=== PATIENT | female | born 1965 | race Caucasian/White ===

== ENCOUNTER 2017-07-21 18:26 | Inpatient (IN) | payer SELFPAY ==
[~2017-07-21] VITALS: Ht 167.6 cm; Wt 75.3 kg
--- NOTE | 2017-07-21 18:34 | PHYS DOC ---
Adult General Chief Complaint Chief Complaint: CHEST PAIN HPI HPI Patient is a 51 year old female who presents with chest pain. She was at [employer] playing [employer] when she became short of breath with right-sided chest pressure and got the chills. She states she felt nauseated slightly but denies any vomiting. She states she has a history of hypertension, diabetes, dyslipidemia, depression and hypothyroidism. She's never had a cardiac workup before. Her mom had a heart attack at age of 65 and had to have stents placed. She does smoke 2 packs per day. She denies any illicit drug abuse. EMS gave her nitro paste and she states this did improve her discomfort. Review of Systems Review of Systems Constitutional: Denies fever or chills [] Eyes: Denies change in visual acuity, redness, or eye pain [] HENT: Denies nasal congestion or sore throat [] Respiratory: Denies cough or shortness of breath [] Cardiovascular: No additional information not addressed in HPI [] GI: Denies abdominal pain, nausea, vomiting, bloody stools or diarrhea [] : Denies dysuria or hematuria [] Musculoskeletal: Denies back pain or joint pain [] Integument: Denies rash or skin lesions [] Neurologic: Denies headache, focal weakness or sensory changes [] Endocrine: Denies polyuria or polydipsia [] All other systems were reviewed and found to be within normal limits, except as documented in this note. Current Medications Current Medications Current Medications Medications (Trade) Dose Ordered Sig/Arnold Start Time Stop Time Status Last Admin Dose Admin Morphine Sulfate 4 mg PRN Q15MIN PRN 07/21/17 19:45 07/22/17 19:44 07/21/17 19:48 4 MG Ondansetron HCl (Zofran) 4 mg 1X ONCE 07/21/17 19:45 07/21/17 19:46 DC 07/21/17 19:47 4 MG Allergies Allergies Allergies Coded Allergies Type Severity Reaction Last Updated Verified No Known Drug Allergies 07/21/17 No Physical Exam Physical Exam Constitutional: Well developed, well nourished, no acute distress, non-toxic appearance. [] HENT: Normocephalic, atraumatic, bilateral external ears normal, oropharynx moist, no oral exudates, nose normal. [] Eyes: PERRLA, EOMI, conjunctiva normal, no discharge. [] Neck: Normal range of motion, no tenderness, supple, no stridor. [] Cardiovascular:Heart rate regular rhythm, no murmur [] Lungs & Thorax: Bilateral breath sounds clear to auscultation [] Abdomen: Bowel sounds normal, soft, no tenderness, no masses, no pulsatile masses. [] Skin: Warm, dry, no erythema, no rash. [] Back: No tenderness, no CVA tenderness. [] Extremities: No tenderness, no cyanosis, no clubbing, ROM intact, no edema. [] Neurologic: Alert and oriented X 3, normal motor function, normal sensory function, no focal deficits noted. [] Psychologic: Affect normal, judgement normal, mood normal. [] Current Patient Data Vital Signs Vital Signs Date Time Temp Pulse Resp B/P (MAP) Pulse Ox O2 Delivery O2 Flow Rate FiO2 07/21/17 20:30 56 106/54 (71) 97 Room Air 07/21/17 18:32 98.3 20 98.3 Lab Values Laboratory Tests Test 07/21/17 18:32 07/21/17 18:33 Sodium Level 138 mmol/L (136-145) Potassium Level 3.8 mmol/L (3.5-5.1) Chloride Level 102 mmol/L (98-107) Carbon Dioxide Level 27 mmol/L (21-32) Anion Gap 9 (6-14) Blood Urea Nitrogen 13 mg/dL (7-20) Creatinine 0.9 mg/dL (0.6-1.0) Estimated GFR (Cockcroft-Gault) 66.3 Glucose Level 198 mg/dL (70-99) H Calcium Level 8.1 mg/dL (8.5-10.1) L Total Bilirubin 0.2 mg/dL (0.2-1.0) Direct Bilirubin < 0.1 mg/dL (0.0-0.2) Aspartate Amino Transferase (AST) 16 U/L (15-37) Alanine Aminotransferase (ALT) 20 U/L (14-59) Alkaline Phosphatase 92 U/L (46-116) Troponin I Quantitative < 0.017 ng/mL (0.000-0.055) YU-Xxt-B-Type Natriuretic Peptide 396 pg/mL (0-124) H Total Protein 7.3 g/dL (6.4-8.2) Albumin 3.7 g/dL (3.4-5.0) Lipase 911 U/L (73-393) H Ethyl Alcohol Level 59 mg/dL (0-10) H White Blood Count 9.2 x10^3/uL (4.0-11.0) Red Blood Count 4.38 x10^6/uL (3.50-5.40) Hemoglobin 13.8 g/dL (12.0-15.5) Hematocrit 40.1 % (36.0-47.0) Mean Corpuscular Volume 92 fL (79-100) Mean Corpuscular Hemoglobin 32 pg (25-35) Mean Corpuscular Hemoglobin Concent 35 g/dL (31-37) Red Cell Distribution Width 12.4 % (11.5-14.5) Platelet Count 258 x10^3/uL (140-400) Neutrophils (%) (Auto) 61 % (31-73) Lymphocytes (%) (Auto) 30 % (24-48) Monocytes (%) (Auto) 7 % (0-9) Eosinophils (%) (Auto) 2 % (0-3) Basophils (%) (Auto) 1 % (0-3) Neutrophils # (Auto) 5.6 x10^3uL (1.8-7.7) Lymphocytes # (Auto) 2.7 x10^3/uL (1.0-4.8) Monocytes # (Auto) 0.6 x10^3/uL (0.0-1.1) Eosinophils # (Auto) 0.2 x10^3/uL (0.0-0.7) Basophils # (Auto) 0.1 x10^3/uL (0.0-0.2) Prothrombin Time 12.1 SEC (11.7-14.0) Prothrombin Time INR 1.0 (0.8-1.1) PTT 23 SEC (24-38) L Creatine Kinase 43 U/L (26-192) Creatine Kinase MB (Mass) ng/mL (0.0-3.6) Creatine Kinase MB Relative Index % (0-4) Laboratory Tests 07/21/17 18:33 Laboratory Tests 07/21/17 18:32 EKG EKG EKG shows sinus rhythm rate [address] elevations, T-wave inversions noted in leads V4 V5 V6, QTC 4 and 49 ms, normal axis, as interpreted by me. Radiology/Procedures Radiology/Procedures One view chest x-ray did not show any focal salt elevations, bony abnormality's , pneumothorax, as interpreted by me.[] Impressions: Chest pain Pancreatitis Course & Med Decision Making Course & Med Decision Making Pertinent Labs and Imaging studies reviewed. (See chart for details) EKG does show T-wave inversions in the lateral leads, she states it feels similar to her previous pancreatitis but just not as severe. She does have alcohol in her system. He was given a full dose aspirin and made nothing by mouth and admitted the hospitalist. We will consult cardiology. She does have Nitropaste on currently. Dragon Disclaimer Dragon Disclaimer This electronic medical record was generated, in whole or in part, using a voice recognition dictation system. Departure Departure Impression: Primary Impression: Chest pain Disposition: ADMITTED INPATIENT Admitting Physician: Bela Carreon Condition: STABLE TREVIN SINCLAIR MD Jul 21, 2017 18:34
[2017-07-21 18:49] LABS: BASO # 0.1 x10^3/uL (0.0-0.2); BASO % 1 % (0-3); EOS % 2 % (0-3); HEMATOCRIT 40.1 % (36.0-47.0); HEMOGLOBIN 13.8 g/dL (12.0-15.5); LYMPH # 2.7 x10^3/uL (1.0-4.8); LYMPH % 30 % (24-48); MEAN CORPUSCULAR HEMOGLOBIN 32 pg (25-35); MEAN CORPUSCULAR HGB CONC 35 g/dL (31-37); MEAN CORPUSCULAR VOLUME 92 fL (79-100); MONO % 7 % (0-9); NEUT % 61 % (31-73); PLATELET COUNT 258 x10^3/uL (140-400); RED BLOOD COUNT 4.38 x10^6/uL (3.50-5.40); RED CELL DISTRIBUTION WIDTH 12.4 % (11.5-14.5); WHITE BLOOD COUNT 9.2 x10^3/uL (4.0-11.0)
[2017-07-21 18:58] LABS: PROTHROMBIN TIME PATIENT 12.1 SEC (11.7-14.0)
[2017-07-21 19:01] LABS: ANION GAP 9 (6-14); BLOOD UREA NITROGEN 13 mg/dL (7-20); CALCIUM 8.1 mg/dL (8.5-10.1); CARBON DIOXIDE 27 mmol/L (21-32); CHLORIDE 102 mmol/L (98-107); CREATININE 0.9 mg/dL (0.6-1.0); GFR 66.3; GLUCOSE 198 mg/dL (70-99); POTASSIUM 3.8 mmol/L (3.5-5.1); SODIUM 138 mmol/L (136-145)
[2017-07-21 19:07] LABS: ALBUMIN 3.7 g/dL (3.4-5.0); ALK PHOS 92 U/L (46-116); ALT (SGPT) 20 U/L (14-59); AST (SGOT) 16 U/L (15-37); DIRECT BILIRUBIN < 0.1 mg/dL (0.0-0.2); TOTAL BILIRUBIN 0.2 mg/dL (0.2-1.0); TOTAL PROTEIN 7.3 g/dL (6.4-8.2)
[2017-07-21 19:14] LABS: CREATINE KINASE 43 U/L (26-192)
--- NOTE | 2017-07-21 19:34 | EKG ---
[facility] [address] [place] [id number] Test Date: 2017-07-21 Test Time: 18:31:35 Pat Name: JERRICA BURNETT Department: Room: Gender: F [employer]: : 1965 Requested By: JAZZMINE HUDDLESTON Order Number: [id number] Reading MD: Measurements Intervals [place] Rate: 62 P: 43 MN: 158 QRS: 27 QRSD: 102 T: 26 QT: 440 QTc: 449 Interpretive Statements SINUS RHYTHM ST & T ABNORMALITY, CONSIDER ANTEROLATERAL ISCHEMIA OR LEFT VENTRICULAR STRAIN T ABNORMALITY IN INFEROLATERAL LEADS ABNORMAL ECG RI6.01 No previous ECG available for comparison
[2017-07-21] MEDS ORDERED: MORPHINE SULFATE 4 MG/ML DISP.SYRIN. IV/SQ PRN (19:45)
[2017-07-21] MEDS ORDERED: ONDANSETRON PF 4 MG/2 ML VIAL. IV ONE (19:45)
[2017-07-21] MEDS ORDERED: ASPIRIN 325 MG TABLET PO ONE (21:30)
[2017-07-21] MEDS ORDERED: ONDANSETRON PF 4 MG/2 ML VIAL. IV PRN (21:30)
[2017-07-21] MEDS ORDERED: IV DEXTROSE 5 %-0.45 % NACL 1,000 ML IV ONE (22:15)
[2017-07-21] MEDS ORDERED: METF500T4 PO (22:15)
[2017-07-21 22:33] VITALS: BP 117/69
[2017-07-21] MEDS: MORPHINE SULFATE 4 MG/ML DISP.SYRIN. IV PRN (22:39)
[2017-07-22 03:09] VITALS: BP 98/62
[2017-07-22 04:54] LABS: BASO % 0 % (0-3); EOS % 2 % (0-3); HEMOGLOBIN 12.7 g/dL (12.0-15.5); LYMPH # 3.4 x10^3/uL (1.0-4.8); LYMPH % 32 % (24-48); MEAN CORPUSCULAR HEMOGLOBIN 31 pg (25-35); MEAN CORPUSCULAR HGB CONC 34 g/dL (31-37); MEAN CORPUSCULAR VOLUME 91 fL (79-100); MONO % 7 % (0-9); NEUT % 58 % (31-73); PLATELET COUNT 234 x10^3/uL (140-400); RED BLOOD COUNT 4.05 x10^6/uL (3.50-5.40); RED CELL DISTRIBUTION WIDTH 12.6 % (11.5-14.5); WHITE BLOOD COUNT 10.4 x10^3/uL (4.0-11.0)
[2017-07-22 05:06] LABS: CALCIUM 7.8 mg/dL (8.5-10.1); GFR 58.7
[2017-07-22 05:11] LABS: POTASSIUM 4.7 mmol/L (3.5-5.1)
[2017-07-22 07:00] VITALS: BP 130/70
[2017-07-22] MEDS: MORPHINE SULFATE 4 MG/ML DISP.SYRIN. IV PRN ×2 (07:53→12:09)
--- NOTE | 2017-07-22 09:10 | PDOC1 ---
History and Physical Date of Admission Date of Admission DATE: 07/22/17 TIME: 08:52 Source Source: Chart review, Patient History of Present Illness History of Present Illness Ms. Cage is a 51 year old female admit with acute chest pain. She was at [employer] playing [employer] when she has cold chills and sweats and then became short of breath with new right-sided chest pressure. Pain was 8 /10, and her pain was improved when the nitro patch was placed in the ER. she had 2 alcoholic drinks at the [employer] She has had an exercise stress test a few years ago, negative. she is hungry this AM. She states she has a history of hypertension, diabetes, dyslipidemia, depression and hypothyroidism. . Her mom had a heart attack at age of 65. Past Medical History Cardiovascular: HTN Pulmonary: No pertinent hx GI: No pertinent hx Heme/Onc: No pertinent hx Hepatobiliary: No pertinent hx Psych: Anxiety, Depression Musculoskeletal: low back pain Social History Smoke: 2 packs per day ALCOHOL: none Drugs: None Current Problem List Problem List Problems Medical Problems: (1) Chest pain Status: Acute Problems: Current Medications Current Medications Current Medications Morphine Sulfate 4 mg PRN Q15MIN PRN IV/SQ PAIN GREATER THAN 3/10 Last administered on 07/21/17 19:48; Start 07/21/17 at 19:45; Stop 07/22/17 at 19 :44 Ondansetron HCl (Zofran) 4 mg 1X ONCE IV Last administered on 07/21/17 19:47 ; Start 07/21/17 at 19:45; Stop 07/21/17 at 19:46; Status DC Ondansetron HCl (Zofran) 4 mg PRN Q8HRS PRN IV NAUSEA/VOMITING; Start at 21:30; Stop 07/22/17 at 21:29 Morphine Sulfate 4 mg PRN Q2HR PRN IV PAIN Last administered on 07/22/17 07: 53; Start 07/21/17 at 21:30; Stop 07/22/17 at 21:29 Aspirin (Mikaela Aspirin) 325 mg 1X ONCE PO Last administered on 07/21/17 21: 30; Start 07/21/17 at 21:30; Stop 07/21/17 at 21:43; Status DC Dextrose/Sodium Chloride 1,000 ml @ 100 mls/hr 1X ONCE IV Last administered on 07/21/17t 22:39; Start 07/21/17 at 22:15; Stop 07/22/17 at 08:14; Status DC Active Scripts Active Reported Metformin Hcl 500 Mg Tablet 500 Mg PO DAILY Allergies Allergies: Coded Allergies: No Known Drug Allergies (Unverified , 07/21/17) ROS General: YES: Chills, No: Night Sweats, Fatigue, Malaise, Appetite, Other PSYCHOLOGICAL ROS: No: Anxiety, Behavioral Disorder, Concentration difficultie , Decreased libido, Depression, Disorientation, Hallucinations, Hostility, Irritablity, Memory difficulties, Mood Swings, Obsessive thoughts, Physical abuse, Sexual abuse, Sleep disturbances, Suicidal ideation, Other Eyes: No Blurry vision, No Decreased vision, No Double vision, No Dry eyes, No Excessive tearing, No Eye Pain, No Itchy Eyes, No Loss of vision, No Photophobia , No Scotomata, No Uses contacts, No Uses glasses, No Other HEENT: No: Heacaches, Visual Changes, Hearing change, Nasal congestion, Nasal discharge, Oral lesions, Sinus pain, Sore Throat, Epistaxis, Sneezing, Snoring, Tinnitus, Vertigo, Vocal changes, Other Respiratory: No: Cough, Hemoptysis, Orthopnea, Pleuritic Pain, Shortness of breath, SOB with excertion, Sputum Changes, Stridor, Tachypnea, Wheezing, Other Cardiovascular: yes Chest Pain, No Palpitations, No Orthopnea, No Paroxysmal Noc. Dyspnea, No Edema, No Lt Headedness, No Other Gastrointestinal: No Nausea, No Vomiting, No Abdominal Pain, No Diarrhea, No Constipation, No Melena, No Hematochezia, No Other Genitourinary: No Dysuria, No Frequency, No Incontinence, No Hematuria, No Retention, No Discharge, No Urgency, No Pain, No Flank Pain, No Other, No , No , No , No , No , No , No Musculoskeletal: No Gait Disturbance, No Joint Pain, No Joint Stiffness, No Joint Swelling, No Muscle Pain, No Muscular Weakness, No Pain In:, No Swelling In:, No Other Neurological: No Behavorial Changes, No Bowel/Bladder ControlChng, No Confusion , No Dizziness, No Gait Disturbance, No Headaches, No Impaired Coord/balance, No Memory Loss, No Numbness/Tingling, No Seizures, No Speech Problems, No Tremors, No Visual Changes, No Weakness, No Other Skin: Yes Dry Skin, No Eczema, No Hair Changes, No Lumps, No Mole Changes, No Mottling, No Nail Changes, No Pruritus, No Rash, No Skin Lesion Changes, No Other, No Acne Physical Exam General: Alert, Oriented X3, Cooperative HEENT: Atraumatic, EOMI, Mucous membr. moist/pink Lungs: Clear to auscultation, Normal air movement Heart: no gallops, no murmurs Extremities: No clubbing, No edema, Normal pulses Skin: No breakdown Neuro: Normal speech, Sensation intact, Cranial nerves 3-12 NL Psych/Mental Status: Mental status NL, Mood NL Vitals Vitals Vital Signs Date Time Temp Pulse Resp B/P (MAP) Pulse Ox O2 Delivery O2 Flow Rate FiO2 07/22/17 07:53 Room Air 07/22/17 07:00 98.2 53 20 130/70 (90) 98 98.2 Labs Labs Laboratory Tests Test 07/21/17 18:32 07/21/17 18:33 07/21/17 22:33 07/22/17 03:30 Sodium Level 138 mmol/L (136-145) 137 mmol/L (136-145) Potassium Level 3.8 mmol/L (3.5-5.1) 4.7 mmol/L (3.5-5.1) Chloride Level 102 mmol/L (98-107) 102 mmol/L (98-107) Carbon Dioxide Level 27 mmol/L (21-32) 27 mmol/L (21-32) Anion Gap 9 (6-14) 8 (6-14) Blood Urea Nitrogen 13 mg/dL (7-20) 19 mg/dL (7-20) Creatinine 0.9 mg/dL (0.6-1.0) 1.0 mg/dL (0.6-1.0) Estimated GFR (Cockcroft-Gault) 66.3 58.7 Glucose Level 198 mg/dL (70-99) 263 mg/dL (70-99) Calcium Level 8.1 mg/dL (8.5-10.1) 7.8 mg/dL (8.5-10.1) Total Bilirubin 0.2 mg/dL (0.2-1.0) Direct Bilirubin < 0.1 mg/dL (0.0-0.2) Aspartate Amino Transf (AST/SGOT) 16 U/L (15-37) Alanine Aminotransferase (ALT/SGPT) 20 U/L (14-59) Alkaline Phosphatase 92 U/L (46-116) Troponin I Quantitative < 0.017 ng/mL (0.000-0.055) < 0.017 ng/mL (0.000-0.055) IY-Jzy-S-Type Natriuretic Peptide 396 pg/mL (0-124) Total Protein 7.3 g/dL (6.4-8.2) Albumin 3.7 g/dL (3.4-5.0) Lipase 911 U/L (73-393) Ethyl Alcohol Level 59 mg/dL (0-10) White Blood Count 9.2 x10^3/uL (4.0-11.0) 10.4 x10^3/uL (4.0-11.0) Red Blood Count 4.38 x10^6/uL (3.50-5.40) 4.05 x10^6/uL (3.50-5.40) Hemoglobin 13.8 g/dL (12.0-15.5) 12.7 g/dL (12.0-15.5) Hematocrit 40.1 % (36.0-47.0) 37.0 % (36.0-47.0) Mean Corpuscular Volume 92 fL (79-100) 91 fL (79-100) Mean Corpuscular Hemoglobin 32 pg (25-35) 31 pg (25-35) Mean Corpuscular Hemoglobin Concent 35 g/dL (31-37) 34 g/dL (31-37) Red Cell Distribution Width 12.4 % (11.5-14.5) 12.6 % (11.5-14.5) Platelet Count 258 x10^3/uL (140-400) 234 x10^3/uL (140-400) Neutrophils (%) (Auto) 61 % (31-73) 58 % (31-73) Lymphocytes (%) (Auto) 30 % (24-48) 32 % (24-48) Monocytes (%) (Auto) 7 % (0-9) 7 % (0-9) Eosinophils (%) (Auto) 2 % (0-3) 2 % (0-3) Basophils (%) (Auto) 1 % (0-3) 0 % (0-3) Neutrophils # (Auto) 5.6 x10^3uL (1.8-7.7) 6.0 x10^3uL (1.8-7.7) Lymphocytes # (Auto) 2.7 x10^3/uL (1.0-4.8) 3.4 x10^3/uL (1.0-4.8) Monocytes # (Auto) 0.6 x10^3/uL (0.0-1.1) 0.8 x10^3/uL (0.0-1.1) Eosinophils # (Auto) 0.2 x10^3/uL (0.0-0.7) 0.2 x10^3/uL (0.0-0.7) Basophils # (Auto) 0.1 x10^3/uL (0.0-0.2) 0.0 x10^3/uL (0.0-0.2) Prothrombin Time 12.1 SEC (11.7-14.0) Prothromb Time International Ratio 1.0 (0.8-1.1) Activated Partial Thromboplast Time 23 SEC (24-38) Creatine Kinase 43 U/L (26-192) Creatine Kinase MB (Mass) ng/mL (0.0-3.6) Creatine Kinase MB Relative Index % (0-4) Glucose (Fingerstick) 154 mg/dL (70-99) Laboratory Tests Test 07/21/17 18:32 07/21/17 18:33 07/21/17 22:33 07/22/17 03:30 Sodium Level 138 mmol/L (136-145) 137 mmol/L (136-145) Potassium Level 3.8 mmol/L (3.5-5.1) 4.7 mmol/L (3.5-5.1) Chloride Level 102 mmol/L (98-107) 102 mmol/L (98-107) Carbon Dioxide Level 27 mmol/L (21-32) 27 mmol/L (21-32) Anion Gap 9 (6-14) 8 (6-14) Blood Urea Nitrogen 13 mg/dL (7-20) 19 mg/dL (7-20) Creatinine 0.9 mg/dL (0.6-1.0) 1.0 mg/dL (0.6-1.0) Estimated GFR (Cockcroft-Gault) 66.3 58.7 Glucose Level 198 mg/dL (70-99) 263 mg/dL (70-99) Calcium Level 8.1 mg/dL (8.5-10.1) 7.8 mg/dL (8.5-10.1) Total Bilirubin 0.2 mg/dL (0.2-1.0) Direct Bilirubin < 0.1 mg/dL (0.0-0.2) Aspartate Amino Transf (AST/SGOT) 16 U/L (15-37) Alanine Aminotransferase (ALT/SGPT) 20 U/L (14-59) Alkaline Phosphatase 92 U/L (46-116) Troponin I Quantitative < 0.017 ng/mL (0.000-0.055) < 0.017 ng/mL (0.000-0.055) DV-Hab-V-Type Natriuretic Peptide 396 pg/mL (0-124) Total Protein 7.3 g/dL (6.4-8.2) Albumin 3.7 g/dL (3.4-5.0) Lipase 911 U/L (73-393) Ethyl Alcohol Level 59 mg/dL (0-10) White Blood Count 9.2 x10^3/uL (4.0-11.0) 10.4 x10^3/uL (4.0-11.0) Red Blood Count 4.38 x10^6/uL (3.50-5.40) 4.05 x10^6/uL (3.50-5.40) Hemoglobin 13.8 g/dL (12.0-15.5) 12.7 g/dL (12.0-15.5) Hematocrit 40.1 % (36.0-47.0) 37.0 % (36.0-47.0) Mean Corpuscular Volume 92 fL (79-100) 91 fL (79-100) Mean Corpuscular Hemoglobin 32 pg (25-35) 31 pg (25-35) Mean Corpuscular Hemoglobin Concent 35 g/dL (31-37) 34 g/dL (31-37) Red Cell Distribution Width 12.4 % (11.5-14.5) 12.6 % (11.5-14.5) Platelet Count 258 x10^3/uL (140-400) 234 x10^3/uL (140-400) Neutrophils (%) (Auto) 61 % (31-73) 58 % (31-73) Lymphocytes (%) (Auto) 30 % (24-48) 32 % (24-48) Monocytes (%) (Auto) 7 % (0-9) 7 % (0-9) Eosinophils (%) (Auto) 2 % (0-3) 2 % (0-3) Basophils (%) (Auto) 1 % (0-3) 0 % (0-3) Neutrophils # (Auto) 5.6 x10^3uL (1.8-7.7) 6.0 x10^3uL (1.8-7.7) Lymphocytes # (Auto) 2.7 x10^3/uL (1.0-4.8) 3.4 x10^3/uL (1.0-4.8) Monocytes # (Auto) 0.6 x10^3/uL (0.0-1.1) 0.8 x10^3/uL (0.0-1.1) Eosinophils # (Auto) 0.2 x10^3/uL (0.0-0.7) 0.2 x10^3/uL (0.0-0.7) Basophils # (Auto) 0.1 x10^3/uL (0.0-0.2) 0.0 x10^3/uL (0.0-0.2) Prothrombin Time 12.1 SEC (11.7-14.0) Prothromb Time International Ratio 1.0 (0.8-1.1) Activated Partial Thromboplast Time 23 SEC (24-38) Creatine Kinase 43 U/L (26-192) Creatine Kinase MB (Mass) ng/mL (0.0-3.6) Creatine Kinase MB Relative Index % (0-4) Glucose (Fingerstick) 154 mg/dL (70-99) VTE Prophylaxis Ordered VTE Prophylaxis Devices: Yes VTE Pharmacological Prophylaxi: No Assessment/Plan Assessment/Plan chest pain with pressure, and chills, no diaphoresis, pain improved with Nitro, consider angina ALso, lipase elevation with moderate alcohol use. Acute pancreatitis, recommend EtOH cessation NPO this AM, biotene, IV fluid tobaccoism, precontemplation, due to psych issues anxiety and depression, she is trying to qualify for disability for these HARMAN CARTER MD Jul 22, 2017 09:10
[2017-07-22] MEDS ORDERED: SALIVA STIMULANT AGENT 44ML SPRAY BOTTLE. PO PRN (09:15)
[2017-07-22] MEDS ORDERED: NICOTINE 21MG PATCH. TD PRN (09:15)
[2017-07-22] MEDS ORDERED: IV 1/2 NORMAL SALINE 1,000 ML IV ONE (09:30)
--- NOTE | 2017-07-22 09:37 | RAD ---
Single view chest 07/21/2017 Clinical indication: Chest pain. Comparison: None. Findings: There is a faint nodular opacity in the right lung base. Cardiac and mediastinal silhouettes are unremarkable. No pleural effusion, pneumothorax or focal consolidation. Impression: 1. No acute cardiopulmonary abnormality. 2. Faint nodular opacity in the right lung base which may represent nipple shadow, though noncalcified pulmonary nodule cannot be excluded. Recommend repeat exam with nipple markers or CT chest. These results were discussed with Dr. Bryant of the emergency service by telephone at 9:30 AM 07/22/[address] Martin Mejia
[2017-07-22 09:51] LABS: CHOLESTEROL/HDL RATIO 5.2
--- NOTE | 2017-07-22 10:02 | RAD ---
Ultrasound abdomen limited 07/22/2017 Clinical indication: Pancreatitis. Comparison: None. Findings: Adjacent to the pancreatic body, there is a cyst with internal debris measuring 3.5 x 3.5 x 2.8 cm. Gallbladder is normal in size and configuration without wall thickening, cholelithiasis or pericholecystic fluid. Visualized abdominal aorta and upper IVC unremarkable. Liver is homogeneous in echotexture without suspicious mass. No intra or extrahepatic biliary ductal dilatation. Common bile duct measures 7 mm. Right kidney is present measuring 10.4 cm without collecting system dilatation. Impression: 1. Pancreatic/peripancreatic cystic structure with internal debris. While findings may represent a pancreatic pseudocyst, cystic malignancy cannot be excluded. CT or MR pancreatic protocol is recommended for further evaluation. 2. No sonographic evidence of cholelithiasis or acute cholecystitis.
[2017-07-22 11:00] VITALS: BP 101/54
--- NOTE | 2017-07-22 15:12 | PDOC2 ---
CONSULT Date of Consult Date of Consult DATE: 07/22/17 TIME: 15:06 Reason for Consult Reason for Consult: Chest pain Referring Physician Referring Physician: Dr. Carreon Identification/Chief Complaint Chief Complaint Chest pain Problems: Source Source: Patient History of Present Illness Reason for Visit: The patient is a 51-year-old female who developed chest pressure and shortness of breath and a local casino last evening. She also reported some nausea. She was brought to the emergency room. There the patient's initial troponin was normal. Her EKG showed sinus rhythm with some nonspecific lateral ST changes. She has felt better overnight and this morning reports being pain-free. A second troponin level was normal. Chest x-ray shows no acute changes. However the patient has multiple risk factors including hypertension, hyperlipidemia and diabetes mellitus. She is a 2 pack per day smoker. Her mother had a myocardial infarction at age 65. Past Medical History Cardiovascular: HTN, Hyperlipidemia Pulmonary: No pertinent hx GI: No pertinent hx Heme/Onc: No pertinent hx Hepatobiliary: No pertinent hx Psych: Anxiety, Depression Musculoskeletal: low back pain Endocrine: Diabetes Past Surgical History Past Surgical History: No pertinent history Family History Family History: Coronary Artery Disease, Heart Disease Social History 2 packs per day ALCOHOL: other (possible relatively heavy alcohol use) Drugs: None Current Problem List Problem List Problems Medical Problems: (1) Chest pain Status: Acute Current Medications Current Medications Current Medications Morphine Sulfate 4 mg PRN Q15MIN PRN IV/SQ PAIN GREATER THAN 3/10 Last administered on 07/21/17 19:48; Start 07/21/17 at 19:45; Stop 07/22/17 at 14 :29; Status DC Ondansetron HCl (Zofran) 4 mg 1X ONCE IV Last administered on 07/21/17 19:47 ; Start 07/21/17 at 19:45; Stop 07/21/17 at 19:46; Status DC Ondansetron HCl (Zofran) 4 mg PRN Q8HRS PRN IV NAUSEA/VOMITING; Start at 21:30; Stop 07/22/17 at 14:29; Status DC Morphine Sulfate 4 mg PRN Q2HR PRN IV PAIN Last administered on 07/22/17 12: 09; Start 07/21/17 at 21:30; Stop 07/22/17 at 14:29; Status DC Aspirin (Mikaela Aspirin) 325 mg 1X ONCE PO Last administered on 07/21/17 21: 30; Start 07/21/17 at 21:30; Stop 07/21/17 at 21:43; Status DC Dextrose/Sodium Chloride 1,000 ml @ 100 mls/hr 1X ONCE IV Last administered on 07/21/17 22:39; Start 07/21/17 at 22:15; Stop 07/22/17 at 08:14; Status DC Lorazepam (Ativan) 1 mg PRN Q4HRS PRN IV ANXIETY / AGITATION; Start 07/22/17 at 09:15; Stop 07/22/17 at 14:29; Status DC Sodium Chloride 1,000 ml @ 100 mls/hr 1X ONCE IV Last administered on 10:42; Start 07/22/17 at 09:30; Stop 07/22/17 at 14:29; Status DC Saliva Substitute (Biotene Moisturizing Mouth) 2 spray PRN Q15MIN PRN PO DRY MOUTH; Start 07/22/17 at 09:15; Stop 07/22/17 at 14:29; Status DC Nicotine (Nicoderm Cq 21mg) 1 patch PRN DAILY PRN TD SMOKING CESSATION; Start 07/22/17 at 09:15; Stop 07/22/17 at 14:29; Status DC Active Scripts Active Reported Metformin Hcl 500 Mg Tablet 500 Mg PO DAILY Allergies Allergies: Coded Allergies: No Known Drug Allergies (Unverified , 07/21/17) ROS Respiratory: YES: Shortness of breath, SOB with excertion Cardiovascular: yes Chest Pain Physical Exam General: No acute distress HEENT: Atraumatic Lungs: Clear to auscultation Heart: Regular rate Abdomen: Normal bowel sounds Vitals VITALS Vital Signs Date Time Temp Pulse Resp B/P (MAP) Pulse Ox O2 Delivery O2 Flow Rate FiO2 07/22/17 12:39 Room Air 07/22/17 11:00 98.4 54 18 101/54 (70) 95 98.4 Labs Labs Laboratory Tests Test 07/21/17 18:32 07/21/17 18:33 07/21/17 22:33 07/22/17 03:30 Sodium Level 138 mmol/L (136-145) 137 mmol/L (136-145) Potassium Level 3.8 mmol/L (3.5-5.1) 4.7 mmol/L (3.5-5.1) Chloride Level 102 mmol/L (98-107) 102 mmol/L (98-107) Carbon Dioxide Level 27 mmol/L (21-32) 27 mmol/L (21-32) Anion Gap 9 (6-14) 8 (6-14) Blood Urea Nitrogen 13 mg/dL (7-20) 19 mg/dL (7-20) Creatinine 0.9 mg/dL (0.6-1.0) 1.0 mg/dL (0.6-1.0) Estimated GFR (Cockcroft-Gault) 66.3 58.7 Glucose Level 198 mg/dL (70-99) 263 mg/dL (70-99) Calcium Level 8.1 mg/dL (8.5-10.1) 7.8 mg/dL (8.5-10.1) Total Bilirubin 0.2 mg/dL (0.2-1.0) Direct Bilirubin < 0.1 mg/dL (0.0-0.2) Aspartate Amino Transf (AST/SGOT) 16 U/L (15-37) Alanine Aminotransferase (ALT/SGPT) 20 U/L (14-59) Alkaline Phosphatase 92 U/L (46-116) Troponin I Quantitative < 0.017 ng/mL (0.000-0.055) < 0.017 ng/mL (0.000-0.055) SG-Aky-P-Type Natriuretic Peptide 396 pg/mL (0-124) Total Protein 7.3 g/dL (6.4-8.2) Albumin 3.7 g/dL (3.4-5.0) Lipase 911 U/L (73-393) Ethyl Alcohol Level 59 mg/dL (0-10) White Blood Count 9.2 x10^3/uL (4.0-11.0) 10.4 x10^3/uL (4.0-11.0) Red Blood Count 4.38 x10^6/uL (3.50-5.40) 4.05 x10^6/uL (3.50-5.40) Hemoglobin 13.8 g/dL (12.0-15.5) 12.7 g/dL (12.0-15.5) Hematocrit 40.1 % (36.0-47.0) 37.0 % (36.0-47.0) Mean Corpuscular Volume 92 fL (79-100) 91 fL (79-100) Mean Corpuscular Hemoglobin 32 pg (25-35) 31 pg (25-35) Mean Corpuscular Hemoglobin Concent 35 g/dL (31-37) 34 g/dL (31-37) Red Cell Distribution Width 12.4 % (11.5-14.5) 12.6 % (11.5-14.5) Platelet Count 258 x10^3/uL (140-400) 234 x10^3/uL (140-400) Neutrophils (%) (Auto) 61 % (31-73) 58 % (31-73) Lymphocytes (%) (Auto) 30 % (24-48) 32 % (24-48) Monocytes (%) (Auto) 7 % (0-9) 7 % (0-9) Eosinophils (%) (Auto) 2 % (0-3) 2 % (0-3) Basophils (%) (Auto) 1 % (0-3) 0 % (0-3) Neutrophils # (Auto) 5.6 x10^3uL (1.8-7.7) 6.0 x10^3uL (1.8-7.7) Lymphocytes # (Auto) 2.7 x10^3/uL (1.0-4.8) 3.4 x10^3/uL (1.0-4.8) Monocytes # (Auto) 0.6 x10^3/uL (0.0-1.1) 0.8 x10^3/uL (0.0-1.1) Eosinophils # (Auto) 0.2 x10^3/uL (0.0-0.7) 0.2 x10^3/uL (0.0-0.7) Basophils # (Auto) 0.1 x10^3/uL (0.0-0.2) 0.0 x10^3/uL (0.0-0.2) Prothrombin Time 12.1 SEC (11.7-14.0) Prothromb Time International Ratio 1.0 (0.8-1.1) Activated Partial Thromboplast Time 23 SEC (24-38) Creatine Kinase 43 U/L (26-192) Creatine Kinase MB (Mass) ng/mL (0.0-3.6) Creatine Kinase MB Relative Index % (0-4) Glucose (Fingerstick) 154 mg/dL (70-99) Test 07/22/17 09:18 Troponin I Quantitative < 0.017 ng/mL (0.000-0.055) Triglycerides Level 291 mg/dL (0-150) Cholesterol Level 223 mg/dL (0-200) LDL Cholesterol, Calculated 122 mg/dL (0-100) VLDL Cholesterol, Calculated 58 mg/dL (0-40) Non-HDL Cholesterol Calculated 180 mg/dL (0-129) HDL Cholesterol 43 mg/dL (40-60) Cholesterol/HDL Ratio 5.2 Laboratory Tests Test 07/21/17 18:32 07/21/17 18:33 07/21/17 22:33 07/22/17 03:30 Sodium Level 138 mmol/L (136-145) 137 mmol/L (136-145) Potassium Level 3.8 mmol/L (3.5-5.1) 4.7 mmol/L (3.5-5.1) Chloride Level 102 mmol/L (98-107) 102 mmol/L (98-107) Carbon Dioxide Level 27 mmol/L (21-32) 27 mmol/L (21-32) Anion Gap 9 (6-14) 8 (6-14) Blood Urea Nitrogen 13 mg/dL (7-20) 19 mg/dL (7-20) Creatinine 0.9 mg/dL (0.6-1.0) 1.0 mg/dL (0.6-1.0) Estimated GFR (Cockcroft-Gault) 66.3 58.7 Glucose Level 198 mg/dL (70-99) 263 mg/dL (70-99) Calcium Level 8.1 mg/dL (8.5-10.1) 7.8 mg/dL (8.5-10.1) Total Bilirubin 0.2 mg/dL (0.2-1.0) Direct Bilirubin < 0.1 mg/dL (0.0-0.2) Aspartate Amino Transf (AST/SGOT) 16 U/L (15-37) Alanine Aminotransferase (ALT/SGPT) 20 U/L (14-59) Alkaline Phosphatase 92 U/L (46-116) Troponin I Quantitative < 0.017 ng/mL (0.000-0.055) < 0.017 ng/mL (0.000-0.055) PS-Kji-R-Type Natriuretic Peptide 396 pg/mL (0-124) Total Protein 7.3 g/dL (6.4-8.2) Albumin 3.7 g/dL (3.4-5.0) Lipase 911 U/L (73-393) Ethyl Alcohol Level 59 mg/dL (0-10) White Blood Count 9.2 x10^3/uL (4.0-11.0) 10.4 x10^3/uL (4.0-11.0) Red Blood Count 4.38 x10^6/uL (3.50-5.40) 4.05 x10^6/uL (3.50-5.40) Hemoglobin 13.8 g/dL (12.0-15.5) 12.7 g/dL (12.0-15.5) Hematocrit 40.1 % (36.0-47.0) 37.0 % (36.0-47.0) Mean Corpuscular Volume 92 fL (79-100) 91 fL (79-100) Mean Corpuscular Hemoglobin 32 pg (25-35) 31 pg (25-35) Mean Corpuscular Hemoglobin Concent 35 g/dL (31-37) 34 g/dL (31-37) Red Cell Distribution Width 12.4 % (11.5-14.5) 12.6 % (11.5-14.5) Platelet Count 258 x10^3/uL (140-400) 234 x10^3/uL (140-400) Neutrophils (%) (Auto) 61 % (31-73) 58 % (31-73) Lymphocytes (%) (Auto) 30 % (24-48) 32 % (24-48) Monocytes (%) (Auto) 7 % (0-9) 7 % (0-9) Eosinophils (%) (Auto) 2 % (0-3) 2 % (0-3) Basophils (%) (Auto) 1 % (0-3) 0 % (0-3) Neutrophils # (Auto) 5.6 x10^3uL (1.8-7.7) 6.0 x10^3uL (1.8-7.7) Lymphocytes # (Auto) 2.7 x10^3/uL (1.0-4.8) 3.4 x10^3/uL (1.0-4.8) Monocytes # (Auto) 0.6 x10^3/uL (0.0-1.1) 0.8 x10^3/uL (0.0-1.1) Eosinophils # (Auto) 0.2 x10^3/uL (0.0-0.7) 0.2 x10^3/uL (0.0-0.7) Basophils # (Auto) 0.1 x10^3/uL (0.0-0.2) 0.0 x10^3/uL (0.0-0.2) Prothrombin Time 12.1 SEC (11.7-14.0) Prothromb Time International Ratio 1.0 (0.8-1.1) Activated Partial Thromboplast Time 23 SEC (24-38) Creatine Kinase 43 U/L (26-192) Creatine Kinase MB (Mass) ng/mL (0.0-3.6) Creatine Kinase MB Relative Index % (0-4) Glucose (Fingerstick) 154 mg/dL (70-99) Test 07/22/17 09:18 Troponin I Quantitative < 0.017 ng/mL (0.000-0.055) Triglycerides Level 291 mg/dL (0-150) Cholesterol Level 223 mg/dL (0-200) LDL Cholesterol, Calculated 122 mg/dL (0-100) VLDL Cholesterol, Calculated 58 mg/dL (0-40) Non-HDL Cholesterol Calculated 180 mg/dL (0-129) HDL Cholesterol 43 mg/dL (40-60) Cholesterol/HDL Ratio 5.2 Images Images Chest x-ray shows no acute changes. Assessment/Plan Assessment/Plan 1. Chest pain. Pain has resolved. Troponin has been normal 2. EKG shows lateral nonspecific ST-T wave changes. Patient is comfortable at this time. However she has multiple risk factors for coronary disease. In this time will continue present medications and proceed with MPI testing in the morning. This was discussed with the patient and her family. 2. Hypertension. We'll continue on present medications. 3. Reported hyperlipidemia. We'll check lab testing in the morning. 4. Diabetes mellitus. As per the primary service. 5. Tobacco abuse at 2 packs per day. This was discussed with the patient. Thank you for allowing us to participate in the care of your patient. FIFI COMBS MD Jul 22, 2017 15:12
--- NOTE | 2017-07-22 15:56 | PDOC3 ---
Discharge Summary Visit Information Date of Admission: Jul 21, 2017 Date of Discharge: Jul 22, 2017 Final Diagnosis 1. Chest pain. angina 2. Hypertension. 3. hyperlipidemia. 4. Diabetes mellitus. 5. Tobacco abuse disorder 6. anxiety d/o NOS Problems Medical Problems: (1) Chest pain Status: Acute Brief Hospital Course Allergies Allergies Coded Allergies Type Severity Reaction Last Updated Verified No Known Drug Allergies 07/21/17 No Vital Signs Vital Signs Date Time Temp Pulse Resp B/P (MAP) Pulse Ox O2 Delivery O2 Flow Rate FiO2 07/22/17 12:39 Room Air 07/22/17 11:00 98.4 54 18 101/54 (70) 95 98.4 Lab Results Laboratory Tests Test 07/21/17 18:32 07/21/17 18:33 07/21/17 22:33 07/22/17 03:30 Sodium Level 138 mmol/L (136-145) 137 mmol/L (136-145) Potassium Level 3.8 mmol/L (3.5-5.1) 4.7 mmol/L (3.5-5.1) Chloride Level 102 mmol/L (98-107) 102 mmol/L (98-107) Carbon Dioxide Level 27 mmol/L (21-32) 27 mmol/L (21-32) Anion Gap 9 (6-14) 8 (6-14) Blood Urea Nitrogen 13 mg/dL (7-20) 19 mg/dL (7-20) Creatinine 0.9 mg/dL (0.6-1.0) 1.0 mg/dL (0.6-1.0) Estimated GFR (Cockcroft-Gault) 66.3 58.7 Glucose Level 198 mg/dL (70-99) 263 mg/dL (70-99) Calcium Level 8.1 mg/dL (8.5-10.1) 7.8 mg/dL (8.5-10.1) Total Bilirubin 0.2 mg/dL (0.2-1.0) Direct Bilirubin < 0.1 mg/dL (0.0-0.2) Aspartate Amino Transf (AST/SGOT) 16 U/L (15-37) Alanine Aminotransferase (ALT/SGPT) 20 U/L (14-59) Alkaline Phosphatase 92 U/L (46-116) Troponin I Quantitative < 0.017 ng/mL (0.000-0.055) < 0.017 ng/mL (0.000-0.055) SS-Dpj-V-Type Natriuretic Peptide 396 pg/mL (0-124) Total Protein 7.3 g/dL (6.4-8.2) Albumin 3.7 g/dL (3.4-5.0) Lipase 911 U/L (73-393) Ethyl Alcohol Level 59 mg/dL (0-10) White Blood Count 9.2 x10^3/uL (4.0-11.0) 10.4 x10^3/uL (4.0-11.0) Red Blood Count 4.38 x10^6/uL (3.50-5.40) 4.05 x10^6/uL (3.50-5.40) Hemoglobin 13.8 g/dL (12.0-15.5) 12.7 g/dL (12.0-15.5) Hematocrit 40.1 % (36.0-47.0) 37.0 % (36.0-47.0) Mean Corpuscular Volume 92 fL (79-100) 91 fL (79-100) Mean Corpuscular Hemoglobin 32 pg (25-35) 31 pg (25-35) Mean Corpuscular Hemoglobin Concent 35 g/dL (31-37) 34 g/dL (31-37) Red Cell Distribution Width 12.4 % (11.5-14.5) 12.6 % (11.5-14.5) Platelet Count 258 x10^3/uL (140-400) 234 x10^3/uL (140-400) Neutrophils (%) (Auto) 61 % (31-73) 58 % (31-73) Lymphocytes (%) (Auto) 30 % (24-48) 32 % (24-48) Monocytes (%) (Auto) 7 % (0-9) 7 % (0-9) Eosinophils (%) (Auto) 2 % (0-3) 2 % (0-3) Basophils (%) (Auto) 1 % (0-3) 0 % (0-3) Neutrophils # (Auto) 5.6 x10^3uL (1.8-7.7) 6.0 x10^3uL (1.8-7.7) Lymphocytes # (Auto) 2.7 x10^3/uL (1.0-4.8) 3.4 x10^3/uL (1.0-4.8) Monocytes # (Auto) 0.6 x10^3/uL (0.0-1.1) 0.8 x10^3/uL (0.0-1.1) Eosinophils # (Auto) 0.2 x10^3/uL (0.0-0.7) 0.2 x10^3/uL (0.0-0.7) Basophils # (Auto) 0.1 x10^3/uL (0.0-0.2) 0.0 x10^3/uL (0.0-0.2) Prothrombin Time 12.1 SEC (11.7-14.0) Prothromb Time International Ratio 1.0 (0.8-1.1) Activated Partial Thromboplast Time 23 SEC (24-38) Creatine Kinase 43 U/L (26-192) Creatine Kinase MB (Mass) ng/mL (0.0-3.6) Creatine Kinase MB Relative Index % (0-4) Glucose (Fingerstick) 154 mg/dL (70-99) Test 07/22/17 09:18 Troponin I Quantitative < 0.017 ng/mL (0.000-0.055) Triglycerides Level 291 mg/dL (0-150) Cholesterol Level 223 mg/dL (0-200) LDL Cholesterol, Calculated 122 mg/dL (0-100) VLDL Cholesterol, Calculated 58 mg/dL (0-40) Non-HDL Cholesterol Calculated 180 mg/dL (0-129) HDL Cholesterol 43 mg/dL (40-60) Cholesterol/HDL Ratio 5.2 Laboratory Tests Test 07/21/17 18:32 07/21/17 18:33 07/21/17 22:33 07/22/17 03:30 Sodium Level 138 mmol/L (136-145) 137 mmol/L (136-145) Potassium Level 3.8 mmol/L (3.5-5.1) 4.7 mmol/L (3.5-5.1) Chloride Level 102 mmol/L (98-107) 102 mmol/L (98-107) Carbon Dioxide Level 27 mmol/L (21-32) 27 mmol/L (21-32) Anion Gap 9 (6-14) 8 (6-14) Blood Urea Nitrogen 13 mg/dL (7-20) 19 mg/dL (7-20) Creatinine 0.9 mg/dL (0.6-1.0) 1.0 mg/dL (0.6-1.0) Estimated GFR (Cockcroft-Gault) 66.3 58.7 Glucose Level 198 mg/dL (70-99) 263 mg/dL (70-99) Calcium Level 8.1 mg/dL (8.5-10.1) 7.8 mg/dL (8.5-10.1) Total Bilirubin 0.2 mg/dL (0.2-1.0) Direct Bilirubin < 0.1 mg/dL (0.0-0.2) Aspartate Amino Transf (AST/SGOT) 16 U/L (15-37) Alanine Aminotransferase (ALT/SGPT) 20 U/L (14-59) Alkaline Phosphatase 92 U/L (46-116) Troponin I Quantitative < 0.017 ng/mL (0.000-0.055) < 0.017 ng/mL (0.000-0.055) VG-Cuu-O-Type Natriuretic Peptide 396 pg/mL (0-124) Total Protein 7.3 g/dL (6.4-8.2) Albumin 3.7 g/dL (3.4-5.0) Lipase 911 U/L (73-393) Ethyl Alcohol Level 59 mg/dL (0-10) White Blood Count 9.2 x10^3/uL (4.0-11.0) 10.4 x10^3/uL (4.0-11.0) Red Blood Count 4.38 x10^6/uL (3.50-5.40) 4.05 x10^6/uL (3.50-5.40) Hemoglobin 13.8 g/dL (12.0-15.5) 12.7 g/dL (12.0-15.5) Hematocrit 40.1 % (36.0-47.0) 37.0 % (36.0-47.0) Mean Corpuscular Volume 92 fL (79-100) 91 fL (79-100) Mean Corpuscular Hemoglobin 32 pg (25-35) 31 pg (25-35) Mean Corpuscular Hemoglobin Concent 35 g/dL (31-37) 34 g/dL (31-37) Red Cell Distribution Width 12.4 % (11.5-14.5) 12.6 % (11.5-14.5) Platelet Count 258 x10^3/uL (140-400) 234 x10^3/uL (140-400) Neutrophils (%) (Auto) 61 % (31-73) 58 % (31-73) Lymphocytes (%) (Auto) 30 % (24-48) 32 % (24-48) Monocytes (%) (Auto) 7 % (0-9) 7 % (0-9) Eosinophils (%) (Auto) 2 % (0-3) 2 % (0-3) Basophils (%) (Auto) 1 % (0-3) 0 % (0-3) Neutrophils # (Auto) 5.6 x10^3uL (1.8-7.7) 6.0 x10^3uL (1.8-7.7) Lymphocytes # (Auto) 2.7 x10^3/uL (1.0-4.8) 3.4 x10^3/uL (1.0-4.8) Monocytes # (Auto) 0.6 x10^3/uL (0.0-1.1) 0.8 x10^3/uL (0.0-1.1) Eosinophils # (Auto) 0.2 x10^3/uL (0.0-0.7) 0.2 x10^3/uL (0.0-0.7) Basophils # (Auto) 0.1 x10^3/uL (0.0-0.2) 0.0 x10^3/uL (0.0-0.2) Prothrombin Time 12.1 SEC (11.7-14.0) Prothromb Time International Ratio 1.0 (0.8-1.1) Activated Partial Thromboplast Time 23 SEC (24-38) Creatine Kinase 43 U/L (26-192) Creatine Kinase MB (Mass) ng/mL (0.0-3.6) Creatine Kinase MB Relative Index % (0-4) Glucose (Fingerstick) 154 mg/dL (70-99) Test 07/22/17 09:18 Troponin I Quantitative < 0.017 ng/mL (0.000-0.055) Triglycerides Level 291 mg/dL (0-150) Cholesterol Level 223 mg/dL (0-200) LDL Cholesterol, Calculated 122 mg/dL (0-100) VLDL Cholesterol, Calculated 58 mg/dL (0-40) Non-HDL Cholesterol Calculated 180 mg/dL (0-129) HDL Cholesterol 43 mg/dL (40-60) Cholesterol/HDL Ratio 5.2 Brief Hospital Course Ms. Cage is a 51 old admit for angina, r/o ACS, stress test planned, she left AMA Discharge Information Disposition/Orders: Other (AMA) Scheduled Metformin Hcl (Metformin Hcl), 500 MG PO DAILY, (Reported) HARMAN CARTER MD Jul 22, 2017 15:56
== END 2017-07-22 14:29 | disposition left against medical advice (07) | DRG 311 ==
LOC: ER 18:26 → 5 NORTH 21:20
PROVIDERS: ADMIT Internal Medicine; ATTEND Internal Medicine
DX: I20.9 Angina pectoris, unspecified (principal); K85.90 Acute pancreatitis without necrosis or infection, unspecified; E03.9 Hypothyroidism, unspecified; F41.9 Anxiety disorder, unspecified; I10 Essential (primary) hypertension; E11.9 Type 2 diabetes mellitus without complications; E78.5 Hyperlipidemia, unspecified; F32.9 Major depressive disorder, single episode, unspecified; F17.210 Nicotine dependence, cigarettes, uncomplicated; Z82.49 Family history of ischemic heart disease and other diseases of the circulatory system
CPT/HCPCS: 36415; 71010; 76705; 80048; 80061; 80076; 82553; 82962; 83690; 83880; 84484; 85025; 85610; 85730; 93005; 96374; 96375; G0480; J2270; J2405; 99285-25

== ENCOUNTER 2018-11-30 09:31 | Inpatient (IN) | payer SELFPAY ==
[2018-11-30] VITALS (13 sets, daily range): BP systolic 100–170; BP diastolic 72–103
[~2018-11-30] VITALS: Ht 167.6 cm; Wt 70.3 kg
[~2018-11-30 09:31] MED LIST: METF500T16 PO
[2018-11-30] MEDS ORDERED: NALOXONE 2 MG in IV DEXTROSE 5% 500 ML IV ONE (09:45)
[2018-11-30 09:51] LABS: POTASSIUM ISTAT 4.2 mmol/L (3.5-5.0)
[2018-11-30 09:52] LABS: HEMOGLOBIN ISTAT 13.9 g/dL (12-15); ION CA ISTAT 1.08 mmol/L (1.13-1.32)
[2018-11-30 10:00] LABS: BASO # 0.1 x10^3/uL (0.0-0.2); BASO % 0 % (0-3); EOS # 0.2 x10^3/uL (0.0-0.7); EOS % 1 % (0-3); HEMATOCRIT 39.7 % (36.0-47.0); HEMOGLOBIN 13.3 g/dL (12.0-15.5); LYMPH # 6.3 x10^3/uL (1.0-4.8); LYMPH % 24 % (24-48); MEAN CORPUSCULAR HEMOGLOBIN 31 pg (25-35); MEAN CORPUSCULAR HGB CONC 34 g/dL (31-37); MEAN CORPUSCULAR VOLUME 92 fL (79-100); MONO # 1.5 x10^3/uL (0.0-1.1); MONO % 6 % (0-9); NEUT # 18.3 x10^3uL (1.8-7.7); NEUT % 69 % (31-73); PLATELET COUNT 315 x10^3/uL (140-400); RED BLOOD COUNT 4.29 x10^6/uL (3.50-5.40); RED CELL DISTRIBUTION WIDTH 12.5 % (11.5-14.5); WHITE BLOOD COUNT 26.3 x10^3/uL (4.0-11.0)
[2018-11-30] MEDS ORDERED: AMIODARONE 150 MG in IV DEXTROSE 5% 100ML 100 ML IV ONE (10:00)
[2018-11-30] MEDS ORDERED: AMIODARONE 900 MG in IV DEXTROSE 5% 500 ML IV PRN (10:00)
[2018-11-30] MEDS ORDERED: INSULIN,REGULAR 150 UNIT DRIP 150 ML IV ONE ×2 (10:00)
[2018-11-30] MEDS ORDERED: IV NORMAL SALINE 1000ML BAG 1,000 ML IV ONE ×2 (10:00→10:30)
[2018-11-30] MEDS ORDERED: AMIODARONE 150 MG/3 ML VIAL ONE (10:00)
[2018-11-30 10:06] LABS: BASE EXCESS COOX -11 mmol/L (-3-3); HCO3 COOX 15 mmol/L (21-28); METHEMOGLOBIN 0.5 % (0.0-1.9); PCO2 COOX 33 mmHg (35-46); PO2 COOX > 503 mmHg (75-108); SAT O2 COOX 99 % (92-99)
--- NOTE | 2018-11-30 10:08 | RAD ---
PORTABLE CHEST 1V History: post intubation, cardiac arrest Comparison: July 21, 2017 Findings: Single view of the chest is submitted. Enteric catheter courses into the stomach. Endotracheal tube tip terminates about 2 cm from brandie. There is no lobar consolidation, pleural fluid, pneumothorax. Heart size is stable, within normal limits. Impression: 1. There is no evidence of acute cardiopulmonary disease. Electronically signed by: Benja Jiménez MD (11/30/2018 10:05 AM) [facility]
[2018-11-30 10:14] LABS: PROTHROMBIN TIME PATIENT 14.6 SEC (11.7-14.0)
[2018-11-30] MEDS ORDERED: PROPOFOL 10 MG/ML (20ML) VIAL. IV ONE (10:15)
[2018-11-30] MEDS ORDERED: PROPOFOL 50 ML IV ONE ×2 (10:17→10:30)
[2018-11-30] MEDS ORDERED: PIPERACILLIN/TAZOBACTAM 3.375 GM in IV NORMAL SALINE 50ML 50 ML IV ONE (10:30)
[2018-11-30] MEDS ORDERED: ONDANSETRON PF 4 MG/2 ML VIAL. IV PRN (10:30)
--- NOTE | 2018-11-30 10:37 | PHYS DOC ---
Past Medical History Past Medical History: Depression, Diabetes-Type II, High Cholesterol, Pancreatitis, Other Additional Past Medical Histor: KNOWN DRUG USER Past Surgical History: Appendectomy, Oophorectomy Alcohol Use: Occasionally Drug Use: Heroin, Marijuana, Methamphetamine Adult General Chief Complaint Chief Complaint: OTHER COMPLAINTS HPI HPI Patient is a 52 year old female was brought here by EMS for evaluation post cardiac arrest. Patient's mother called EMS this morning because she passed out in front of her, went into cardiac arrest. Fire department showed up initially, found her to be in V. tach. Patient was given a shock by the fire department personnel via the AED. EMS came by and found HER to be in PEA. Patient was given 2 doses of epinephrine, and TWO DOSES OF NARCAIN. Patient was intubated by EMS. Patient was then went into V. tach again, EMS shock her ONE MORE time. ROSC was achieved, she was found in sinus rhythm then. Patient's mother said she has been using Methamphetamine. Review of Systems Review of Systems NOT ABLE TO GET REVIEW OF SYSTEMS DUE TO HER UNRESPONSIVE CONDITION AT THIS TIME All other systems were reviewed and found to be within normal limits, except as documented in this note. Current Medications Current Medications Current Medications Medications (Trade) Dose Ordered Sig/Arnold Start Time Stop Time Status Last Admin Dose Admin Amiodarone HCl (Cordarone) 150 mg STK-MED ONCE 11/30/18 10:00 11/30/18 10:01 DC Amiodarone HCl 150 mg/Dextrose 103 ml @ 618 mls/hr 1X ONCE 11/30/18 10:00 11/30/18 10:09 DC 11/30/18 10:13 618 MLS/HR Amiodarone HCl 900 mg/Dextrose 518 ml @ 0 mls/hr CONT PRN 11/30/18 10:00 11/30/18 10:24 DC 11/30/18 10:24 33 MLS/HR Insulin Human Regular 150 ml @ 0 mls/hr 1X ONCE 11/30/18 10:00 11/30/18 10:01 DC Naloxone HCl 2 mg/ Dextrose 502 ml @ 0 mls/hr 1X ONCE 11/30/18 09:45 11/30/18 09:47 DC 11/30/18 10:08 62.75 MLS/HR Propofol 50 ml @ As Directed STK-MED ONCE 11/30/18 10:17 11/30/18 10:18 DC Propofol (Diprivan) 200 mg 1X ONCE 11/30/18 10:15 11/30/18 10:16 Cancel Sodium Chloride 1,000 ml @ 1,000 mls/hr 1X ONCE 11/30/18 10:00 11/30/18 10:59 DC 11/30/18 10:04 1,000 MLS/HR Allergies Allergies Allergies Coded Allergies Type Severity Reaction Last Updated Verified No Known Drug Allergies 07/21/17 No Physical Exam Physical Exam Constitutional: Well developed, well nourished, ACUTE DISTRESS. HENT: Normocephalic, atraumatic, bilateral external ears normal, oropharynx moist, no oral exudates, nose normal. [] Eyes: PERRLA, EOMI, conjunctiva normal, no discharge. Neck: Normal range of motion, no tenderness, supple, no stridor. [] Cardiovascular: sinus tachycardia, no heart murmur. Lungs & Thorax: Bilateral breath sounds clear to auscultation [] Abdomen: Bowel sounds normal, soft, no masses, no pulsatile masses. [] Skin: intact, cold to touch. Back: No tenderness, no CVA tenderness. [] Extremities, no cyanosis, no clubbing, ROM intact, no edema. [] Neurologic: unresponsive to pain or verbal stimuli. Psychologic: not able to evaluate due to condition. Current Patient Data Vital Signs Vital Signs Date Time Temp Pulse Resp B/P (MAP) Pulse Ox O2 Delivery O2 Flow Rate FiO2 11/30/18 10:13 99 196/97 11/30/18 10:07 100 Ventilator 11/30/18 09:31 97.5 16 15.0 97.5 Lab Values Laboratory Tests Test 11/30/18 09:35 11/30/18 09:36 11/30/18 09:37 11/30/18 09:38 Ammonia 15 mcmol/L (11-34) O2 Saturation 99 % (92-99) Arterial Blood pH 7.28 (7.35-7.45) L Arterial Blood pCO2 at Patient Temp 33 mmHg (35-46) L Arterial Blood pO2 at Patient Temp > 503 mmHg (75-108) H Arterial Blood HCO3 15 mmol/L (21-28) L Arterial Blood Base Excess -11 mmol/L (-3-3) L Oxyhemoglobin 97.0 % Methemoglobin 0.5 % (0.0-1.9) Carbon Monoxide, Quantitative 1.9 % (0.0-1.9) FiO2 100 White Blood Count 26.3 x10^3/uL (4.0-11.0) H Red Blood Count 4.29 x10^6/uL (3.50-5.40) Hemoglobin 13.3 g/dL (12.0-15.5) Hematocrit 39.7 % (36.0-47.0) Mean Corpuscular Volume 92 fL (79-100) Mean Corpuscular Hemoglobin 31 pg (25-35) Mean Corpuscular Hemoglobin Concent 34 g/dL (31-37) Red Cell Distribution Width 12.5 % (11.5-14.5) Platelet Count 315 x10^3/uL (140-400) Neutrophils (%) (Auto) 69 % (31-73) Lymphocytes (%) (Auto) 24 % (24-48) Monocytes (%) (Auto) 6 % (0-9) Eosinophils (%) (Auto) 1 % (0-3) Basophils (%) (Auto) 0 % (0-3) Neutrophils # (Auto) 18.3 x10^3uL (1.8-7.7) H Lymphocytes # (Auto) 6.3 x10^3/uL (1.0-4.8) H Monocytes # (Auto) 1.5 x10^3/uL (0.0-1.1) H Eosinophils # (Auto) 0.2 x10^3/uL (0.0-0.7) Basophils # (Auto) 0.1 x10^3/uL (0.0-0.2) Platelet Estimate Pending Prothrombin Time 14.6 SEC (11.7-14.0) H Prothrombin Time INR 1.2 (0.8-1.1) H PTT 27 SEC (24-38) POC Troponin I 0.61 ng/ml (<0.08) Test 11/30/18 09:41 11/30/18 09:52 POC Hemoglobin 13.9 g/dL (12-15) POC Hematocrit 41 % (36-40) H POC Sodium 132 mmol/L (135-145) L POC Potassium 4.2 mmol/L (3.5-5.0) POC Chloride 98 mmol/L (98-110) POC Total CO2 16 mmol/L (23-32) L Anion Gap 24 mmol/L (6-14) H 22 (6-14) H POC Blood Urea Nitrogen 34 mg/dL (8-26) H POC Creatinine 1.0 mg/dL (0.5-1.4) Glucose Level 587 mg/dL (70-99) H 608 mg/dL (70-99) *H POC Ionized Calcium (Charles) 1.08 mmol/L (1.13-1.32) L Sodium Level 133 mmol/L (136-145) L Potassium Level 4.3 mmol/L (3.5-5.1) Chloride Level 94 mmol/L (98-107) L Carbon Dioxide Level 17 mmol/L (21-32) L Blood Urea Nitrogen 32 mg/dL (7-20) H Creatinine 1.6 mg/dL (0.6-1.0) H Estimated GFR (Cockcroft-Gault) 34.0 BUN/Creatinine Ratio 20 (6-20) Calcium Level 8.9 mg/dL (8.5-10.1) Total Bilirubin 0.3 mg/dL (0.2-1.0) Aspartate Amino Transferase (AST) 163 U/L (15-37) H Alanine Aminotransferase (ALT) 105 U/L (14-59) H Alkaline Phosphatase 138 U/L (46-116) H Creatine Kinase 335 U/L (26-192) H Creatine Kinase MB (Mass) 30.6 ng/mL (0.0-3.6) H Creatine Kinase MB Relative Index 9.1 % (0-4) H Total Protein 7.3 g/dL (6.4-8.2) Albumin 3.8 g/dL (3.4-5.0) Albumin/Globulin Ratio 1.1 (1.0-1.7) Lipase 205 U/L (73-393) Salicylates Level 4.0 mg/dL (2.8-20.0) Salicylate Last Dose Date Unknown Salicylate Last Dose Time Unknown Acetaminophen Level < 2 mcg/ml (10-30) L Acetaminophen Last Dose Date Unknown Acetaminophen Last Dose Time Unknown Ethyl Alcohol Level < 10 mg/dL (0-10) Laboratory Tests 11/30/18 09:37 Laboratory Tests 11/30/18 09:41 11/30/18 09:52 EKG EKG [] Radiology/Procedures Radiology/Procedures [facility] [address] [place] [address] IMAGING REPORT Signed PATIENT: JERRICA BURNETT ACCOUNT: [id number] : 1965 LOCATION: [address] [place] [address] AGE: 52 SEX: F EXAM STATUS: ADM IN ORD. PHYSICIAN: ZEFERINO MILLER DO REASON: found unresponsive by family PROCEDURE: CT HEAD WO CONTRAST CT HEAD WO CONTRAST History: Altered mental status, found unresponsive by family Comparison: None. Technique: Noncontrast CT imaging was performed of the head. Exposure: One or more of the following individualized dose reduction techniques were utilized for this examination: 1. Automated exposure control 2. Adjustment of the mA and/or kV according to patient size 3. Use of iterative reconstruction technique. Findings: No acute extra-axial or parenchymal hemorrhage is identified. There is no significant intra-axial mass effect, midline shift, or extra-axial fluid collection. The mike-white differentiation of the major vascular territories is preserved. The ventricles, sulci, and cisterns are within normal limits in size and configuration. The mastoid air cells and the visualized paranasal sinuses are aerated. No acute calvarial abnormality is identified. There is atherosclerotic calcification of the intradural vertebral arteries and carotid siphons bilaterally. Impression: 1. No acute intracranial abnormality is identified. Electronically signed by: Devan Hamlin MD (11/30/2018 10:55 AM) [facility] DICTATED and SIGNED BY: DEVAN HAMLIN MD DATE: 11/30/18 1055 Course & Med Decision Making Course & Med Decision Making Pertinent Labs and Imaging studies reviewed. (See chart for details) [] Dragon Disclaimer Dragon Disclaimer This electronic medical record was generated, in whole or in part, using a voice recognition dictation system. Critical Care Time Critical care time was [45] minutes exclusive of procedures. Departure Departure Impression: Primary Impression: Cardiac arrest Additional Impressions: DKA (diabetic ketoacidoses) Substance abuse Drug overdose Aspiration pneumonia Disposition: ADMITTED INPATIENT Admitting Physician: Liset Hughes Condition: CRITICAL Referrals: MAIK PAK MD (PCP) Critical Care Note Total Time (mins): 45 Comments Patient is a 52-year-old female in his Procardia arrest. Patient had return of circulation on route after she was resuscitated by EMS. Patient was intubated by EMS on route as well. Patient was given a total of 2 doses of epinephrine, 2 doses of Narcan by EMS. Patient was shocked once by Fire department personels at the house due to V tach arrest. EMS came and found to be in PA, they give her 2 doses of epinephrine, and 2 doses of Narcan. Patient was intubated. Patient was then went into V. tach again, she EMS shocked her one more time, patient was found to have a pulse then, sinus rhythm on the monitor. EMS placed an IO on the right proximal leg area. Upon arrival to the ER, patient was unresponsive to verbal or painful stimuli. Patient was given IV fluid after peripheral IVs were placed. EKG show heart rate of 110 beats per minutes with sinus rhythm, diffuse ST depression in V3, V4, V5, V6, leads I, II AND AVF. There is no ST elevation. Patient was found to be in DKA, she was given 2 L normal saline IV fluid in the ER, patient was started on amiodarone IV bolus and a drip was started. Insulin IV drip was started per protocol. Patient was also started on Narcan drip. Patient slowly woke up after the Narcan drip started, she was observed trying to pull out the ET tube and other medical devices. Patient was then sedated with propofol. Dr. Scott on-call table lever operator was consulted. He agreed with the plan of care, he will see patient in ICU. Patient was admitted to Dr. Hughes with the hospitalist group. She and family, mother was up-to-date on her status. Problems: (1) Cardiac arrest (2) Substance abuse (3) DKA (diabetic ketoacidoses) (4) Drug overdose (5) Aspiration pneumonia Problem Qualifiers (1) DKA (diabetic ketoacidoses): Diabetes mellitus type: type 1 (2) Drug overdose: Encounter type: initial encounter Injury intent: undetermined intent Qualified Codes: T50.904A - Poisoning by unspecified drugs, medicaments and biological substances, undetermined, initial encounter (3) Aspiration pneumonia: Aspiration pneumonia type: due to gastric secretions Laterality: right Lung location: middle lobe of lung Qualified Codes: J69.0 - Pneumonitis due to inhalation of food and vomit ZEFERINO MILLER DO Nov 30, 2018 10:37
[2018-11-30 10:44] LABS: ALBUMIN 3.8 g/dL (3.4-5.0); ALBUMIN/GLOBULIN RATIO 1.1 (1.0-1.7); CALCIUM 8.9 mg/dL (8.5-10.1); CREATININE 1.6 mg/dL (0.6-1.0); POTASSIUM 4.3 mmol/L (3.5-5.1); TOTAL BILIRUBIN 0.3 mg/dL (0.2-1.0); TOTAL PROTEIN 7.3 g/dL (6.4-8.2)
[2018-11-30 10:46] LABS: ACETAMIN < 2 mcg/ml (10-30); ETHANOL < 10 mg/dL (0-10)
[2018-11-30 10:47] LABS: BILIRUBIN,URINE NEGATIVE (NEG); CLARITY,URINE CLEAR; COLOR,URINE YELLOW; NITRITE,URINE NEGATIVE (NEG); PROTEIN,URINE 100 mg/dL (NEG-TRACE)
[2018-11-30 10:53] LABS: BARBITURATES NEG (NEG); BENZODIAZEPINES NEG (NEG); CANNABINOIDS POS (NEG); COCAINE POS (NEG); METHADONE NEG (NEG); OPIATES NEG (NEG); PHENCYCLIDINE NEG (NEG)
[2018-11-30 10:54] LABS: AMPHETAMINE/METHAMPHETAMINE POS (NEG)
--- NOTE | 2018-11-30 10:58 | RAD ---
CT HEAD WO CONTRAST History: Altered mental status, found unresponsive by family Comparison: None. Technique: Noncontrast CT imaging was performed of the head. Exposure: One or more of the following individualized dose reduction techniques were utilized for this examination: 1. Automated exposure control 2. Adjustment of the mA and/or kV according to patient size 3. Use of iterative reconstruction technique. Findings: No acute extra-axial or parenchymal hemorrhage is identified. There is no significant intra-axial mass effect, midline shift, or extra-axial fluid collection. The mike-white differentiation of the major vascular territories is preserved. The ventricles, sulci, and cisterns are within normal limits in size and configuration. The mastoid air cells and the visualized paranasal sinuses are aerated. No acute calvarial abnormality is identified. There is atherosclerotic calcification of the intradural vertebral arteries and carotid siphons bilaterally. Impression: 1. No acute intracranial abnormality is identified. Electronically signed by: Benja Jiménez MD (11/30/2018 10:55 AM) [facility]
--- NOTE | 2018-11-30 11:15 | PDOC2 ---
CONSULT Date of Consult Date of Consult DATE: 11/30/18 TIME: 11:15 Reason for Consult Reason for Consult: Cardiac arrest Referring Physician Referring Physician: Dr. Hughes Identification/Chief Complaint Chief Complaint Cardiac arrest Source Source: Chart review History of Present Illness Reason for Visit: 52-year-old female with history of methamphetamine use apparently passed out in front for mother who called 911. The fire department initially showed up and found her to be in ventricular tachycardia and was given shock therapy via AED. EMS found her to be in PEA and was given 2 doses of epinephrine and 2 doses of Narcan and intubated. She subsequently went into ventricular tachycardia again and was cardioverted. She had an episode of atrial fibrillation in ED that resolved spontaneously. She is presently intubated but showing intermittent purposeful movements per nursing personnel. She does not have any previous history of coronary artery disease. Past Medical History Cardiovascular: HTN, Hyperlipidemia Pulmonary: No pertinent hx GI: No pertinent hx Heme/Onc: No pertinent hx Hepatobiliary: No pertinent hx Psych: Anxiety, Depression Musculoskeletal: low back pain Endocrine: Diabetes Past Surgical History Past Surgical History: No pertinent history Family History Family History: Coronary Artery Disease, Heart Disease Social History ALCOHOL: other Drugs: None Current Problem List Problem List Problems Medical Problems: (1) Aspiration pneumonia Status: Acute (2) Cardiac arrest Status: Acute (3) DKA (diabetic ketoacidoses) Status: Acute (4) Drug overdose Status: Acute (5) Substance abuse Status: Acute Current Medications Current Medications Current Medications Naloxone HCl 2 mg/ Dextrose 502 ml @ 0 mls/hr 1X ONCE IV Last administered on 11/30/18at 10:08; Start 11/30/18 at 09:45; Stop 11/30/18 at 09:47; Status DC Sodium Chloride 1,000 ml @ 1,000 mls/hr 1X ONCE IV Last administered on 11/30/18at 10:04; Start 11/30/18 at 10:00; Stop 11/30/18 at 10:59; Status DC Amiodarone HCl 150 mg/Dextrose 103 ml @ 618 mls/hr 1X ONCE IV Last administered on 11/30/18at 10:13; Start 11/30/18 at 10:00; Stop 11/30/18 at 10:09; Status DC Amiodarone HCl 900 mg/Dextrose 518 ml @ 0 mls/hr CONT PRN IV SEE I/O RECORD Last administered on 11/30/18at 10:24; Start 11/30/18 at 10:00; Stop 11/30/18 at 10:24; Status DC Insulin Human Regular 150 ml @ 0 mls/hr 1X ONCE IV ; Start 11/30/18 at 10:00; Stop 11/30/18 at 10:01; Status UNV Insulin Human Regular 150 ml @ 0 mls/hr 1X ONCE IV ; Start 11/30/18 at 10:00; Stop 11/30/18 at 10:01; Status DC Amiodarone HCl (Cordarone) 150 mg STK-MED ONCE .ROUTE ; Start 11/30/18 at 10:00; Stop 11/30/18 at 10:01; Status DC Propofol (Diprivan) 200 mg 1X ONCE IV ; Start 11/30/18 at 10:15; Stop 11/30/18 at 10:16; Status Cancel Sodium Chloride 1,000 ml @ 1,000 mls/hr 1X ONCE IV Last administered on 11/30/18at 10:54; Start 11/30/18 at 10:30; Stop 11/30/18 at 11:29 Propofol 50 ml @ As Directed STK-MED ONCE IV ; Start 11/30/18 at 10:17; Stop 11/30/18 at 10:18; Status DC Propofol 50 ml @ 1.037 mls/ hr 1X ONCE IV Last administered on 11/30/18at 10:20; Start 11/30/18 at 10:30; Stop 12/02/18 at 10:42 Piperacillin Sod/ Tazobactam Sod 3.375 gm/Sodium Chloride 50 ml @ 100 mls/hr 1X ONCE IV Last administered on 11/30/18at 11:02; Start 11/30/18 at 10:30; Stop 11/30/18 at 10:59; Status DC Ondansetron HCl (Zofran) 4 mg PRN Q8HRS PRN IV NAUSEA/VOMITING; Start 11/30/18 at 10:30; Stop 12/01/18 at 10:29 Sodium Chloride 1,000 ml @ 100 mls/hr Q10H IV ; Start 11/30/18 at 10:29; Stop 12/01/18 at 10:28 Active Scripts Active Reported Metformin Hcl 500 Mg Tablet 500 Mg PO DAILY Allergies Allergies: Coded Allergies: No Known Drug Allergies (Unverified , 07/21/17) ROS Review of System Cannot be obtained since patient is intubated Physical Exam General: Other (intubated) Lungs: Clear to auscultation Heart: Regular rate Abdomen: Soft Extremities: No edema Vitals VITALS Vital Signs Date Time Temp Pulse Resp B/P (MAP) Pulse Ox O2 Delivery O2 Flow Rate FiO2 11/30/18 10:13 99 196/97 11/30/18 10:07 100 Ventilator 11/30/18 09:31 97.5 16 15.0 97.5 Labs Labs Laboratory Tests Test 11/30/18 09:35 11/30/18 09:36 11/30/18 09:37 11/30/18 09:38 Ammonia 15 mcmol/L (11-34) O2 Saturation 99 % (92-99) Arterial Blood pH 7.28 (7.35-7.45) Arterial Blood pCO2 at Patient Temp 33 mmHg (35-46) Arterial Blood pO2 at Patient Temp > 503 mmHg (75-108) Arterial Blood HCO3 15 mmol/L (21-28) Arterial Blood Base Excess -11 mmol/L (-3-3) Oxyhemoglobin 97.0 % Methemoglobin 0.5 % (0.0-1.9) Carbon Monoxide, Quantitative 1.9 % (0.0-1.9) FiO2 100 White Blood Count 26.3 x10^3/uL (4.0-11.0) Red Blood Count 4.29 x10^6/uL (3.50-5.40) Hemoglobin 13.3 g/dL (12.0-15.5) Hematocrit 39.7 % (36.0-47.0) Mean Corpuscular Volume 92 fL (79-100) Mean Corpuscular Hemoglobin 31 pg (25-35) Mean Corpuscular Hemoglobin Concent 34 g/dL (31-37) Red Cell Distribution Width 12.5 % (11.5-14.5) Platelet Count 315 x10^3/uL (140-400) Neutrophils (%) (Auto) 69 % (31-73) Lymphocytes (%) (Auto) 24 % (24-48) Monocytes (%) (Auto) 6 % (0-9) Eosinophils (%) (Auto) 1 % (0-3) Basophils (%) (Auto) 0 % (0-3) Neutrophils # (Auto) 18.3 x10^3uL (1.8-7.7) Lymphocytes # (Auto) 6.3 x10^3/uL (1.0-4.8) Monocytes # (Auto) 1.5 x10^3/uL (0.0-1.1) Eosinophils # (Auto) 0.2 x10^3/uL (0.0-0.7) Basophils # (Auto) 0.1 x10^3/uL (0.0-0.2) Prothrombin Time 14.6 SEC (11.7-14.0) Prothromb Time International Ratio 1.2 (0.8-1.1) Activated Partial Thromboplast Time 27 SEC (24-38) Bedside Troponin I 0.61 ng/ml (<0.08) Test 11/30/18 09:41 11/30/18 09:52 11/30/18 10:30 Bedside Hemoglobin 13.9 g/dL (12-15) Bedside Hematocrit 41 % (36-40) Bedside Sodium 132 mmol/L (135-145) Bedside Potassium 4.2 mmol/L (3.5-5.0) Bedside Chloride 98 mmol/L (98-110) Bedside Total CO2 16 mmol/L (23-32) Anion Gap 24 mmol/L (6-14) 22 (6-14) Bedside Blood Urea Nitrogen 34 mg/dL (8-26) Bedside Creatinine 1.0 mg/dL (0.5-1.4) Glucose Level 587 mg/dL (70-99) 608 mg/dL (70-99) Bedside Ionized Calcium (Charles) 1.08 mmol/L (1.13-1.32) Sodium Level 133 mmol/L (136-145) Potassium Level 4.3 mmol/L (3.5-5.1) Chloride Level 94 mmol/L (98-107) Carbon Dioxide Level 17 mmol/L (21-32) Blood Urea Nitrogen 32 mg/dL (7-20) Creatinine 1.6 mg/dL (0.6-1.0) Estimated GFR (Cockcroft-Gault) 34.0 BUN/Creatinine Ratio 20 (6-20) Calcium Level 8.9 mg/dL (8.5-10.1) Total Bilirubin 0.3 mg/dL (0.2-1.0) Aspartate Amino Transf (AST/SGOT) 163 U/L (15-37) Alanine Aminotransferase (ALT/SGPT) 105 U/L (14-59) Alkaline Phosphatase 138 U/L (46-116) Creatine Kinase 335 U/L (26-192) Creatine Kinase MB (Mass) 30.6 ng/mL (0.0-3.6) Creatine Kinase MB Relative Index 9.1 % (0-4) Total Protein 7.3 g/dL (6.4-8.2) Albumin 3.8 g/dL (3.4-5.0) Albumin/Globulin Ratio 1.1 (1.0-1.7) Lipase 205 U/L (73-393) Salicylates Level 4.0 mg/dL (2.8-20.0) Salicylate Last Dose Date Unknown Salicylate Last Dose Time Unknown Acetaminophen Level < 2 mcg/ml (10-30) Acetaminophen Last Dose Date Unknown Acetaminophen Last Dose Time Unknown Ethyl Alcohol Level < 10 mg/dL (0-10) Urine Opiates Screen Neg (NEG) Urine Methadone Screen Neg (NEG) Urine Barbiturates Neg (NEG) Urine Phencyclidine Screen Neg (NEG) Urine Amphetamine/Methamphetamine Pos (NEG) Urine Benzodiazepines Screen Neg (NEG) Urine Cocaine Screen Pos (NEG) Urine Cannabinoids Screen Pos (NEG) Urine Ethyl Alcohol Neg (NEG) Laboratory Tests Test 11/30/18 09:35 11/30/18 09:36 11/30/18 09:37 11/30/18 09:38 Ammonia 15 mcmol/L (11-34) O2 Saturation 99 % (92-99) Arterial Blood pH 7.28 (7.35-7.45) Arterial Blood pCO2 at Patient Temp 33 mmHg (35-46) Arterial Blood pO2 at Patient Temp > 503 mmHg (75-108) Arterial Blood HCO3 15 mmol/L (21-28) Arterial Blood Base Excess -11 mmol/L (-3-3) Oxyhemoglobin 97.0 % Methemoglobin 0.5 % (0.0-1.9) Carbon Monoxide, Quantitative 1.9 % (0.0-1.9) FiO2 100 White Blood Count 26.3 x10^3/uL (4.0-11.0) Red Blood Count 4.29 x10^6/uL (3.50-5.40) Hemoglobin 13.3 g/dL (12.0-15.5) Hematocrit 39.7 % (36.0-47.0) Mean Corpuscular Volume 92 fL (79-100) Mean Corpuscular Hemoglobin 31 pg (25-35) Mean Corpuscular Hemoglobin Concent 34 g/dL (31-37) Red Cell Distribution Width 12.5 % (11.5-14.5) Platelet Count 315 x10^3/uL (140-400) Neutrophils (%) (Auto) 69 % (31-73) Lymphocytes (%) (Auto) 24 % (24-48) Monocytes (%) (Auto) 6 % (0-9) Eosinophils (%) (Auto) 1 % (0-3) Basophils (%) (Auto) 0 % (0-3) Neutrophils # (Auto) 18.3 x10^3uL (1.8-7.7) Lymphocytes # (Auto) 6.3 x10^3/uL (1.0-4.8) Monocytes # (Auto) 1.5 x10^3/uL (0.0-1.1) Eosinophils # (Auto) 0.2 x10^3/uL (0.0-0.7) Basophils # (Auto) 0.1 x10^3/uL (0.0-0.2) Prothrombin Time 14.6 SEC (11.7-14.0) Prothromb Time International Ratio 1.2 (0.8-1.1) Activated Partial Thromboplast Time 27 SEC (24-38) Bedside Troponin I 0.61 ng/ml (<0.08) Test 11/30/18 09:41 11/30/18 09:52 11/30/18 10:30 Bedside Hemoglobin 13.9 g/dL (12-15) Bedside Hematocrit 41 % (36-40) Bedside Sodium 132 mmol/L (135-145) Bedside Potassium 4.2 mmol/L (3.5-5.0) Bedside Chloride 98 mmol/L (98-110) Bedside Total CO2 16 mmol/L (23-32) Anion Gap 24 mmol/L (6-14) 22 (6-14) Bedside Blood Urea Nitrogen 34 mg/dL (8-26) Bedside Creatinine 1.0 mg/dL (0.5-1.4) Glucose Level 587 mg/dL (70-99) 608 mg/dL (70-99) Bedside Ionized Calcium (Charles) 1.08 mmol/L (1.13-1.32) Sodium Level 133 mmol/L (136-145) Potassium Level 4.3 mmol/L (3.5-5.1) Chloride Level 94 mmol/L (98-107) Carbon Dioxide Level 17 mmol/L (21-32) Blood Urea Nitrogen 32 mg/dL (7-20) Creatinine 1.6 mg/dL (0.6-1.0) Estimated GFR (Cockcroft-Gault) 34.0 BUN/Creatinine Ratio 20 (6-20) Calcium Level 8.9 mg/dL (8.5-10.1) Total Bilirubin 0.3 mg/dL (0.2-1.0) Aspartate Amino Transf (AST/SGOT) 163 U/L (15-37) Alanine Aminotransferase (ALT/SGPT) 105 U/L (14-59) Alkaline Phosphatase 138 U/L (46-116) Creatine Kinase 335 U/L (26-192) Creatine Kinase MB (Mass) 30.6 ng/mL (0.0-3.6) Creatine Kinase MB Relative Index 9.1 % (0-4) Total Protein 7.3 g/dL (6.4-8.2) Albumin 3.8 g/dL (3.4-5.0) Albumin/Globulin Ratio 1.1 (1.0-1.7) Lipase 205 U/L (73-393) Salicylates Level 4.0 mg/dL (2.8-20.0) Salicylate Last Dose Date Unknown Salicylate Last Dose Time Unknown Acetaminophen Level < 2 mcg/ml (10-30) Acetaminophen Last Dose Date Unknown Acetaminophen Last Dose Time Unknown Ethyl Alcohol Level < 10 mg/dL (0-10) Urine Opiates Screen Neg (NEG) Urine Methadone Screen Neg (NEG) Urine Barbiturates Neg (NEG) Urine Phencyclidine Screen Neg (NEG) Urine Amphetamine/Methamphetamine Pos (NEG) Urine Benzodiazepines Screen Neg (NEG) Urine Cocaine Screen Pos (NEG) Urine Cannabinoids Screen Pos (NEG) Urine Ethyl Alcohol Neg (NEG) Assessment/Plan Assessment/Plan 1. Cardiac arrest: Patient was noted to be in ventricular tachycardia and PE and was cardioverted twice. She had brief episode of atrial fibrillation in ED. She is presently in sinus rhythm. Tox screen positive for amphetamines, cocaine and cannabinoids. Suspect cocaine induced vasospasm as a cause of her ventricular arrhythmias. Initial troponin negative. We will obtain serial cardiac enzymes. Check 2-D echo to assess LV function and rule out wall motion abnormalities. 2. Diabetic ketoacidosis: Treat per IM 3. Aspiration pneumonia, acute respiratory failure s/p intubation. Continue vent management per pulmonary team. Thank you for your consultation. PETROS MORRIS MD Nov 30, 2018 11:15
[2018-11-30 11:21] LABS: AMORPHOUS SEDIMENT,UR PRESENT /HPF; SQUAMOUS EPITHELIAL CELL,UR FEW /LPF
[2018-11-30 11:23] LABS: BACTERIA,URINE 0 /HPF (0-FEW)
[2018-11-30] MEDS ORDERED: SODIUM BICARB ADULT 8.4% 50 MEQ/50 ML DISP.SYRIN. IV ONE (11:30)
--- NOTE | 2018-11-30 11:33 | PDOC1 ---
History and Physical Date of Admission: Date of Admission DATE: 11/30/18 TIME: 11:28 Chief Complaint: Problems: (1) Cardiac arrest (2) Substance abuse (3) DKA (diabetic ketoacidoses) (4) Drug overdose (5) Aspiration pneumonia Chief Complain: Cardiac arrest History of Present Illness: HPI: Patient is a pleasant 52-year-old female who had cardiac arrest this morning states she uses methamphetamine and other street drugs she woke this morning was short of breath and collapsed EMS was called and they arrived she was in V. tach she was shocked and then went into the PEA She received 2 rounds of IV epinephrine and 2 rounds of IV Narcan She then had to be shocked again and again went to PEA she was then intubated in the field. When she arrived to the ER she had return of circulation I discussed case with ER physician she is in DKA with a pH of 7.2 she has a leukocytosis of 26,000 she has aspirated gave her a Narcan drip and she seems to wake up so we suspect she is on narcotics as well she's now been examined and the ER where she is critically ill on the ventilator on propofol drip but she is trying to grab and pull her ET tube out Past Medical/Surgical History: PMH/PSH: Cardiovascular: HTN, Hyperlipidemia Pulmonary: No pertinent hx GI: No pertinent hx Heme/Onc: No pertinent hx Hepatobiliary: No pertinent hx Psych: Anxiety, Depression Musculoskeletal: low back pain Endocrine: Diabetes Allergies: Allergies: Coded Allergies: No Known Drug Allergies (Unverified , 07/21/17) Family History: Family History: CAD Social History: Social Hisoty: She drinks smokes and takes drugs per her mother and she lives at home with her mother as well Current Medications: Current Medications Current Medications Naloxone HCl 2 mg/ Dextrose 502 ml @ 0 mls/hr 1X ONCE IV Last administered on 11/30/18at 10:08; Start 11/30/18 at 09:45; Stop 11/30/18 at 09:47; Status DC Sodium Chloride 1,000 ml @ 1,000 mls/hr 1X ONCE IV Last administered on 11/30/18at 10:04; Start 11/30/18 at 10:00; Stop 11/30/18 at 10:59; Status DC Amiodarone HCl 150 mg/Dextrose 103 ml @ 618 mls/hr 1X ONCE IV Last administered on 11/30/18at 10:13; Start 11/30/18 at 10:00; Stop 11/30/18 at 10:09; Status DC Amiodarone HCl 900 mg/Dextrose 518 ml @ 0 mls/hr CONT PRN IV SEE I/O RECORD Last administered on 11/30/18at 10:24; Start 11/30/18 at 10:00; Stop 11/30/18 at 10:24; Status DC Insulin Human Regular 150 ml @ 0 mls/hr 1X ONCE IV ; Start 11/30/18 at 10:00; Stop 11/30/18 at 10:01; Status UNV Insulin Human Regular 150 ml @ 0 mls/hr 1X ONCE IV ; Start 11/30/18 at 10:00; Stop 11/30/18 at 10:01; Status DC Amiodarone HCl (Cordarone) 150 mg STK-MED ONCE .ROUTE ; Start 11/30/18 at 10:00; Stop 11/30/18 at 10:01; Status DC Propofol (Diprivan) 200 mg 1X ONCE IV ; Start 11/30/18 at 10:15; Stop 11/30/18 at 10:16; Status Cancel Sodium Chloride 1,000 ml @ 1,000 mls/hr 1X ONCE IV Last administered on 11/30/18at 10:54; Start 11/30/18 at 10:30; Stop 11/30/18 at 11:29 Propofol 50 ml @ As Directed STK-MED ONCE IV ; Start 11/30/18 at 10:17; Stop 11/30/18 at 10:18; Status DC Propofol 50 ml @ 1.037 mls/ hr 1X ONCE IV Last administered on 11/30/18at 10:20; Start 11/30/18 at 10:30; Stop 12/02/18 at 10:42 Piperacillin Sod/ Tazobactam Sod 3.375 gm/Sodium Chloride 50 ml @ 100 mls/hr 1X ONCE IV Last administered on 11/30/18at 11:02; Start 11/30/18 at 10:30; Stop 11/30/18 at 10:59; Status DC Ondansetron HCl (Zofran) 4 mg PRN Q8HRS PRN IV NAUSEA/VOMITING; Start 11/30/18 at 10:30; Stop 12/01/18 at 10:29 Sodium Chloride 1,000 ml @ 100 mls/hr Q10H IV ; Start 11/30/18 at 10:29; Stop 12/01/18 at 10:28 Active Scripts Active Reported Metformin Hcl 500 Mg Tablet 500 Mg PO DAILY ROS: Review of Systems Unable to obtain she is on the vent Physical Exam: Vital Signs: Vital Signs Date Time Temp Pulse Resp B/P (MAP) Pulse Ox O2 Delivery O2 Flow Rate FiO2 11/30/18 10:13 99 196/97 11/30/18 10:07 100 Ventilator 11/30/18 09:31 97.5 16 15.0 97.5 Physcial Exam: GEN.: Sedated on the vent HEENT: Head is normocephalic, atraumatic NECK: Supple, no JVD LUNGS: Fine crackles HEART: Tachycardia S1-S2 ABDOMEN: Soft, nontender. Positive bowel sounds no organomegaly EXTREMITIES: Without any cyanosis, clubbing, or edema. Pedal pulses intact NEUROLOGIC: Normal speech, normal tone. A&O x 3 PSYCHIATRIC: Unable to assess as she is intubated SKIN: No ulcerations or rashes EYES: Pupils are dilated but somewhat reactive to light and accommodation Labs: Labs: Laboratory Tests Test 11/30/18 09:35 11/30/18 09:36 11/30/18 09:37 11/30/18 09:38 Ammonia 15 mcmol/L (11-34) O2 Saturation 99 % (92-99) Arterial Blood pH 7.28 (7.35-7.45) Arterial Blood pCO2 at Patient Temp 33 mmHg (35-46) Arterial Blood pO2 at Patient Temp > 503 mmHg (75-108) Arterial Blood HCO3 15 mmol/L (21-28) Arterial Blood Base Excess -11 mmol/L (-3-3) Oxyhemoglobin 97.0 % Methemoglobin 0.5 % (0.0-1.9) Carbon Monoxide, Quantitative 1.9 % (0.0-1.9) FiO2 100 White Blood Count 26.3 x10^3/uL (4.0-11.0) Red Blood Count 4.29 x10^6/uL (3.50-5.40) Hemoglobin 13.3 g/dL (12.0-15.5) Hematocrit 39.7 % (36.0-47.0) Mean Corpuscular Volume 92 fL (79-100) Mean Corpuscular Hemoglobin 31 pg (25-35) Mean Corpuscular Hemoglobin Concent 34 g/dL (31-37) Red Cell Distribution Width 12.5 % (11.5-14.5) Platelet Count 315 x10^3/uL (140-400) Neutrophils (%) (Auto) 69 % (31-73) Lymphocytes (%) (Auto) 24 % (24-48) Monocytes (%) (Auto) 6 % (0-9) Eosinophils (%) (Auto) 1 % (0-3) Basophils (%) (Auto) 0 % (0-3) Neutrophils # (Auto) 18.3 x10^3uL (1.8-7.7) Lymphocytes # (Auto) 6.3 x10^3/uL (1.0-4.8) Monocytes # (Auto) 1.5 x10^3/uL (0.0-1.1) Eosinophils # (Auto) 0.2 x10^3/uL (0.0-0.7) Basophils # (Auto) 0.1 x10^3/uL (0.0-0.2) Prothrombin Time 14.6 SEC (11.7-14.0) Prothromb Time International Ratio 1.2 (0.8-1.1) Activated Partial Thromboplast Time 27 SEC (24-38) Bedside Troponin I 0.61 ng/ml (<0.08) Test 11/30/18 09:41 11/30/18 09:52 11/30/18 10:30 Bedside Hemoglobin 13.9 g/dL (12-15) Bedside Hematocrit 41 % (36-40) Bedside Sodium 132 mmol/L (135-145) Bedside Potassium 4.2 mmol/L (3.5-5.0) Bedside Chloride 98 mmol/L (98-110) Bedside Total CO2 16 mmol/L (23-32) Anion Gap 24 mmol/L (6-14) 22 (6-14) Bedside Blood Urea Nitrogen 34 mg/dL (8-26) Bedside Creatinine 1.0 mg/dL (0.5-1.4) Glucose Level 587 mg/dL (70-99) 608 mg/dL (70-99) Bedside Ionized Calcium (Charles) 1.08 mmol/L (1.13-1.32) Sodium Level 133 mmol/L (136-145) Potassium Level 4.3 mmol/L (3.5-5.1) Chloride Level 94 mmol/L (98-107) Carbon Dioxide Level 17 mmol/L (21-32) Blood Urea Nitrogen 32 mg/dL (7-20) Creatinine 1.6 mg/dL (0.6-1.0) Estimated GFR (Cockcroft-Gault) 34.0 BUN/Creatinine Ratio 20 (6-20) Calcium Level 8.9 mg/dL (8.5-10.1) Total Bilirubin 0.3 mg/dL (0.2-1.0) Aspartate Amino Transf (AST/SGOT) 163 U/L (15-37) Alanine Aminotransferase (ALT/SGPT) 105 U/L (14-59) Alkaline Phosphatase 138 U/L (46-116) Creatine Kinase 335 U/L (26-192) Creatine Kinase MB (Mass) 30.6 ng/mL (0.0-3.6) Creatine Kinase MB Relative Index 9.1 % (0-4) Total Protein 7.3 g/dL (6.4-8.2) Albumin 3.8 g/dL (3.4-5.0) Albumin/Globulin Ratio 1.1 (1.0-1.7) Lipase 205 U/L (73-393) Salicylates Level 4.0 mg/dL (2.8-20.0) Salicylate Last Dose Date Unknown Salicylate Last Dose Time Unknown Acetaminophen Level < 2 mcg/ml (10-30) Acetaminophen Last Dose Date Unknown Acetaminophen Last Dose Time Unknown Ethyl Alcohol Level < 10 mg/dL (0-10) Urine Collection Type U cath Urine Color Yellow Urine Clarity Clear Urine pH 6.0 Urine Specific [place] 1.025 Urine Protein 100 mg/dL (NEG-TRACE) Urine Glucose (UA) >=1000 mg/dL (NEG) Urine Ketones (Stick) Negative mg/dL (NEG) Urine Blood Large (NEG) Urine Nitrite Negative (NEG) Urine Bilirubin Negative (NEG) Urine Urobilinogen Dipstick 1.0 mg/dL (0.2 mg/dL) Urine Leukocyte Esterase Negative (NEG) Urine RBC 6-10 /HPF (0-2) Urine WBC 5-10 /HPF (0-4) Urine Squamous Epithelial Cells Few /LPF Urine Amorphous Sediment Present /HPF Urine Bacteria 0 /HPF (0-FEW) Urine Opiates Screen Neg (NEG) Urine Methadone Screen Neg (NEG) Urine Barbiturates Neg (NEG) Urine Phencyclidine Screen Neg (NEG) Urine Amphetamine/Methamphetamine Pos (NEG) Urine Benzodiazepines Screen Neg (NEG) Urine Cocaine Screen Pos (NEG) Urine Cannabinoids Screen Pos (NEG) Urine Ethyl Alcohol Neg (NEG) Laboratory Tests Test 11/30/18 09:35 11/30/18 09:36 11/30/18 09:37 11/30/18 09:38 Ammonia 15 mcmol/L (11-34) O2 Saturation 99 % (92-99) Arterial Blood pH 7.28 (7.35-7.45) Arterial Blood pCO2 at Patient Temp 33 mmHg (35-46) Arterial Blood pO2 at Patient Temp > 503 mmHg (75-108) Arterial Blood HCO3 15 mmol/L (21-28) Arterial Blood Base Excess -11 mmol/L (-3-3) Oxyhemoglobin 97.0 % Methemoglobin 0.5 % (0.0-1.9) Carbon Monoxide, Quantitative 1.9 % (0.0-1.9) FiO2 100 White Blood Count 26.3 x10^3/uL (4.0-11.0) Red Blood Count 4.29 x10^6/uL (3.50-5.40) Hemoglobin 13.3 g/dL (12.0-15.5) Hematocrit 39.7 % (36.0-47.0) Mean Corpuscular Volume 92 fL (79-100) Mean Corpuscular Hemoglobin 31 pg (25-35) Mean Corpuscular Hemoglobin Concent 34 g/dL (31-37) Red Cell Distribution Width 12.5 % (11.5-14.5) Platelet Count 315 x10^3/uL (140-400) Neutrophils (%) (Auto) 69 % (31-73) Lymphocytes (%) (Auto) 24 % (24-48) Monocytes (%) (Auto) 6 % (0-9) Eosinophils (%) (Auto) 1 % (0-3) Basophils (%) (Auto) 0 % (0-3) Neutrophils # (Auto) 18.3 x10^3uL (1.8-7.7) Lymphocytes # (Auto) 6.3 x10^3/uL (1.0-4.8) Monocytes # (Auto) 1.5 x10^3/uL (0.0-1.1) Eosinophils # (Auto) 0.2 x10^3/uL (0.0-0.7) Basophils # (Auto) 0.1 x10^3/uL (0.0-0.2) Prothrombin Time 14.6 SEC (11.7-14.0) Prothromb Time International Ratio 1.2 (0.8-1.1) Activated Partial Thromboplast Time 27 SEC (24-38) Bedside Troponin I 0.61 ng/ml (<0.08) Test 11/30/18 09:41 11/30/18 09:52 11/30/18 10:30 Bedside Hemoglobin 13.9 g/dL (12-15) Bedside Hematocrit 41 % (36-40) Bedside Sodium 132 mmol/L (135-145) Bedside Potassium 4.2 mmol/L (3.5-5.0) Bedside Chloride 98 mmol/L (98-110) Bedside Total CO2 16 mmol/L (23-32) Anion Gap 24 mmol/L (6-14) 22 (6-14) Bedside Blood Urea Nitrogen 34 mg/dL (8-26) Bedside Creatinine 1.0 mg/dL (0.5-1.4) Glucose Level 587 mg/dL (70-99) 608 mg/dL (70-99) Bedside Ionized Calcium (Charles) 1.08 mmol/L (1.13-1.32) Sodium Level 133 mmol/L (136-145) Potassium Level 4.3 mmol/L (3.5-5.1) Chloride Level 94 mmol/L (98-107) Carbon Dioxide Level 17 mmol/L (21-32) Blood Urea Nitrogen 32 mg/dL (7-20) Creatinine 1.6 mg/dL (0.6-1.0) Estimated GFR (Cockcroft-Gault) 34.0 BUN/Creatinine Ratio 20 (6-20) Calcium Level 8.9 mg/dL (8.5-10.1) Total Bilirubin 0.3 mg/dL (0.2-1.0) Aspartate Amino Transf (AST/SGOT) 163 U/L (15-37) Alanine Aminotransferase (ALT/SGPT) 105 U/L (14-59) Alkaline Phosphatase 138 U/L (46-116) Creatine Kinase 335 U/L (26-192) Creatine Kinase MB (Mass) 30.6 ng/mL (0.0-3.6) Creatine Kinase MB Relative Index 9.1 % (0-4) Total Protein 7.3 g/dL (6.4-8.2) Albumin 3.8 g/dL (3.4-5.0) Albumin/Globulin Ratio 1.1 (1.0-1.7) Lipase 205 U/L (73-393) Salicylates Level 4.0 mg/dL (2.8-20.0) Salicylate Last Dose Date Unknown Salicylate Last Dose Time Unknown Acetaminophen Level < 2 mcg/ml (10-30) Acetaminophen Last Dose Date Unknown Acetaminophen Last Dose Time Unknown Ethyl Alcohol Level < 10 mg/dL (0-10) Urine Collection Type U cath Urine Color Yellow Urine Clarity Clear Urine pH 6.0 Urine Specific [place] 1.025 Urine Protein 100 mg/dL (NEG-TRACE) Urine Glucose (UA) >=1000 mg/dL (NEG) Urine Ketones (Stick) Negative mg/dL (NEG) Urine Blood Large (NEG) Urine Nitrite Negative (NEG) Urine Bilirubin Negative (NEG) Urine Urobilinogen Dipstick 1.0 mg/dL (0.2 mg/dL) Urine Leukocyte Esterase Negative (NEG) Urine RBC 6-10 /HPF (0-2) Urine WBC 5-10 /HPF (0-4) Urine Squamous Epithelial Cells Few /LPF Urine Amorphous Sediment Present /HPF Urine Bacteria 0 /HPF (0-FEW) Urine Opiates Screen Neg (NEG) Urine Methadone Screen Neg (NEG) Urine Barbiturates Neg (NEG) Urine Phencyclidine Screen Neg (NEG) Urine Amphetamine/Methamphetamine Pos (NEG) Urine Benzodiazepines Screen Neg (NEG) Urine Cocaine Screen Pos (NEG) Urine Cannabinoids Screen Pos (NEG) Urine Ethyl Alcohol Neg (NEG) Images: Images Chest x-ray shows some subtle signs of atelectasis versus aspiration Assessment/Plan Assessment/Plan Cardiac arrest DKA polysubstance abuse and probable aspiration Plan ICU monitoring consult pulmonary consult cardiology propofol for sedation vent weaning IV antibiotics when necessary Narcan soft restraints will try to resume home meds O G-tube Prognosis extremely guarded this is a critically ill patient I discussed the case at length with the nurses the mother and the ER physician Total time 37 minutes MACIEL BHATIA III, DO Nov 30, 2018 11:33
[2018-11-30] MEDS ORDERED: PROPOFOL 100 ML IV ONE (11:52)
[2018-11-30] MEDS ORDERED: MIDAZOLAM 100mg/100ml NS BAG 100 ML IV PRN (12:00)
[2018-11-30] MEDS ORDERED: fentaNYL PF VIAL 100 MCG/2 ML VIAL IV PRN ×2 (12:00)
[2018-11-30 12:36] LABS: % BANDS 14 % (0-9); % BASOS 1 % (0-3); % LYMPHS 26 % (24-48); % MONOS 5 % (0-10); % SEGS 54 % (35-66); PLT ESTIMATE ADEQUATE (ADEQUATE)
[2018-11-30] MEDS ORDERED: LISI10TA2 PO (12:44)
[2018-11-30] MEDS ORDERED: SIMV40TA3 PO (12:44)
--- NOTE | 2018-11-30 12:46 | PDOC ---
PULMONARY PROGRESS NOTES Vitals Vital Signs Date Time Temp Pulse Resp B/P (MAP) Pulse Ox O2 Delivery O2 Flow Rate FiO2 11/30/18 11:59 97 Ventilator 11/30/18 11:35 104 16 162/81 (108) 11/30/18 09:31 97.5 15.0 97.5 Labs Laboratory Tests Test 11/30/18 09:35 11/30/18 09:36 11/30/18 09:37 11/30/18 09:38 Ammonia 15 mcmol/L (11-34) O2 Saturation 99 % (92-99) Arterial Blood pH 7.28 (7.35-7.45) Arterial Blood pCO2 at Patient Temp 33 mmHg (35-46) Arterial Blood pO2 at Patient Temp > 503 mmHg (75-108) Arterial Blood HCO3 15 mmol/L (21-28) Arterial Blood Base Excess -11 mmol/L (-3-3) Oxyhemoglobin 97.0 % Methemoglobin 0.5 % (0.0-1.9) Carbon Monoxide, Quantitative 1.9 % (0.0-1.9) FiO2 100 White Blood Count 26.3 x10^3/uL (4.0-11.0) Red Blood Count 4.29 x10^6/uL (3.50-5.40) Hemoglobin 13.3 g/dL (12.0-15.5) Hematocrit 39.7 % (36.0-47.0) Mean Corpuscular Volume 92 fL (79-100) Mean Corpuscular Hemoglobin 31 pg (25-35) Mean Corpuscular Hemoglobin Concent 34 g/dL (31-37) Red Cell Distribution Width 12.5 % (11.5-14.5) Platelet Count 315 x10^3/uL (140-400) Neutrophils (%) (Auto) 69 % (31-73) Lymphocytes (%) (Auto) 24 % (24-48) Monocytes (%) (Auto) 6 % (0-9) Eosinophils (%) (Auto) 1 % (0-3) Basophils (%) (Auto) 0 % (0-3) Neutrophils # (Auto) 18.3 x10^3uL (1.8-7.7) Lymphocytes # (Auto) 6.3 x10^3/uL (1.0-4.8) Monocytes # (Auto) 1.5 x10^3/uL (0.0-1.1) Eosinophils # (Auto) 0.2 x10^3/uL (0.0-0.7) Basophils # (Auto) 0.1 x10^3/uL (0.0-0.2) Segmented Neutrophils % 54 % (35-66) Band Neutrophils % 14 % (0-9) Lymphocytes % 26 % (24-48) Monocytes % 5 % (0-10) Basophils % 1 % (0-3) Platelet Estimate Adequate (ADEQUATE) Large Platelets Few Giant Platelets Occ Prothrombin Time 14.6 SEC (11.7-14.0) Prothromb Time International Ratio 1.2 (0.8-1.1) Activated Partial Thromboplast Time 27 SEC (24-38) Bedside Troponin I 0.61 ng/ml (<0.08) Test 11/30/18 09:41 11/30/18 09:52 11/30/18 10:30 11/30/18 11:18 Bedside Hemoglobin 13.9 g/dL (12-15) Bedside Hematocrit 41 % (36-40) Bedside Sodium 132 mmol/L (135-145) Bedside Potassium 4.2 mmol/L (3.5-5.0) Bedside Chloride 98 mmol/L (98-110) Bedside Total CO2 16 mmol/L (23-32) Anion Gap 24 mmol/L (6-14) 22 (6-14) Bedside Blood Urea Nitrogen 34 mg/dL (8-26) Bedside Creatinine 1.0 mg/dL (0.5-1.4) Glucose Level 587 mg/dL (70-99) 608 mg/dL (70-99) Bedside Ionized Calcium (Charles) 1.08 mmol/L (1.13-1.32) Sodium Level 133 mmol/L (136-145) Potassium Level 4.3 mmol/L (3.5-5.1) Chloride Level 94 mmol/L (98-107) Carbon Dioxide Level 17 mmol/L (21-32) Blood Urea Nitrogen 32 mg/dL (7-20) Creatinine 1.6 mg/dL (0.6-1.0) Estimated GFR (Cockcroft-Gault) 34.0 BUN/Creatinine Ratio 20 (6-20) Calcium Level 8.9 mg/dL (8.5-10.1) Total Bilirubin 0.3 mg/dL (0.2-1.0) Aspartate Amino Transf (AST/SGOT) 163 U/L (15-37) Alanine Aminotransferase (ALT/SGPT) 105 U/L (14-59) Alkaline Phosphatase 138 U/L (46-116) Creatine Kinase 335 U/L (26-192) Creatine Kinase MB (Mass) 30.6 ng/mL (0.0-3.6) Creatine Kinase MB Relative Index 9.1 % (0-4) Total Protein 7.3 g/dL (6.4-8.2) Albumin 3.8 g/dL (3.4-5.0) Albumin/Globulin Ratio 1.1 (1.0-1.7) Lipase 205 U/L (73-393) Salicylates Level 4.0 mg/dL (2.8-20.0) Salicylate Last Dose Date Unknown Salicylate Last Dose Time Unknown Acetaminophen Level < 2 mcg/ml (10-30) Acetaminophen Last Dose Date Unknown Acetaminophen Last Dose Time Unknown Ethyl Alcohol Level < 10 mg/dL (0-10) Acetone Level Neg (NEG) Urine Collection Type U cath Urine Color Yellow Urine Clarity Clear Urine pH 6.0 Urine Specific [place] 1.025 Urine Protein 100 mg/dL (NEG-TRACE) Urine Glucose (UA) >=1000 mg/dL (NEG) Urine Ketones (Stick) Negative mg/dL (NEG) Urine Blood Large (NEG) Urine Nitrite Negative (NEG) Urine Bilirubin Negative (NEG) Urine Urobilinogen Dipstick 1.0 mg/dL (0.2 mg/dL) Urine Leukocyte Esterase Negative (NEG) Urine RBC 6-10 /HPF (0-2) Urine WBC 5-10 /HPF (0-4) Urine Squamous Epithelial Cells Few /LPF Urine Amorphous Sediment Present /HPF Urine Bacteria 0 /HPF (0-FEW) Urine Opiates Screen Neg (NEG) Urine Methadone Screen Neg (NEG) Urine Barbiturates Neg (NEG) Urine Phencyclidine Screen Neg (NEG) Urine Amphetamine/Methamphetamine Pos (NEG) Urine Benzodiazepines Screen Neg (NEG) Urine Cocaine Screen Pos (NEG) Urine Cannabinoids Screen Pos (NEG) Urine Ethyl Alcohol Neg (NEG) Lactic Acid Level 3.6 mmol/L (0.4-2.0) Magnesium Level 1.6 mg/dL (1.8-2.4) Test 11/30/18 12:37 Glucose (Fingerstick) 447 mg/dL (70-99) Laboratory Tests Test 11/30/18 09:35 11/30/18 09:36 11/30/18 09:37 11/30/18 09:38 Ammonia 15 mcmol/L (11-34) O2 Saturation 99 % (92-99) Arterial Blood pH 7.28 (7.35-7.45) Arterial Blood pCO2 at Patient Temp 33 mmHg (35-46) Arterial Blood pO2 at Patient Temp > 503 mmHg (75-108) Arterial Blood HCO3 15 mmol/L (21-28) Arterial Blood Base Excess -11 mmol/L (-3-3) Oxyhemoglobin 97.0 % Methemoglobin 0.5 % (0.0-1.9) Carbon Monoxide, Quantitative 1.9 % (0.0-1.9) FiO2 100 White Blood Count 26.3 x10^3/uL (4.0-11.0) Red Blood Count 4.29 x10^6/uL (3.50-5.40) Hemoglobin 13.3 g/dL (12.0-15.5) Hematocrit 39.7 % (36.0-47.0) Mean Corpuscular Volume 92 fL (79-100) Mean Corpuscular Hemoglobin 31 pg (25-35) Mean Corpuscular Hemoglobin Concent 34 g/dL (31-37) Red Cell Distribution Width 12.5 % (11.5-14.5) Platelet Count 315 x10^3/uL (140-400) Neutrophils (%) (Auto) 69 % (31-73) Lymphocytes (%) (Auto) 24 % (24-48) Monocytes (%) (Auto) 6 % (0-9) Eosinophils (%) (Auto) 1 % (0-3) Basophils (%) (Auto) 0 % (0-3) Neutrophils # (Auto) 18.3 x10^3uL (1.8-7.7) Lymphocytes # (Auto) 6.3 x10^3/uL (1.0-4.8) Monocytes # (Auto) 1.5 x10^3/uL (0.0-1.1) Eosinophils # (Auto) 0.2 x10^3/uL (0.0-0.7) Basophils # (Auto) 0.1 x10^3/uL (0.0-0.2) Segmented Neutrophils % 54 % (35-66) Band Neutrophils % 14 % (0-9) Lymphocytes % 26 % (24-48) Monocytes % 5 % (0-10) Basophils % 1 % (0-3) Platelet Estimate Adequate (ADEQUATE) Large Platelets Few Giant Platelets Occ Prothrombin Time 14.6 SEC (11.7-14.0) Prothromb Time International Ratio 1.2 (0.8-1.1) Activated Partial Thromboplast Time 27 SEC (24-38) Bedside Troponin I 0.61 ng/ml (<0.08) Test 11/30/18 09:41 11/30/18 09:52 11/30/18 10:30 11/30/18 11:18 Bedside Hemoglobin 13.9 g/dL (12-15) Bedside Hematocrit 41 % (36-40) Bedside Sodium 132 mmol/L (135-145) Bedside Potassium 4.2 mmol/L (3.5-5.0) Bedside Chloride 98 mmol/L (98-110) Bedside Total CO2 16 mmol/L (23-32) Anion Gap 24 mmol/L (6-14) 22 (6-14) Bedside Blood Urea Nitrogen 34 mg/dL (8-26) Bedside Creatinine 1.0 mg/dL (0.5-1.4) Glucose Level 587 mg/dL (70-99) 608 mg/dL (70-99) Bedside Ionized Calcium (Charles) 1.08 mmol/L (1.13-1.32) Sodium Level 133 mmol/L (136-145) Potassium Level 4.3 mmol/L (3.5-5.1) Chloride Level 94 mmol/L (98-107) Carbon Dioxide Level 17 mmol/L (21-32) Blood Urea Nitrogen 32 mg/dL (7-20) Creatinine 1.6 mg/dL (0.6-1.0) Estimated GFR (Cockcroft-Gault) 34.0 BUN/Creatinine Ratio 20 (6-20) Calcium Level 8.9 mg/dL (8.5-10.1) Total Bilirubin 0.3 mg/dL (0.2-1.0) Aspartate Amino Transf (AST/SGOT) 163 U/L (15-37) Alanine Aminotransferase (ALT/SGPT) 105 U/L (14-59) Alkaline Phosphatase 138 U/L (46-116) Creatine Kinase 335 U/L (26-192) Creatine Kinase MB (Mass) 30.6 ng/mL (0.0-3.6) Creatine Kinase MB Relative Index 9.1 % (0-4) Total Protein 7.3 g/dL (6.4-8.2) Albumin 3.8 g/dL (3.4-5.0) Albumin/Globulin Ratio 1.1 (1.0-1.7) Lipase 205 U/L (73-393) Salicylates Level 4.0 mg/dL (2.8-20.0) Salicylate Last Dose Date Unknown Salicylate Last Dose Time Unknown Acetaminophen Level < 2 mcg/ml (10-30) Acetaminophen Last Dose Date Unknown Acetaminophen Last Dose Time Unknown Ethyl Alcohol Level < 10 mg/dL (0-10) Acetone Level Neg (NEG) Urine Collection Type U cath Urine Color Yellow Urine Clarity Clear Urine pH 6.0 Urine Specific [place] 1.025 Urine Protein 100 mg/dL (NEG-TRACE) Urine Glucose (UA) >=1000 mg/dL (NEG) Urine Ketones (Stick) Negative mg/dL (NEG) Urine Blood Large (NEG) Urine Nitrite Negative (NEG) Urine Bilirubin Negative (NEG) Urine Urobilinogen Dipstick 1.0 mg/dL (0.2 mg/dL) Urine Leukocyte Esterase Negative (NEG) Urine RBC 6-10 /HPF (0-2) Urine WBC 5-10 /HPF (0-4) Urine Squamous Epithelial Cells Few /LPF Urine Amorphous Sediment Present /HPF Urine Bacteria 0 /HPF (0-FEW) Urine Opiates Screen Neg (NEG) Urine Methadone Screen Neg (NEG) Urine Barbiturates Neg (NEG) Urine Phencyclidine Screen Neg (NEG) Urine Amphetamine/Methamphetamine Pos (NEG) Urine Benzodiazepines Screen Neg (NEG) Urine Cocaine Screen Pos (NEG) Urine Cannabinoids Screen Pos (NEG) Urine Ethyl Alcohol Neg (NEG) Lactic Acid Level 3.6 mmol/L (0.4-2.0) Magnesium Level 1.6 mg/dL (1.8-2.4) Test 11/30/18 12:37 Glucose (Fingerstick) 447 mg/dL (70-99) Medications Active Scripts Medications Dose Route/Sig Max Daily Dose Days Date Category Simvastatin 40 Mg Tablet 40 Mg PO HS 4/27/19 Reported Lisinopril 10 Mg Tablet 10 Mg PO DAILY 11/30/18 Reported Metformin Hcl 500 Mg Tablet 500 Mg PO DAILY 07/21/17 Reported Impression . NOTE DICTATED AGREE WITH CURRENT RX JEANNETTE TELLEZ MD Nov 30, 2018 12:46
[2018-11-30] MEDS: PROPOFOL 100 ML IV PRN ×2 (13:11→16:30)
[2018-11-30] MEDS ORDERED: MAGNESIUM SULFATE 2GM 50 ML IV ONE (13:30)
[2018-11-30] MEDS: IV NORMAL SALINE 1000ML BAG 1,000 ML IV SCH ×2 (14:12→16:38)
--- NOTE | 2018-11-30 15:04 | EKG ---
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
[2018-11-30] MEDS ORDERED: IV DEXTROSE 5% - 0.9 % NACL 1,000 ML IV SCH (15:15)
[2018-11-30] MEDS ORDERED: PIP/TAZO PER PHARMACY MC PRN (15:15)
[2018-11-30 15:53] LABS: CALCIUM 8.3 mg/dL (8.5-10.1); CREATININE 1.3 mg/dL (0.6-1.0); GFR 43.2; POTASSIUM 3.8 mmol/L (3.5-5.1)
[2018-11-30 15:57] LABS: MAGNESIUM 2.6 mg/dL (1.8-2.4); PHOSPHORUS 3.3 mg/dL (2.6-4.7)
[2018-11-30] MEDS: PIPERACILLIN/TAZOBACTAM 3.375 GM in IV NORMAL SALINE 50ML 50 ML IV SCH ×2 (16:37→22:00)
[2018-11-30] MEDS ORDERED: DEXTROSE 50% 25 GM / 50ML DISP.SYRIN. IV PRN (16:45)
[2018-11-30] MEDS: INSULIN LISPRO 300 UNITS/3 ML INSULN.PEN. SQ SCH (17:00)
[2018-11-30] MEDS: TIROFIBAN 5MG -0.9% NS 100 ML IV PRN (18:59)
[2018-11-30] MEDS ORDERED: HEPARIN for IV BOLUS 10,000 UNIT/10 ML VIAL. IV PRN (19:00)
[2018-11-30] MEDS ORDERED: HEPARIN 25,000UTS/500ML PREMIX 500 ML IV PRN (19:00)
[2018-11-30] MEDS ORDERED: CHLORHEXIDINE 0.12% 15 ML MOUTHWASH. MM SCH (21:00)
[2018-12-01] VITALS (27 sets, daily range): BP systolic 107–173; BP diastolic 53–91
[2018-12-01] MEDS: PROPOFOL 100 ML IV PRN ×3 (00:09→17:59)
[2018-12-01] MEDS: TIROFIBAN 5MG -0.9% NS 100 ML IV PRN ×2 (00:09→05:35)
[2018-12-01 02:26] LABS: HEMATOCRIT 40.7 % (36.0-47.0); HEMOGLOBIN 13.5 g/dL (12.0-15.5); RED BLOOD COUNT 4.47 x10^6/uL (3.50-5.40); RED CELL DISTRIBUTION WIDTH 12.8 % (11.5-14.5); WHITE BLOOD COUNT 15.3 x10^3/uL (4.0-11.0)
[2018-12-01 02:33] LABS: CALCIUM 8.5 mg/dL (8.5-10.1); CREATININE 1.6 mg/dL (0.6-1.0); POTASSIUM 4.7 mmol/L (3.5-5.1)
--- NOTE | 2018-12-01 04:21 | CONS ---
DATE OF CONSULTATION: 11/30/2018 ATTENDING PHYSICIAN: Liset Hughes DO REASON FOR CONSULTATION: The patient seen in pulmonary consultation at the request of Dr. Hughes for vent management and respiratory failure. HISTORY OF PRESENT ILLNESS: The patient is a 52-year-old with a prior history of polysubstance use, presented to the emergency department by EMS for evaluation out of hospital cardiopulmonary arrest. The patient's mother called EMS the morning of admission. She had passed out in front of her, went into cardiac arrest. Fire department showed up. Initially, the patient was found to be in v-tach. She was shocked by the fire department. EMS then was arrived. She was then in PEA. She was given 2 doses of epinephrine, 2 doses of Narcan. She was intubated. She went into beat v-tach en route to the emergency department. She was once again shocked. She had return of spontaneous circulation. She is currently in the intensive care unit. She is sedated, but she is awakening and moving all extremities according to the nursing staff. We placed her on Versed in addition to the Diprivan. During my evaluation, the patient was sedated. She was on assist control ventilation in sync with the ventilator. PAST MEDICAL HISTORY: Documented as type 2 diabetes, hyperlipidemia, pancreatitis, polysubstance use, depression. PAST SURGICAL HISTORY: Previous appendectomy, oophorectomy. SOCIAL HISTORY: She apparently uses marijuana, methamphetamine, heroin and alcohol. ALLERGIES: No known drug allergies listed. PHYSICAL EXAMINATION: GENERAL: The patient was in the intensive care unit. VITAL SIGNS: Stable. O2 saturation was greater than 92%. HEENT: Eyes: The sclerae were nonicteric. Pupils were approximately 5 to 6 mm in diameter and nonreactive to light. CHEST: Full expansion. LUNGS: Coarse breath sounds, no wheezes. CARDIOVASCULAR: Regular rate and rhythm with S1, S2, no S3. ABDOMEN: Soft. EXTREMITIES: No pitting edema. LABORATORY DATA: [place] [address]. Arterial blood gas: pH of 7.28, PaCO2 of 33, pO2 of 503 . INR was 1.2. Electrolytes were deranged. BUN was 32, creatinine was 1.6, glucose was elevated. Liver chemistries were elevated. CPK was elevated. Magnesium was low. Lactic acid level was 3.6. UA was noted. Urine drug screen was positive for amphetamine, methamphetamine, cocaine, and cannabinoid. Alcohol level was less than 10. Acetone level was negative. IMPRESSION: 1. Out of hospital cardiopulmonary arrest. 2. Respiratory failure secondary to above. 3. Ventricular tachycardia. 4. Polysubstance use. 5. Leukocytosis. 6. Electrolyte abnormalities. 7. Metabolic acidosis. 8. Elevated blood sugars. 9. Elevated liver chemistries. PLAN: 1. The patient, when not fully sedated, moves all extremities. No need for hypothermic protocol. 2. Continue current support. 3. Case discussed with Dr. Scott from cardiology. 4. Replace magnesium. 5. IV fluids. Total cumulative critical care time of 50 minutes. JEANNETTE TELLEZ MD DR: OVIDIO/nts JOB#: [id number] / [id number]
[2018-12-01] MEDS: PIPERACILLIN/TAZOBACTAM 3.375 GM in IV NORMAL SALINE 50ML 50 ML IV SCH ×4 (04:27→21:42)
[2018-12-01] MEDS: IV NORMAL SALINE 1000ML BAG 1,000 ML IV SCH ×3 (04:27→23:30)
[2018-12-01 07:29] LABS: BASE EXCESS ABG -8 mmol/L (-3-3); HCO3 ABG 17 mmol/L (21-28); PCO2 ABG 34 mmHg (35-46); PO2 ABG 105 mmHg (75-108); SAT O2 ABG 97 % (92-99)
--- NOTE | 2018-12-01 07:55 | NUR ---
Sonia notified of 0200 troponin 121.207 by this RN.
[2018-12-01] MEDS ORDERED: ANTI-COAG MONITOR BY PHARMACY. MC PRN (08:00)
[2018-12-01] MEDS: INSULIN LISPRO 300 UNITS/3 ML INSULN.PEN. SQ SCH ×3 (08:29→17:50)
[2018-12-01] MEDS ORDERED: INSULIN GLARGINE 300 UNITS/3 ML INSULN.PEN. SQ STA (08:39)
[2018-12-01] MEDS ORDERED: ONDANSETRON PF 4 MG/2 ML VIAL. IV PRN (08:45)
[2018-12-01] MEDS ORDERED: DEXTROSE 50% 25 GM / 50ML DISP.SYRIN. IV PRN (08:45)
[2018-12-01] MEDS ORDERED: ACETAMINOPHEN 650 MG/20.3 ML SOLUTION. PEG PRN (08:45)
[2018-12-01 08:47] LABS: FIO2 ABG 30
--- NOTE | 2018-12-01 08:48 | RAD ---
Single view chest History:Respiratory failure, ventilator An AP view of the chest is submitted. Comparison: 11/30/2018. Findings: There is again endotracheal tube, tip about 2 cm from brandie. There is again enteric catheter coursing into the stomach. Heart size is stable, within normal limits. There is no new lobar consolidation, pleural fluid, pneumothorax. There is new mild medial left base atelectasis. Impression: 1. There is now medial left base atelectasis. There is endotracheal tube and enteric catheter as seen previously.
[2018-12-01] MEDS ORDERED: VERAPAMIL 5 MG/2 ML VIAL. ONE (09:50)
[2018-12-01] MEDS ORDERED: HEPARIN for IV BOLUS 10,000 UNIT/10 ML VIAL. ONE (09:50)
[2018-12-01] MEDS ORDERED: NITROGLYCERIN 200 MCG/2 ML SYRINGE FOR CATH/VASC LAB. ONE (09:50)
[2018-12-01] MEDS ORDERED: IODIXANOL 320 MG/ML 100 ML VIAL. ONE ×2 (09:54→10:55)
[2018-12-01] MEDS ORDERED: LIDOCAINE 1% Multi-Dose 20 ML VIAL. ONE (09:55)
--- NOTE | 2018-12-01 09:56 | PDOC ---
PROGRESS NOTES Chief Complaint Chief Complaint status post in hospital cardiac arrest, rhythms include nonsustained V. tach shocked, PEA status post 2 rounds of epinephrine - no hypothermia (initiated she was waking up) Acute respiratory failure secondary to cardiac arrest-on IPPV-11/30/18 Short run A. fib resolved N STEMI-troponin peaks at 121 Rhabdomyolysis possibly in the background of CPR-CK 3000 SIRS reactive secondary to CPR-leukocytosis 15 Anion gap acidosis with a bicarbonate 18 and elevated anion gap 19 - s.p 50 meqs bicarb AK I VMN postcode-creatinine 1.6 Oliguria responding to IV fluids Status post HO NK versus DKA-blood sugars better now Hypertension on lisinopril at home Dyslipidemia on simvastatin at home Diabetes on metformin at home History of Present Illness History of Present Illness She tested positive for methamphetamine, was admitted for that and a mild element of DKA then coded. ABG around code time was pH 7.28, CO2 33 with oh to 500 Repeat ABG now shows normal pH with good CO2 and O2 components She was only on 3 medications at home: daily simvastatin lisinopril 10 and metformin Now she seen in the ICU she is on amiodarone drip, fentanyl, propofol, and tirafibatide by cardiology Troponins 121 and is planned for stat LHC today Blood sugars are much better, anion gap 19 with a bicarbonate 18 status post 50 mEq bicarbonate and creatinine 1.6 Dione: continue drips, vent per pulmonary - she has 3 peripheral IV lines, not on pressors Antiarrhythmics per cardiology LHC later Maintain [place] catheter, bolus when necessary if needed re UO Increase normal saline to 1 25 mL from 100 Sliding-scale insulin high-dose every 6 Tube feeds later \PPI and DVt ppx in this vented pt ABG looks good. Might actually be a candidate of weaning off the vent post LHC- depending on LHC results Discussed with OPERATIONS DISPATCHER Vitals Vitals Vital Signs Date Time Temp Pulse Resp B/P (MAP) Pulse Ox O2 Delivery O2 Flow Rate FiO2 12/01/18 09:14 99 Ventilator 12/01/18 09:00 70 20 166/84 (111) 15.0 12/01/18 07:00 98.9 98.9 Physical Exam General: Other (intubated) Heart: Regular rate, Normal S1, Normal S2, No murmurs Lungs: Clear Abdomen: Soft, No tenderness Extremities: No clubbing, No cyanosis, No edema Skin: No rashes, No breakdown, No significant lesion Labs LABS Laboratory Tests Test 11/30/18 09:52 11/30/18 10:30 11/30/18 11:18 11/30/18 12:37 Sodium Level 133 mmol/L (136-145) Potassium Level 4.3 mmol/L (3.5-5.1) Chloride Level 94 mmol/L (98-107) Carbon Dioxide Level 17 mmol/L (21-32) Anion Gap 22 (6-14) Blood Urea Nitrogen 32 mg/dL (7-20) Creatinine 1.6 mg/dL (0.6-1.0) Estimated GFR (Cockcroft-Gault) 34.0 BUN/Creatinine Ratio 20 (6-20) Glucose Level 608 mg/dL (70-99) Calcium Level 8.9 mg/dL (8.5-10.1) Total Bilirubin 0.3 mg/dL (0.2-1.0) Aspartate Amino Transf (AST/SGOT) 163 U/L (15-37) Alanine Aminotransferase (ALT/SGPT) 105 U/L (14-59) Alkaline Phosphatase 138 U/L (46-116) Creatine Kinase 335 U/L (26-192) Creatine Kinase MB (Mass) 30.6 ng/mL (0.0-3.6) Creatine Kinase MB Relative Index 9.1 % (0-4) Total Protein 7.3 g/dL (6.4-8.2) Albumin 3.8 g/dL (3.4-5.0) Albumin/Globulin Ratio 1.1 (1.0-1.7) Lipase 205 U/L (73-393) Salicylates Level 4.0 mg/dL (2.8-20.0) Salicylate Last Dose Date Unknown Salicylate Last Dose Time Unknown Acetaminophen Level < 2 mcg/ml (10-30) Acetaminophen Last Dose Date Unknown Acetaminophen Last Dose Time Unknown Ethyl Alcohol Level < 10 mg/dL (0-10) Acetone Level Neg (NEG) Urine Collection Type U cath Urine Color Yellow Urine Clarity Clear Urine pH 6.0 Urine Specific [place] 1.025 Urine Protein 100 mg/dL (NEG-TRACE) Urine Glucose (UA) >=1000 mg/dL (NEG) Urine Ketones (Stick) Negative mg/dL (NEG) Urine Blood Large (NEG) Urine Nitrite Negative (NEG) Urine Bilirubin Negative (NEG) Urine Urobilinogen Dipstick 1.0 mg/dL (0.2 mg/dL) Urine Leukocyte Esterase Negative (NEG) Urine RBC 6-10 /HPF (0-2) Urine WBC 5-10 /HPF (0-4) Urine Squamous Epithelial Cells Few /LPF Urine Amorphous Sediment Present /HPF Urine Bacteria 0 /HPF (0-FEW) Urine Opiates Screen Neg (NEG) Urine Methadone Screen Neg (NEG) Urine Barbiturates Neg (NEG) Urine Phencyclidine Screen Neg (NEG) Urine Amphetamine/Methamphetamine Pos (NEG) Urine Benzodiazepines Screen Neg (NEG) Urine Cocaine Screen Pos (NEG) Urine Cannabinoids Screen Pos (NEG) Urine Ethyl Alcohol Neg (NEG) Lactic Acid Level 3.6 mmol/L (0.4-2.0) Magnesium Level 1.6 mg/dL (1.8-2.4) Glucose (Fingerstick) 447 mg/dL (70-99) Test 11/30/18 13:40 11/30/18 14:10 11/30/18 14:48 11/30/18 15:30 Glucose (Fingerstick) 330 mg/dL (70-99) 231 mg/dL (70-99) Lactic Acid Level 3.5 mmol/L (0.4-2.0) Sodium Level 138 mmol/L (136-145) Potassium Level 3.8 mmol/L (3.5-5.1) Chloride Level 102 mmol/L (98-107) Carbon Dioxide Level 22 mmol/L (21-32) Anion Gap 14 (6-14) Blood Urea Nitrogen 33 mg/dL (7-20) Creatinine 1.3 mg/dL (0.6-1.0) Estimated GFR (Cockcroft-Gault) 43.2 Glucose Level 186 mg/dL (70-99) Calcium Level 8.3 mg/dL (8.5-10.1) Phosphorus Level 3.3 mg/dL (2.6-4.7) Magnesium Level 2.6 mg/dL (1.8-2.4) Creatine Kinase 2063 U/L (26-192) Troponin I Quantitative 49.805 ng/mL (0.000-0.055) Test 11/30/18 15:53 11/30/18 18:23 11/30/18 21:16 12/01/18 02:10 Glucose (Fingerstick) 148 mg/dL (70-99) 192 mg/dL (70-99) 260 mg/dL (70-99) White Blood Count 15.3 x10^3/uL (4.0-11.0) Red Blood Count 4.47 x10^6/uL (3.50-5.40) Hemoglobin 13.5 g/dL (12.0-15.5) Hematocrit 40.7 % (36.0-47.0) Mean Corpuscular Volume 91 fL (79-100) Mean Corpuscular Hemoglobin 30 pg (25-35) Mean Corpuscular Hemoglobin Concent 33 g/dL (31-37) Red Cell Distribution Width 12.8 % (11.5-14.5) Platelet Count 256 x10^3/uL (140-400) Heparin Anti-Xa Act, Unfractionated 0.43 IU/mL (0.30-0.70) Sodium Level 138 mmol/L (136-145) Potassium Level 4.7 mmol/L (3.5-5.1) Chloride Level 101 mmol/L (98-107) Carbon Dioxide Level 18 mmol/L (21-32) Anion Gap 19 (6-14) Blood Urea Nitrogen 35 mg/dL (7-20) Creatinine 1.6 mg/dL (0.6-1.0) Estimated GFR (Cockcroft-Gault) 34.0 Glucose Level 311 mg/dL (70-99) Calcium Level 8.5 mg/dL (8.5-10.1) Creatine Kinase 2995 U/L (26-192) Troponin I Quantitative 121.207 ng/mL (0.000-0.055) Test 12/01/18 07:15 12/01/18 08:25 O2 Saturation 97 % (92-99) Arterial Blood pH 7.32 (7.35-7.45) Arterial Blood pCO2 at Patient Temp 34 mmHg (35-46) Arterial Blood pO2 at Patient Temp 105 mmHg (75-108) Arterial Blood HCO3 17 mmol/L (21-28) Arterial Blood Base Excess -8 mmol/L (-3-3) FiO2 30 Glucose (Fingerstick) 298 mg/dL (70-99) Review of Systems Review of Systems Intubated sedated Assessment and Plan Assessmemt and Plan Problems Medical Problems: (1) Aspiration pneumonia Status: Acute (2) Cardiac arrest Status: Acute (3) DKA (diabetic ketoacidoses) Status: Acute (4) Drug overdose Status: Acute (5) Substance abuse Status: Acute Comment Review of Relevant I have reviewed the following items kashmir (where applicable) has been applied. Labs Laboratory Tests Test 11/30/18 09:35 11/30/18 09:36 11/30/18 09:37 11/30/18 09:38 Ammonia 15 mcmol/L (11-34) O2 Saturation 99 % (92-99) Arterial Blood pH 7.28 (7.35-7.45) Arterial Blood pCO2 at Patient Temp 33 mmHg (35-46) Arterial Blood pO2 at Patient Temp > 503 mmHg (75-108) Arterial Blood HCO3 15 mmol/L (21-28) Arterial Blood Base Excess -11 mmol/L (-3-3) Oxyhemoglobin 97.0 % Methemoglobin 0.5 % (0.0-1.9) Carbon Monoxide, Quantitative 1.9 % (0.0-1.9) FiO2 100 White Blood Count 26.3 x10^3/uL (4.0-11.0) Red Blood Count 4.29 x10^6/uL (3.50-5.40) Hemoglobin 13.3 g/dL (12.0-15.5) Hematocrit 39.7 % (36.0-47.0) Mean Corpuscular Volume 92 fL (79-100) Mean Corpuscular Hemoglobin 31 pg (25-35) Mean Corpuscular Hemoglobin Concent 34 g/dL (31-37) Red Cell Distribution Width 12.5 % (11.5-14.5) Platelet Count 315 x10^3/uL (140-400) Neutrophils (%) (Auto) 69 % (31-73) Lymphocytes (%) (Auto) 24 % (24-48) Monocytes (%) (Auto) 6 % (0-9) Eosinophils (%) (Auto) 1 % (0-3) Basophils (%) (Auto) 0 % (0-3) Neutrophils # (Auto) 18.3 x10^3uL (1.8-7.7) Lymphocytes # (Auto) 6.3 x10^3/uL (1.0-4.8) Monocytes # (Auto) 1.5 x10^3/uL (0.0-1.1) Eosinophils # (Auto) 0.2 x10^3/uL (0.0-0.7) Basophils # (Auto) 0.1 x10^3/uL (0.0-0.2) Segmented Neutrophils % 54 % (35-66) Band Neutrophils % 14 % (0-9) Lymphocytes % 26 % (24-48) Monocytes % 5 % (0-10) Basophils % 1 % (0-3) Platelet Estimate Adequate (ADEQUATE) Large Platelets Few Giant Platelets Occ Prothrombin Time 14.6 SEC (11.7-14.0) Prothromb Time International Ratio 1.2 (0.8-1.1) Activated Partial Thromboplast Time 27 SEC (24-38) Bedside Troponin I 0.61 ng/ml (<0.08) Test 11/30/18 09:41 11/30/18 09:52 11/30/18 10:30 11/30/18 11:18 Bedside Hemoglobin 13.9 g/dL (12-15) Bedside Hematocrit 41 % (36-40) Bedside Sodium 132 mmol/L (135-145) Bedside Potassium 4.2 mmol/L (3.5-5.0) Bedside Chloride 98 mmol/L (98-110) Bedside Total CO2 16 mmol/L (23-32) Anion Gap 24 mmol/L (6-14) 22 (6-14) Bedside Blood Urea Nitrogen 34 mg/dL (8-26) Bedside Creatinine 1.0 mg/dL (0.5-1.4) Glucose Level 587 mg/dL (70-99) 608 mg/dL (70-99) Bedside Ionized Calcium (Charles) 1.08 mmol/L (1.13-1.32) Sodium Level 133 mmol/L (136-145) Potassium Level 4.3 mmol/L (3.5-5.1) Chloride Level 94 mmol/L (98-107) Carbon Dioxide Level 17 mmol/L (21-32) Blood Urea Nitrogen 32 mg/dL (7-20) Creatinine 1.6 mg/dL (0.6-1.0) Estimated GFR (Cockcroft-Gault) 34.0 BUN/Creatinine Ratio 20 (6-20) Calcium Level 8.9 mg/dL (8.5-10.1) Total Bilirubin 0.3 mg/dL (0.2-1.0) Aspartate Amino Transf (AST/SGOT) 163 U/L (15-37) Alanine Aminotransferase (ALT/SGPT) 105 U/L (14-59) Alkaline Phosphatase 138 U/L (46-116) Creatine Kinase 335 U/L (26-192) Creatine Kinase MB (Mass) 30.6 ng/mL (0.0-3.6) Creatine Kinase MB Relative Index 9.1 % (0-4) Total Protein 7.3 g/dL (6.4-8.2) Albumin 3.8 g/dL (3.4-5.0) Albumin/Globulin Ratio 1.1 (1.0-1.7) Lipase 205 U/L (73-393) Salicylates Level 4.0 mg/dL (2.8-20.0) Salicylate Last Dose Date Unknown Salicylate Last Dose Time Unknown Acetaminophen Level < 2 mcg/ml (10-30) Acetaminophen Last Dose Date Unknown Acetaminophen Last Dose Time Unknown Ethyl Alcohol Level < 10 mg/dL (0-10) Acetone Level Neg (NEG) Urine Collection Type U cath Urine Color Yellow Urine Clarity Clear Urine pH 6.0 Urine Specific [place] 1.025 Urine Protein 100 mg/dL (NEG-TRACE) Urine Glucose (UA) >=1000 mg/dL (NEG) Urine Ketones (Stick) Negative mg/dL (NEG) Urine Blood Large (NEG) Urine Nitrite Negative (NEG) Urine Bilirubin Negative (NEG) Urine Urobilinogen Dipstick 1.0 mg/dL (0.2 mg/dL) Urine Leukocyte Esterase Negative (NEG) Urine RBC 6-10 /HPF (0-2) Urine WBC 5-10 /HPF (0-4) Urine Squamous Epithelial Cells Few /LPF Urine Amorphous Sediment Present /HPF Urine Bacteria 0 /HPF (0-FEW) Urine Opiates Screen Neg (NEG) Urine Methadone Screen Neg (NEG) Urine Barbiturates Neg (NEG) Urine Phencyclidine Screen Neg (NEG) Urine Amphetamine/Methamphetamine Pos (NEG) Urine Benzodiazepines Screen Neg (NEG) Urine Cocaine Screen Pos (NEG) Urine Cannabinoids Screen Pos (NEG) Urine Ethyl Alcohol Neg (NEG) Lactic Acid Level 3.6 mmol/L (0.4-2.0) Magnesium Level 1.6 mg/dL (1.8-2.4) Test 11/30/18 12:37 11/30/18 13:40 11/30/18 14:10 11/30/18 14:48 Glucose (Fingerstick) 447 mg/dL (70-99) 330 mg/dL (70-99) 231 mg/dL (70-99) Lactic Acid Level 3.5 mmol/L (0.4-2.0) Test 11/30/18 15:30 11/30/18 15:53 11/30/18 18:23 11/30/18 21:16 Sodium Level 138 mmol/L (136-145) Potassium Level 3.8 mmol/L (3.5-5.1) Chloride Level 102 mmol/L (98-107) Carbon Dioxide Level 22 mmol/L (21-32) Anion Gap 14 (6-14) Blood Urea Nitrogen 33 mg/dL (7-20) Creatinine 1.3 mg/dL (0.6-1.0) Estimated GFR (Cockcroft-Gault) 43.2 Glucose Level 186 mg/dL (70-99) Calcium Level 8.3 mg/dL (8.5-10.1) Phosphorus Level 3.3 mg/dL (2.6-4.7) Magnesium Level 2.6 mg/dL (1.8-2.4) Creatine Kinase 2063 U/L (26-192) Troponin I Quantitative 49.805 ng/mL (0.000-0.055) Glucose (Fingerstick) 148 mg/dL (70-99) 192 mg/dL (70-99) 260 mg/dL (70-99) Test 12/01/18 02:10 12/01/18 07:15 12/01/18 08:25 White Blood Count 15.3 x10^3/uL (4.0-11.0) Red Blood Count 4.47 x10^6/uL (3.50-5.40) Hemoglobin 13.5 g/dL (12.0-15.5) Hematocrit 40.7 % (36.0-47.0) Mean Corpuscular Volume 91 fL (79-100) Mean Corpuscular Hemoglobin 30 pg (25-35) Mean Corpuscular Hemoglobin Concent 33 g/dL (31-37) Red Cell Distribution Width 12.8 % (11.5-14.5) Platelet Count 256 x10^3/uL (140-400) Heparin Anti-Xa Act, Unfractionated 0.43 IU/mL (0.30-0.70) Sodium Level 138 mmol/L (136-145) Potassium Level 4.7 mmol/L (3.5-5.1) Chloride Level 101 mmol/L (98-107) Carbon Dioxide Level 18 mmol/L (21-32) Anion Gap 19 (6-14) Blood Urea Nitrogen 35 mg/dL (7-20) Creatinine 1.6 mg/dL (0.6-1.0) Estimated GFR (Cockcroft-Gault) 34.0 Glucose Level 311 mg/dL (70-99) Calcium Level 8.5 mg/dL (8.5-10.1) Creatine Kinase 2995 U/L (26-192) Troponin I Quantitative 121.207 ng/mL (0.000-0.055) O2 Saturation 97 % (92-99) Arterial Blood pH 7.32 (7.35-7.45) Arterial Blood pCO2 at Patient Temp 34 mmHg (35-46) Arterial Blood pO2 at Patient Temp 105 mmHg (75-108) Arterial Blood HCO3 17 mmol/L (21-28) Arterial Blood Base Excess -8 mmol/L (-3-3) FiO2 30 Glucose (Fingerstick) 298 mg/dL (70-99) Laboratory Tests Test 11/30/18 09:52 11/30/18 10:30 11/30/18 11:18 11/30/18 12:37 Sodium Level 133 mmol/L (136-145) Potassium Level 4.3 mmol/L (3.5-5.1) Chloride Level 94 mmol/L (98-107) Carbon Dioxide Level 17 mmol/L (21-32) Anion Gap 22 (6-14) Blood Urea Nitrogen 32 mg/dL (7-20) Creatinine 1.6 mg/dL (0.6-1.0) Estimated GFR (Cockcroft-Gault) 34.0 BUN/Creatinine Ratio 20 (6-20) Glucose Level 608 mg/dL (70-99) Calcium Level 8.9 mg/dL (8.5-10.1) Total Bilirubin 0.3 mg/dL (0.2-1.0) Aspartate Amino Transf (AST/SGOT) 163 U/L (15-37) Alanine Aminotransferase (ALT/SGPT) 105 U/L (14-59) Alkaline Phosphatase 138 U/L (46-116) Creatine Kinase 335 U/L (26-192) Creatine Kinase MB (Mass) 30.6 ng/mL (0.0-3.6) Creatine Kinase MB Relative Index 9.1 % (0-4) Total Protein 7.3 g/dL (6.4-8.2) Albumin 3.8 g/dL (3.4-5.0) Albumin/Globulin Ratio 1.1 (1.0-1.7) Lipase 205 U/L (73-393) Salicylates Level 4.0 mg/dL (2.8-20.0) Salicylate Last Dose Date Unknown Salicylate Last Dose Time Unknown Acetaminophen Level < 2 mcg/ml (10-30) Acetaminophen Last Dose Date Unknown Acetaminophen Last Dose Time Unknown Ethyl Alcohol Level < 10 mg/dL (0-10) Acetone Level Neg (NEG) Urine Collection Type U cath Urine Color Yellow Urine Clarity Clear Urine pH 6.0 Urine Specific [place] 1.025 Urine Protein 100 mg/dL (NEG-TRACE) Urine Glucose (UA) >=1000 mg/dL (NEG) Urine Ketones (Stick) Negative mg/dL (NEG) Urine Blood Large (NEG) Urine Nitrite Negative (NEG) Urine Bilirubin Negative (NEG) Urine Urobilinogen Dipstick 1.0 mg/dL (0.2 mg/dL) Urine Leukocyte Esterase Negative (NEG) Urine RBC 6-10 /HPF (0-2) Urine WBC 5-10 /HPF (0-4) Urine Squamous Epithelial Cells Few /LPF Urine Amorphous Sediment Present /HPF Urine Bacteria 0 /HPF (0-FEW) Urine Opiates Screen Neg (NEG) Urine Methadone Screen Neg (NEG) Urine Barbiturates Neg (NEG) Urine Phencyclidine Screen Neg (NEG) Urine Amphetamine/Methamphetamine Pos (NEG) Urine Benzodiazepines Screen Neg (NEG) Urine Cocaine Screen Pos (NEG) Urine Cannabinoids Screen Pos (NEG) Urine Ethyl Alcohol Neg (NEG) Lactic Acid Level 3.6 mmol/L (0.4-2.0) Magnesium Level 1.6 mg/dL (1.8-2.4) Glucose (Fingerstick) 447 mg/dL (70-99) Test 11/30/18 13:40 11/30/18 14:10 11/30/18 14:48 11/30/18 15:30 Glucose (Fingerstick) 330 mg/dL (70-99) 231 mg/dL (70-99) Lactic Acid Level 3.5 mmol/L (0.4-2.0) Sodium Level 138 mmol/L (136-145) Potassium Level 3.8 mmol/L (3.5-5.1) Chloride Level 102 mmol/L (98-107) Carbon Dioxide Level 22 mmol/L (21-32) Anion Gap 14 (6-14) Blood Urea Nitrogen 33 mg/dL (7-20) Creatinine 1.3 mg/dL (0.6-1.0) Estimated GFR (Cockcroft-Gault) 43.2 Glucose Level 186 mg/dL (70-99) Calcium Level 8.3 mg/dL (8.5-10.1) Phosphorus Level 3.3 mg/dL (2.6-4.7) Magnesium Level 2.6 mg/dL (1.8-2.4) Creatine Kinase 2063 U/L (26-192) Troponin I Quantitative 49.805 ng/mL (0.000-0.055) Test 11/30/18 15:53 11/30/18 18:23 11/30/18 21:16 12/01/18 02:10 Glucose (Fingerstick) 148 mg/dL (70-99) 192 mg/dL (70-99) 260 mg/dL (70-99) White Blood Count 15.3 x10^3/uL (4.0-11.0) Red Blood Count 4.47 x10^6/uL (3.50-5.40) Hemoglobin 13.5 g/dL (12.0-15.5) Hematocrit 40.7 % (36.0-47.0) Mean Corpuscular Volume 91 fL (79-100) Mean Corpuscular Hemoglobin 30 pg (25-35) Mean Corpuscular Hemoglobin Concent 33 g/dL (31-37) Red Cell Distribution Width 12.8 % (11.5-14.5) Platelet Count 256 x10^3/uL (140-400) Heparin Anti-Xa Act, Unfractionated 0.43 IU/mL (0.30-0.70) Sodium Level 138 mmol/L (136-145) Potassium Level 4.7 mmol/L (3.5-5.1) Chloride Level 101 mmol/L (98-107) Carbon Dioxide Level 18 mmol/L (21-32) Anion Gap 19 (6-14) Blood Urea Nitrogen 35 mg/dL (7-20) Creatinine 1.6 mg/dL (0.6-1.0) Estimated GFR (Cockcroft-Gault) 34.0 Glucose Level 311 mg/dL (70-99) Calcium Level 8.5 mg/dL (8.5-10.1) Creatine Kinase 2995 U/L (26-192) Troponin I Quantitative 121.207 ng/mL (0.000-0.055) Test 12/01/18 07:15 12/01/18 08:25 O2 Saturation 97 % (92-99) Arterial Blood pH 7.32 (7.35-7.45) Arterial Blood pCO2 at Patient Temp 34 mmHg (35-46) Arterial Blood pO2 at Patient Temp 105 mmHg (75-108) Arterial Blood HCO3 17 mmol/L (21-28) Arterial Blood Base Excess -8 mmol/L (-3-3) FiO2 30 Glucose (Fingerstick) 298 mg/dL (70-99) Medications Current Medications Naloxone HCl 2 mg/ Dextrose 502 ml @ 0 mls/hr 1X ONCE IV Last administered on 11/30/18at 10:08; Start 11/30/18 at 09:45; Stop 11/30/18 at 16:51; Status DC Sodium Chloride 1,000 ml @ 1,000 mls/hr 1X ONCE IV Last administered on 11/30/18at 10:04; Start 11/30/18 at 10:00; Stop 11/30/18 at 10:59; Status DC Amiodarone HCl 150 mg/Dextrose 103 ml @ 618 mls/hr 1X ONCE IV Last administered on 11/30/18at 10:13; Start 11/30/18 at 10:00; Stop 11/30/18 at 10:09; Status DC Amiodarone HCl 900 mg/Dextrose 518 ml @ 0 mls/hr CONT PRN IV SEE I/O RECORD Last administered on 11/30/18at 10:24; Start 11/30/18 at 10:00; Stop 11/30/18 at 10:24; Status DC Insulin Human Regular 150 ml @ 0 mls/hr 1X ONCE IV ; Start 11/30/18 at 10:00; Stop 11/30/18 at 10:01; Status UNV Insulin Human Regular 150 ml @ 0 mls/hr 1X ONCE IV Last administered on 11/30/18at 11:32; Start 11/30/18 at 10:00; Stop 11/30/18 at 16:51; Status DC Amiodarone HCl (Cordarone) 150 mg STK-MED ONCE .ROUTE ; Start 11/30/18 at 10:00; Stop 11/30/18 at 10:01; Status DC Propofol (Diprivan) 200 mg 1X ONCE IV ; Start 11/30/18 at 10:15; Stop 11/30/18 at 10:16; Status Cancel Sodium Chloride 1,000 ml @ 1,000 mls/hr 1X ONCE IV Last administered on 11/30/18at 10:54; Start 11/30/18 at 10:30; Stop 11/30/18 at 11:29; Status DC Propofol 50 ml @ As Directed STK-MED ONCE IV ; Start 11/30/18 at 10:17; Stop 11/30/18 at 10:18; Status DC Propofol 50 ml @ 1.037 mls/ hr 1X ONCE IV Last administered on 11/30/18at 10:20; Start 11/30/18 at 10:30; Stop 12/02/18 at 10:42 Piperacillin Sod/ Tazobactam Sod 3.375 gm/Sodium Chloride 50 ml @ 100 mls/hr 1X ONCE IV Last administered on 11/30/18at 11:02; Start 11/30/18 at 10:30; Stop 11/30/18 at 10:59; Status DC Ondansetron HCl (Zofran) 4 mg PRN Q8HRS PRN IV NAUSEA/VOMITING; Start 11/30/18 at 10:30; Stop 12/01/18 at 08:41; Status DC Sodium Chloride 1,000 ml @ 125 mls/hr Q8H IV Last administered on 12/01/18at 04:27; Start 11/30/18 at 10:29; Stop 12/01/18 at 10:28 Sodium Bicarbonate (Sodium Bicarb Adult 8.4% Syr) 50 meq 1X ONCE IV Last administered on 11/30/18at 11:31; Start 11/30/18 at 11:30; Stop 11/30/18 at 11:31; Status DC Fentanyl Citrate 30 ml @ 0 mls/hr CONT PRN IV SEE PROTOCOL Last administered on 12/01/18at 04:33; Start 11/30/18 at 12:00 Propofol 100 ml @ 0 mls/hr CONT PRN IV SEE PROTOCOL Last administered on 12/01/18at 07:38; Start 11/30/18 at 12:00 Fentanyl Citrate (Fentanyl 2ml Vial) 25 mcg PRN Q1HR PRN IV SEE COMMENTS; Start 11/30/18 at 12:00 Fentanyl Citrate (Fentanyl 2ml Vial) 50 mcg PRN Q1HR PRN IV SEE COMMENTS; Start 11/30/18 at 12:00 Chlorhexidine Gluconate (Peridex) 15 ml BID MM ; Start 11/30/18 at 21:00; Stop 11/30/18 at 21:00; Status DC Midazolam HCl 100 ml @ 0 mls/hr CONT PRN IV SEE PROTOCOL; Start 11/30/18 at 12:00 Propofol 100 ml @ As Directed STK-MED ONCE IV ; Start 11/30/18 at 11:52; Stop 11/30/18 at 11:53; Status DC Magnesium Sulfate 50 ml @ 25 mls/hr 1X ONCE IV Last administered on 11/30/18at 14:11; Start 11/30/18 at 13:30; Stop 11/30/18 at 15:29; Status DC Piperacillin Sod/ Tazobactam Sod (Zosyn Per Pharmacy) 1 each PRN DAILY PRN MC SEE COMMENTS; Start 11/30/18 at 15:15 Piperacillin Sod/ Tazobactam Sod 3.375 gm/Sodium Chloride 50 ml @ 100 mls/hr Q6H IV Last administered on 12/01/18at 04:27; Start 11/30/18 at 16:00 Dextrose/Sodium Chloride 1,000 ml @ 250 mls/hr Q4H IV Last administered on 11/30/18at 16:18; Start 11/30/18 at 15:15; Stop 11/30/18 at 16:51; Status DC Insulin Human Lispro (HumaLOG) 0-7 UNITS TIDWMEALS SQ Last administered on 12/01/18at 08:29; Start 11/30/18 at 17:00; Stop 12/01/18 at 08:33; Status DC Dextrose (Dextrose 50%-Water Syringe) 12.5 gm PRN Q15MIN PRN IV SEE COMMENTS; Start 11/30/18 at 16:45 Heparin Sodium/ Dextrose 500 ml @ 17.357 mls/ hr CONT PRN IV SEE I/O RECORD Last administered on 11/30/18at 19:46; Start 11/30/18 at 19:00 Heparin Sodium (Porcine) (Heparin Sodium) 1,800 unit PRN Q6HRS PRN IV FOR UFH LEVEL LESS THAN 0.2 Last administered on 11/30/18at 19:47; Start 11/30/18 at 19:00 Tirofiban/Sodium Chloride 100 ml @ 13.018 mls/ hr CONT PRN IV PER PROTOCOL Last administered on 12/01/18at 05:35; Start 11/30/18 at 19:00 Info (Anti-Coagulation Monitoring By Pharmacy) 1 each PRN DAILY PRN MC SEE COMMENTS; Start 12/01/18 at 08:00 Insulin Human Lispro (HumaLOG) 0-7 UNITS Q6HRS SQ ; Start 12/01/18 at 12:00 Ondansetron HCl (Zofran) 4 mg PRN Q6HRS PRN IV NAUSEA/VOMITING; Start 12/01/18 at 08:45 Acetaminophen (Tylenol) 650 mg PRN Q6HRS PRN PEG MILD PAIN / TEMP; Start 12/01/18 at 08:45 Insulin Human Lispro (HumaLOG) 0-9 UNITS TIDWMEALS SQ ; Start 12/01/18 at 12:00; Status UNV Dextrose (Dextrose 50%-Water Syringe) 12.5 gm PRN Q15MIN PRN IV SEE COMMENTS; Start 12/01/18 at 08:45 Insulin Glargine (Lantus) 15 units 1X STAT SQ Last administered on 12/01/18at 09:01; Start 12/01/18 at 08:39; Stop 12/01/18 at 08:43; Status DC Simvastatin (Zocor) 40 mg QHS NG ; Start 12/01/18 at 21:00 Active Scripts Active Reported Simvastatin 40 Mg Tablet 40 Mg PO HS Lisinopril 10 Mg Tablet 10 Mg PO DAILY Metformin Hcl 500 Mg Tablet 500 Mg PO DAILY Vitals/I & O Vital Sign - Last 24 Hours 11/30/18 11/30/18 11/30/18 11/30/18 10:05 10:07 10:13 10:14 Pulse 102 99 100 Resp 16 16 B/P (MAP) 196/87 (123) 196/97 184/97 (126) Pulse Ox 100 100 100 O2 Delivery Ventilator Ventilator 11/30/18 11/30/18 11/30/18 11/30/18 10:25 10:30 10:40 10:50 Pulse 100 98 98 108 Resp 16 16 16 16 B/P (MAP) 209/104 (139) 177/87 (117) 178/85 (116) 159/76 (103) Pulse Ox 100 100 100 100 O2 Delivery Ventilator 11/30/18 11/30/18 11/30/18 11/30/18 11:00 11:10 11:15 11:25 Pulse 108 106 106 138 Resp 16 16 16 16 B/P (MAP) 135/96 (109) 135/95 (108) 155/92 (113) 144/109 (121) Pulse Ox 100 100 100 100 O2 Delivery Ventilator 11/30/18 11/30/18 11/30/18 11/30/18 11:35 11:59 12:00 12:00 Temp 96.5 96.5 Pulse 104 87 Resp 16 22 B/P (MAP) 162/81 (108) 156/93 (114) Pulse Ox 100 97 98 O2 Delivery Ventilator Ventilator Ventilator Mechanical Ventilator 11/30/18 11/30/18 11/30/18 11/30/18 13:00 13:13 13:30 14:00 Pulse 85 103 Resp 23 22 20 B/P (MAP) 154/103 (120) 124/72 (89) Pulse Ox 99 30 99 100 O2 Delivery Ventilator Ventilator Ventilator Ventilator 11/30/18 11/30/18 11/30/18 11/30/18 15:00 15:34 16:00 16:00 Temp 97.6 97.6 Pulse 69 65 Resp 20 20 B/P (MAP) 123/83 (96) 100/72 (81) Pulse Ox 100 100 100 O2 Delivery Ventilator Ventilator Mechanical Ventilator Ventilator 11/30/18 11/30/18 11/30/18 11/30/18 17:00 17:28 18:00 19:00 Pulse 66 82 77 Resp 22 22 B/P (MAP) 122/73 (89) 134/84 (101) 160/98 (118) Pulse Ox 99 100 98 100 O2 Delivery Ventilator Ventilator Ventilator Ventilator 11/30/18 11/30/18 11/30/18 11/30/18 19:25 20:00 20:00 21:00 Temp 97.7 97.7 Pulse 77 69 Resp 22 22 B/P (MAP) 170/97 (121) 158/97 (117) Pulse Ox 100 100 100 O2 Delivery Ventilator Ventilator Mechanical Ventilator Ventilator 11/30/18 11/30/18 11/30/18 11/30/18 22:00 22:32 23:00 23:59 Temp 97.8 97.8 Pulse 65 62 67 Resp 22 B/P (MAP) 148/90 (109) 140/84 (102) 158/80 (106) Pulse Ox 100 100 100 100 O2 Delivery Ventilator Ventilator Ventilator Ventilator 11/30/18 12/01/18 12/01/18 12/01/18 23:59 01:00 01:35 02:00 Pulse 68 69 Resp 22 B/P (MAP) 143/86 (105) 159/90 (113) Pulse Ox 99 100 100 O2 Delivery Mechanical Ventilator Ventilator Ventilator Ventilator 12/01/18 12/01/18 12/01/18 12/01/18 03:00 03:10 04:00 04:00 Temp 97.8 97.8 Pulse 69 71 Resp 22 B/P (MAP) 152/87 (108) 172/86 (114) Pulse Ox 99 100 100 O2 Delivery Ventilator Ventilator Ventilator Mechanical Ventilator 12/01/18 12/01/18 12/01/18 12/01/18 04:33 05:00 05:03 05:25 Pulse 71 Resp 20 22 20 B/P (MAP) 173/88 (116) Pulse Ox 100 99 99 100 O2 Delivery Ventilator Ventilator Ventilator Ventilator O2 Flow Rate 15.0 15.0 12/01/18 12/01/18 12/01/18 12/01/18 06:00 07:00 07:18 08:00 Temp 98.9 98.9 Pulse 67 66 69 Resp 22 20 B/P (MAP) 156/84 (108) 150/85 (106) 161/85 (110) Pulse Ox 100 100 100 100 O2 Delivery Ventilator Ventilator Ventilator Ventilator O2 Flow Rate 15.0 15.0 12/01/18 12/01/18 12/01/18 08:00 09:00 09:14 Pulse 70 Resp 20 B/P (MAP) 166/84 (111) Pulse Ox 99 99 O2 Delivery Mechanical Ventilator Ventilator Ventilator O2 Flow Rate 15.0 Intake and Output 11/30/18 11/30/18 12/01/18 14:59 22:59 06:59 Intake Total 1153 ml 3659 ml 2081 ml Output Total 175 ml 230 ml 395 ml Balance 978 ml 3429 ml 1686 ml JOSE M GARZON MD Dec 01, 2018 09:55
[2018-12-01] MEDS ORDERED: BIVALIRUDIN 250 MG VIAL. IV ONE ×2 (10:53→11:00)
[2018-12-01] MEDS ORDERED: IODIXANOL 320 MG/ML 100 ML VIAL. IART ONE (11:00)
[2018-12-01] MEDS ORDERED: NITROGLYCERIN 200 MCG/2 ML SYRINGE FOR CATH/VASC LAB. IART ONE (11:00)
[2018-12-01] MEDS ORDERED: HEPARIN for IV BOLUS 10,000 UNIT/10 ML VIAL. IART ONE (11:00)
[2018-12-01] MEDS ORDERED: VERAPAMIL 5 MG/2 ML VIAL. IART ONE (11:00)
[2018-12-01] MEDS ORDERED: AMIODARONE 450 MG in IV DEXTROSE 5% 250 ML IV PRN (11:00)
[2018-12-01] MEDS ORDERED: LIDOCAINE 1% Multi-Dose 20 ML VIAL. INJ ONE (11:00)
[2018-12-01] MEDS ORDERED: ASPIRIN 325 MG TABLET PO ONE (11:30)
[2018-12-01] MEDS ORDERED: CLOPIDOGREL BISULFATE 75 MG TABLET PO ONE (11:30)
[2018-12-01] MEDS ORDERED: NITROGLYCERIN SUBLINGUAL 0.4 MG BOTTLE OF 25. SL PRN (11:30)
[2018-12-01] MEDS: AMIODARONE 450 MG in IV DEXTROSE 5% 250 ML IV PRN (11:45)
--- NOTE | 2018-12-01 11:45 | NUR ---
Patient returned from [employer] lab[employer]. Family informed, VSS, TR band assessed, loading dose aspirin and plavix administered. Continuing ongoing patient care.
[2018-12-01] MEDS ORDERED: INSULIN LISPRO 300 UNITS/3 ML INSULN.PEN. SQ SCH (12:00)
--- NOTE | 2018-12-01 13:12 | PDOC ---
PULMONARY PROGRESS NOTES Subjective SEDATED ON AC MODE Vitals Vital Signs Date Time Temp Pulse Resp B/P (MAP) Pulse Ox O2 Delivery O2 Flow Rate FiO2 12/01/18 12:59 100 Ventilator 12/01/18 11:45 69 16 153/89 (110) 15.0 12/01/18 07:00 98.9 98.9 Lungs: Clear Cardiovascular: S1 Abdomen: Soft Extremities: No Edema Skin: Warm Labs Laboratory Tests Test 11/30/18 09:35 11/30/18 09:36 11/30/18 09:37 11/30/18 09:38 Ammonia 15 mcmol/L (11-34) O2 Saturation 99 % (92-99) Arterial Blood pH 7.28 (7.35-7.45) Arterial Blood pCO2 at Patient Temp 33 mmHg (35-46) Arterial Blood pO2 at Patient Temp > 503 mmHg (75-108) Arterial Blood HCO3 15 mmol/L (21-28) Arterial Blood Base Excess -11 mmol/L (-3-3) Oxyhemoglobin 97.0 % Methemoglobin 0.5 % (0.0-1.9) Carbon Monoxide, Quantitative 1.9 % (0.0-1.9) FiO2 100 White Blood Count 26.3 x10^3/uL (4.0-11.0) Red Blood Count 4.29 x10^6/uL (3.50-5.40) Hemoglobin 13.3 g/dL (12.0-15.5) Hematocrit 39.7 % (36.0-47.0) Mean Corpuscular Volume 92 fL (79-100) Mean Corpuscular Hemoglobin 31 pg (25-35) Mean Corpuscular Hemoglobin Concent 34 g/dL (31-37) Red Cell Distribution Width 12.5 % (11.5-14.5) Platelet Count 315 x10^3/uL (140-400) Neutrophils (%) (Auto) 69 % (31-73) Lymphocytes (%) (Auto) 24 % (24-48) Monocytes (%) (Auto) 6 % (0-9) Eosinophils (%) (Auto) 1 % (0-3) Basophils (%) (Auto) 0 % (0-3) Neutrophils # (Auto) 18.3 x10^3uL (1.8-7.7) Lymphocytes # (Auto) 6.3 x10^3/uL (1.0-4.8) Monocytes # (Auto) 1.5 x10^3/uL (0.0-1.1) Eosinophils # (Auto) 0.2 x10^3/uL (0.0-0.7) Basophils # (Auto) 0.1 x10^3/uL (0.0-0.2) Segmented Neutrophils % 54 % (35-66) Band Neutrophils % 14 % (0-9) Lymphocytes % 26 % (24-48) Monocytes % 5 % (0-10) Basophils % 1 % (0-3) Platelet Estimate Adequate (ADEQUATE) Large Platelets Few Giant Platelets Occ Prothrombin Time 14.6 SEC (11.7-14.0) Prothromb Time International Ratio 1.2 (0.8-1.1) Activated Partial Thromboplast Time 27 SEC (24-38) Bedside Troponin I 0.61 ng/ml (<0.08) Test 11/30/18 09:41 11/30/18 09:52 11/30/18 10:30 11/30/18 11:18 Bedside Hemoglobin 13.9 g/dL (12-15) Bedside Hematocrit 41 % (36-40) Bedside Sodium 132 mmol/L (135-145) Bedside Potassium 4.2 mmol/L (3.5-5.0) Bedside Chloride 98 mmol/L (98-110) Bedside Total CO2 16 mmol/L (23-32) Anion Gap 24 mmol/L (6-14) 22 (6-14) Bedside Blood Urea Nitrogen 34 mg/dL (8-26) Bedside Creatinine 1.0 mg/dL (0.5-1.4) Glucose Level 587 mg/dL (70-99) 608 mg/dL (70-99) Bedside Ionized Calcium (Charles) 1.08 mmol/L (1.13-1.32) Sodium Level 133 mmol/L (136-145) Potassium Level 4.3 mmol/L (3.5-5.1) Chloride Level 94 mmol/L (98-107) Carbon Dioxide Level 17 mmol/L (21-32) Blood Urea Nitrogen 32 mg/dL (7-20) Creatinine 1.6 mg/dL (0.6-1.0) Estimated GFR (Cockcroft-Gault) 34.0 BUN/Creatinine Ratio 20 (6-20) Calcium Level 8.9 mg/dL (8.5-10.1) Total Bilirubin 0.3 mg/dL (0.2-1.0) Aspartate Amino Transf (AST/SGOT) 163 U/L (15-37) Alanine Aminotransferase (ALT/SGPT) 105 U/L (14-59) Alkaline Phosphatase 138 U/L (46-116) Creatine Kinase 335 U/L (26-192) Creatine Kinase MB (Mass) 30.6 ng/mL (0.0-3.6) Creatine Kinase MB Relative Index 9.1 % (0-4) Total Protein 7.3 g/dL (6.4-8.2) Albumin 3.8 g/dL (3.4-5.0) Albumin/Globulin Ratio 1.1 (1.0-1.7) Lipase 205 U/L (73-393) Salicylates Level 4.0 mg/dL (2.8-20.0) Salicylate Last Dose Date Unknown Salicylate Last Dose Time Unknown Acetaminophen Level < 2 mcg/ml (10-30) Acetaminophen Last Dose Date Unknown Acetaminophen Last Dose Time Unknown Ethyl Alcohol Level < 10 mg/dL (0-10) Acetone Level Neg (NEG) Urine Collection Type U cath Urine Color Yellow Urine Clarity Clear Urine pH 6.0 Urine Specific [place] 1.025 Urine Protein 100 mg/dL (NEG-TRACE) Urine Glucose (UA) >=1000 mg/dL (NEG) Urine Ketones (Stick) Negative mg/dL (NEG) Urine Blood Large (NEG) Urine Nitrite Negative (NEG) Urine Bilirubin Negative (NEG) Urine Urobilinogen Dipstick 1.0 mg/dL (0.2 mg/dL) Urine Leukocyte Esterase Negative (NEG) Urine RBC 6-10 /HPF (0-2) Urine WBC 5-10 /HPF (0-4) Urine Squamous Epithelial Cells Few /LPF Urine Amorphous Sediment Present /HPF Urine Bacteria 0 /HPF (0-FEW) Urine Opiates Screen Neg (NEG) Urine Methadone Screen Neg (NEG) Urine Barbiturates Neg (NEG) Urine Phencyclidine Screen Neg (NEG) Urine Amphetamine/Methamphetamine Pos (NEG) Urine Benzodiazepines Screen Neg (NEG) Urine Cocaine Screen Pos (NEG) Urine Cannabinoids Screen Pos (NEG) Urine Ethyl Alcohol Neg (NEG) Lactic Acid Level 3.6 mmol/L (0.4-2.0) Magnesium Level 1.6 mg/dL (1.8-2.4) Test 11/30/18 12:37 11/30/18 13:40 11/30/18 14:10 11/30/18 14:48 Glucose (Fingerstick) 447 mg/dL (70-99) 330 mg/dL (70-99) 231 mg/dL (70-99) Lactic Acid Level 3.5 mmol/L (0.4-2.0) Test 11/30/18 15:30 11/30/18 15:53 11/30/18 18:23 11/30/18 21:16 Sodium Level 138 mmol/L (136-145) Potassium Level 3.8 mmol/L (3.5-5.1) Chloride Level 102 mmol/L (98-107) Carbon Dioxide Level 22 mmol/L (21-32) Anion Gap 14 (6-14) Blood Urea Nitrogen 33 mg/dL (7-20) Creatinine 1.3 mg/dL (0.6-1.0) Estimated GFR (Cockcroft-Gault) 43.2 Glucose Level 186 mg/dL (70-99) Calcium Level 8.3 mg/dL (8.5-10.1) Phosphorus Level 3.3 mg/dL (2.6-4.7) Magnesium Level 2.6 mg/dL (1.8-2.4) Creatine Kinase 2063 U/L (26-192) Troponin I Quantitative 49.805 ng/mL (0.000-0.055) Glucose (Fingerstick) 148 mg/dL (70-99) 192 mg/dL (70-99) 260 mg/dL (70-99) Test 12/01/18 02:10 12/01/18 07:15 12/01/18 08:25 12/01/18 08:55 White Blood Count 15.3 x10^3/uL (4.0-11.0) Red Blood Count 4.47 x10^6/uL (3.50-5.40) Hemoglobin 13.5 g/dL (12.0-15.5) Hematocrit 40.7 % (36.0-47.0) Mean Corpuscular Volume 91 fL (79-100) Mean Corpuscular Hemoglobin 30 pg (25-35) Mean Corpuscular Hemoglobin Concent 33 g/dL (31-37) Red Cell Distribution Width 12.8 % (11.5-14.5) Platelet Count 256 x10^3/uL (140-400) Heparin Anti-Xa Act, Unfractionated 0.43 IU/mL (0.30-0.70) 0.45 IU/mL (0.30-0.70) Sodium Level 138 mmol/L (136-145) Potassium Level 4.7 mmol/L (3.5-5.1) Chloride Level 101 mmol/L (98-107) Carbon Dioxide Level 18 mmol/L (21-32) Anion Gap 19 (6-14) Blood Urea Nitrogen 35 mg/dL (7-20) Creatinine 1.6 mg/dL (0.6-1.0) Estimated GFR (Cockcroft-Gault) 34.0 Glucose Level 311 mg/dL (70-99) Calcium Level 8.5 mg/dL (8.5-10.1) Creatine Kinase 2995 U/L (26-192) Troponin I Quantitative 121.207 ng/mL (0.000-0.055) O2 Saturation 97 % (92-99) Arterial Blood pH 7.32 (7.35-7.45) Arterial Blood pCO2 at Patient Temp 34 mmHg (35-46) Arterial Blood pO2 at Patient Temp 105 mmHg (75-108) Arterial Blood HCO3 17 mmol/L (21-28) Arterial Blood Base Excess -8 mmol/L (-3-3) FiO2 30 Glucose (Fingerstick) 298 mg/dL (70-99) Laboratory Tests Test 11/30/18 13:40 11/30/18 14:10 11/30/18 14:48 11/30/18 15:30 Glucose (Fingerstick) 330 mg/dL (70-99) 231 mg/dL (70-99) Lactic Acid Level 3.5 mmol/L (0.4-2.0) Sodium Level 138 mmol/L (136-145) Potassium Level 3.8 mmol/L (3.5-5.1) Chloride Level 102 mmol/L (98-107) Carbon Dioxide Level 22 mmol/L (21-32) Anion Gap 14 (6-14) Blood Urea Nitrogen 33 mg/dL (7-20) Creatinine 1.3 mg/dL (0.6-1.0) Estimated GFR (Cockcroft-Gault) 43.2 Glucose Level 186 mg/dL (70-99) Calcium Level 8.3 mg/dL (8.5-10.1) Phosphorus Level 3.3 mg/dL (2.6-4.7) Magnesium Level 2.6 mg/dL (1.8-2.4) Creatine Kinase 2063 U/L (26-192) Troponin I Quantitative 49.805 ng/mL (0.000-0.055) Test 11/30/18 15:53 11/30/18 18:23 11/30/18 21:16 12/01/18 02:10 Glucose (Fingerstick) 148 mg/dL (70-99) 192 mg/dL (70-99) 260 mg/dL (70-99) White Blood Count 15.3 x10^3/uL (4.0-11.0) Red Blood Count 4.47 x10^6/uL (3.50-5.40) Hemoglobin 13.5 g/dL (12.0-15.5) Hematocrit 40.7 % (36.0-47.0) Mean Corpuscular Volume 91 fL (79-100) Mean Corpuscular Hemoglobin 30 pg (25-35) Mean Corpuscular Hemoglobin Concent 33 g/dL (31-37) Red Cell Distribution Width 12.8 % (11.5-14.5) Platelet Count 256 x10^3/uL (140-400) Heparin Anti-Xa Act, Unfractionated 0.43 IU/mL (0.30-0.70) Sodium Level 138 mmol/L (136-145) Potassium Level 4.7 mmol/L (3.5-5.1) Chloride Level 101 mmol/L (98-107) Carbon Dioxide Level 18 mmol/L (21-32) Anion Gap 19 (6-14) Blood Urea Nitrogen 35 mg/dL (7-20) Creatinine 1.6 mg/dL (0.6-1.0) Estimated GFR (Cockcroft-Gault) 34.0 Glucose Level 311 mg/dL (70-99) Calcium Level 8.5 mg/dL (8.5-10.1) Creatine Kinase 2995 U/L (26-192) Troponin I Quantitative 121.207 ng/mL (0.000-0.055) Test 12/01/18 07:15 12/01/18 08:25 12/01/18 08:55 O2 Saturation 97 % (92-99) Arterial Blood pH 7.32 (7.35-7.45) Arterial Blood pCO2 at Patient Temp 34 mmHg (35-46) Arterial Blood pO2 at Patient Temp 105 mmHg (75-108) Arterial Blood HCO3 17 mmol/L (21-28) Arterial Blood Base Excess -8 mmol/L (-3-3) FiO2 30 Glucose (Fingerstick) 298 mg/dL (70-99) Heparin Anti-Xa Act, Unfractionated 0.45 IU/mL (0.30-0.70) Medications Active Scripts Medications Dose Route/Sig Max Daily Dose Days Date Category Simvastatin 40 Mg Tablet 40 Mg PO HS 11/30/18 Reported Lisinopril 10 Mg Tablet 10 Mg PO DAILY 11/30/18 Reported Metformin Hcl 500 Mg Tablet 500 Mg PO DAILY 07/21/17 Reported Impression . IMPRESSION: 1. Out of hospital cardiopulmonary arrest. 2. Respiratory failure secondary to above. 3. Ventricular tachycardia. 4. Polysubstance use. 5. Leukocytosis. 6. Electrolyte abnormalities. 7. Metabolic acidosis. 8. Elevated blood sugars. 9. Elevated liver chemistries. 10. S/P CATH PCI Plan . POSSIBLE TRIAL IN AM SPOKE WITH MOTHER WILL CONTINUE SUPPORT FOLLOW CARD INPUT JEANNETTE TELLEZ MD Dec 01, 2018 13:12
--- NOTE | 2018-12-01 17:23 | CARD ---
MR#: [id number] Date of Study: 12/01/2018 Ordering Physician: PETROS MORRIS, Referring Physician: MACIEL BHATIA Tech: Lashonda Pérez RDCS APPROVED REPORT EXAM: Two-dimensional and M-mode echocardiogram with Doppler and color Doppler. Other Information Quality : Good INDICATION Cardiac Arrest 2D DIMENSIONS RVDd1.9 (2.9-3.5cm)Left Atrium(2D)3.8 (1.6-4.0cm) IVSd1.5 (0.7-1.1cm)Aortic Root(2D)2.7 (2.0-3.7cm) LVDd4.5 (3.9-5.9cm)LVOT Diameter2.1 (1.8-2.4cm) PWd1.4 (0.7-1.1cm)LVDs3.9 (2.5-4.0cm) FS (%) 25.0 %SV23.8 ml LVEF(%)50.0 (>50%) Aortic Valve AoV Peak [place].195.7cm/sAoV VTI29.4cm AO Peak GR.15.3mmHgLVOT VTI 20.56cm AO Mean GR.7mmHgAVA (VTI)2.40cm2 AI P 1/2 [id number] Mitral Valve MV E Kicdsqiz68.5cm/sMV DECEL [id number] MV A Mhpffjqt61.0cm/sE/A Ratio1.0 TDI Lateral E' P. V4.31cm/sMedial E' P. V3.48cm/s E/Lateral E'15.2E/Medial E'18.8 Tricuspid Valve TR P. Sreebwsp525ta/sRAP SHCDNNTW9ecMw TR Peak Gr.68qiAcEEKV74egHc Pulmonary Vein S1 Hqmrgqei14.1cm/sS2 Ejoinjie03.39cm/s D2 Onbxhpzo35.4cm/s LEFT VENTRICLE The left ventricle is normal size. There is mild to moderate concentric left ventricular hypertrophy. Base to mid posterior and lateral wall hypokinesis. The Ejection Fraction is 45-50%. RIGHT VENTRICLE The right ventricle is normal size. The right ventricular systolic function is normal. ATRIA The left atrium size is normal. The right atrium size is normal. The interatrial septum is intact wit h no evidence for an atrial septal defect or patent foramen ovale as noted on 2-D or Doppler imaging. AORTIC VALVE The aortic valve is calcified but opens well. Doppler and Color Flow revealed mild aortic regurgitati on. There is no significant aortic valvular stenosis. MITRAL VALVE The mitral valve is calcified but opens well. Mitral annular calcification is mild. There is no evide nce of mitral valve prolapse. There is no mitral valve stenosis. Doppler and Color-flow revealed mild mitral regurgitation. TRICUSPID VALVE The tricuspid valve is normal in structure and function. Doppler and Color Flow revealed trace tricus pid regurgitation. There is moderate pulmonary hypertension. The PA pressure was estimated at 46 mmHg . There is no tricuspid valve stenosis. PULMONIC VALVE The pulmonic valve is not well visualized. Doppler and Color Flow revealed trace pulmonic valvular re gurgitation. There is no pulmonic valvular stenosis. GREAT VESSELS The aortic root is normal in size. The ascending aorta is normal in size. The IVC is normal in size a nd collapses >50% with inspiration. PERICARDIAL EFFUSION There is no evidence of significant pericardial effusion. Critical Notification Critical Value: No <Conclusion> Base to mid posterior and lateral wall hypokinesis. The Ejection Fraction is 45-50%. Mild aortic regurgitation. Mild mitral regurgitation. Trace tricuspid regurgitation. The PA pressure was estimated at 46 mmHg. There is no evidence of significant pericardial effusion. Signed by : Petros Morris, Electronically Approved : 12/01/2018 17:23:26
--- NOTE | 2018-12-01 17:43 | CARD ---
MR#: [id number] Date of Study: 12/01/2018 Ordering Physician: PETROS SCOTT, Referring Physician: MACIEL BHATIA Tech: RT Timothy (R) LY APPROVED REPORT Technologist: RT Timothy (R) LY Nurse: Yennifer Sands RN Procedure(s) performed: 1. Left heart catheterization and selective coronary angiography via right t ransradial approach 2. Successful PCI/stents placement to the left circumflex and right coronary arteries Fluoro time 13.9 minutes Dose 111.94 Gycm2 Contrast Visipaque 192 ml INDICATION The indication(s) include : non-STEMI . CSHA Clinical Frailty Scale CS Clinical Frailty Scale: Managing Well Heart Failure Heart Failure: No PROCEDURE NARRATIVE After explaining the risks, benefits and alternative options, informed consent was obtained from yfn ent. Patient was brought to the cardiac Contact [facility] Associate and right wrist was prepped and draped in the usual fashion after confirming a positive modified Troy's test. Arterial access was obtained in the rig t radial artery and a 6 [place] sheath was inserted. 6 [place] Edwin catheter was used to perform mike ective angiography of the left and right coronary arteries. The following findings were noted. FINDINGS a. The left main coronary artery arose from the left sinus of Valsalva, was short, gave rise to the left anterior descending and left circumflex arteries and did not show any significant stenosis. b. The left anterior descending artery did not show any significant stenosis. c. The left circumflex artery showed 90% calcified stenosis involving the proximal segment. d. The right coronary artery arose from the right sinus of Valsalva and showed 90% stenosis involvin g the proximal segment. INTERVENTION The left main coronary artery was engaged with a 6 [place] XB 3.5 guide catheter and the stenosis in t he proximal segment of the left circumflex artery was crossed with a 0.014 inch Primes[place] Pro water guide wire. This was predilated with a 3.0 x 15 mm trek balloon following which this was successfully treat ed with a 3.5 x 28 mm MultiLink vision stent. The stent was then postdilated with a 3.5 x 15 mm nonco mpliant NC trek balloon. Follow-up angiography showed resolution of the stenosis with RICHIE-3 distal f low. Subsequently, the right coronary artery was engaged with a 6 [place] JR4 guide catheter, the sten osis in the proximal segment crossed with the same guidewire, dilated with a 3.0 x 15 mm trek balloon following which this was successfully treated with a 3.0 x 18 mm MultiLink vision stent. Follow-up a ngiography showed resolution of the stenosis to 0% with RICHIE-3 distal flow. Patient tolerated the pro cedure well. Hemostasis was achieved using TR band. There were no immediate complications. Conclusion 1. Severe two-vessel coronary artery disease 2. Successful PCI/stents placement to the left circumflex and right coronary arteries Recommendations 1. Aspirin 325 mg daily 2. Plavix 75 mg daily for preferably one year 3. Cardiovascular risk factor modification Signed by : Petros Scott, Electronically Approved : 12/01/2018 17:42:33
[2018-12-01] MEDS ORDERED: METOPROLOL TART IMMED RELEASE 25 MG TABLET. PO SCH (21:00)
[2018-12-01] MEDS: SIMVASTATIN 40 MG TABLET. NG SCH (21:35)
[2018-12-02] VITALS (25 sets, daily range): BP systolic 85–186; BP diastolic 44–97
[2018-12-02 00:06] LABS: HEMOGLOBIN A1C 13.1 % (4.8-5.6)
[2018-12-02] MEDS: PROPOFOL 100 ML IV PRN ×3 (03:04→21:23)
[2018-12-02] MEDS: AMIODARONE 450 MG in IV DEXTROSE 5% 250 ML IV PRN (03:42)
[2018-12-02] MEDS: PIPERACILLIN/TAZOBACTAM 3.375 GM in IV NORMAL SALINE 50ML 50 ML IV SCH ×4 (03:59→23:30)
[2018-12-02 05:25] LABS: HEMATOCRIT 37.2 % (36.0-47.0); HEMOGLOBIN 12.2 g/dL (12.0-15.5); RED BLOOD COUNT 4.01 x10^6/uL (3.50-5.40); RED CELL DISTRIBUTION WIDTH 13.1 % (11.5-14.5); WHITE BLOOD COUNT 11.6 x10^3/uL (4.0-11.0)
[2018-12-02] MEDS: INSULIN LISPRO 300 UNITS/3 ML INSULN.PEN. SQ SCH ×5 (05:44→23:30)
[2018-12-02 05:50] LABS: CALCIUM 8.6 mg/dL (8.5-10.1); CREATININE 1.3 mg/dL (0.6-1.0); GFR 43.2; POTASSIUM 3.9 mmol/L (3.5-5.1)
--- NOTE | 2018-12-02 08:18 | RAD ---
Portable chest, 12/02/2018, 6:45 AM: HISTORY: Respiratory failure Comparison is made to a study from 11/30/2018. The ET tube tip lies well above the brandie. An NG tube extends into the body of the stomach. The heart size and pulmonary vascularity are normal. There is minimal retrocardiac atelectasis/infiltrate in the left base. The lungs are otherwise clear. There is no evidence of pleural fluid. IMPRESSION: 1. The ET tube and NG tube are in satisfactory positions. 2. Minimal left basilar atelectasis/infiltrate. Electronically signed by: Vivek Vernon MD (12/02/2018 8:15 AM) [facility]
--- NOTE | 2018-12-02 08:45 | NUR ---
SW reviewed pt's medical chart and evaluated for dc needs. Pt is from home with family and was admitted for cardiac arrest. Per pt's mother, pt uses methamphetamine and possibly heroin. Mother believes pt was using all night and this is reason for hospitalization. Pt is currently sedated on a ventilator. If pt's condition improves, SW will make referral to PAT Team for substance use disorder. SW will continue to follow.
[2018-12-02 08:51] LABS: BASE EXCESS ABG -6 mmol/L (-3-3); HCO3 ABG 19 mmol/L (21-28); PCO2 ABG 35 mmHg (35-46); PO2 ABG 75 mmHg (75-108); SAT O2 ABG 94 % (92-99)
[2018-12-02 08:52] LABS: FIO2 ABG 30
--- NOTE | 2018-12-02 08:52 | PDOC ---
PROGRESS NOTES Chief Complaint Chief Complaint S/p in hospital cardiac arrest, rhythms include nonsustained V. tach shocked, PEA status post 2 rounds of epinephrine - no hypothermia (initiated she was waking up) Acute respiratory failure secondary to cardiac arrest-on IPPV-11/30/18 Short run A. fib resolved N STEMI-troponin peaks at 121 Rhabdomyolysis possibly in the background of CPR-CK 3000 SIRS reactive secondary to CPR-leukocytosis 15 Anion gap acidosis with a bicarbonate 18 and elevated anion gap 19 - s.p 50 meqs bicarb AK I VMN postcode-creatinine 1.6 Oliguria responding to IV fluids Status post HO NK versus DKA-blood sugars better now Hypertension on lisinopril at home Dyslipidemia on simvastatin at home Diabetes on metformin at home History of Present Illness History of Present Illness She tested positive for methamphetamine, was admitted for that and a mild element of DKA then coded. ABG around code time was pH 7.28, CO2 33 with oh to 500 Repeat ABG now shows normal pH with good CO2 and O2 components She was only on 3 medications at home: daily simvastatin lisinopril 10 and metformin Now she seen in the ICU she is on amiodarone drip, fentanyl, propofol, and tirafibatide by cardiology, s/p LHC with 2x JORGE. Troponin peaked 121 Blood sugars are much better. Cr down to 1.3, making adequate UOP Plan: continue drips, vent per pulmonary - she has 3 peripheral IV lines, not on pressors. Can likely extubated today Antiarrhythmics per cardiology LHC - 2x JORGE Maintain [place] catheter, bolus when necessary if needed re UO Keep on normal saline to 1 25 mL Sliding-scale insulin high-dose every 6 Tube feeds until extubation PPI and DVt ppx in this vented pt ABG looks good. Might actually be a candidate of weaning off the vent Discussed with POTTER[employer] and mother bedside Vitals Vitals Vital Signs Date Time Temp Pulse Resp B/P (MAP) Pulse Ox O2 Delivery O2 Flow Rate FiO2 12/02/18 06:13 16 100 Ventilator 12/02/18 06:00 61 149/83 (105) 12/02/18 04:00 99.5 99.5 12/01/18 17:59 15.0 Physical Exam General: Other (intubated) Heart: Regular rate, Normal S1, Normal S2, No murmurs Lungs: Clear Abdomen: Soft, No tenderness Extremities: No clubbing, No cyanosis, No edema Skin: No rashes, No breakdown, No significant lesion Labs LABS Laboratory Tests Test 12/01/18 08:55 12/01/18 12:50 12/01/18 16:19 12/02/18 00:04 Heparin Anti-Xa Act, Unfractionated 0.45 IU/mL (0.30-0.70) Hemoglobin A1c 13.1 % (4.8-5.6) Glucose (Fingerstick) 266 mg/dL (70-99) 211 mg/dL (70-99) 174 mg/dL (70-99) Test 12/02/18 04:15 12/02/18 05:37 White Blood Count 11.6 x10^3/uL (4.0-11.0) Red Blood Count 4.01 x10^6/uL (3.50-5.40) Hemoglobin 12.2 g/dL (12.0-15.5) Hematocrit 37.2 % (36.0-47.0) Mean Corpuscular Volume 93 fL (79-100) Mean Corpuscular Hemoglobin 31 pg (25-35) Mean Corpuscular Hemoglobin Concent 33 g/dL (31-37) Red Cell Distribution Width 13.1 % (11.5-14.5) Platelet Count 203 x10^3/uL (140-400) Sodium Level 140 mmol/L (136-145) Potassium Level 3.9 mmol/L (3.5-5.1) Chloride Level 106 mmol/L (98-107) Carbon Dioxide Level 21 mmol/L (21-32) Anion Gap 13 (6-14) Blood Urea Nitrogen 30 mg/dL (7-20) Creatinine 1.3 mg/dL (0.6-1.0) Estimated GFR (Cockcroft-Gault) 43.2 Glucose Level 188 mg/dL (70-99) Calcium Level 8.6 mg/dL (8.5-10.1) Glucose (Fingerstick) 187 mg/dL (70-99) Assessment and Plan Assessmemt and Plan Problems Medical Problems: (1) Aspiration pneumonia Status: Acute (2) Cardiac arrest Status: Acute (3) DKA (diabetic ketoacidoses) Status: Acute (4) Drug overdose Status: Acute (5) Substance abuse Status: Acute Comment Review of Relevant I have reviewed the following items kashmir (where applicable) has been applied. Labs Laboratory Tests Test 11/30/18 09:35 11/30/18 09:36 11/30/18 09:37 11/30/18 09:38 Ammonia 15 mcmol/L (11-34) O2 Saturation 99 % (92-99) Arterial Blood pH 7.28 (7.35-7.45) Arterial Blood pCO2 at Patient Temp 33 mmHg (35-46) Arterial Blood pO2 at Patient Temp > 503 mmHg (75-108) Arterial Blood HCO3 15 mmol/L (21-28) Arterial Blood Base Excess -11 mmol/L (-3-3) Oxyhemoglobin 97.0 % Methemoglobin 0.5 % (0.0-1.9) Carbon Monoxide, Quantitative 1.9 % (0.0-1.9) FiO2 100 White Blood Count 26.3 x10^3/uL (4.0-11.0) Red Blood Count 4.29 x10^6/uL (3.50-5.40) Hemoglobin 13.3 g/dL (12.0-15.5) Hematocrit 39.7 % (36.0-47.0) Mean Corpuscular Volume 92 fL (79-100) Mean Corpuscular Hemoglobin 31 pg (25-35) Mean Corpuscular Hemoglobin Concent 34 g/dL (31-37) Red Cell Distribution Width 12.5 % (11.5-14.5) Platelet Count 315 x10^3/uL (140-400) Neutrophils (%) (Auto) 69 % (31-73) Lymphocytes (%) (Auto) 24 % (24-48) Monocytes (%) (Auto) 6 % (0-9) Eosinophils (%) (Auto) 1 % (0-3) Basophils (%) (Auto) 0 % (0-3) Neutrophils # (Auto) 18.3 x10^3uL (1.8-7.7) Lymphocytes # (Auto) 6.3 x10^3/uL (1.0-4.8) Monocytes # (Auto) 1.5 x10^3/uL (0.0-1.1) Eosinophils # (Auto) 0.2 x10^3/uL (0.0-0.7) Basophils # (Auto) 0.1 x10^3/uL (0.0-0.2) Segmented Neutrophils % 54 % (35-66) Band Neutrophils % 14 % (0-9) Lymphocytes % 26 % (24-48) Monocytes % 5 % (0-10) Basophils % 1 % (0-3) Platelet Estimate Adequate (ADEQUATE) Large Platelets Few Giant Platelets Occ Prothrombin Time 14.6 SEC (11.7-14.0) Prothromb Time International Ratio 1.2 (0.8-1.1) Activated Partial Thromboplast Time 27 SEC (24-38) Bedside Troponin I 0.61 ng/ml (<0.08) Test 11/30/18 09:41 11/30/18 09:52 11/30/18 10:30 11/30/18 11:18 Bedside Hemoglobin 13.9 g/dL (12-15) Bedside Hematocrit 41 % (36-40) Bedside Sodium 132 mmol/L (135-145) Bedside Potassium 4.2 mmol/L (3.5-5.0) Bedside Chloride 98 mmol/L (98-110) Bedside Total CO2 16 mmol/L (23-32) Anion Gap 24 mmol/L (6-14) 22 (6-14) Bedside Blood Urea Nitrogen 34 mg/dL (8-26) Bedside Creatinine 1.0 mg/dL (0.5-1.4) Glucose Level 587 mg/dL (70-99) 608 mg/dL (70-99) Bedside Ionized Calcium (Charles) 1.08 mmol/L (1.13-1.32) Sodium Level 133 mmol/L (136-145) Potassium Level 4.3 mmol/L (3.5-5.1) Chloride Level 94 mmol/L (98-107) Carbon Dioxide Level 17 mmol/L (21-32) Blood Urea Nitrogen 32 mg/dL (7-20) Creatinine 1.6 mg/dL (0.6-1.0) Estimated GFR (Cockcroft-Gault) 34.0 BUN/Creatinine Ratio 20 (6-20) Calcium Level 8.9 mg/dL (8.5-10.1) Total Bilirubin 0.3 mg/dL (0.2-1.0) Aspartate Amino Transf (AST/SGOT) 163 U/L (15-37) Alanine Aminotransferase (ALT/SGPT) 105 U/L (14-59) Alkaline Phosphatase 138 U/L (46-116) Creatine Kinase 335 U/L (26-192) Creatine Kinase MB (Mass) 30.6 ng/mL (0.0-3.6) Creatine Kinase MB Relative Index 9.1 % (0-4) Total Protein 7.3 g/dL (6.4-8.2) Albumin 3.8 g/dL (3.4-5.0) Albumin/Globulin Ratio 1.1 (1.0-1.7) Lipase 205 U/L (73-393) Salicylates Level 4.0 mg/dL (2.8-20.0) Salicylate Last Dose Date Unknown Salicylate Last Dose Time Unknown Acetaminophen Level < 2 mcg/ml (10-30) Acetaminophen Last Dose Date Unknown Acetaminophen Last Dose Time Unknown Ethyl Alcohol Level < 10 mg/dL (0-10) Acetone Level Neg (NEG) Urine Collection Type U cath Urine Color Yellow Urine Clarity Clear Urine pH 6.0 Urine Specific [place] 1.025 Urine Protein 100 mg/dL (NEG-TRACE) Urine Glucose (UA) >=1000 mg/dL (NEG) Urine Ketones (Stick) Negative mg/dL (NEG) Urine Blood Large (NEG) Urine Nitrite Negative (NEG) Urine Bilirubin Negative (NEG) Urine Urobilinogen Dipstick 1.0 mg/dL (0.2 mg/dL) Urine Leukocyte Esterase Negative (NEG) Urine RBC 6-10 /HPF (0-2) Urine WBC 5-10 /HPF (0-4) Urine Squamous Epithelial Cells Few /LPF Urine Amorphous Sediment Present /HPF Urine Bacteria 0 /HPF (0-FEW) Urine Opiates Screen Neg (NEG) Urine Methadone Screen Neg (NEG) Urine Barbiturates Neg (NEG) Urine Phencyclidine Screen Neg (NEG) Urine Amphetamine/Methamphetamine Pos (NEG) Urine Benzodiazepines Screen Neg (NEG) Urine Cocaine Screen Pos (NEG) Urine Cannabinoids Screen Pos (NEG) Urine Ethyl Alcohol Neg (NEG) Lactic Acid Level 3.6 mmol/L (0.4-2.0) Magnesium Level 1.6 mg/dL (1.8-2.4) Test 11/30/18 12:37 11/30/18 13:40 11/30/18 14:10 11/30/18 14:48 Glucose (Fingerstick) 447 mg/dL (70-99) 330 mg/dL (70-99) 231 mg/dL (70-99) Lactic Acid Level 3.5 mmol/L (0.4-2.0) Test 11/30/18 15:30 11/30/18 15:53 11/30/18 18:23 11/30/18 21:16 Sodium Level 138 mmol/L (136-145) Potassium Level 3.8 mmol/L (3.5-5.1) Chloride Level 102 mmol/L (98-107) Carbon Dioxide Level 22 mmol/L (21-32) Anion Gap 14 (6-14) Blood Urea Nitrogen 33 mg/dL (7-20) Creatinine 1.3 mg/dL (0.6-1.0) Estimated GFR (Cockcroft-Gault) 43.2 Glucose Level 186 mg/dL (70-99) Calcium Level 8.3 mg/dL (8.5-10.1) Phosphorus Level 3.3 mg/dL (2.6-4.7) Magnesium Level 2.6 mg/dL (1.8-2.4) Creatine Kinase 2063 U/L (26-192) Troponin I Quantitative 49.805 ng/mL (0.000-0.055) Glucose (Fingerstick) 148 mg/dL (70-99) 192 mg/dL (70-99) 260 mg/dL (70-99) Test 12/01/18 02:10 12/01/18 07:15 12/01/18 08:25 12/01/18 08:55 White Blood Count 15.3 x10^3/uL (4.0-11.0) Red Blood Count 4.47 x10^6/uL (3.50-5.40) Hemoglobin 13.5 g/dL (12.0-15.5) Hematocrit 40.7 % (36.0-47.0) Mean Corpuscular Volume 91 fL (79-100) Mean Corpuscular Hemoglobin 30 pg (25-35) Mean Corpuscular Hemoglobin Concent 33 g/dL (31-37) Red Cell Distribution Width 12.8 % (11.5-14.5) Platelet Count 256 x10^3/uL (140-400) Heparin Anti-Xa Act, Unfractionated 0.43 IU/mL (0.30-0.70) 0.45 IU/mL (0.30-0.70) Sodium Level 138 mmol/L (136-145) Potassium Level 4.7 mmol/L (3.5-5.1) Chloride Level 101 mmol/L (98-107) Carbon Dioxide Level 18 mmol/L (21-32) Anion Gap 19 (6-14) Blood Urea Nitrogen 35 mg/dL (7-20) Creatinine 1.6 mg/dL (0.6-1.0) Estimated GFR (Cockcroft-Gault) 34.0 Glucose Level 311 mg/dL (70-99) Calcium Level 8.5 mg/dL (8.5-10.1) Creatine Kinase 2995 U/L (26-192) Troponin I Quantitative 121.207 ng/mL (0.000-0.055) O2 Saturation 97 % (92-99) Arterial Blood pH 7.32 (7.35-7.45) Arterial Blood pCO2 at Patient Temp 34 mmHg (35-46) Arterial Blood pO2 at Patient Temp 105 mmHg (75-108) Arterial Blood HCO3 17 mmol/L (21-28) Arterial Blood Base Excess -8 mmol/L (-3-3) FiO2 30 Glucose (Fingerstick) 298 mg/dL (70-99) Hemoglobin A1c 13.1 % (4.8-5.6) Test 12/01/18 12:50 12/01/18 16:19 12/02/18 00:04 12/02/18 04:15 Glucose (Fingerstick) 266 mg/dL (70-99) 211 mg/dL (70-99) 174 mg/dL (70-99) White Blood Count 11.6 x10^3/uL (4.0-11.0) Red Blood Count 4.01 x10^6/uL (3.50-5.40) Hemoglobin 12.2 g/dL (12.0-15.5) Hematocrit 37.2 % (36.0-47.0) Mean Corpuscular Volume 93 fL (79-100) Mean Corpuscular Hemoglobin 31 pg (25-35) Mean Corpuscular Hemoglobin Concent 33 g/dL (31-37) Red Cell Distribution Width 13.1 % (11.5-14.5) Platelet Count 203 x10^3/uL (140-400) Sodium Level 140 mmol/L (136-145) Potassium Level 3.9 mmol/L (3.5-5.1) Chloride Level 106 mmol/L (98-107) Carbon Dioxide Level 21 mmol/L (21-32) Anion Gap 13 (6-14) Blood Urea Nitrogen 30 mg/dL (7-20) Creatinine 1.3 mg/dL (0.6-1.0) Estimated GFR (Cockcroft-Gault) 43.2 Glucose Level 188 mg/dL (70-99) Calcium Level 8.6 mg/dL (8.5-10.1) Test 12/02/18 05:37 Glucose (Fingerstick) 187 mg/dL (70-99) Laboratory Tests Test 12/01/18 08:55 12/01/18 12:50 12/01/18 16:19 12/02/18 00:04 Heparin Anti-Xa Act, Unfractionated 0.45 IU/mL (0.30-0.70) Hemoglobin A1c 13.1 % (4.8-5.6) Glucose (Fingerstick) 266 mg/dL (70-99) 211 mg/dL (70-99) 174 mg/dL (70-99) Test 12/02/18 04:15 12/02/18 05:37 White Blood Count 11.6 x10^3/uL (4.0-11.0) Red Blood Count 4.01 x10^6/uL (3.50-5.40) Hemoglobin 12.2 g/dL (12.0-15.5) Hematocrit 37.2 % (36.0-47.0) Mean Corpuscular Volume 93 fL (79-100) Mean Corpuscular Hemoglobin 31 pg (25-35) Mean Corpuscular Hemoglobin Concent 33 g/dL (31-37) Red Cell Distribution Width 13.1 % (11.5-14.5) Platelet Count 203 x10^3/uL (140-400) Sodium Level 140 mmol/L (136-145) Potassium Level 3.9 mmol/L (3.5-5.1) Chloride Level 106 mmol/L (98-107) Carbon Dioxide Level 21 mmol/L (21-32) Anion Gap 13 (6-14) Blood Urea Nitrogen 30 mg/dL (7-20) Creatinine 1.3 mg/dL (0.6-1.0) Estimated GFR (Cockcroft-Gault) 43.2 Glucose Level 188 mg/dL (70-99) Calcium Level 8.6 mg/dL (8.5-10.1) Glucose (Fingerstick) 187 mg/dL (70-99) Microbiology 11/30/18 Blood Culture - Preliminary, Resulted NO GROWTH AFTER 1 DAY Medications Current Medications Naloxone HCl 2 mg/ Dextrose 502 ml @ 0 mls/hr 1X ONCE IV Last administered on 11/30/18at 10:08; Start 11/30/18 at 09:45; Stop 11/30/18 at 16:51; Status DC Sodium Chloride 1,000 ml @ 1,000 mls/hr 1X ONCE IV Last administered on 11/30/18at 10:04; Start 11/30/18 at 10:00; Stop 11/30/18 at 10:59; Status DC Amiodarone HCl 150 mg/Dextrose 103 ml @ 618 mls/hr 1X ONCE IV Last administered on 11/30/18at 10:13; Start 11/30/18 at 10:00; Stop 11/30/18 at 10:09; Status DC Amiodarone HCl 900 mg/Dextrose 518 ml @ 0 mls/hr CONT PRN IV SEE I/O RECORD Last administered on 11/30/18at 10:24; Start 11/30/18 at 10:00; Stop 11/30/18 at 10:24; Status DC Insulin Human Regular 150 ml @ 0 mls/hr 1X ONCE IV ; Start 11/30/18 at 10:00; Stop 11/30/18 at 10:01; Status UNV Insulin Human Regular 150 ml @ 0 mls/hr 1X ONCE IV Last administered on 11/30/18at 11:32; Start 11/30/18 at 10:00; Stop 11/30/18 at 16:51; Status DC Amiodarone HCl (Cordarone) 150 mg STK-MED ONCE .ROUTE ; Start 11/30/18 at 10:00; Stop 11/30/18 at 10:01; Status DC Propofol (Diprivan) 200 mg 1X ONCE IV ; Start 11/30/18 at 10:15; Stop 11/30/18 at 10:16; Status Cancel Sodium Chloride 1,000 ml @ 1,000 mls/hr 1X ONCE IV Last administered on 11/30/18at 10:54; Start 11/30/18 at 10:30; Stop 11/30/18 at 11:29; Status DC Propofol 50 ml @ As Directed STK-MED ONCE IV ; Start 11/30/18 at 10:17; Stop 11/30/18 at 10:18; Status DC Propofol 50 ml @ 1.037 mls/ hr 1X ONCE IV Last administered on 11/30/18at 10:20; Start 11/30/18 at 10:30; Stop 12/02/18 at 08:36; Status DC Piperacillin Sod/ Tazobactam Sod 3.375 gm/Sodium Chloride 50 ml @ 100 mls/hr 1X ONCE IV Last administered on 11/30/18at 11:02; Start 11/30/18 at 10:30; Stop 11/30/18 at 10:59; Status DC Ondansetron HCl (Zofran) 4 mg PRN Q8HRS PRN IV NAUSEA/VOMITING; Start 11/30/18 at 10:30; Stop 12/01/18 at 08:41; Status DC Sodium Chloride 1,000 ml @ 125 mls/hr Q8H IV Last administered on 12/01/18at 04:27; Start 11/30/18 at 10:29; Stop 12/01/18 at 10:28; Status DC Sodium Bicarbonate (Sodium Bicarb Adult 8.4% Syr) 50 meq 1X ONCE IV Last administered on 11/30/18at 11:31; Start 11/30/18 at 11:30; Stop 11/30/18 at 11:31; Status DC Fentanyl Citrate 30 ml @ 0 mls/hr CONT PRN IV SEE PROTOCOL Last administered on 12/02/18at 05:43; Start 11/30/18 at 12:00 Propofol 100 ml @ 0 mls/hr CONT PRN IV SEE PROTOCOL Last administered on 12/02/18at 03:04; Start 11/30/18 at 12:00 Fentanyl Citrate (Fentanyl 2ml Vial) 25 mcg PRN Q1HR PRN IV SEE COMMENTS; Start 11/30/18 at 12:00 Fentanyl Citrate (Fentanyl 2ml Vial) 50 mcg PRN Q1HR PRN IV SEE COMMENTS; Start 11/30/18 at 12:00 Chlorhexidine Gluconate (Peridex) 15 ml BID MM ; Start 11/30/18 at 21:00; Stop 11/30/18 at 21:00; Status DC Midazolam HCl 100 ml @ 0 mls/hr CONT PRN IV SEE PROTOCOL; Start 11/30/18 at 12:00 Propofol 100 ml @ As Directed STK-MED ONCE IV ; Start 11/30/18 at 11:52; Stop 11/30/18 at 11:53; Status DC Magnesium Sulfate 50 ml @ 25 mls/hr 1X ONCE IV Last administered on 11/30/18at 14:11; Start 11/30/18 at 13:30; Stop 11/30/18 at 15:29; Status DC Piperacillin Sod/ Tazobactam Sod (Zosyn Per Pharmacy) 1 each PRN DAILY PRN MC SEE COMMENTS; Start 11/30/18 at 15:15 Piperacillin Sod/ Tazobactam Sod 3.375 gm/Sodium Chloride 50 ml @ 100 mls/hr Q6H IV Last administered on 12/02/18at 03:59; Start 11/30/18 at 16:00 Dextrose/Sodium Chloride 1,000 ml @ 250 mls/hr Q4H IV Last administered on 11/30/18at 16:18; Start 11/30/18 at 15:15; Stop 11/30/18 at 16:51; Status DC Insulin Human Lispro (HumaLOG) 0-7 UNITS TIDWMEALS SQ Last administered on 12/01/18at 08:29; Start 11/30/18 at 17:00; Stop 12/01/18 at 08:33; Status DC Dextrose (Dextrose 50%-Water Syringe) 12.5 gm PRN Q15MIN PRN IV SEE COMMENTS; Start 11/30/18 at 16:45; Stop 12/01/18 at 11:30; Status DC Heparin Sodium/ Dextrose 500 ml @ 17.357 mls/ hr CONT PRN IV SEE I/O RECORD Last administered on 11/30/18at 19:46; Start 11/30/18 at 19:00; Stop 12/01/18 at 11:29; Status DC Heparin Sodium (Porcine) (Heparin Sodium) 1,800 unit PRN Q6HRS PRN IV FOR UFH LEVEL LESS THAN 0.2 Last administered on 11/30/18at 19:47; Start 11/30/18 at 19:00; Stop 12/01/18 at 11:29; Status DC Tirofiban/Sodium Chloride 100 ml @ 13.018 mls/ hr CONT PRN IV PER PROTOCOL Last administered on 12/01/18at 05:35; Start 11/30/18 at 19:00; Stop 12/01/18 at 11:29; Status DC Info (Anti-Coagulation Monitoring By Pharmacy) 1 each PRN DAILY PRN MC SEE COMMENTS; Start 12/01/18 at 08:00; Stop 12/01/18 at 11:30; Status DC Insulin Human Lispro (HumaLOG) 0-7 UNITS Q6HRS SQ Last administered on 12/01/18at 17:50; Start 12/01/18 at 12:00 Ondansetron HCl (Zofran) 4 mg PRN Q6HRS PRN IV NAUSEA/VOMITING; Start 12/01/18 at 08:45 Acetaminophen (Tylenol) 650 mg PRN Q6HRS PRN PEG MILD PAIN / TEMP; Start 12/01/18 at 08:45 Insulin Human Lispro (HumaLOG) 0-9 UNITS TIDWMEALS SQ ; Start 12/01/18 at 12:00; Status UNV Dextrose (Dextrose 50%-Water Syringe) 12.5 gm PRN Q15MIN PRN IV SEE COMMENTS; Start 12/01/18 at 08:45 Insulin Glargine (Lantus) 15 units 1X STAT SQ Last administered on 12/01/18at 09:01; Start 12/01/18 at 08:39; Stop 12/01/18 at 08:43; Status DC Simvastatin (Zocor) 40 mg QHS NG Last administered on 12/01/18at 21:35; Start 12/01/18 at 21:00 Heparin Sodium (Porcine) (Heparin Sodium) 10,000 unit STK-MED ONCE .ROUTE ; Start 12/01/18 at 09:50; Stop 12/01/18 at 09:51; Status DC Verapamil HCl (Verapamil) 5 mg STK-MED ONCE .ROUTE ; Start 12/01/18 at 09:50; Stop 12/01/18 at 09:51; Status DC Nitroglycerin (Nitroglycerin) 200 mcg STK-MED ONCE .ROUTE ; Start 12/01/18 at 09:50; Stop 12/01/18 at 09:51; Status DC Iodixanol (Visipaque 320) 100 ml STK-MED ONCE .ROUTE ; Start 12/01/18 at 09:54; Stop 12/01/18 at 09:55; Status DC Lidocaine HCl (Lidocaine 1% 20ml Vial) 20 ml STK-MED ONCE .ROUTE ; Start 12/01/18 at 09:55; Stop 12/01/18 at 09:56; Status DC Heparin Sodium/ Sodium Chloride 1,000 ml @ As Directed STK-MED ONCE .ROUTE ; Start 12/01/18 at 09:55; Stop 12/01/18 at 09:56; Status DC Nitroglycerin (Nitroglycerin) 200 mcg 1X ONCE IART Last administered on 12/01/18at 11:00; Start 12/01/18 at 11:00; Stop 12/01/18 at 11:01; Status DC Verapamil HCl (Verapamil) 2.5 mg 1X ONCE IART Last administered on 12/01/18at 11:00; Start 12/01/18 at 11:00; Stop 12/01/18 at 11:01; Status DC Heparin Sodium (Porcine) (Heparin Sodium) 2,500 unit 1X ONCE IART Last administered on 12/01/18at 11:00; Start 12/01/18 at 11:00; Stop 12/01/18 at 11:01; Status DC Heparin Sodium/ Sodium Chloride (HEPARIN for ARTERIAL LINE FLUSH) 1,000 unit 1X ONCE IART Last administered on 12/01/18at 11:00; Start 12/01/18 at 11:00; Stop 12/01/18 at 11:01; Status DC Iodixanol (Visipaque 320) 100 ml 1X ONCE IART Last administered on 12/01/18at 11:00; Start 12/01/18 at 11:00; Stop 12/01/18 at 11:01; Status DC Lidocaine HCl (Lidocaine 1% 20ml Vial) 20 ml 1X ONCE INJ Last administered on 12/01/18at 11:00; Start 12/01/18 at 11:00; Stop 12/01/18 at 11:01; Status DC Amiodarone HCl 450 mg/Dextrose 259 ml @ 17.26 mls/ hr CONT PRN IV SEE I/O RECORD; Start 12/01/18 at 11:00; Stop 12/01/18 at 11:29; Status DC Bivalirudin (Angiomax) 250 mg STK-MED ONCE IV ; Start 12/01/18 at 10:53; Stop 12/01/18 at 10:54; Status DC Iodixanol (Visipaque 320) 100 ml STK-MED ONCE .ROUTE ; Start 12/01/18 at 10:55; Stop 12/01/18 at 10:56; Status DC Bivalirudin (Angiomax) 250 mg 1X ONCE IV Last administered on 12/01/18at 10:57; Start 12/01/18 at 11:00; Stop 12/01/18 at 11:01; Status DC Clopidogrel Bisulfate (Plavix) 600 mg 1X ONCE PO Last administered on 12/01/18at 12:22; Start 12/01/18 at 11:30; Stop 12/01/18 at 11:31; Status DC Aspirin (Mikaela Aspirin) 325 mg 1X ONCE PO Last administered on 12/01/18at 12:12; Start 12/01/18 at 11:30; Stop 12/01/18 at 11:31; Status DC Aspirin (Ecotrin) 325 mg DAILYWBKFT PO ; Start 12/02/18 at 08:00 Clopidogrel Bisulfate (Plavix) 75 mg DAILYWBKFT PO ; Start 12/02/18 at 08:00 Metoprolol Tartrate (Lopressor) 25 mg BID PO ; Start 12/01/18 at 21:00; Stop 12/01/18 at 21:00; Status DC Nitroglycerin (Nitrostat) 0.4 mg PRN Q5MIN PRN SL CHEST PAIN; Start 12/01/18 at 11:30 Sodium Chloride 1,000 ml @ 125 mls/hr Q8H IV Last administered on 12/01/18at 23:30; Start 12/01/18 at 15:30 Amiodarone HCl 450 mg/Dextrose 259 ml @ 17.26 mls/ hr CONT PRN IV SEE I/O RECORD Last administered on 12/02/18at 03:42; Start 12/01/18 at 17:15 Active Scripts Active Reported Simvastatin 40 Mg Tablet 40 Mg PO HS Lisinopril 10 Mg Tablet 10 Mg PO DAILY Metformin Hcl 500 Mg Tablet 500 Mg PO DAILY Vitals/I & O Vital Sign - Last 24 Hours 12/01/18 12/01/18 12/01/1828/19 09:00 09:14 10:26 11:00 Pulse 70 65 Resp 20 B/P (MAP) 166/84 (111) Pulse Ox 99 99 100 O2 Delivery Ventilator Ventilator Ventilator O2 Flow Rate 15.0 12/01/18 12/01/18 12/01/18 12/01/18 11:35 11:45 12:00 12:00 Pulse 62 69 62 Resp 18 16 16 B/P (MAP) 153/89 (110) 145/84 (104) Pulse Ox 100 99 99 O2 Delivery Ventilator Ventilator Ventilator Mechanical Ventilator O2 Flow Rate 15.0 15.0 12/01/18 12/01/18 12/01/18 12/01/18 12:15 12:30 12:45 12:59 Pulse 60 62 62 Resp 16 15 15 B/P (MAP) 148/83 (104) 159/91 (113) 152/82 (105) Pulse Ox 100 100 100 100 O2 Delivery Ventilator Ventilator Ventilator Ventilator O2 Flow Rate 15.0 15.0 15.0 12/01/18 12/01/18 12/01/18 12/01/18 13:00 13:30 14:00 15:00 Temp 97.2 97.2 Pulse 62 61 61 61 Resp 15 15 15 15 B/P (MAP) 145/87 (106) 141/87 (105) 136/84 (101) 139/84 (102) Pulse Ox 100 100 100 100 O2 Delivery Ventilator Ventilator Ventilator Ventilator O2 Flow Rate 15.0 15.0 15.0 15.0 12/01/18 12/01/18 12/01/18 12/01/18 15:35 16:00 16:00 16:00 Pulse 61 63 Resp 16 15 B/P (MAP) 142/87 (105) 142/87 (105) Pulse Ox 100 99 100 O2 Delivery Ventilator Ventilator Ventilator Mechanical Ventilator O2 Flow Rate 15.0 15.0 12/01/18 12/01/18 12/01/18 12/01/18 17:00 17:49 17:59 19:00 Pulse 61 64 62 Resp 15 16 16 B/P (MAP) 120/71 (87) 151/82 (105) 147/82 (103) Pulse Ox 99 99 100 100 O2 Delivery Ventilator Ventilator Ventilator Ventilator O2 Flow Rate 15.0 15.0 12/01/18 12/01/18 12/01/18/28/19 19:33 20:00 20:00 21:00 Temp 98.9 98.9 Pulse 61 64 Resp 16 16 B/P (MAP) 107/53 (71) 136/65 (88) Pulse Ox 100 100 100 O2 Delivery Ventilator Mechanical Ventilator Ventilator Ventilator 12/01/18 12/01/18 12/01/18 12/01/18 22:00 23:00 23:45 23:59 Pulse 62 63 Resp 16 16 B/P (MAP) 158/81 (106) 145/80 (101) Pulse Ox 100 100 100 O2 Delivery Ventilator Ventilator Ventilator Mechanical Ventilator 12/02/18 12/02/18 12/02/18 12/02/18 00:00 01:00 02:00 02:52 Temp 99.4 99.4 Pulse 62 62 63 Resp 16 16 16 B/P (MAP) 152/85 (107) 151/83 (105) 150/81 (104) Pulse Ox 100 100 99 100 O2 Delivery Ventilator Ventilator Ventilator Ventilator 12/02/18 12/02/18 12/02/18 12/02/18 03:00 04:00 04:00 05:00 Temp 99.5 99.5 Pulse 62 61 60 Resp 16 17 16 B/P (MAP) 119/57 (77) 149/84 (105) 150/82 (104) Pulse Ox 99 100 100 O2 Delivery Ventilator Mechanical Ventilator Ventilator Ventilator 12/02/18 12/02/18 12/02/18 12/02/18 05:13 05:43 06:00 06:13 Pulse 61 Resp 14 16 16 B/P (MAP) 149/83 (105) Pulse Ox 100 100 100 100 O2 Delivery Ventilator Ventilator Ventilator Ventilator Intake and Output 12/01/18 12/01/18 12/02/18 15:00 23:00 07:00 Intake Total 233.27 ml 977 ml 1755.4 ml Output Total 295 ml 690 ml 205 ml Balance -61.73 ml 287 ml 1550.4 ml JUSTICE ARROYO MD Dec 02, 2018 08:52
--- NOTE | 2018-12-02 08:52 | EKG ---
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
--- NOTE | 2018-12-02 09:24 | PDOC ---
PULMONARY PROGRESS NOTES Subjective SEDATED ON AC MODE Vitals Vital Signs Date Time Temp Pulse Resp B/P (MAP) Pulse Ox O2 Delivery O2 Flow Rate FiO2 12/02/18 08:30 100 Ventilator 12/02/18 06:13 16 12/02/18 06:00 61 149/83 (105) 12/02/18 04:00 99.5 99.5 12/01/18 17:59 15.0 Lungs: Clear Cardiovascular: S1 Abdomen: Soft Extremities: No Edema Skin: Warm Labs Laboratory Tests Test 11/30/18 09:35 11/30/18 09:36 11/30/18 09:37 11/30/18 09:38 Ammonia 15 mcmol/L (11-34) O2 Saturation 99 % (92-99) Arterial Blood pH 7.28 (7.35-7.45) Arterial Blood pCO2 at Patient Temp 33 mmHg (35-46) Arterial Blood pO2 at Patient Temp > 503 mmHg (75-108) Arterial Blood HCO3 15 mmol/L (21-28) Arterial Blood Base Excess -11 mmol/L (-3-3) Oxyhemoglobin 97.0 % Methemoglobin 0.5 % (0.0-1.9) Carbon Monoxide, Quantitative 1.9 % (0.0-1.9) FiO2 100 White Blood Count 26.3 x10^3/uL (4.0-11.0) Red Blood Count 4.29 x10^6/uL (3.50-5.40) Hemoglobin 13.3 g/dL (12.0-15.5) Hematocrit 39.7 % (36.0-47.0) Mean Corpuscular Volume 92 fL (79-100) Mean Corpuscular Hemoglobin 31 pg (25-35) Mean Corpuscular Hemoglobin Concent 34 g/dL (31-37) Red Cell Distribution Width 12.5 % (11.5-14.5) Platelet Count 315 x10^3/uL (140-400) Neutrophils (%) (Auto) 69 % (31-73) Lymphocytes (%) (Auto) 24 % (24-48) Monocytes (%) (Auto) 6 % (0-9) Eosinophils (%) (Auto) 1 % (0-3) Basophils (%) (Auto) 0 % (0-3) Neutrophils # (Auto) 18.3 x10^3uL (1.8-7.7) Lymphocytes # (Auto) 6.3 x10^3/uL (1.0-4.8) Monocytes # (Auto) 1.5 x10^3/uL (0.0-1.1) Eosinophils # (Auto) 0.2 x10^3/uL (0.0-0.7) Basophils # (Auto) 0.1 x10^3/uL (0.0-0.2) Segmented Neutrophils % 54 % (35-66) Band Neutrophils % 14 % (0-9) Lymphocytes % 26 % (24-48) Monocytes % 5 % (0-10) Basophils % 1 % (0-3) Platelet Estimate Adequate (ADEQUATE) Large Platelets Few Giant Platelets Occ Prothrombin Time 14.6 SEC (11.7-14.0) Prothromb Time International Ratio 1.2 (0.8-1.1) Activated Partial Thromboplast Time 27 SEC (24-38) Bedside Troponin I 0.61 ng/ml (<0.08) Test 11/30/18 09:41 11/30/18 09:52 11/30/18 10:30 11/30/18 11:18 Bedside Hemoglobin 13.9 g/dL (12-15) Bedside Hematocrit 41 % (36-40) Bedside Sodium 132 mmol/L (135-145) Bedside Potassium 4.2 mmol/L (3.5-5.0) Bedside Chloride 98 mmol/L (98-110) Bedside Total CO2 16 mmol/L (23-32) Anion Gap 24 mmol/L (6-14) 22 (6-14) Bedside Blood Urea Nitrogen 34 mg/dL (8-26) Bedside Creatinine 1.0 mg/dL (0.5-1.4) Glucose Level 587 mg/dL (70-99) 608 mg/dL (70-99) Bedside Ionized Calcium (Charles) 1.08 mmol/L (1.13-1.32) Sodium Level 133 mmol/L (136-145) Potassium Level 4.3 mmol/L (3.5-5.1) Chloride Level 94 mmol/L (98-107) Carbon Dioxide Level 17 mmol/L (21-32) Blood Urea Nitrogen 32 mg/dL (7-20) Creatinine 1.6 mg/dL (0.6-1.0) Estimated GFR (Cockcroft-Gault) 34.0 BUN/Creatinine Ratio 20 (6-20) Calcium Level 8.9 mg/dL (8.5-10.1) Total Bilirubin 0.3 mg/dL (0.2-1.0) Aspartate Amino Transf (AST/SGOT) 163 U/L (15-37) Alanine Aminotransferase (ALT/SGPT) 105 U/L (14-59) Alkaline Phosphatase 138 U/L (46-116) Creatine Kinase 335 U/L (26-192) Creatine Kinase MB (Mass) 30.6 ng/mL (0.0-3.6) Creatine Kinase MB Relative Index 9.1 % (0-4) Total Protein 7.3 g/dL (6.4-8.2) Albumin 3.8 g/dL (3.4-5.0) Albumin/Globulin Ratio 1.1 (1.0-1.7) Lipase 205 U/L (73-393) Salicylates Level 4.0 mg/dL (2.8-20.0) Salicylate Last Dose Date Unknown Salicylate Last Dose Time Unknown Acetaminophen Level < 2 mcg/ml (10-30) Acetaminophen Last Dose Date Unknown Acetaminophen Last Dose Time Unknown Ethyl Alcohol Level < 10 mg/dL (0-10) Acetone Level Neg (NEG) Urine Collection Type U cath Urine Color Yellow Urine Clarity Clear Urine pH 6.0 Urine Specific Palmer 1.025 Urine Protein 100 mg/dL (NEG-TRACE) Urine Glucose (UA) >=1000 mg/dL (NEG) Urine Ketones (Stick) Negative mg/dL (NEG) Urine Blood Large (NEG) Urine Nitrite Negative (NEG) Urine Bilirubin Negative (NEG) Urine Urobilinogen Dipstick 1.0 mg/dL (0.2 mg/dL) Urine Leukocyte Esterase Negative (NEG) Urine RBC 6-10 /HPF (0-2) Urine WBC 5-10 /HPF (0-4) Urine Squamous Epithelial Cells Few /LPF Urine Amorphous Sediment Present /HPF Urine Bacteria 0 /HPF (0-FEW) Urine Opiates Screen Neg (NEG) Urine Methadone Screen Neg (NEG) Urine Barbiturates Neg (NEG) Urine Phencyclidine Screen Neg (NEG) Urine Amphetamine/Methamphetamine Pos (NEG) Urine Benzodiazepines Screen Neg (NEG) Urine Cocaine Screen Pos (NEG) Urine Cannabinoids Screen Pos (NEG) Urine Ethyl Alcohol Neg (NEG) Lactic Acid Level 3.6 mmol/L (0.4-2.0) Magnesium Level 1.6 mg/dL (1.8-2.4) Test 11/30/18 12:37 11/30/18 13:40 11/30/18 14:10 11/30/18 14:48 Glucose (Fingerstick) 447 mg/dL (70-99) 330 mg/dL (70-99) 231 mg/dL (70-99) Lactic Acid Level 3.5 mmol/L (0.4-2.0) Test 11/30/18 15:30 11/30/18 15:53 11/30/18 18:23 11/30/18 21:16 Sodium Level 138 mmol/L (136-145) Potassium Level 3.8 mmol/L (3.5-5.1) Chloride Level 102 mmol/L (98-107) Carbon Dioxide Level 22 mmol/L (21-32) Anion Gap 14 (6-14) Blood Urea Nitrogen 33 mg/dL (7-20) Creatinine 1.3 mg/dL (0.6-1.0) Estimated GFR (Cockcroft-Gault) 43.2 Glucose Level 186 mg/dL (70-99) Calcium Level 8.3 mg/dL (8.5-10.1) Phosphorus Level 3.3 mg/dL (2.6-4.7) Magnesium Level 2.6 mg/dL (1.8-2.4) Creatine Kinase 2063 U/L (26-192) Troponin I Quantitative 49.805 ng/mL (0.000-0.055) Glucose (Fingerstick) 148 mg/dL (70-99) 192 mg/dL (70-99) 260 mg/dL (70-99) Test 12/01/18 02:10 12/01/18 07:15 12/01/18 08:25 12/01/18 08:55 White Blood Count 15.3 x10^3/uL (4.0-11.0) Red Blood Count 4.47 x10^6/uL (3.50-5.40) Hemoglobin 13.5 g/dL (12.0-15.5) Hematocrit 40.7 % (36.0-47.0) Mean Corpuscular Volume 91 fL (79-100) Mean Corpuscular Hemoglobin 30 pg (25-35) Mean Corpuscular Hemoglobin Concent 33 g/dL (31-37) Red Cell Distribution Width 12.8 % (11.5-14.5) Platelet Count 256 x10^3/uL (140-400) Heparin Anti-Xa Act, Unfractionated 0.43 IU/mL (0.30-0.70) 0.45 IU/mL (0.30-0.70) Sodium Level 138 mmol/L (136-145) Potassium Level 4.7 mmol/L (3.5-5.1) Chloride Level 101 mmol/L (98-107) Carbon Dioxide Level 18 mmol/L (21-32) Anion Gap 19 (6-14) Blood Urea Nitrogen 35 mg/dL (7-20) Creatinine 1.6 mg/dL (0.6-1.0) Estimated GFR (Cockcroft-Gault) 34.0 Glucose Level 311 mg/dL (70-99) Calcium Level 8.5 mg/dL (8.5-10.1) Creatine Kinase 2995 U/L (26-192) Troponin I Quantitative 121.207 ng/mL (0.000-0.055) O2 Saturation 97 % (92-99) Arterial Blood pH 7.32 (7.35-7.45) Arterial Blood pCO2 at Patient Temp 34 mmHg (35-46) Arterial Blood pO2 at Patient Temp 105 mmHg (75-108) Arterial Blood HCO3 17 mmol/L (21-28) Arterial Blood Base Excess -8 mmol/L (-3-3) FiO2 30 Glucose (Fingerstick) 298 mg/dL (70-99) Hemoglobin A1c 13.1 % (4.8-5.6) Test 12/01/18 12:50 12/01/18 16:19 12/02/18 00:04 12/02/18 04:15 Glucose (Fingerstick) 266 mg/dL (70-99) 211 mg/dL (70-99) 174 mg/dL (70-99) White Blood Count 11.6 x10^3/uL (4.0-11.0) Red Blood Count 4.01 x10^6/uL (3.50-5.40) Hemoglobin 12.2 g/dL (12.0-15.5) Hematocrit 37.2 % (36.0-47.0) Mean Corpuscular Volume 93 fL (79-100) Mean Corpuscular Hemoglobin 31 pg (25-35) Mean Corpuscular Hemoglobin Concent 33 g/dL (31-37) Red Cell Distribution Width 13.1 % (11.5-14.5) Platelet Count 203 x10^3/uL (140-400) Sodium Level 140 mmol/L (136-145) Potassium Level 3.9 mmol/L (3.5-5.1) Chloride Level 106 mmol/L (98-107) Carbon Dioxide Level 21 mmol/L (21-32) Anion Gap 13 (6-14) Blood Urea Nitrogen 30 mg/dL (7-20) Creatinine 1.3 mg/dL (0.6-1.0) Estimated GFR (Cockcroft-Gault) 43.2 Glucose Level 188 mg/dL (70-99) Calcium Level 8.6 mg/dL (8.5-10.1) Test 12/02/18 05:37 12/02/18 08:30 Glucose (Fingerstick) 187 mg/dL (70-99) O2 Saturation 94 % (92-99) Arterial Blood pH 7.34 (7.35-7.45) Arterial Blood pCO2 at Patient Temp 35 mmHg (35-46) Arterial Blood pO2 at Patient Temp 75 mmHg (75-108) Arterial Blood HCO3 19 mmol/L (21-28) Arterial Blood Base Excess -6 mmol/L (-3-3) FiO2 30 Laboratory Tests Test 12/01/18 12:50 12/01/18 16:19 12/02/18 00:04 12/02/18 04:15 Glucose (Fingerstick) 266 mg/dL (70-99) 211 mg/dL (70-99) 174 mg/dL (70-99) White Blood Count 11.6 x10^3/uL (4.0-11.0) Red Blood Count 4.01 x10^6/uL (3.50-5.40) Hemoglobin 12.2 g/dL (12.0-15.5) Hematocrit 37.2 % (36.0-47.0) Mean Corpuscular Volume 93 fL (79-100) Mean Corpuscular Hemoglobin 31 pg (25-35) Mean Corpuscular Hemoglobin Concent 33 g/dL (31-37) Red Cell Distribution Width 13.1 % (11.5-14.5) Platelet Count 203 x10^3/uL (140-400) Sodium Level 140 mmol/L (136-145) Potassium Level 3.9 mmol/L (3.5-5.1) Chloride Level 106 mmol/L (98-107) Carbon Dioxide Level 21 mmol/L (21-32) Anion Gap 13 (6-14) Blood Urea Nitrogen 30 mg/dL (7-20) Creatinine 1.3 mg/dL (0.6-1.0) Estimated GFR (Cockcroft-Gault) 43.2 Glucose Level 188 mg/dL (70-99) Calcium Level 8.6 mg/dL (8.5-10.1) Test 12/02/18 05:37 12/02/18 08:30 Glucose (Fingerstick) 187 mg/dL (70-99) O2 Saturation 94 % (92-99) Arterial Blood pH 7.34 (7.35-7.45) Arterial Blood pCO2 at Patient Temp 35 mmHg (35-46) Arterial Blood pO2 at Patient Temp 75 mmHg (75-108) Arterial Blood HCO3 19 mmol/L (21-28) Arterial Blood Base Excess -6 mmol/L (-3-3) FiO2 30 Medications Active Scripts Medications Dose Route/Sig Max Daily Dose Days Date Category Simvastatin 40 Mg Tablet 40 Mg PO HS 11/30/18 Reported Lisinopril 10 Mg Tablet 10 Mg PO DAILY 11/30/18 Reported Metformin Hcl 500 Mg Tablet 500 Mg PO DAILY 07/21/17 Reported Impression . IMPRESSION: 1. Out of hospital cardiopulmonary arrest. 2. Respiratory failure secondary to above. 3. Ventricular tachycardia. 4. Polysubstance use. 5. Leukocytosis. 6. Electrolyte abnormalities. 7. Metabolic acidosis. 8. Elevated blood sugars. 9. Elevated liver chemistries. 10. S/P CATH PCI Plan . DID NOT DO WELL WITH TRIAL WILL CONTINUE AC MODE WILL CONTINUE SUPPORT FOLLOW CARD INPUT JEANNETTE TELLEZ MD Dec 02, 2018 09:24
--- NOTE | 2018-12-02 09:30 | NUR ---
Propofol off for assess to wean. Pt breathed 40/min on vent and appeared distressed and BP up to 180/90. Placed back on propofol.
[2018-12-02] MEDS: CLOPIDOGREL BISULFATE 75 MG TABLET PO SCH (09:50)
[2018-12-02] MEDS: ASPIRIN ENTERIC COATED 325 MG TABLET.DR. PO SCH (09:50)
[2018-12-02] MEDS ORDERED: hydrALAZINE 20 MG/ML VIAL. IVP PRN (10:15)
[2018-12-02] MEDS: IV NORMAL SALINE 1000ML BAG 1,000 ML IV SCH ×3 (12:09→22:45)
--- NOTE | 2018-12-02 13:37 | PDOC ---
AZALEA LANGE [employer]TE [employer]OR 12/02/18 1337: CARDIO Progress Notes Date and Time Date of Service 12/02/18 Time of Evaluation 1240 Subjective Subjective: Other (intubated, sedated) Vitals Vitals Vital Signs Date Time Temp Pulse Resp B/P (MAP) Pulse Ox O2 Delivery O2 Flow Rate FiO2 12/02/18 11:56 100 Ventilator 12/02/18 10:11 72 186/97 12/02/18 08:00 15.0 12/02/18 06:13 16 12/02/18 04:00 99.5 99.5 Weight Weight [ ] Input and Output Intake and Output Intake and Output 12/02/18 07:00 Intake Total 2965.67 ml Output Total 1190 ml Balance 1775.67 ml Intake IV Total 2846.67 ml Other 119 ml Output Urine Total 890 ml Gastric Drainage Total 300 ml Laboratory Labs Laboratory Tests Test 12/01/18 16:19 12/02/18 00:04 12/02/18 04:15 12/02/18 05:37 Glucose (Fingerstick) 211 mg/dL (70-99) 174 mg/dL (70-99) 187 mg/dL (70-99) White Blood Count 11.6 x10^3/uL (4.0-11.0) Red Blood Count 4.01 x10^6/uL (3.50-5.40) Hemoglobin 12.2 g/dL (12.0-15.5) Hematocrit 37.2 % (36.0-47.0) Mean Corpuscular Volume 93 fL (79-100) Mean Corpuscular Hemoglobin 31 pg (25-35) Mean Corpuscular Hemoglobin Concent 33 g/dL (31-37) Red Cell Distribution Width 13.1 % (11.5-14.5) Platelet Count 203 x10^3/uL (140-400) Sodium Level 140 mmol/L (136-145) Potassium Level 3.9 mmol/L (3.5-5.1) Chloride Level 106 mmol/L (98-107) Carbon Dioxide Level 21 mmol/L (21-32) Anion Gap 13 (6-14) Blood Urea Nitrogen 30 mg/dL (7-20) Creatinine 1.3 mg/dL (0.6-1.0) Estimated GFR (Cockcroft-Gault) 43.2 Glucose Level 188 mg/dL (70-99) Calcium Level 8.6 mg/dL (8.5-10.1) Test 12/02/18 08:30 12/02/18 12:11 O2 Saturation 94 % (92-99) Arterial Blood pH 7.34 (7.35-7.45) Arterial Blood pCO2 at Patient Temp 35 mmHg (35-46) Arterial Blood pO2 at Patient Temp 75 mmHg (75-108) Arterial Blood HCO3 19 mmol/L (21-28) Arterial Blood Base Excess -6 mmol/L (-3-3) FiO2 30 Glucose (Fingerstick) 190 mg/dL (70-99) Microbiology Micro Microbiology 11/30/18 Blood Culture - Preliminary, Resulted NO GROWTH AFTER 1 DAY Physical Exam HEENT: Other (intubated) LUNGS: Other (mechanical ventilation) Heart: S1S2, RRR, other (distant heart tones) Abdomen: Other (soft ) Extremities: 2+ Dorsalis Pedis Neurology: other (sedated) Assessment Assessment 1. Cardiac arrest; Noted with VT and PEA. Cardioverted twice. Brief episode of AFIB in ED. Now maintaining SR. on Amiodarone gtt- ordered discontinued, but still infusing. 2. Acute respiratory failure secondary to above. s/p intubation 3. CAD s/p PCI/stent to LCx and RCA 4. Diabetes, II. Uncontrolled. A1C 13.1. BS >600 5. Chronic systolic HF with ICM; LVEF 45-50%; clinically compensated 6. Hypertension; labile 7. Polysubstance abuse; UDS + for amphetamines, cocaine and cannabinoids 8. Leukocytosis, lactic acidosis 9. Elevated LFTs Recommendations D/c Amiodarone gtt. D/w RN DAPT with ASA and Plavix Check lipid panel- on statin. Recheck LFTs Add CALVIN given cardiomyopathy and HTN No BB with cocaine use Risk stratification modification Lung optimization as per pulm Supportive care PETROS MORRIS MD 12/02/182048: CARDIO Progress Notes Assessment Assessment Patient seen and examined. 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 s/p PCI/stents to LCX and RCA yesterday. Continue DAPT. Cannot use beta blockers due to history of cocaine use Tele did not show any arrhythmias Continue vent management per pulm team AZALEA LANGE APRN Dec 02, 2018 13:37 PETROS MORRIS MD Dec 02, 2018 20:49
[2018-12-02 14:02] LABS: CHOLESTEROL/HDL RATIO 4.3
[2018-12-02 16:15] LABS: DIRECT BILIRUBIN 0.1 mg/dL (0.0-0.2); TOTAL BILIRUBIN 0.3 mg/dL (0.2-1.0); TOTAL PROTEIN 5.7 g/dL (6.4-8.2)
[2018-12-02] MEDS: LISINOPRIL 10 MG TABLET PO SCH (18:21)
[2018-12-02] MEDS: SIMVASTATIN 40 MG TABLET. NG SCH (21:00)
--- NOTE | 2018-12-02 23:30 | NUR ---
Patient in Junctional rhythm. With Systolic BP 88. Physician notified, orders received for Dopamine
[2018-12-03] VITALS (26 sets, daily range): BP systolic 62–212; BP diastolic 33–92
[2018-12-03] MEDS: PIPERACILLIN/TAZOBACTAM 3.375 GM in IV NORMAL SALINE 50ML 50 ML IV SCH ×3 (04:56→18:00)
[2018-12-03] MEDS: INSULIN LISPRO 300 UNITS/3 ML INSULN.PEN. SQ SCH ×3 (05:48→18:00)
[2018-12-03] MEDS: PROPOFOL 100 ML IV PRN (08:09)
[2018-12-03] MEDS: IV NORMAL SALINE 1000ML BAG 1,000 ML IV SCH ×3 (08:13→21:55)
[2018-12-03] MEDS: CLOPIDOGREL BISULFATE 75 MG TABLET PO SCH (08:13)
[2018-12-03] MEDS: LISINOPRIL 10 MG TABLET PO SCH (08:14)
[2018-12-03] MEDS: ASPIRIN ENTERIC COATED 325 MG TABLET.DR. PO SCH (08:17)
[2018-12-03 08:38] LABS: BASE EXCESS ABG -5 mmol/L (-3-3); HCO3 ABG 20 mmol/L (21-28); PCO2 ABG 38 mmHg (35-46); PO2 ABG 90 mmHg (75-108); SAT O2 ABG 96 % (92-99)
--- NOTE | 2018-12-03 08:40 | PDOC ---
PROGRESS NOTES Chief Complaint Chief Complaint S/p in hospital cardiac arrest, rhythms include nonsustained V. tach shocked, PEA status post 2 rounds of epinephrine - no hypothermia (initiated she was waking up) Acute respiratory failure secondary to cardiac arrest-on IPPV-11/30/18 Short run A. fib resolved N STEMI-troponin peaks at 121 Rhabdomyolysis possibly in the background of CPR-CK 3000 SIRS reactive secondary to CPR-leukocytosis 15 Anion gap acidosis with a bicarbonate 18 and elevated anion gap 19 - s.p 50 meqs bicarb AK I VMN postcode-creatinine 1.6 Oliguria responding to IV fluids Status post HO NK versus DKA-blood sugars better now Hypertension on lisinopril at home Dyslipidemia on simvastatin at home Diabetes on metformin at home History of Present Illness History of Present Illness She tested positive for methamphetamine, was admitted for that and a mild element of DKA then coded. ABG around code time was pH 7.28, CO2 33 with oh to 500 Repeat ABG now shows normal pH with good CO2 and O2 components She was only on 3 medications at home: daily simvastatin lisinopril 10 and metformin Yesterday not able to extubate 2/2 RSBI elevation after sedation wean. TF started overnight. Now she seen in the ICU she is on amiodarone drip, fentanyl, propofol, and dopamine by cardiology, s/p LHC with 2x JORGE. Troponin peaked 121. Blood sugars are much better. Making adequate UOP 1L q24hr. Labs pending. Vent on AC mode Plan: continue drips, vent per pulmonary - she has 3 peripheral IV lines, now on pressors more for bradycardia, junctional. Can likely extubate today or tomorrow Antiarrhythmics per cardiology LHC - 2x JORGE Maintain Fairchild catheter, bolus when necessary if needed re UO Keep on normal saline to 1 25 mL Sliding-scale insulin high-dose every 6 Tube feeds until extubation now running PPI and DVt ppx in this vented pt ABG looks good. Discussed with EXTENSION WORK DIRECTOR and mother bedside Vitals Vitals Vital Signs Date Time Temp Pulse Resp B/P (MAP) Pulse Ox O2 Delivery O2 Flow Rate FiO2 12/03/18 08:28 99 Ventilator 12/03/18 08:14 47 149/63 12/03/18 06:00 16 12/03/18 03:32 15.0 12/03/18 02:00 98.7 98.7 Physical Exam General: Other (intubated) Heart: Regular rate, Normal S1, Normal S2, No murmurs Lungs: Clear Abdomen: Soft, No tenderness Extremities: No clubbing, No cyanosis, No edema Skin: No rashes, No breakdown, No significant lesion Labs LABS Laboratory Tests Test 12/02/18 12:11 12/02/18 17:36 12/02/18 23:29 Glucose (Fingerstick) 190 mg/dL (70-99) 160 mg/dL (70-99) 171 mg/dL (70-99) Assessment and Plan Assessmemt and Plan Problems Medical Problems: (1) Aspiration pneumonia Status: Acute (2) Cardiac arrest Status: Acute (3) DKA (diabetic ketoacidoses) Status: Acute (4) Drug overdose Status: Acute (5) Substance abuse Status: Acute Comment Review of Relevant I have reviewed the following items kashmir (where applicable) has been applied. Labs Laboratory Tests Test 12/01/18 08:55 12/01/18 12:50 12/01/18 16:19 12/02/18 00:04 Heparin Anti-Xa Act, Unfractionated 0.45 IU/mL (0.30-0.70) Hemoglobin A1c 13.1 % (4.8-5.6) Glucose (Fingerstick) 266 mg/dL (70-99) 211 mg/dL (70-99) 174 mg/dL (70-99) Test 12/02/18 04:15 12/02/18 05:37 12/02/18 08:30 12/02/18 12:11 White Blood Count 11.6 x10^3/uL (4.0-11.0) Red Blood Count 4.01 x10^6/uL (3.50-5.40) Hemoglobin 12.2 g/dL (12.0-15.5) Hematocrit 37.2 % (36.0-47.0) Mean Corpuscular Volume 93 fL (79-100) Mean Corpuscular Hemoglobin 31 pg (25-35) Mean Corpuscular Hemoglobin Concent 33 g/dL (31-37) Red Cell Distribution Width 13.1 % (11.5-14.5) Platelet Count 203 x10^3/uL (140-400) Sodium Level 140 mmol/L (136-145) Potassium Level 3.9 mmol/L (3.5-5.1) Chloride Level 106 mmol/L (98-107) Carbon Dioxide Level 21 mmol/L (21-32) Anion Gap 13 (6-14) Blood Urea Nitrogen 30 mg/dL (7-20) Creatinine 1.3 mg/dL (0.6-1.0) Estimated GFR (Cockcroft-Gault) 43.2 Glucose Level 188 mg/dL (70-99) Calcium Level 8.6 mg/dL (8.5-10.1) Total Bilirubin 0.3 mg/dL (0.2-1.0) Direct Bilirubin 0.1 mg/dL (0.0-0.2) Aspartate Amino Transf (AST/SGOT) 179 U/L (15-37) Alanine Aminotransferase (ALT/SGPT) 82 U/L (14-59) Alkaline Phosphatase 100 U/L (46-116) Total Protein 5.7 g/dL (6.4-8.2) Albumin 3.0 g/dL (3.4-5.0) Triglycerides Level 230 mg/dL (0-150) Cholesterol Level 225 mg/dL (0-200) LDL Cholesterol, Calculated 127 mg/dL (0-100) VLDL Cholesterol, Calculated 46 mg/dL (0-40) Non-HDL Cholesterol Calculated 173 mg/dL (0-129) HDL Cholesterol 52 mg/dL (40-60) Cholesterol/HDL Ratio 4.3 Glucose (Fingerstick) 187 mg/dL (70-99) 190 mg/dL (70-99) O2 Saturation 94 % (92-99) Arterial Blood pH 7.34 (7.35-7.45) Arterial Blood pCO2 at Patient Temp 35 mmHg (35-46) Arterial Blood pO2 at Patient Temp 75 mmHg (75-108) Arterial Blood HCO3 19 mmol/L (21-28) Arterial Blood Base Excess -6 mmol/L (-3-3) FiO2 30 Test 12/02/18 17:36 12/02/18 23:29 Glucose (Fingerstick) 160 mg/dL (70-99) 171 mg/dL (70-99) Laboratory Tests Test 12/02/18 12:11 12/02/18 17:36 12/02/18 23:29 Glucose (Fingerstick) 190 mg/dL (70-99) 160 mg/dL (70-99) 171 mg/dL (70-99) Microbiology 11/30/18 Blood Culture - Preliminary, Resulted NO GROWTH AFTER 2 DAYS 11/30/18 Urine Culture - Final, Complete 11/30/18 Urine Culture Result 1 (SWAPNIL) - Final, Complete Medications Current Medications Naloxone HCl 2 mg/ Dextrose 502 ml @ 0 mls/hr 1X ONCE IV Last administered on 11/30/18at 10:08; Start 11/30/18 at 09:45; Stop 11/30/18 at 16:51; Status DC Sodium Chloride 1,000 ml @ 1,000 mls/hr 1X ONCE IV Last administered on 11/30/18at 10:04; Start 11/30/18 at 10:00; Stop 11/30/18 at 10:59; Status DC Amiodarone HCl 150 mg/Dextrose 103 ml @ 618 mls/hr 1X ONCE IV Last administered on 11/30/18at 10:13; Start 11/30/18 at 10:00; Stop 11/30/18 at 10:09; Status DC Amiodarone HCl 900 mg/Dextrose 518 ml @ 0 mls/hr CONT PRN IV SEE I/O RECORD Last administered on 11/30/18at 10:24; Start 11/30/18 at 10:00; Stop 11/30/18 at 10:24; Status DC Insulin Human Regular 150 ml @ 0 mls/hr 1X ONCE IV ; Start 11/30/18 at 10:00; Stop 11/30/18 at 10:01; Status UNV Insulin Human Regular 150 ml @ 0 mls/hr 1X ONCE IV Last administered on 11/30/18at 11:32; Start 11/30/18 at 10:00; Stop 11/30/18 at 16:51; Status DC Amiodarone HCl (Cordarone) 150 mg STK-MED ONCE .ROUTE ; Start 11/30/18 at 10:00; Stop 11/30/18 at 10:01; Status DC Propofol (Diprivan) 200 mg 1X ONCE IV ; Start 11/30/18 at 10:15; Stop 11/30/18 at 10:16; Status Cancel Sodium Chloride 1,000 ml @ 1,000 mls/hr 1X ONCE IV Last administered on 11/30/18at 10:54; Start 11/30/18 at 10:30; Stop 11/30/18 at 11:29; Status DC Propofol 50 ml @ As Directed STK-MED ONCE IV ; Start 11/30/18 at 10:17; Stop 11/30/18 at 10:18; Status DC Propofol 50 ml @ 1.037 mls/ hr 1X ONCE IV Last administered on 11/30/18at 10:20; Start 11/30/18 at 10:30; Stop 12/02/18 at 08:36; Status DC Piperacillin Sod/ Tazobactam Sod 3.375 gm/Sodium Chloride 50 ml @ 100 mls/hr 1X ONCE IV Last administered on 11/30/18at 11:02; Start 11/30/18 at 10:30; Stop 11/30/18 at 10:59; Status DC Ondansetron HCl (Zofran) 4 mg PRN Q8HRS PRN IV NAUSEA/VOMITING; Start 11/30/18 at 10:30; Stop 12/01/18 at 08:41; Status DC Sodium Chloride 1,000 ml @ 125 mls/hr Q8H IV Last administered on 12/01/18at 04:27; Start 11/30/18 at 10:29; Stop 12/01/18 at 10:28; Status DC Sodium Bicarbonate (Sodium Bicarb Adult 8.4% Syr) 50 meq 1X ONCE IV Last adm inistered on 11/30/18at 11:31; Start 11/30/18 at 11:30; Stop 11/30/18 at 11:31; Status DC Fentanyl Citrate 30 ml @ 0 mls/hr CONT PRN IV SEE PROTOCOL Last administered on 12/03/18at 03:32; Start 11/30/18 at 12:00 Propofol 100 ml @ 0 mls/hr CONT PRN IV SEE PROTOCOL Last administered on 12/03/18at 08:09; Start 11/30/18 at 12:00 Fentanyl Citrate (Fentanyl 2ml Vial) 25 mcg PRN Q1HR PRN IV SEE COMMENTS; Start 11/30/18 at 12:00 Fentanyl Citrate (Fentanyl 2ml Vial) 50 mcg PRN Q1HR PRN IV SEE COMMENTS; Start 11/30/18 at 12:00 Chlorhexidine Gluconate (Peridex) 15 ml BID MM ; Start 11/30/18 at 21:00; Stop 11/30/18 at 21:00; Status DC Midazolam HCl 100 ml @ 0 mls/hr CONT PRN IV SEE PROTOCOL; Start 11/30/18 at 12:00 Propofol 100 ml @ As Directed STK-MED ONCE IV ; Start 11/30/18 at 11:52; Stop 11/30/18 at 11:53; Status DC Magnesium Sulfate 50 ml @ 25 mls/hr 1X ONCE IV Last administered on 11/30/18at 14:11; Start 11/30/18 at 13:30; Stop 11/30/18 at 15:29; Status DC Piperacillin Sod/ Tazobactam Sod (Zosyn Per Pharmacy) 1 each PRN DAILY PRN MC SEE COMMENTS; Start 11/30/18 at 15:15 Piperacillin Sod/ Tazobactam Sod 3.375 gm/Sodium Chloride 50 ml @ 100 mls/hr Q6H IV Last administered on 12/03/18at 04:56; Start 11/30/18 at 16:00 Dextrose/Sodium Chloride 1,000 ml @ 250 mls/hr Q4H IV Last administered on 11/30/18at 16:18; Start 11/30/18 at 15:15; Stop 11/30/18 at 16:51; Status DC Insulin Human Lispro (HumaLOG) 0-7 UNITS TIDWMEALS SQ Last administered on 12/01/18at 08:29; Start 11/30/18 at 17:00; Stop 12/01/18 at 08:33; Status DC Dextrose (Dextrose 50%-Water Syringe) 12.5 gm PRN Q15MIN PRN IV SEE COMMENTS; Start 11/30/18 at 16:45; Stop 12/01/18 at 11:30; Status DC Heparin Sodium/ Dextrose 500 ml @ 17.357 mls/ hr CONT PRN IV SEE I/O RECORD Last administered on 11/30/18at 19:46; Start 11/30/18 at 19:00; Stop 12/01/18 at 11:29; Status DC Heparin Sodium (Porcine) (Heparin Sodium) 1,800 unit PRN Q6HRS PRN IV FOR UFH LEVEL LESS THAN 0.2 Last administered on 11/30/18at 19:47; Start 11/30/18 at 19:00; Stop 12/01/18 at 11:29; Status DC Tirofiban/Sodium Chloride 100 ml @ 13.018 mls/ hr CONT PRN IV PER PROTOCOL Last administered on 12/01/18at 05:35; Start 11/30/18 at 19:00; Stop 12/01/18 at 11:29; Status DC Info (Anti-Coagulation Monitoring By Pharmacy) 1 each PRN DAILY PRN MC SEE COMMENTS; Start 12/01/18 at 08:00; Stop 12/01/18 at 11:30; Status DC Insulin Human Lispro (HumaLOG) 0-7 UNITS Q6HRS SQ Last administered on 12/01/18at 17:50; Start 12/01/18 at 12:00 Ondansetron HCl (Zofran) 4 mg PRN Q6HRS PRN IV NAUSEA/VOMITING; Start 12/01/18 at 08:45 Acetaminophen (Tylenol) 650 mg PRN Q6HRS PRN PEG MILD PAIN / TEMP; Start 12/01/18 at 08:45 Insulin Human Lispro (HumaLOG) 0-9 UNITS TIDWMEALS SQ ; Start 12/01/18 at 12:00; Status UNV Dextrose (Dextrose 50%-Water Syringe) 12.5 gm PRN Q15MIN PRN IV SEE COMMENTS; Start 12/01/18 at 08:45 Insulin Glargine (Lantus) 15 units 1X STAT SQ Last administered on 12/01/18at 09:01; Start 12/01/18 at 08:39; Stop 12/01/18 at 08:43; Status DC Simvastatin (Zocor) 40 mg QHS NG Last administered on 12/01/18at 21:35; Start 12/01/18 at 21:00 Heparin Sodium (Porcine) (Heparin Sodium) 10,000 unit STK-MED ONCE .ROUTE ; Start 12/01/18 at 09:50; Stop 12/01/18 at 09:51; Status DC Verapamil HCl (Verapamil) 5 mg STK-MED ONCE .ROUTE ; Start 12/01/18 at 09:50; Stop 12/01/18 at 09:51; Status DC Nitroglycerin (Nitroglycerin) 200 mcg STK-MED ONCE .ROUTE ; Start 12/01/18 at 09:50; Stop 12/01/18 at 09:51; Status DC Iodixanol (Visipaque 320) 100 ml STK-MED ONCE .ROUTE ; Start 12/01/18 at 09:54; Stop 12/01/18 at 09:55; Status DC Lidocaine HCl (Lidocaine 1% 20ml Vial) 20 ml STK-MED ONCE .ROUTE ; Start 12/01/18 at 09:55; Stop 12/01/18 at 09:56; Status DC Heparin Sodium/ Sodium Chloride 1,000 ml @ As Directed STK-MED ONCE .ROUTE ; Start 12/01/18 at 09:55; Stop 12/01/18 at 09:56; Status DC Nitroglycerin (Nitroglycerin) 200 mcg 1X ONCE IART Last administered on 12/01/18at 11:00; Start 12/01/18 at 11:00; Stop 12/01/18 at 11:01; Status DC Verapamil HCl (Verapamil) 2.5 mg 1X ONCE IART Last administered on 12/01/18at 11:00; Start 12/01/18 at 11:00; Stop 12/01/18 at 11:01; Status DC Heparin Sodium (Porcine) (Heparin Sodium) 2,500 unit 1X ONCE IART Last administered on 12/01/18at 11:00; Start 12/01/18 at 11:00; Stop 12/01/18 at 11:01; Status DC Heparin Sodium/ Sodium Chloride (HEPARIN for ARTERIAL LINE FLUSH) 1,000 unit 1X ONCE IART Last administered on 12/01/18at 11:00; Start 12/01/18 at 11:00; Stop 12/01/18 at 11:01; Status DC Iodixanol (Visipaque 320) 100 ml 1X ONCE IART Last administered on 12/01/18at 11:00; Start 12/01/18 at 11:00; Stop 12/01/18 at 11:01; Status DC Lidocaine HCl (Lidocaine 1% 20ml Vial) 20 ml 1X ONCE INJ Last administered on 12/01/18at 11:00; Start 12/01/18 at 11:00; Stop 12/01/18 at 11:01; Status DC Amiodarone HCl 450 mg/Dextrose 259 ml @ 17.26 mls/ hr CONT PRN IV SEE I/O RECORD; Start 12/01/18 at 11:00; Stop 12/01/18 at 11:29; Status DC Bivalirudin (Angiomax) 250 mg STK-MED ONCE IV ; Start 12/01/18 at 10:53; Stop 12/01/18 at 10:54; Status DC Iodixanol (Visipaque 320) 100 ml STK-MED ONCE .ROUTE ; Start 12/01/18 at 10:55; Stop 12/01/18 at 10:56; Status DC Bivalirudin (Angiomax) 250 mg 1X ONCE IV Last administered on 12/01/18at 10:57; Start 12/01/18 at 11:00; Stop 12/01/18 at 11:01; Status DC Clopidogrel Bisulfate (Plavix) 600 mg 1X ONCE PO Last administered on 12/01/18at 12:22; Start 12/01/18 at 11:30; Stop 12/01/18 at 11:31; Status DC Aspirin (Mikaela Aspirin) 325 mg 1X ONCE PO Last administered on 12/01/18at 12:12; Start 12/01/18 at 11:30; Stop 12/01/18 at 11:31; Status DC Aspirin (Ecotrin) 325 mg DAILYWBKFT PO Last administered on 12/03/18at 08:17; Start 12/02/18 at 08:00 Clopidogrel Bisulfate (Plavix) 75 mg DAILYWBKFT PO Last administered on 12/03/18at 08:13; Start 12/02/18 at 08:00 Metoprolol Tartrate (Lopressor) 25 mg BID PO ; Start 12/01/18 at 21:00; Stop 12/01/18 at 21:00; Status DC Nitroglycerin (Nitrostat) 0.4 mg PRN Q5MIN PRN SL CHEST PAIN; Start 12/01/18 at 11:30 Sodium Chloride 1,000 ml @ 125 mls/hr Q8H IV Last administered on 12/03/18at 08:13; Start 12/01/18 at 15:30 Amiodarone HCl 450 mg/Dextrose 259 ml @ 17.26 mls/ hr CONT PRN IV SEE I/O RECORD Last administered on 12/02/18at 03:42; Start 12/01/18 at 17:15; Stop 12/02/18 at 15:05; Status DC Hydralazine HCl (Apresoline Inj) 10 mg PRN Q4HRS PRN IVP ELEVATED BP, SEE COMMENTS Last administered on 12/02/18at 10:11; Start 12/02/18 at 10:15 Lisinopril (Prinivil) 10 mg DAILY PO Last administered on 12/03/18at 08:14; Start 12/02/18 at 14:00 Dopamine HCl/ Dextrose 250 ml @ 8.034 mls/ hr CONT PRN IV SEE I/O RECORD Last administered on 12/03/18at 00:40; Start 12/03/18 at 00:30 Active Scripts Active Reported Simvastatin 40 Mg Tablet 40 Mg PO HS Lisinopril 10 Mg Tablet 10 Mg PO DAILY Metformin Hcl 500 Mg Tablet 500 Mg PO DAILY Vitals/I & O Vital Sign - Last 24 Hours 12/02/18 12/02/18 12/02/18 12/02/18 09:00 10:00 10:05 10:11 Pulse 60 72 72 Resp 16 14 B/P (MAP) 149/83 (105) 186/97 (126) 186/97 Pulse Ox 100 98 100 O2 Delivery Ventilator Ventilator Ventilator 12/02/18 12/02/18 12/02/18 12/02/18 11:00 11:56 12:00 12:00 Temp 98.6 98.6 Pulse 64 66 Resp 14 14 B/P (MAP) 130/71 (90) 146/76 (99) Pulse Ox 98 100 100 O2 Delivery Ventilator Ventilator Ventilator Mechanical Ventilator O2 Flow Rate 15.0 12/02/18 12/02/18 12/02/18 12/02/18 13:00 14:00 14:10 15:00 Pulse 68 62 61 Resp 14 14 14 B/P (MAP) 133/72 (92) 116/65 (82) 133/65 (87) Pulse Ox 97 100 100 99 O2 Delivery Ventilator Ventilator Ventilator Ventilator 12/02/18 12/02/18 12/02/18 12/02/18 16:00 16:00 16:25 17:00 Temp 98.7 98.7 Pulse 60 60 Resp 14 16 B/P (MAP) 140/63 (88) 153/82 (105) Pulse Ox 100 100 100 O2 Delivery Ventilator Mechanical Ventilator Ventilator Ventilator O2 Flow Rate 15.0 12/02/18 12/02/18 12/02/18 12/02/18 18:00 18:06 18:21 19:00 Pulse 58 60 57 Resp 16 16 B/P (MAP) 140/78 (98) 140/73 145/76 (99) Pulse Ox 100 100 100 O2 Delivery Ventilator Ventilator Ventilator 12/02/18 12/02/18 12/02/18 12/02/18 19:20 20:00 20:00 21:00 Temp 99.0 99.0 Pulse 52 48 Resp 16 16 B/P (MAP) 140/82 (101) 127/71 (89) Pulse Ox 100 100 100 O2 Delivery Ventilator Ventilator Mechanical Ventilator Ventilator O2 Flow Rate 15.0 12/02/18 12/02/18 12/02/18 12/02/18 22:00 23:00 23:44 23:59 Pulse 48 49 47 Resp 16 16 16 B/P (MAP) 123/66 (85) 110/56 (74) 85/44 (58) Pulse Ox 100 100 100 100 O2 Delivery Ventilator Ventilator Ventilator Ventilator 12/02/18 12/03/18 12/03/18 12/03/18 23:59 01:00 01:40 02:00 Temp 100.0 98.7 100.0 98.7 Pulse 50 52 Resp 16 16 B/P (MAP) 107/43 (64) 111/40 (63) Pulse Ox 100 100 98 O2 Delivery Mechanical Ventilator Ventilator Ventilator Ventilator O2 Flow Rate 15.0 12/03/18 12/03/18 12/03/18 12/03/18 03:00 03:30 03:32 04:00 Pulse 49 Resp 16 20 B/P (MAP) 128/55 (79) Pulse Ox 100 100 100 O2 Delivery Ventilator Ventilator Ventilator Mechanical Ventilator O2 Flow Rate 15.0 12/03/18 12/03/18 12/03/18 12/03/18 04:00 04:02 05:00 06:00 Pulse 50 51 49 Resp 16 20 16 16 B/P (MAP) 125/56 (79) 126/57 (80) 126/60 (82) Pulse Ox 99 99 100 100 O2 Delivery Ventilator Ventilator Ventilator Ventilator 12/03/18 12/03/18 08:14 08:28 Pulse 47 B/P (MAP) 149/63 Pulse Ox 99 O2 Delivery Ventilator Intake and Output 12/02/18 12/02/18 12/03/18 15:00 23:00 07:00 Intake Total 1871 ml 136 ml 1703 ml Output Total 360 ml 375 ml 410 ml Balance 1511 ml -239 ml 1293 ml JUSTICE ARROYO MD Dec 03, 2018 08:40
[2018-12-03 08:50] LABS: FIO2 ABG 40
--- NOTE | 2018-12-03 09:09 | EKG ---
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
--- NOTE | 2018-12-03 09:11 | PDOC ---
PULMONARY PROGRESS NOTES Subjective SEDATED ON AC MODE Vitals Vital Signs Date Time Temp Pulse Resp B/P (MAP) Pulse Ox O2 Delivery O2 Flow Rate FiO2 12/03/18 08:28 99 Ventilator 12/03/18 08:14 47 149/63 12/03/18 08:00 98.6 14 98.6 12/03/18 03:32 15.0 Lungs: Clear Cardiovascular: S1 Abdomen: Soft Extremities: No Edema Skin: Warm Labs Laboratory Tests Test 12/01/18 12:50 12/01/18 16:19 12/02/18 00:04 12/02/18 04:15 Glucose (Fingerstick) 266 mg/dL (70-99) 211 mg/dL (70-99) 174 mg/dL (70-99) White Blood Count 11.6 x10^3/uL (4.0-11.0) Red Blood Count 4.01 x10^6/uL (3.50-5.40) Hemoglobin 12.2 g/dL (12.0-15.5) Hematocrit 37.2 % (36.0-47.0) Mean Corpuscular Volume 93 fL (79-100) Mean Corpuscular Hemoglobin 31 pg (25-35) Mean Corpuscular Hemoglobin Concent 33 g/dL (31-37) Red Cell Distribution Width 13.1 % (11.5-14.5) Platelet Count 203 x10^3/uL (140-400) Sodium Level 140 mmol/L (136-145) Potassium Level 3.9 mmol/L (3.5-5.1) Chloride Level 106 mmol/L (98-107) Carbon Dioxide Level 21 mmol/L (21-32) Anion Gap 13 (6-14) Blood Urea Nitrogen 30 mg/dL (7-20) Creatinine 1.3 mg/dL (0.6-1.0) Estimated GFR (Cockcroft-Gault) 43.2 Glucose Level 188 mg/dL (70-99) Calcium Level 8.6 mg/dL (8.5-10.1) Total Bilirubin 0.3 mg/dL (0.2-1.0) Direct Bilirubin 0.1 mg/dL (0.0-0.2) Aspartate Amino Transf (AST/SGOT) 179 U/L (15-37) Alanine Aminotransferase (ALT/SGPT) 82 U/L (14-59) Alkaline Phosphatase 100 U/L (46-116) Total Protein 5.7 g/dL (6.4-8.2) Albumin 3.0 g/dL (3.4-5.0) Triglycerides Level 230 mg/dL (0-150) Cholesterol Level 225 mg/dL (0-200) LDL Cholesterol, Calculated 127 mg/dL (0-100) VLDL Cholesterol, Calculated 46 mg/dL (0-40) Non-HDL Cholesterol Calculated 173 mg/dL (0-129) HDL Cholesterol 52 mg/dL (40-60) Cholesterol/HDL Ratio 4.3 Test 12/02/18 05:37 12/02/18 08:30 12/02/18 12:11 12/02/18 17:36 Glucose (Fingerstick) 187 mg/dL (70-99) 190 mg/dL (70-99) 160 mg/dL (70-99) O2 Saturation 94 % (92-99) Arterial Blood pH 7.34 (7.35-7.45) Arterial Blood pCO2 at Patient Temp 35 mmHg (35-46) Arterial Blood pO2 at Patient Temp 75 mmHg (75-108) Arterial Blood HCO3 19 mmol/L (21-28) Arterial Blood Base Excess -6 mmol/L (-3-3) FiO2 30 Test 12/02/18 23:29 12/03/18 08:00 Glucose (Fingerstick) 171 mg/dL (70-99) O2 Saturation 96 % (92-99) Arterial Blood pH 7.35 (7.35-7.45) Arterial Blood pCO2 at Patient Temp 38 mmHg (35-46) Arterial Blood pO2 at Patient Temp 90 mmHg (75-108) Arterial Blood HCO3 20 mmol/L (21-28) Arterial Blood Base Excess -5 mmol/L (-3-3) FiO2 40 Laboratory Tests Test 12/02/18 12:11 12/02/18 17:36 12/02/18 23:29 12/03/18 08:00 Glucose (Fingerstick) 190 mg/dL (70-99) 160 mg/dL (70-99) 171 mg/dL (70-99) O2 Saturation 96 % (92-99) Arterial Blood pH 7.35 (7.35-7.45) Arterial Blood pCO2 at Patient Temp 38 mmHg (35-46) Arterial Blood pO2 at Patient Temp 90 mmHg (75-108) Arterial Blood HCO3 20 mmol/L (21-28) Arterial Blood Base Excess -5 mmol/L (-3-3) FiO2 40 Medications Active Scripts Medications Dose Route/Sig Max Daily Dose Days Date Category Simvastatin 40 Mg Tablet 40 Mg PO HS 11/30/18 Reported Lisinopril 10 Mg Tablet 10 Mg PO DAILY 11/30/18 Reported Metformin Hcl 500 Mg Tablet 500 Mg PO DAILY 07/21/17 Reported Impression . IMPRESSION: 1. Out of hospital cardiopulmonary arrest. 2. Respiratory failure secondary to above. 3. Ventricular tachycardia. 4. Polysubstance use. 5. Leukocytosis. 6. Electrolyte abnormalities. 7. Metabolic acidosis. 8. Elevated blood sugars. 9. Elevated liver chemistries. 10. S/P CATH PCI CATH Conclusion 1. Severe two-vessel coronary artery disease 2. Successful PCI/stents placement to the left circumflex and right coronary arteries Recommendations 1. Aspirin 325 mg daily 2. Plavix 75 mg daily for preferably one year 3. Cardiovascular risk factor modification Plan . TRIAL THIS AM D/W RN AND RT WILL CONTINUE SUPPORT FOLLOW CARD INPUT JEANNETTE TELLEZ MD Dec 03, 2018 09:11
[2018-12-03 10:44] LABS: ALBUMIN 2.7 g/dL (3.4-5.0); ALBUMIN/GLOBULIN RATIO 0.8 (1.0-1.7); CALCIUM 8.7 mg/dL (8.5-10.1); CREATININE 0.9 mg/dL (0.6-1.0); POTASSIUM 3.5 mmol/L (3.5-5.1); TOTAL BILIRUBIN 0.4 mg/dL (0.2-1.0); TOTAL PROTEIN 6.2 g/dL (6.4-8.2)
--- NOTE | 2018-12-03 13:23 | NUR ---
SW following. Discussed with RN, pt needing PAT team eval, but is still on vent and sedated. SW will continue to follow and consult PAT team when pt is appropriate to be evaluated.
--- NOTE | 2018-12-03 13:55 | PDOC ---
ALHAJI KENNEDY MATE FIRST 12/03/18 1355: CARDIO Progress Notes Date and Time Date of Service 12/03/2018 Time of Evaluation 1130 Subjective Subjective: Other (intubated, sedated) Vitals Vitals Vital Signs Date Time Temp Pulse Resp B/P (MAP) Pulse Ox O2 Delivery O2 Flow Rate FiO2 12/03/18 09:00 56 16 158/71 (100) 38 Ventilator 12/03/18 08:00 98.6 98.6 12/03/18 03:32 15.0 Weight Weight [ ] Input and Output Intake and Output Intake and Output 12/03/18 07:00 Intake Total 3710 ml Output Total 1245 ml Balance 2465 ml Intake Oral 0 ml IV Total 3700 ml Tube Feeding 10 ml Output Urine Total 1245 ml Laboratory Labs Laboratory Tests Test 12/02/18 17:36 12/02/18 23:29 12/03/18 04:54 12/03/18 08:00 Glucose (Fingerstick) 160 mg/dL (70-99) 171 mg/dL (70-99) 190 mg/dL (70-99) O2 Saturation 96 % (92-99) Arterial Blood pH 7.35 (7.35-7.45) Arterial Blood pCO2 at Patient Temp 38 mmHg (35-46) Arterial Blood pO2 at Patient Temp 90 mmHg (75-108) Arterial Blood HCO3 20 mmol/L (21-28) Arterial Blood Base Excess -5 mmol/L (-3-3) FiO2 40 Test 12/03/18 10:10 12/03/18 12:38 Sodium Level 143 mmol/L (136-145) Potassium Level 3.5 mmol/L (3.5-5.1) Chloride Level 106 mmol/L (98-107) Carbon Dioxide Level 26 mmol/L (21-32) Anion Gap 11 (6-14) Blood Urea Nitrogen 22 mg/dL (7-20) Creatinine 0.9 mg/dL (0.6-1.0) Estimated GFR (Cockcroft-Gault) 66.0 BUN/Creatinine Ratio 24 (6-20) Glucose Level 213 mg/dL (70-99) Calcium Level 8.7 mg/dL (8.5-10.1) Total Bilirubin 0.4 mg/dL (0.2-1.0) Aspartate Amino Transf (AST/SGOT) 121 U/L (15-37) Alanine Aminotransferase (ALT/SGPT) 52 U/L (14-59) Alkaline Phosphatase 93 U/L (46-116) Total Protein 6.2 g/dL (6.4-8.2) Albumin 2.7 g/dL (3.4-5.0) Albumin/Globulin Ratio 0.8 (1.0-1.7) Glucose (Fingerstick) 198 mg/dL (70-99) Microbiology Micro Microbiology 11/30/18 Blood Culture - Preliminary, Resulted NO GROWTH AFTER 2 DAYS 11/30/18 Urine Culture - Final, Complete 11/30/18 Urine Culture Result 1 (SWAPNIL) - Final, Complete Physical Exam HEENT: Other (intubated) LUNGS: Other (mechanical ventilation) Heart: S1S2, RRR (junctional) Abdomen: Other (soft ) Extremities: 2+ Dorsalis Pedis Neurology: other (sedated) Assessment Assessment 1. Cardiac arrest; Noted with VT and PEA. Cardioverted twice. Brief episode of AFIB in ED. Currently junctional 2. Acute respiratory failure secondary to above. s/p intubation 3. CAD s/p PCI/stent to LCx and RCA 4. Diabetes, II. Uncontrolled. A1C 13.1. 5. Chronic systolic HF with ICM; LVEF 45-50%; compensated 6. Hypertension; controlled 7. Polysubstance abuse; UDS + for amphetamines, cocaine and cannabinoids 8. Hematemesis: possibly GI erosion. Hgb stable Recommendations GI prophylaxis, start on pepcid DAPT with ASA and Plavix Transaminitis is much improved. Continue Statin Continue with lisinopril. Hold off BB for now with errol episodes with junctional. Continue with low dose dopamine. Lung optimization as per pulm will reeval once extubated. Discussed plan with Mother. Pt does have significant psychiatric issues and on and off substance abuse and noncompliance. Supportive care PETROS MORRIS MD 12/03/18 1512: CARDIO Progress Notes Assessment Assessment Patient seen and examined. Agree with CONSTRUCTION EXECUTIVE's assessment and plan. s/p PCI/stents to LCx and RCA, stable Continue dual antiplatelet therapy Agree with initiation of Pepcid for GI prophylaxis Telemetry did not show any significant arrhythmias Ischemic cardiomyopathy clinically well compensated Continue vent management per pulmonary team ALHAJI KENNEDY MATE FIRST Dec 03, 2018 13:55 PETROS MORRIS MD Dec 03, 2018 15:12
[2018-12-03] MEDS ORDERED: FAMOTIDINE 20 MG/2 ML VIAL IVP ONE (14:00)
--- NOTE | 2018-12-03 19:15 | NUR ---
Neuro consult,changes noted 1600 check. Gag minimal temp starting to elevate at 100.1,cough w deep suctioning only,pupils 3 w no reaction,glassy eyedin appearance. CT order cancelled per Dr Beckwith(after consulted by primary) Mother concerned ie changes in neuro status,fearful will pass. Reassurance attempted. Report to nights. Pressure continues to rise. Matias RN in communication w cardiology. Orders received. Late entry. Vomiting 1100 today( 450 ml measured brown secretions )after connected to LIS. Tube feed restart at 1800 after stomach empty BG 179 insulin 2 units at this time
[2018-12-03] MEDS ORDERED: ACETAMINOPHEN 650 MG/20.3 ML SOLUTION. PEG PRN (19:30)
[2018-12-03] MEDS: LABETALOL 20 MG/4 ML DISP.SYRIN. IVP SCH ×2 (20:12→23:21)
[2018-12-03 20:57] LABS: BILIRUBIN,URINE NEGATIVE (NEG); CLARITY,URINE CLEAR; COLOR,URINE YELLOW; NITRITE,URINE NEGATIVE (NEG); PH,URINE 5.5; PROTEIN,URINE NEGATIVE (NEG-TRACE); UROBILINOGEN,URINE 0.2 mg/dL (0.2 mg/dL)
[2018-12-03] MEDS ORDERED: VANCOMYCIN 1.75 GM in IV NORMAL SALINE 500ML BAG 500 ML IV ONE (21:00)
[2018-12-03] MEDS: SIMVASTATIN 40 MG TABLET. NG SCH (21:00)
[2018-12-03 21:04] LABS: BACTERIA,URINE 0 /HPF (0-FEW); SQUAMOUS EPITHELIAL CELL,UR FEW /LPF
--- NOTE | 2018-12-03 21:23 | RAD ---
PORTABLE CHEST 1V History: ICU PATIENT. ASPIRATION. . Comparison with previous day. Endotracheal tube is just above the brandie, similar to prior study. Endogastric tube is seen through the left upper quadrant. No evidence of pneumothorax. No pleural effusion. No consolidating infiltrate. Regional skeleton appears grossly intact. IMPRESSION: No consolidating infiltrate. Electronically signed by: German Concepcion MD (12/03/2018 9:20 PM) [facility]
[2018-12-03] MEDS: FAMOTIDINE 20 MG/2 ML VIAL IVP SCH (21:53)
[2018-12-03] MEDS ORDERED: NOREPINEPHRIN 8MG/250ML PREMIX 250 ML IV PRN (23:00)
[2018-12-03] MEDS: PIPERACILLIN/TAZOBACTAM 4.5 GM in IV NORMAL SALINE 100ML 100 ML IV SCH (23:21)
[2018-12-03 23:30] LABS: BASO % 1 % (0-3); EOS % 0 % (0-3); HEMATOCRIT 29.8 % (36.0-47.0); HEMOGLOBIN 10.1 g/dL (12.0-15.5); LYMPH # 1.2 x10^3/uL (1.0-4.8); LYMPH % 20 % (24-48); MEAN CORPUSCULAR HEMOGLOBIN 31 pg (25-35); MEAN CORPUSCULAR HGB CONC 34 g/dL (31-37); MEAN CORPUSCULAR VOLUME 91 fL (79-100); MONO # 0.5 x10^3/uL (0.0-1.1); MONO % 9 % (0-9); NEUT # 4.2 x10^3uL (1.8-7.7); NEUT % 71 % (31-73); PLATELET COUNT 181 x10^3/uL (140-400); RED BLOOD COUNT 3.27 x10^6/uL (3.50-5.40); RED CELL DISTRIBUTION WIDTH 12.6 % (11.5-14.5); WHITE BLOOD COUNT 5.9 x10^3/uL (4.0-11.0)
[2018-12-03 23:49] LABS: ALBUMIN 1.9 g/dL (3.4-5.0); ALBUMIN/GLOBULIN RATIO 0.7 (1.0-1.7); CALCIUM 7.2 mg/dL (8.5-10.1); GFR 58.5; TOTAL BILIRUBIN 0.3 mg/dL (0.2-1.0); TOTAL PROTEIN 4.7 g/dL (6.4-8.2)
[2018-12-03 23:50] LABS: POTASSIUM 2.9 mmol/L (3.5-5.1)
[2018-12-04] VITALS (15 sets, daily range): BP systolic 90–138; BP diastolic 51–82
[2018-12-04] MEDS: INSULIN LISPRO 300 UNITS/3 ML INSULN.PEN. SQ SCH ×3 (00:23→12:00)
[2018-12-04] MEDS: POTASSIUM CHLORIDE 10MEQ 100 ML IV SCH ×2 (00:26→02:08)
[2018-12-04] MEDS ORDERED: POTASSIUM CHLORIDE 20 MEQ/15 ML ORAL LIQUID. PEG ONE (00:30)
[2018-12-04] MEDS: VANCOMYCIN PER PHARMACY MC PRN ×2 (01:44→09:41)
--- NOTE | 2018-12-04 01:44 | NUR ---
Pharmacy Vancomycin Dosing Note S:Consulted to monitor and dose vancomycin started 12/03/18. O:JERRICA BURNETT is a 52 year old F with Empiric . Height: 5 feet, 6 inches Weight: 70.261291 kg [place] Body Weight: 59.30 Adjusted Body Weight: 63.98 Dosing Weight: Actual Other Antibiotics: ZOSYN LABS: Last BUN: 22 Last Creatinine: 1 Creatinine Clearance: 68 mL/min Last WBC: 5.9 Last Procalcitonin: Tmax (past 24 hours): Microbiology: I/O: Drug Levels: Last level: on at Last dose given 12/03/18 at 2200 Vancomycin Dosing: Loading Dose: 1750 mg x1 Dosing Weight: Actual Target Trough: 15-20 A: Based on: WT AND CRCL P: 1. Begin Vancomycin 1000 mg IV q12h 2. Follow up Trough level on 12/05/18 at 0930 3. Pharmacy will continue to monitor, follow and adjust therapy as needed. NENO GOMEZ RPH, 12/04/18 0144 Signed: 12/04/18 at 0145 by NENO GOMEZ RPH PHA
[2018-12-04] MEDS: LABETALOL 20 MG/4 ML DISP.SYRIN. IVP SCH (05:05)
[2018-12-04] MEDS: PIPERACILLIN/TAZOBACTAM 4.5 GM in IV NORMAL SALINE 100ML 100 ML IV SCH ×2 (05:18→12:00)
[2018-12-04 05:36] LABS: ALBUMIN 2.2 g/dL (3.4-5.0); ALBUMIN/GLOBULIN RATIO 0.7 (1.0-1.7); CALCIUM 8.1 mg/dL (8.5-10.1); CREATININE 0.9 mg/dL (0.6-1.0); POTASSIUM 3.9 mmol/L (3.5-5.1); TOTAL BILIRUBIN 0.6 mg/dL (0.2-1.0); TOTAL PROTEIN 5.4 g/dL (6.4-8.2)
[2018-12-04] MEDS: ASPIRIN ENTERIC COATED 325 MG TABLET.DR. PO SCH (08:00)
[2018-12-04] MEDS: CLOPIDOGREL BISULFATE 75 MG TABLET PO SCH (08:00)
--- NOTE | 2018-12-04 08:00 | PDOC ---
Infectious Disease Note Vital Sign Vital Signs Vital Signs Date Time Temp Pulse Resp B/P (MAP) Pulse Ox O2 Delivery O2 Flow Rate FiO2 12/04/18 06:00 94.0 51 16 118/75 (89) 100 Ventilator 94.0 Labs Lab Laboratory Tests Test 12/03/18 08:00 12/03/18 10:10 12/03/18 12:38 12/03/18 19:31 O2 Saturation 96 % (92-99) Arterial Blood pH 7.35 (7.35-7.45) Arterial Blood pCO2 at Patient Temp 38 mmHg (35-46) Arterial Blood pO2 at Patient Temp 90 mmHg (75-108) Arterial Blood HCO3 20 mmol/L (21-28) Arterial Blood Base Excess -5 mmol/L (-3-3) FiO2 40 Sodium Level 143 mmol/L (136-145) Potassium Level 3.5 mmol/L (3.5-5.1) Chloride Level 106 mmol/L (98-107) Carbon Dioxide Level 26 mmol/L (21-32) Anion Gap 11 (6-14) Blood Urea Nitrogen 22 mg/dL (7-20) Creatinine 0.9 mg/dL (0.6-1.0) Estimated GFR (Cockcroft-Gault) 66.0 BUN/Creatinine Ratio 24 (6-20) Glucose Level 213 mg/dL (70-99) Calcium Level 8.7 mg/dL (8.5-10.1) Total Bilirubin 0.4 mg/dL (0.2-1.0) Aspartate Amino Transf (AST/SGOT) 121 U/L (15-37) Alanine Aminotransferase (ALT/SGPT) 52 U/L (14-59) Alkaline Phosphatase 93 U/L (46-116) Total Protein 6.2 g/dL (6.4-8.2) Albumin 2.7 g/dL (3.4-5.0) Albumin/Globulin Ratio 0.8 (1.0-1.7) Glucose (Fingerstick) 198 mg/dL (70-99) 179 mg/dL (70-99) Test 12/03/18 20:00 12/03/18 23:20 12/04/18 00:01 12/04/18 03:20 Urine Collection Type Unknown Urine Color Yellow Urine Clarity Clear Urine pH 5.5 Urine Specific [place] 1.010 Urine Protein Negative mg/dL (NEG-TRACE) Urine Glucose (UA) 500 mg/dL (NEG) Urine Ketones (Stick) 40 mg/dL (NEG) Urine Blood Small (NEG) Urine Nitrite Negative (NEG) Urine Bilirubin Negative (NEG) Urine Urobilinogen Dipstick 0.2 mg/dL (0.2 mg/dL) Urine Leukocyte Esterase Negative (NEG) Urine RBC 1-2 /HPF (0-2) Urine WBC 1-4 /HPF (0-4) Urine Squamous Epithelial Cells Few /LPF Urine Bacteria 0 /HPF (0-FEW) Urine Mucus Mod /LPF White Blood Count 5.9 x10^3/uL (4.0-11.0) Red Blood Count 3.27 x10^6/uL (3.50-5.40) Hemoglobin 10.1 g/dL (12.0-15.5) Hematocrit 29.8 % (36.0-47.0) Mean Corpuscular Volume 91 fL (79-100) Mean Corpuscular Hemoglobin 31 pg (25-35) Mean Corpuscular Hemoglobin Concent 34 g/dL (31-37) Red Cell Distribution Width 12.6 % (11.5-14.5) Platelet Count 181 x10^3/uL (140-400) Neutrophils (%) (Auto) 71 % (31-73) Lymphocytes (%) (Auto) 20 % (24-48) Monocytes (%) (Auto) 9 % (0-9) Eosinophils (%) (Auto) 0 % (0-3) Basophils (%) (Auto) 1 % (0-3) Neutrophils # (Auto) 4.2 x10^3uL (1.8-7.7) Lymphocytes # (Auto) 1.2 x10^3/uL (1.0-4.8) Monocytes # (Auto) 0.5 x10^3/uL (0.0-1.1) Eosinophils # (Auto) 0.0 x10^3/uL (0.0-0.7) Basophils # (Auto) 0.0 x10^3/uL (0.0-0.2) Sodium Level 139 mmol/L (136-145) 147 mmol/L (136-145) Potassium Level 2.9 mmol/L (3.5-5.1) 3.9 mmol/L (3.5-5.1) Chloride Level 106 mmol/L (98-107) 112 mmol/L (98-107) Carbon Dioxide Level 25 mmol/L (21-32) 24 mmol/L (21-32) Anion Gap 8 (6-14) 11 (6-14) Blood Urea Nitrogen 22 mg/dL (7-20) 18 mg/dL (7-20) Creatinine 1.0 mg/dL (0.6-1.0) 0.9 mg/dL (0.6-1.0) Estimated GFR (Cockcroft-Gault) 58.5 66.0 BUN/Creatinine Ratio 22 (6-20) 20 (6-20) Glucose Level 245 mg/dL (70-99) 236 mg/dL (70-99) Calcium Level 7.2 mg/dL (8.5-10.1) 8.1 mg/dL (8.5-10.1) Total Bilirubin 0.3 mg/dL (0.2-1.0) 0.6 mg/dL (0.2-1.0) Aspartate Amino Transf (AST/SGOT) 93 U/L (15-37) 93 U/L (15-37) Alanine Aminotransferase (ALT/SGPT) 38 U/L (14-59) 41 U/L (14-59) Alkaline Phosphatase 66 U/L (46-116) 84 U/L (46-116) Total Protein 4.7 g/dL (6.4-8.2) 5.4 g/dL (6.4-8.2) Albumin 1.9 g/dL (3.4-5.0) 2.2 g/dL (3.4-5.0) Albumin/Globulin Ratio 0.7 (1.0-1.7) 0.7 (1.0-1.7) Magnesium Level 1.3 mg/dL (1.8-2.4) Test 12/04/18 05:11 Glucose (Fingerstick) 214 mg/dL (70-99) Micro Microbiology 11/30/18 Blood Culture - Preliminary, Resulted NO GROWTH AFTER 3 DAYS 11/30/18 Urine Culture - Final, Complete 11/30/18 Urine Culture Result 1 (SWAPNIL) - Final, Complete Objective Assessment Fever Leukocytosis Hypothermia now Respiratory failure s/p Cardiac arrest CAD s/p stenting Polysubstance abuse Plan Plan of Care cont vanc and zosyn for now check cultures supportive care d/w mother prognosis poor HECTOR EARLY MD December 04, 2018 08:00
[2018-12-04 08:12] LABS: BASE EXCESS ABG -2 mmol/L (-3-3); HCO3 ABG 23 mmol/L (21-28); PCO2 ABG 38 mmHg (35-46); PO2 ABG 109 mmHg (75-108); SAT O2 ABG 97 % (92-99)
[2018-12-04 08:14] LABS: CORRECTED PCO2 ABG 36 mmHg; CORRECTED PH ABG 7.41; CORRECTED PO2 ABG 99 mmHg
--- NOTE | 2018-12-04 08:25 | PDOC ---
PROGRESS NOTES Chief Complaint Chief Complaint S/p in hospital cardiac arrest, rhythms include nonsustained V. tach shocked, PEA status post 2 rounds of epinephrine - no hypothermia (initiated she was waking up) Acute respiratory failure secondary to cardiac arrest-on IPPV-11/30/18 Short run A. fib resolved N STEMI-troponin peaks at 121 Rhabdomyolysis possibly in the background of CPR-CK 3000 SIRS reactive secondary to CPR-leukocytosis 15 Anion gap acidosis with a bicarbonate 18 and elevated anion gap 19 - s.p 50 meqs bicarb AK I VMN postcode-creatinine 1.6 Oliguria responding to IV fluids Status post HO NK versus DKA-blood sugars better now Hypertension on lisinopril at home Dyslipidemia on simvastatin at home Diabetes on metformin at home History of Present Illness History of Present Illness She tested positive for methamphetamine, was admitted for that and a mild element of DKA then coded. ABG around code time was pH 7.28, CO2 33 with oh to 500 Yesterday did not awaken during sedation holiday. Had fever up to 103 and hypothermia down to 93 yesterday and bradycardia and hypertension. Now she seen in the ICU she is on amiodarone drip, fentanyl, propofol, and dopamine by c ardiology, s/p LHC with 2x JOGRE. Troponin peaked 121. Blood sugars are much better. Making adequate UOP 1L q24hr. Vent on AC mode Plan: Consult neurology CT head ordered, changed to MRI per neuro Heating blanket, tylenol prn Antiarrhythmics per cardiology LHC - 2x JORGE Maintain [place] catheter, bolus when necessary if needed re UO Keep on normal saline to 125 mL Sliding-scale insulin high-dose every 6 Tube feeds until extubation now running PPI and DVt ppx in this vented pt Discussed with LONG TERM ACUTE CARE REGISTERED NURSE and mother bedside her overall grim prognosis with temperature dysregulation and poor ocular response today Vitals Vitals Vital Signs Date Time Temp Pulse Resp B/P (MAP) Pulse Ox O2 Delivery O2 Flow Rate FiO2 12/04/18 07:59 100 Ventilator 12/04/18 06:00 94.0 51 16 118/75 (89) 94.0 Physical Exam General: Other (intubated) Heart: Regular rate, Normal S1, Normal S2, No murmurs Lungs: Clear Abdomen: Soft, No tenderness Extremities: No clubbing, No cyanosis, No edema Skin: No rashes, No breakdown, No significant lesion Labs LABS Laboratory Tests Test 12/03/18 10:10 12/03/18 12:38 12/03/18 19:31 12/03/18 20:00 Sodium Level 143 mmol/L (136-145) Potassium Level 3.5 mmol/L (3.5-5.1) Chloride Level 106 mmol/L (98-107) Carbon Dioxide Level 26 mmol/L (21-32) Anion Gap 11 (6-14) Blood Urea Nitrogen 22 mg/dL (7-20) Creatinine 0.9 mg/dL (0.6-1.0) Estimated GFR (Cockcroft-Gault) 66.0 BUN/Creatinine Ratio 24 (6-20) Glucose Level 213 mg/dL (70-99) Calcium Level 8.7 mg/dL (8.5-10.1) Total Bilirubin 0.4 mg/dL (0.2-1.0) Aspartate Amino Transf (AST/SGOT) 121 U/L (15-37) Alanine Aminotransferase (ALT/SGPT) 52 U/L (14-59) Alkaline Phosphatase 93 U/L (46-116) Total Protein 6.2 g/dL (6.4-8.2) Albumin 2.7 g/dL (3.4-5.0) Albumin/Globulin Ratio 0.8 (1.0-1.7) Glucose (Fingerstick) 198 mg/dL (70-99) 179 mg/dL (70-99) Urine Collection Type Unknown Urine Color Yellow Urine Clarity Clear Urine pH 5.5 Urine Specific [place] 1.010 Urine Protein Negative mg/dL (NEG-TRACE) Urine Glucose (UA) 500 mg/dL (NEG) Urine Ketones (Stick) 40 mg/dL (NEG) Urine Blood Small (NEG) Urine Nitrite Negative (NEG) Urine Bilirubin Negative (NEG) Urine Urobilinogen Dipstick 0.2 mg/dL (0.2 mg/dL) Urine Leukocyte Esterase Negative (NEG) Urine RBC 1-2 /HPF (0-2) Urine WBC 1-4 /HPF (0-4) Urine Squamous Epithelial Cells Few /LPF Urine Bacteria 0 /HPF (0-FEW) Urine Mucus Mod /LPF Test 12/03/18 23:20 12/04/18 00:01 12/04/18 03:20 12/04/18 05:11 White Blood Count 5.9 x10^3/uL (4.0-11.0) Red Blood Count 3.27 x10^6/uL (3.50-5.40) Hemoglobin 10.1 g/dL (12.0-15.5) Hematocrit 29.8 % (36.0-47.0) Mean Corpuscular Volume 91 fL (79-100) Mean Corpuscular Hemoglobin 31 pg (25-35) Mean Corpuscular Hemoglobin Concent 34 g/dL (31-37) Red Cell Distribution Width 12.6 % (11.5-14.5) Platelet Count 181 x10^3/uL (140-400) Neutrophils (%) (Auto) 71 % (31-73) Lymphocytes (%) (Auto) 20 % (24-48) Monocytes (%) (Auto) 9 % (0-9) Eosinophils (%) (Auto) 0 % (0-3) Basophils (%) (Auto) 1 % (0-3) Neutrophils # (Auto) 4.2 x10^3uL (1.8-7.7) Lymphocytes # (Auto) 1.2 x10^3/uL (1.0-4.8) Monocytes # (Auto) 0.5 x10^3/uL (0.0-1.1) Eosinophils # (Auto) 0.0 x10^3/uL (0.0-0.7) Basophils # (Auto) 0.0 x10^3/uL (0.0-0.2) Sodium Level 139 mmol/L (136-145) 147 mmol/L (136-145) Potassium Level 2.9 mmol/L (3.5-5.1) 3.9 mmol/L (3.5-5.1) Chloride Level 106 mmol/L (98-107) 112 mmol/L (98-107) Carbon Dioxide Level 25 mmol/L (21-32) 24 mmol/L (21-32) Anion Gap 8 (6-14) 11 (6-14) Blood Urea Nitrogen 22 mg/dL (7-20) 18 mg/dL (7-20) Creatinine 1.0 mg/dL (0.6-1.0) 0.9 mg/dL (0.6-1.0) Estimated GFR (Cockcroft-Gault) 58.5 66.0 BUN/Creatinine Ratio 22 (6-20) 20 (6-20) Glucose Level 245 mg/dL (70-99) 236 mg/dL (70-99) Calcium Level 7.2 mg/dL (8.5-10.1) 8.1 mg/dL (8.5-10.1) Total Bilirubin 0.3 mg/dL (0.2-1.0) 0.6 mg/dL (0.2-1.0) Aspartate Amino Transf (AST/SGOT) 93 U/L (15-37) 93 U/L (15-37) Alanine Aminotransferase (ALT/SGPT) 38 U/L (14-59) 41 U/L (14-59) Alkaline Phosphatase 66 U/L (46-116) 84 U/L (46-116) Total Protein 4.7 g/dL (6.4-8.2) 5.4 g/dL (6.4-8.2) Albumin 1.9 g/dL (3.4-5.0) 2.2 g/dL (3.4-5.0) Albumin/Globulin Ratio 0.7 (1.0-1.7) 0.7 (1.0-1.7) Magnesium Level 1.3 mg/dL (1.8-2.4) Glucose (Fingerstick) 214 mg/dL (70-99) Test 12/04/18 08:10 O2 Saturation 97 % (92-99) Arterial Blood pH 7.39 (7.35-7.45) Arterial Blood pH (Temp corrected) 7.41 Arterial Blood pCO2 at Patient Temp 38 mmHg (35-46) Arterial Blood pCO2 (Temp correct) 36 mmHg Arterial Blood pO2 at Patient Temp 109 mmHg (75-108) Arterial Blood pO2 (Temp corrected) 99 mmHg Arterial Blood HCO3 23 mmol/L (21-28) Arterial Blood Base Excess -2 mmol/L (-3-3) Assessment and Plan Assessmemt and Plan Problems Medical Problems: (1) Aspiration pneumonia Status: Acute (2) Cardiac arrest Status: Acute (3) DKA (diabetic ketoacidoses) Status: Acute (4) Drug overdose Status: Acute (5) Substance abuse Status: Acute Comment Review of Relevant I have reviewed the following items kashmir (where applicable) has been applied. Labs Laboratory Tests Test 12/02/18 08:30 12/02/18 12:11 12/02/18 17:36 12/02/18 23:29 O2 Saturation 94 % (92-99) Arterial Blood pH 7.34 (7.35-7.45) Arterial Blood pCO2 at Patient Temp 35 mmHg (35-46) Arterial Blood pO2 at Patient Temp 75 mmHg (75-108) Arterial Blood HCO3 19 mmol/L (21-28) Arterial Blood Base Excess -6 mmol/L (-3-3) FiO2 30 Glucose (Fingerstick) 190 mg/dL (70-99) 160 mg/dL (70-99) 171 mg/dL (70-99) Test 12/03/18 04:54 12/03/18 08:00 12/03/18 10:10 12/03/18 12:38 Glucose (Fingerstick) 190 mg/dL (70-99) 198 mg/dL (70-99) O2 Saturation 96 % (92-99) Arterial Blood pH 7.35 (7.35-7.45) Arterial Blood pCO2 at Patient Temp 38 mmHg (35-46) Arterial Blood pO2 at Patient Temp 90 mmHg (75-108) Arterial Blood HCO3 20 mmol/L (21-28) Arterial Blood Base Excess -5 mmol/L (-3-3) FiO2 40 Sodium Level 143 mmol/L (136-145) Potassium Level 3.5 mmol/L (3.5-5.1) Chloride Level 106 mmol/L (98-107) Carbon Dioxide Level 26 mmol/L (21-32) Anion Gap 11 (6-14) Blood Urea Nitrogen 22 mg/dL (7-20) Creatinine 0.9 mg/dL (0.6-1.0) Estimated GFR (Cockcroft-Gault) 66.0 BUN/Creatinine Ratio 24 (6-20) Glucose Level 213 mg/dL (70-99) Calcium Level 8.7 mg/dL (8.5-10.1) Total Bilirubin 0.4 mg/dL (0.2-1.0) Aspartate Amino Transf (AST/SGOT) 121 U/L (15-37) Alanine Aminotransferase (ALT/SGPT) 52 U/L (14-59) Alkaline Phosphatase 93 U/L (46-116) Total Protein 6.2 g/dL (6.4-8.2) Albumin 2.7 g/dL (3.4-5.0) Albumin/Globulin Ratio 0.8 (1.0-1.7) Test 12/03/18 19:31 12/03/18 20:00 12/03/18 23:20 12/04/18 00:01 Glucose (Fingerstick) 179 mg/dL (70-99) Urine Collection Type Unknown Urine Color Yellow Urine Clarity Clear Urine pH 5.5 Urine Specific [place] 1.010 Urine Protein Negative mg/dL (NEG-TRACE) Urine Glucose (UA) 500 mg/dL (NEG) Urine Ketones (Stick) 40 mg/dL (NEG) Urine Blood Small (NEG) Urine Nitrite Negative (NEG) Urine Bilirubin Negative (NEG) Urine Urobilinogen Dipstick 0.2 mg/dL (0.2 mg/dL) Urine Leukocyte Esterase Negative (NEG) Urine RBC 1-2 /HPF (0-2) Urine WBC 1-4 /HPF (0-4) Urine Squamous Epithelial Cells Few /LPF Urine Bacteria 0 /HPF (0-FEW) Urine Mucus Mod /LPF White Blood Count 5.9 x10^3/uL (4.0-11.0) Red Blood Count 3.27 x10^6/uL (3.50-5.40) Hemoglobin 10.1 g/dL (12.0-15.5) Hematocrit 29.8 % (36.0-47.0) Mean Corpuscular Volume 91 fL (79-100) Mean Corpuscular Hemoglobin 31 pg (25-35) Mean Corpuscular Hemoglobin Concent 34 g/dL (31-37) Red Cell Distribution Width 12.6 % (11.5-14.5) Platelet Count 181 x10^3/uL (140-400) Neutrophils (%) (Auto) 71 % (31-73) Lymphocytes (%) (Auto) 20 % (24-48) Monocytes (%) (Auto) 9 % (0-9) Eosinophils (%) (Auto) 0 % (0-3) Basophils (%) (Auto) 1 % (0-3) Neutrophils # (Auto) 4.2 x10^3uL (1.8-7.7) Lymphocytes # (Auto) 1.2 x10^3/uL (1.0-4.8) Monocytes # (Auto) 0.5 x10^3/uL (0.0-1.1) Eosinophils # (Auto) 0.0 x10^3/uL (0.0-0.7) Basophils # (Auto) 0.0 x10^3/uL (0.0-0.2) Sodium Level 139 mmol/L (136-145) Potassium Level 2.9 mmol/L (3.5-5.1) Chloride Level 106 mmol/L (98-107) Carbon Dioxide Level 25 mmol/L (21-32) Anion Gap 8 (6-14) Blood Urea Nitrogen 22 mg/dL (7-20) Creatinine 1.0 mg/dL (0.6-1.0) Estimated GFR (Cockcroft-Gault) 58.5 BUN/Creatinine Ratio 22 (6-20) Glucose Level 245 mg/dL (70-99) Calcium Level 7.2 mg/dL (8.5-10.1) Total Bilirubin 0.3 mg/dL (0.2-1.0) Aspartate Amino Transf (AST/SGOT) 93 U/L (15-37) Alanine Aminotransferase (ALT/SGPT) 38 U/L (14-59) Alkaline Phosphatase 66 U/L (46-116) Total Protein 4.7 g/dL (6.4-8.2) Albumin 1.9 g/dL (3.4-5.0) Albumin/Globulin Ratio 0.7 (1.0-1.7) Magnesium Level 1.3 mg/dL (1.8-2.4) Test 12/04/18 03:20 12/04/18 05:11 12/04/18 08:10 Sodium Level 147 mmol/L (136-145) Potassium Level 3.9 mmol/L (3.5-5.1) Chloride Level 112 mmol/L (98-107) Carbon Dioxide Level 24 mmol/L (21-32) Anion Gap 11 (6-14) Blood Urea Nitrogen 18 mg/dL (7-20) Creatinine 0.9 mg/dL (0.6-1.0) Estimated GFR (Cockcroft-Gault) 66.0 BUN/Creatinine Ratio 20 (6-20) Glucose Level 236 mg/dL (70-99) Calcium Level 8.1 mg/dL (8.5-10.1) Total Bilirubin 0.6 mg/dL (0.2-1.0) Aspartate Amino Transf (AST/SGOT) 93 U/L (15-37) Alanine Aminotransferase (ALT/SGPT) 41 U/L (14-59) Alkaline Phosphatase 84 U/L (46-116) Total Protein 5.4 g/dL (6.4-8.2) Albumin 2.2 g/dL (3.4-5.0) Albumin/Globulin Ratio 0.7 (1.0-1.7) Glucose (Fingerstick) 214 mg/dL (70-99) O2 Saturation 97 % (92-99) Arterial Blood pH 7.39 (7.35-7.45) Arterial Blood pH (Temp corrected) 7.41 Arterial Blood pCO2 at Patient Temp 38 mmHg (35-46) Arterial Blood pCO2 (Temp correct) 36 mmHg Arterial Blood pO2 at Patient Temp 109 mmHg (75-108) Arterial Blood pO2 (Temp corrected) 99 mmHg Arterial Blood HCO3 23 mmol/L (21-28) Arterial Blood Base Excess -2 mmol/L (-3-3) Laboratory Tests Test 12/03/18 10:10 12/03/18 12:38 12/03/18 19:31 12/03/18 20:00 Sodium Level 143 mmol/L (136-145) Potassium Level 3.5 mmol/L (3.5-5.1) Chloride Level 106 mmol/L (98-107) Carbon Dioxide Level 26 mmol/L (21-32) Anion Gap 11 (6-14) Blood Urea Nitrogen 22 mg/dL (7-20) Creatinine 0.9 mg/dL (0.6-1.0) Estimated GFR (Cockcroft-Gault) 66.0 BUN/Creatinine Ratio 24 (6-20) Glucose Level 213 mg/dL (70-99) Calcium Level 8.7 mg/dL (8.5-10.1) Total Bilirubin 0.4 mg/dL (0.2-1.0) Aspartate Amino Transf (AST/SGOT) 121 U/L (15-37) Alanine Aminotransferase (ALT/SGPT) 52 U/L (14-59) Alkaline Phosphatase 93 U/L (46-116) Total Protein 6.2 g/dL (6.4-8.2) Albumin 2.7 g/dL (3.4-5.0) Albumin/Globulin Ratio 0.8 (1.0-1.7) Glucose (Fingerstick) 198 mg/dL (70-99) 179 mg/dL (70-99) Urine Collection Type Unknown Urine Color Yellow Urine Clarity Clear Urine pH 5.5 Urine Specific [place] 1.010 Urine Protein Negative mg/dL (NEG-TRACE) Urine Glucose (UA) 500 mg/dL (NEG) Urine Ketones (Stick) 40 mg/dL (NEG) Urine Blood Small (NEG) Urine Nitrite Negative (NEG) Urine Bilirubin Negative (NEG) Urine Urobilinogen Dipstick 0.2 mg/dL (0.2 mg/dL) Urine Leukocyte Esterase Negative (NEG) Urine RBC 1-2 /HPF (0-2) Urine WBC 1-4 /HPF (0-4) Urine Squamous Epithelial Cells Few /LPF Urine Bacteria 0 /HPF (0-FEW) Urine Mucus Mod /LPF Test 12/03/18 23:20 12/04/18 00:01 12/04/18 03:20 12/04/18 05:11 White Blood Count 5.9 x10^3/uL (4.0-11.0) Red Blood Count 3.27 x10^6/uL (3.50-5.40) Hemoglobin 10.1 g/dL (12.0-15.5) Hematocrit 29.8 % (36.0-47.0) Mean Corpuscular Volume 91 fL (79-100) Mean Corpuscular Hemoglobin 31 pg (25-35) Mean Corpuscular Hemoglobin Concent 34 g/dL (31-37) Red Cell Distribution Width 12.6 % (11.5-14.5) Platelet Count 181 x10^3/uL (140-400) Neutrophils (%) (Auto) 71 % (31-73) Lymphocytes (%) (Auto) 20 % (24-48) Monocytes (%) (Auto) 9 % (0-9) Eosinophils (%) (Auto) 0 % (0-3) Basophils (%) (Auto) 1 % (0-3) Neutrophils # (Auto) 4.2 x10^3uL (1.8-7.7) Lymphocytes # (Auto) 1.2 x10^3/uL (1.0-4.8) Monocytes # (Auto) 0.5 x10^3/uL (0.0-1.1) Eosinophils # (Auto) 0.0 x10^3/uL (0.0-0.7) Basophils # (Auto) 0.0 x10^3/uL (0.0-0.2) Sodium Level 139 mmol/L (136-145) 147 mmol/L (136-145) Potassium Level 2.9 mmol/L (3.5-5.1) 3.9 mmol/L (3.5-5.1) Chloride Level 106 mmol/L (98-107) 112 mmol/L (98-107) Carbon Dioxide Level 25 mmol/L (21-32) 24 mmol/L (21-32) Anion Gap 8 (6-14) 11 (6-14) Blood Urea Nitrogen 22 mg/dL (7-20) 18 mg/dL (7-20) Creatinine 1.0 mg/dL (0.6-1.0) 0.9 mg/dL (0.6-1.0) Estimated GFR (Cockcroft-Gault) 58.5 66.0 BUN/Creatinine Ratio 22 (6-20) 20 (6-20) Glucose Level 245 mg/dL (70-99) 236 mg/dL (70-99) Calcium Level 7.2 mg/dL (8.5-10.1) 8.1 mg/dL (8.5-10.1) Total Bilirubin 0.3 mg/dL (0.2-1.0) 0.6 mg/dL (0.2-1.0) Aspartate Amino Transf (AST/SGOT) 93 U/L (15-37) 93 U/L (15-37) Alanine Aminotransferase (ALT/SGPT) 38 U/L (14-59) 41 U/L (14-59) Alkaline Phosphatase 66 U/L (46-116) 84 U/L (46-116) Total Protein 4.7 g/dL (6.4-8.2) 5.4 g/dL (6.4-8.2) Albumin 1.9 g/dL (3.4-5.0) 2.2 g/dL (3.4-5.0) Albumin/Globulin Ratio 0.7 (1.0-1.7) 0.7 (1.0-1.7) Magnesium Level 1.3 mg/dL (1.8-2.4) Glucose (Fingerstick) 214 mg/dL (70-99) Test 12/04/18 08:10 O2 Saturation 97 % (92-99) Arterial Blood pH 7.39 (7.35-7.45) Arterial Blood pH (Temp corrected) 7.41 Arterial Blood pCO2 at Patient Temp 38 mmHg (35-46) Arterial Blood pCO2 (Temp correct) 36 mmHg Arterial Blood pO2 at Patient Temp 109 mmHg (75-108) Arterial Blood pO2 (Temp corrected) 99 mmHg Arterial Blood HCO3 23 mmol/L (21-28) Arterial Blood Base Excess -2 mmol/L (-3-3) Microbiology 11/30/18 Blood Culture - Preliminary, Resulted NO GROWTH AFTER 3 DAYS 11/30/18 Urine Culture - Final, Complete 11/30/18 Urine Culture Result 1 (SWAPNIL) - Final, Complete Medications Current Medications Naloxone HCl 2 mg/ Dextrose 502 ml @ 0 mls/hr 1X ONCE IV Last administered on 11/30/18at 10:08; Start 11/30/18 at 09:45; Stop 11/30/18 at 16:51; Status DC Sodium Chloride 1,000 ml @ 1,000 mls/hr 1X ONCE IV Last administered on 11/30/18at 10:04; Start 11/30/18 at 10:00; Stop 11/30/18 at 10:59; Status DC Amiodarone HCl 150 mg/Dextrose 103 ml @ 618 mls/hr 1X ONCE IV Last administered on 11/30/18at 10:13; Start 11/30/18 at 10:00; Stop 11/30/18 at 10:09; Status DC Amiodarone HCl 900 mg/Dextrose 518 ml @ 0 mls/hr CONT PRN IV SEE I/O RECORD Last administered on 11/30/18at 10:24; Start 11/30/18 at 10:00; Stop 11/30/18 at 10:24; Status DC Insulin Human Regular 150 ml @ 0 mls/hr 1X ONCE IV ; Start 11/30/18 at 10:00; Stop 11/30/18 at 10:01; Status UNV Insulin Human Regular 150 ml @ 0 mls/hr 1X ONCE IV Last administered on 11/30/18at 11:32; Start 11/30/18 at 10:00; Stop 11/30/18 at 16:51; Status DC Amiodarone HCl (Cordarone) 150 mg STK-MED ONCE .ROUTE ; Start 11/30/18 at 10:00; Stop 11/30/18 at 10:01; Status DC Propofol (Diprivan) 200 mg 1X ONCE IV ; Start 11/30/18 at 10:15; Stop 11/30/18 at 10:16; Status Cancel Sodium Chloride 1,000 ml @ 1,000 mls/hr 1X ONCE IV Last administered on 11/30/18at 10:54; Start 11/30/18 at 10:30; Stop 11/30/18 at 11:29; Status DC Propofol 50 ml @ As Directed STK-MED ONCE IV ; Start 11/30/18 at 10:17; Stop 11/30/18 at 10:18; Status DC Propofol 50 ml @ 1.037 mls/ hr 1X ONCE IV Last administered on 11/30/18at 10:20; Start 11/30/18 at 10:30; Stop 12/02/18 at 08:36; Status DC Piperacillin Sod/ Tazobactam Sod 3.375 gm/Sodium Chloride 50 ml @ 100 mls/hr 1X ONCE IV Last administered on 11/30/18at 11:02; Start 11/30/18 at 10:30; Stop 11/30/18 at 10:59; Status DC Ondansetron HCl (Zofran) 4 mg PRN Q8HRS PRN IV NAUSEA/VOMITING; Start 11/30/18 at 10:30; Stop 12/01/18 at 08:41; Status DC Sodium Chloride 1,000 ml @ 125 mls/hr Q8H IV Last administered on 12/01/18at 04:27; Start 11/30/18 at 10:29; Stop 12/01/18 at 10:28; Status DC Sodium Bicarbonate (Sodium Bicarb Adult 8.4% Syr) 50 meq 1X ONCE IV Last administered on 11/30/18at 11:31; Start 11/30/18 at 11:30; Stop 11/30/18 at 11:31; Status DC Fentanyl Citrate 30 ml @ 0 mls/hr CONT PRN IV SEE PROTOCOL Last administered on 12/03/18at 03:32; Start 11/30/18 at 12:00 Propofol 100 ml @ 0 mls/hr CONT PRN IV SEE PROTOCOL Last administered on 12/03/18at 08:09; Start 11/30/18 at 12:00 Fentanyl Citrate (Fentanyl 2ml Vial) 25 mcg PRN Q1HR PRN IV SEE COMMENTS; Start 11/30/18 at 12:00 Fentanyl Citrate (Fentanyl 2ml Vial) 50 mcg PRN Q1HR PRN IV SEE COMMENTS; Start 11/30/18 at 12:00 Chlorhexidine Gluconate (Peridex) 15 ml BID MM ; Start 11/30/18 at 21:00; Stop 11/30/18 at 21:00; Status DC Midazolam HCl 100 ml @ 0 mls/hr CONT PRN IV SEE PROTOCOL; Start 11/30/18 at 12:00 Propofol 100 ml @ As Directed STK-MED ONCE IV ; Start 11/30/18 at 11:52; Stop 11/30/18 at 11:53; Status DC Magnesium Sulfate 50 ml @ 25 mls/hr 1X ONCE IV Last administered on 11/30/18at 14:11; Start 11/30/18 at 13:30; Stop 11/30/18 at 15:29; Status DC Piperacillin Sod/ Tazobactam Sod (Zosyn Per Pharmacy) 1 each PRN DAILY PRN MC SEE COMMENTS; Start 11/30/18 at 15:15 Piperacillin Sod/ Tazobactam Sod 3.375 gm/Sodium Chloride 50 ml @ 100 mls/hr Q6H IV Last administered on 12/03/18at 18:00; Start 11/30/18 at 16:00; Stop 12/03/18 at 19:41; Status DC Dextrose/Sodium Chloride 1,000 ml @ 250 mls/hr Q4H IV Last administered on 11/30/18at 16:18; Start 11/30/18 at 15:15; Stop 11/30/18 at 16:51; Status DC Insulin Human Lispro (HumaLOG) 0-7 UNITS TIDWMEALS SQ Last administered on 12/01/18at 08:29; Start 11/30/18 at 17:00; Stop 12/01/18 at 08:33; Status DC Dextrose (Dextrose 50%-Water Syringe) 12.5 gm PRN Q15MIN PRN IV SEE COMMENTS; Start 11/30/18 at 16:45; Stop 12/01/18 at 11:30; Status DC Heparin Sodium/ Dextrose 500 ml @ 17.357 mls/ hr CONT PRN IV SEE I/O RECORD Last administered on 11/30/18at 19:46; Start 11/30/18 at 19:00; Stop 12/01/18 at 11:29; Status DC Heparin Sodium (Porcine) (Heparin Sodium) 1,800 unit PRN Q6HRS PRN IV FOR UFH LEVEL LESS THAN 0.2 Last administered on 11/30/18at 19:47; Start 11/30/18 at 19:00; Stop 12/01/18 at 11:29; Status DC Tirofiban/Sodium Chloride 100 ml @ 13.018 mls/ hr CONT PRN IV PER PROTOCOL Last administered on 12/01/18at 05:35; Start 11/30/18 at 19:00; Stop 12/01/18 at 11:29; Status DC Info (Anti-Coagulation Monitoring By Pharmacy) 1 each PRN DAILY PRN MC SEE COMMENTS; Start 12/01/18 at 08:00; Stop 12/01/18 at 11:30; Status DC Insulin Human Lispro (HumaLOG) 0-7 UNITS Q6HRS SQ Last administered on 12/04/18at 05:19; Start 12/01/18 at 12:00 Ondansetron HCl (Zofran) 4 mg PRN Q6HRS PRN IV NAUSEA/VOMITING; Start 12/01/18 at 08:45 Acetaminophen (Tylenol) 650 mg PRN Q6HRS PRN PEG MILD PAIN / TEMP Last admi nistered on 12/03/18at 19:54; Start 12/01/18 at 08:45 Insulin Human Lispro (HumaLOG) 0-9 UNITS TIDWMEALS SQ ; Start 12/01/18 at 12:00; Status UNV Dextrose (Dextrose 50%-Water Syringe) 12.5 gm PRN Q15MIN PRN IV SEE COMMENTS; Start 12/01/18 at 08:45 Insulin Glargine (Lantus) 15 units 1X STAT SQ Last administered on 12/01/18at 09:01; Start 12/01/18 at 08:39; Stop 12/01/18 at 08:43; Status DC Simvastatin (Zocor) 40 mg QHS NG Last administered on 12/01/18at 21:35; Start 12/01/18 at 21:00 Heparin Sodium (Porcine) (Heparin Sodium) 10,000 unit STK-MED ONCE .ROUTE ; Start 12/01/18 at 09:50; Stop 12/01/18 at 09:51; Status DC Verapamil HCl (Verapamil) 5 mg STK-MED ONCE .ROUTE ; Start 12/01/18 at 09:50; Stop 12/01/18 at 09:51; Status DC Nitroglycerin (Nitroglycerin) 200 mcg STK-MED ONCE .ROUTE ; Start 12/01/18 at 09:50; Stop 12/01/18 at 09:51; Status DC Iodixanol (Visipaque 320) 100 ml STK-MED ONCE .ROUTE ; Start 12/01/18 at 09:54; Stop 12/01/18 at 09:55; Status DC Lidocaine HCl (Lidocaine 1% 20ml Vial) 20 ml STK-MED ONCE .ROUTE ; Start 12/01/18 at 09:55; Stop 12/01/18 at 09:56; Status DC Heparin Sodium/ Sodium Chloride 1,000 ml @ As Directed STK-MED ONCE .ROUTE ; Start 12/01/18 at 09:55; Stop 12/01/18 at 09:56; Status DC Nitroglycerin (Nitroglycerin) 200 mcg 1X ONCE IART Last administered on 12/01/18at 11:00; Start 12/01/18 at 11:00; Stop 12/01/18 at 11:01; Status DC Verapamil HCl (Verapamil) 2.5 mg 1X ONCE IART Last administered on 12/01/18at 11:00; Start 12/01/18 at 11:00; Stop 12/01/18 at 11:01; Status DC Heparin Sodium (Porcine) (Heparin Sodium) 2,500 unit 1X ONCE IART Last administered on 12/01/18at 11:00; Start 12/01/18 at 11:00; Stop 12/01/18 at 11:01; Status DC Heparin Sodium/ Sodium Chloride (HEPARIN for ARTERIAL LINE FLUSH) 1,000 unit 1X ONCE IART Last administered on 12/01/18at 11:00; Start 12/01/18 at 11:00; Stop 12/01/18 at 11:01; Status DC Iodixanol (Visipaque 320) 100 ml 1X ONCE IART Last administered on 12/01/18at 11:00; Start 12/01/18 at 11:00; Stop 12/01/18 at 11:01; Status DC Lidocaine HCl (Lidocaine 1% 20ml Vial) 20 ml 1X ONCE INJ Last administered on 12/01/18at 11:00; Start 12/01/18 at 11:00; Stop 12/01/18 at 11:01; Status DC Amiodarone HCl 450 mg/Dextrose 259 ml @ 17.26 mls/ hr CONT PRN IV SEE I/O RECORD; Start 12/01/18 at 11:00; Stop 12/01/18 at 11:29; Status DC Bivalirudin (Angiomax) 250 mg STK-MED ONCE IV ; Start 12/01/18 at 10:53; Stop 12/01/18 at 10:54; Status DC Iodixanol (Visipaque 320) 100 ml STK-MED ONCE .ROUTE ; Start 12/01/18 at 10:55; Stop 12/01/18 at 10:56; Status DC Bivalirudin (Angiomax) 250 mg 1X ONCE IV Last administered on 12/01/18at 10:57; Start 12/01/18 at 11:00; Stop 12/01/18 at 11:01; Status DC Clopidogrel Bisulfate (Plavix) 600 mg 1X ONCE PO Last administered on 12/01/18at 12:22; Start 12/01/18 at 11:30; Stop 12/01/18 at 11:31; Status DC Aspirin (Mikaela Aspirin) 325 mg 1X ONCE PO Last administered on 12/01/18at 12:12; Start 12/01/18 at 11:30; Stop 12/01/18 at 11:31; Status DC Aspirin (Ecotrin) 325 mg DAILYWBKFT PO Last administered on 12/03/18at 08:17; Start 12/02/18 at 08:00 Clopidogrel Bisulfate (Plavix) 75 mg DAILYWBKFT PO Last administered on 12/03/18at 08:13; Start 12/02/18 at 08:00 Metoprolol Tartrate (Lopressor) 25 mg BID PO ; Start 12/01/18 at 21:00; Stop 12/01/18 at 21:00; Status DC Nitroglycerin (Nitrostat) 0.4 mg PRN Q5MIN PRN SL CHEST PAIN; Start 12/01/18 at 11:30 Sodium Chloride 1,000 ml @ 125 mls/hr Q8H IV Last administered on 12/03/18at 21:55; Start 12/01/18 at 15:30 Amiodarone HCl 450 mg/Dextrose 259 ml @ 17.26 mls/ hr CONT PRN IV SEE I/O RECORD Last administered on 12/02/18at 03:42; Start 12/01/18 at 17:15; Stop 12/02/18 at 15:05; Status DC Hydralazine HCl (Apresoline Inj) 10 mg PRN Q4HRS PRN IVP ELEVATED BP, SEE COMMENTS Last administered on 12/02/18at 10:11; Start 12/02/18 at 10:15 Lisinopril (Prinivil) 10 mg DAILY PO Last administered on 12/03/18at 08:14; Start 12/02/18 at 14:00 Dopamine HCl/ Dextrose 250 ml @ 8.034 mls/ hr CONT PRN IV SEE I/O RECORD Last administered on 12/03/18at 00:40; Start 12/03/18 at 00:30 Famotidine (Pepcid Vial) 20 mg 1X ONCE IVP Last administered on 12/03/18at 14:00; Start 12/03/18 at 14:00; Stop 12/03/18 at 14:01; Status DC Famotidine (Pepcid Vial) 20 mg BID IVP Last administered on 12/03/18at 21:53; Start 12/03/18 at 21:00 Labetalol HCl (Normodyne Iv Push) 10 mg Q6HRS IVP Last administered on 12/03/18at 20:12; Start 12/03/18 at 20:00 Vancomycin HCl (Vanco Per Pharmacy) 1 each PRN DAILY PRN MC SEE COMMENTS Last administered on 12/04/18at 01:44; Start 12/03/18 at 19:30 Acetaminophen (Tylenol) 650 mg PRN Q6HRS PRN PEG MILD PAIN / TEMP; Start 12/03/18 at 19:30; Stop 12/03/18 at 19:56; Status DC Piperacillin Sod/ Tazobactam Sod 4.5 gm/Sodium Chloride 100 ml @ 200 mls/hr Q6HRS IV Last administered on 12/04/18at 05:18; Start 12/04/18 at 00:00 Vancomycin HCl 1.75 gm/Sodium Chloride 500 ml @ 250 mls/hr 1X ONCE IV Last administered on 12/03/18at 21:54; Start 12/03/18 at 21:00; Stop 12/03/18 at 22:59; Status DC Norepinephrine Bitartrate 250 ml @ 1.875 mls/ hr CONT PRN IV SEE I/O RECORD Last administered on 12/03/18at 23:21; Start 12/03/18 at 23:00 Potassium Chloride (KCl Oral Soln) 40 meq 1X ONCE PEG Last administered on 12/04/18at 00:26; Start 12/04/18 at 00:30; Stop 12/04/18 at 00:31; Status DC Potassium Chloride/Water 100 ml @ 100 mls/hr Q1H IV Last administered on 12/04/18at 02:08; Start 12/04/18 at 01:00; Stop 12/04/18 at 02:59; Status DC Vancomycin HCl 1 gm/Sodium Chloride 250 ml @ 250 mls/hr Q12H IV ; Start 12/04/18 at 10:00 Vancomycin HCl (Vancomycin Trough Level) 1 each 1X ONCE MC ; Start 12/05/18 at 09:30; Stop 12/05/18 at 09:31 Active Scripts Active Reported Simvastatin 40 Mg Tablet 40 Mg PO HS Lisinopril 10 Mg Tablet 10 Mg PO DAILY Metformin Hcl 500 Mg Tablet 500 Mg PO DAILY Vitals/I & O Vital Sign - Last 24 Hours 12/03/18 12/03/18 12/03/18 12/03/18 08:28 09:00 10:00 11:00 Pulse 56 52 48 Resp 16 16 16 B/P (MAP) 158/71 (100) 161/71 (101) 135/64 (87) Pulse Ox 99 38 100 100 O2 Delivery Ventilator Ventilator Ventilator Ventilator 12/03/18 12/03/18 12/03/18 12/03/18 11:40 12:00 12:00 13:00 Temp 98.9 98.9 Pulse 52 50 Resp 15 15 B/P (MAP) 168/69 (102) 148/60 (89) Pulse Ox 99 96 96 O2 Delivery Ventilator Mechanical Ventilator Ventilator Ventilator 4/3012/03/18 12/03/18 12/03/18 13:40 14:00 15:00 16:00 Pulse 54 54 Resp 16 16 B/P (MAP) 149/82 (104) 169/73 (105) Pulse Ox 99 99 99 O2 Delivery Ventilator Ventilator Ventilator Mechanical Ventilator 12/03/18 12/03/18 12/03/18 12/03/18 16:00 17:00 17:00 17:15 Temp 100.1 100.1 Pulse 65 72 75 Resp 16 16 16 B/P (MAP) 171/66 (101) 185/92 (123) 168/77 (107) Pulse Ox 99 99 99 99 O2 Delivery Ventilator Ventilator Ventilator 12/03/18 12/03/18 12/03/18 12/03/18 17:30 18:00 19:00 19:15 Temp 103.2 103.2 Pulse 77 66 92 Resp 16 16 16 B/P (MAP) 176/70 (105) 181/77 (111) 212/89 (130) Pulse Ox 98 100 99 99 O2 Delivery Ventilator Ventilator Ventilator 12/03/18 12/03/18 12/03/18 12/03/18 20:00 20:00 20:12 20:57 Temp 102.4 102.4 Pulse 73 108 Resp 16 B/P (MAP) 144/75 (98) 212/103 Pulse Ox 98 99 O2 Delivery Ventilator Mechanical Ventilator Ventilator 12/03/18 12/03/18 12/03/18 12/03/18 21:00 22:00 23:00 23:00 Pulse 74 70 56 Resp 16 16 16 B/P (MAP) 128/66 (86) 74/51 (59) 62/33 (43) Pulse Ox 94 94 100 99 O2 Delivery Ventilator Ventilator Ventilator Ventilator 12/03/18 12/03/18 12/03/18 12/04/18 23:21 23:59 23:59 00:43 Temp 98.7 98.7 Pulse 60 52 Resp 16 B/P (MAP) 67/39 113/73 (86) Pulse Ox 100 100 O2 Delivery Mechanical Ventilator Ventilator Ventilator 12/04/18 12/04/18 12/04/18 12/04/18 01:00 02:00 03:01 03:39 Pulse 51 49 48 Resp 16 16 16 B/P (MAP) 110/68 (82) 119/72 (88) 117/62 (80) Pulse Ox 100 100 100 100 O2 Delivery Ventilator Ventilator Ventilator Ventilator 12/04/18 12/04/18 12/04/18 12/04/18 04:00 04:00 05:00 06:00 Temp 93.4 93.6 94.0 93.4 93.6 94.0 Pulse 49 50 51 Resp 16 16 16 B/P (MAP) 132/82 (99) 123/79 (94) 118/75 (89) Pulse Ox 100 100 100 O2 Delivery Mechanical Ventilator Ventilator Ventilator Ventilator 12/04/18 07:59 Pulse Ox 100 O2 Delivery Ventilator Intake and Output 12/03/18 12/03/18 12/04/18 14:59 22:59 06:59 Intake Total 10 ml 1276 ml 2144 ml Output Total 675 ml 1110 ml 2000 ml Balance -665 ml 166 ml 144 ml JUSTICE ARROYO MD December 04, 2018 08:25
[2018-12-04] MEDS: LISINOPRIL 10 MG TABLET PO SCH (09:00)
[2018-12-04] MEDS: FAMOTIDINE 20 MG/2 ML VIAL IVP SCH (09:00)
--- NOTE | 2018-12-04 09:43 | NUR ---
SS following up with discharge planning. SS met with RN, Tammi, in ICU for update. Pt continues on vent and is currently not stable to meet with PAT team. SS will continue to follow for discharge planning.
[2018-12-04 09:51] LABS: BASE EXCESS ABG -2 mmol/L (-3-3); CORRECTED PCO2 ABG 83 mmHg; CORRECTED PH ABG 7.16; CORRECTED PO2 ABG 393 mmHg; HCO3 ABG 29 mmol/L (21-28); PO2 ABG 397 mmHg (75-108); SAT O2 ABG 99 % (92-99)
[2018-12-04] MEDS ORDERED: VANCOMYCIN 1 GM in IV NORMAL SALINE 250ML 250 ML IV SCH (10:00)
--- NOTE | 2018-12-04 10:15 | PDOC2 ---
NEUROLOGY CONSULT Date of Admission Date of Admission DATE: 12/04/18 TIME: 10:03 Reason for Consult Reason for Consult: Unresponsive Referring Physician Referring Physician: Dr. Hugehs Source Source: Caregiver (mother), Chart review History of Present Illness History of Present Illness The patient is a 52-year-old right-handed female who was admitted 4 days ago after cardiac arrest with ventricular tachycardia and pulseless electrical activity. She had been somewhat responsive but yesterday after sedation was discontinued, has been fully unresponsive. No seizure activity was witnessed. There is no prior history of stroke or seizure. She was here in July 2017 for chest pain workup that left against medical advice. Past Medical History Cardiovascular: HTN, Hyperlipidemia GI: Other (Pancreatitis) Psych: Addictions, Depression, Panic Endocrine: Diabetes, Hypothyroidism Past Surgical History Past Surgical History: Appendectomy, Other ( oophorectomy) Family History Family History: CAD Social History Social History Single, unemployed, abuses alcohol, tobacco, methamphetamine, cocaine, marijuana Current Medications Current Medications Current Medications Naloxone HCl 2 mg/ Dextrose 502 ml @ 0 mls/hr 1X ONCE IV Last administered on 11/30/18at 10:08; Start 11/30/18 at 09:45; Stop 11/30/18 at 16:51; Status DC Sodium Chloride 1,000 ml @ 1,000 mls/hr 1X ONCE IV Last administered on 11/30/18at 10:04; Start 11/30/18 at 10:00; Stop 11/30/18 at 10:59; Status DC Amiodarone HCl 150 mg/Dextrose 103 ml @ 618 mls/hr 1X ONCE IV Last administered on 11/30/18at 10:13; Start 11/30/18 at 10:00; Stop 11/30/18 at 10:09; Status DC Amiodarone HCl 900 mg/Dextrose 518 ml @ 0 mls/hr CONT PRN IV SEE I/O RECORD Last administered on 11/30/18at 10:24; Start 11/30/18 at 10:00; Stop 11/30/18 at 10:24; Status DC Insulin Human Regular 150 ml @ 0 mls/hr 1X ONCE IV ; Start 11/30/18 at 10:00; Stop 11/30/18 at 10:01; Status UNV Insulin Human Regular 150 ml @ 0 mls/hr 1X ONCE IV Last administered on 11/30/18at 11:32; Start 11/30/18 at 10:00; Stop 11/30/18 at 16:51; Status DC Amiodarone HCl (Cordarone) 150 mg STK-MED ONCE .ROUTE ; Start 11/30/18 at 10:00; Stop 11/30/18 at 10:01; Status DC Propofol (Diprivan) 200 mg 1X ONCE IV ; Start 11/30/18 at 10:15; Stop 11/30/18 at 10:16; Status Cancel Sodium Chloride 1,000 ml @ 1,000 mls/hr 1X ONCE IV Last administered on 11/30at 10:54; Start 11/30/18 at 10:30; Stop 11/30/18 at 11:29; Status DC Propofol 50 ml @ As Directed STK-MED ONCE IV ; Start 11/30/18 at 10:17; Stop 11/30/18 at 10:18; Status DC Propofol 50 ml @ 1.037 mls/ hr 1X ONCE IV Last administered on 11/30/18at 10:20; Start 11/30/18 at 10:30; Stop 12/02/18 at 08:36; Status DC Piperacillin Sod/ Tazobactam Sod 3.375 gm/Sodium Chloride 50 ml @ 100 mls/hr 1X ONCE IV Last administered on 11/30/18at 11:02; Start 11/30/18 at 10:30; Stop 11/30/18 at 10:59; Status DC Ondansetron HCl (Zofran) 4 mg PRN Q8HRS PRN IV NAUSEA/VOMITING; Start 11/30/18 at 10:30; Stop 12/01/18 at 08:41; Status DC Sodium Chloride 1,000 ml @ 125 mls/hr Q8H IV Last administered on 12/01/18at 04:27; Start 11/30/18 at 10:29; Stop 12/01/18 at 10:28; Status DC Sodium Bicarbonate (Sodium Bicarb Adult 8.4% Syr) 50 meq 1X ONCE IV Last administered on 11/30/18at 11:31; Start 11/30/18 at 11:30; Stop 11/30/18 at 11:31; Status DC Fentanyl Citrate 30 ml @ 0 mls/hr CONT PRN IV SEE PROTOCOL Last administered on 12/03/18at 03:32; Start 11/30/18 at 12:00 Propofol 100 ml @ 0 mls/hr CONT PRN IV SEE PROTOCOL Last administered on 9at 08:09; Start 11/30/18 at 12:00 Fentanyl Citrate (Fentanyl 2ml Vial) 25 mcg PRN Q1HR PRN IV SEE COMMENTS; Start 11/30/18 at 12:00 Fentanyl Citrate (Fentanyl 2ml Vial) 50 mcg PRN Q1HR PRN IV SEE COMMENTS; Start 11/30/18 at 12:00 Chlorhexidine Gluconate (Peridex) 15 ml BID MM ; Start 11/30/18 at 21:00; Stop 11/30/18 at 21:00; Status DC Midazolam HCl 100 ml @ 0 mls/hr CONT PRN IV SEE PROTOCOL; Start 11/30/18 at 12:00 Propofol 100 ml @ As Directed STK-MED ONCE IV ; Start 11/30/18 at 11:52; Stop 11/30/18 at 11:53; Status DC Magnesium Sulfate 50 ml @ 25 mls/hr 1X ONCE IV Last administered on 11/30/18at 14:11; Start 11/30/18 at 13:30; Stop 11/30/18 at 15:29; Status DC Piperacillin Sod/ Tazobactam Sod (Zosyn Per Pharmacy) 1 each PRN DAILY PRN MC SEE COMMENTS; Start 11/30/18 at 15:15 Piperacillin Sod/ Tazobactam Sod 3.375 gm/Sodium Chloride 50 ml @ 100 mls/hr Q6H IV Last administered on 12/03/18at 18:00; Start 11/30/18 at 16:00; Stop 12/03/18 at 19:41; Status DC Dextrose/Sodium Chloride 1,000 ml @ 250 mls/hr Q4H IV Last administered on 11/30/18at 16:18; Start 11/30/18 at 15:15; Stop 11/30/18 at 16:51; Status DC Insulin Human Lispro (HumaLOG) 0-7 UNITS TIDWMEALS SQ Last administered on 12/01/18at 08:29; Start 11/30/18 at 17:00; Stop 12/01/18 at 08:33; Status DC Dextrose (Dextrose 50%-Water Syringe) 12.5 gm PRN Q15MIN PRN IV SEE COMMENTS; Start 11/30/18 at 16:45; Stop 12/01/18 at 11:30; Status DC Heparin Sodium/ Dextrose 500 ml @ 17.357 mls/ hr CONT PRN IV SEE I/O RECORD Last administered on 11/30/18at 19:46; Start 11/30/18 at 19:00; Stop 12/01/18 at 11:29; Status DC Heparin Sodium (Porcine) (Heparin Sodium) 1,800 unit PRN Q6HRS PRN IV FOR UFH LEVEL LESS THAN 0.2 Last administered on 11/30/18at 19:47; Start 11/30/18 at 19:00; Stop 12/01/18 at 11:29; Status DC Tirofiban/Sodium Chloride 100 ml @ 13.018 mls/ hr CONT PRN IV PER PROTOCOL Last administered on 12/01/18at 05:35; Start 11/30/18 at 19:00; Stop 12/01/18 at 11:29; Status DC Info (Anti-Coagulation Monitoring By Pharmacy) 1 each PRN DAILY PRN MC SEE COMMENTS; Start 12/01/18 at 08:00; Stop 12/01/18 at 11:30; Status DC Insulin Human Lispro (HumaLOG) 0-7 UNITS Q6HRS SQ Last administered on 12/04/18at 05:19; Start 12/01/18 at 12:00 Ondansetron HCl (Zofran) 4 mg PRN Q6HRS PRN IV NAUSEA/VOMITING; Start 12/01/18 at 08:45 Acetaminophen (Tylenol) 650 mg PRN Q6HRS PRN PEG MILD PAIN / TEMP Last administered on 12/03/18at 19:54; Start 12/01/18 at 08:45 Insulin Human Lispro (HumaLOG) 0-9 UNITS TIDWMEALS SQ ; Start 12/01/18 at 12:00; Status UNV Dextrose (Dextrose 50%-Water Syringe) 12.5 gm PRN Q15MIN PRN IV SEE COMMENTS; Start 12/01/18 at 08:45 Insulin Glargine (Lantus) 15 units 1X STAT SQ Last administered on 12/01/18at 09:01; Start 12/01/18 at 08:39; Stop 12/01/18 at 08:43; Status DC Simvastatin (Zocor) 40 mg QHS NG Last administered on 12/01/18at 21:35; Start 12/01/18 at 21:00 Heparin Sodium (Porcine) (Heparin Sodium) 10,000 unit STK-MED ONCE .ROUTE ; Start 12/01/18 at 09:50; Stop 12/01/18 at 09:51; Status DC Verapamil HCl (Verapamil) 5 mg STK-MED ONCE .ROUTE ; Start 12/01/18 at 09:50; Stop 12/01/18 at 09:51; Status DC Nitroglycerin (Nitroglycerin) 200 mcg STK-MED ONCE .ROUTE ; Start 12/01/18 at 09:50; Stop 12/01/18 at 09:51; Status DC Iodixanol (Visipaque 320) 100 ml STK-MED ONCE .ROUTE ; Start 12/01/18 at 09:54; Stop 12/01/18 at 09:55; Status DC Lidocaine HCl (Lidocaine 1% 20ml Vial) 20 ml STK-MED ONCE .ROUTE ; Start 12/01/18 at 09:55; Stop 12/01/18 at 09:56; Status DC Heparin Sodium/ Sodium Chloride 1,000 ml @ As Directed STK-MED ONCE .ROUTE ; Start 12/01/18 at 09:55; Stop 12/01/18 at 09:56; Status DC Nitroglycerin (Nitroglycerin) 200 mcg 1X ONCE IART Last administered on 12/01/18at 11:00; Start 12/01/18 at 11:00; Stop 12/01/18 at 11:01; Status DC Verapamil HCl (Verapamil) 2.5 mg 1X ONCE IART Last administered on 12/01/18at 11:00; Start 12/01/18 at 11:00; Stop 12/01/18 at 11:01; Status DC Heparin Sodium (Porcine) (Heparin Sodium) 2,500 unit 1X ONCE IART Last administered on 12/01/18at 11:00; Start 12/01/18 at 11:00; Stop 12/01/18 at 11:01; Status DC Heparin Sodium/ Sodium Chloride (HEPARIN for ARTERIAL LINE FLUSH) 1,000 unit 1X ONCE IART Last administered on 12/01/18at 11:00; Start 12/01/18 at 11:00; Stop 12/01/18 at 11:01; Status DC Iodixanol (Visipaque 320) 100 ml 1X ONCE IART Last administered on 12/01/18at 11:00; Start 12/01/18 at 11:00; Stop 12/01/18 at 11:01; Status DC Lidocaine HCl (Lidocaine 1% 20ml Vial) 20 ml 1X ONCE INJ Last administered on 12/01/18at 11:00; Start 12/01/18 at 11:00; Stop 12/01/18 at 11:01; Status DC Amiodarone HCl 450 mg/Dextrose 259 ml @ 17.26 mls/ hr CONT PRN IV SEE I/O RECORD; Start 12/01/18 at 11:00; Stop 12/01/18 at 11:29; Status DC Bivalirudin (Angiomax) 250 mg STK-MED ONCE IV ; Start 12/01/18 at 10:53; Stop 12/01/18 at 10:54; Status DC Iodixanol (Visipaque 320) 100 ml STK-MED ONCE .ROUTE ; Start 12/01/18 at 10:55; Stop 12/01/18 at 10:56; Status DC Bivalirudin (Angiomax) 250 mg 1X ONCE IV Last administered on 12/01/18at 10:57; Start 12/01/18 at 11:00; Stop 12/01/18 at 11:01; Status DC Clopidogrel Bisulfate (Plavix) 600 mg 1X ONCE PO Last administered on 12/01/18at 12:22; Start 12/01/18 at 11:30; Stop 12/01/18 at 11:31; Status DC Aspirin (Mikaela Aspirin) 325 mg 1X ONCE PO Last administered on 12/01/18at 12:12; Start 12/01/18 at 11:30; Stop 12/01/18 at 11:31; Status DC Aspirin (Ecotrin) 325 mg DAILYWBKFT PO Last administered on 12/03/18at 08:17; Start 12/02/18 at 08:00 Clopidogrel Bisulfate (Plavix) 75 mg DAILYWBKFT PO Last administered on 12/03/18at 08:13; Start 12/02/18 at 08:00 Metoprolol Tartrate (Lopressor) 25 mg BID PO ; Start 12/01/18 at 21:00; Stop 12/01/18 at 21:00; Status DC Nitroglycerin (Nitrostat) 0.4 mg PRN Q5MIN PRN SL CHEST PAIN; Start 12/01/18 at 11:30 Sodium Chloride 1,000 ml @ 125 mls/hr Q8H IV Last administered on 12/03/18at 21:55; Start 12/01/18 at 15:30 Amiodarone HCl 450 mg/Dextrose 259 ml @ 17.26 mls/ hr CONT PRN IV SEE I/O RECORD Last administered on 12/02/18at 03:42; Start 12/01/18 at 17:15; Stop 12/02/18 at 15:05; Status DC Hydralazine HCl (Apresoline Inj) 10 mg PRN Q4HRS PRN IVP ELEVATED BP, SEE COMMENTS Last administered on 12/02/18at 10:11; Start 12/02/18 at 10:15 Lisinopril (Prinivil) 10 mg DAILY PO Last administered on 12/03/18at 08:14; Start 12/02/18 at 14:00 Dopamine HCl/ Dextrose 250 ml @ 8.034 mls/ hr CONT PRN IV SEE I/O RECORD Last administered on 12/03/18at 00:40; Start 12/03/18 at 00:30 Famotidine (Pepcid Vial) 20 mg 1X ONCE IVP Last administered on 12/03/18at 14:00; Start 12/03/18 at 14:00; Stop 12/03/18 at 14:01; Status DC Famotidine (Pepcid Vial) 20 mg BID IVP Last administered on 12/03/18at 21:53; Start 12/03/18 at 21:00 Labetalol HCl (Normodyne Iv Push) 10 mg Q6HRS IVP Last administered on 12/03/18at 20:12; Start 12/03/18 at 20:00 Vancomycin HCl (Vanco Per Pharmacy) 1 each PRN DAILY PRN MC SEE COMMENTS Last administered on 12/04/18at 09:41; Start 12/03/18 at 19:30 Acetaminophen (Tylenol) 650 mg PRN Q6HRS PRN PEG MILD PAIN / TEMP; Start 12/03/18 at 19:30; Stop 12/03/18 at 19:56; Status DC Piperacillin Sod/ Tazobactam Sod 4.5 gm/Sodium Chloride 100 ml @ 200 mls/hr Q6HRS IV Last administered on 12/04/18at 05:18; Start 12/04/18 at 00:00 Vancomycin HCl 1.75 gm/Sodium Chloride 500 ml @ 250 mls/hr 1X ONCE IV Last administered on 12/03/18at 21:54; Start 12/03/18 at 21:00; Stop 12/03/18 at 22:59; Status DC Norepinephrine Bitartrate 250 ml @ 1.875 mls/ hr CONT PRN IV SEE I/O RECORD Last administered on 12/03/18at 23:21; Start 12/03/18 at 23:00 Potassium Chloride (KCl Oral Soln) 40 meq 1X ONCE PEG Last administered on 12/04/18at 00:26; Start 12/04/18 at 00:30; Stop 12/04/18 at 00:31; Status DC Potassium Chloride/Water 100 ml @ 100 mls/hr Q1H IV Last administered on 12/04/18at 02:08; Start 12/04/18 at 01:00; Stop 12/04/18 at 02:59; Status DC Vancomycin HCl 1 gm/Sodium Chloride 250 ml @ 250 mls/hr Q12H IV ; Start 12/04/18 at 10:00 Vancomycin HCl (Vancomycin Trough Level) 1 each 1X ONCE MC ; Start 12/05/18 at 09:30; Stop 12/05/18 at 09:31 Heparin Sodium (Porcine) (Heparin Sodium) 5,000 unit Q8HRS SQ ; Start 12/04/18 at 14:00 Active Scripts Active Reported Simvastatin 40 Mg Tablet 40 Mg PO HS Lisinopril 10 Mg Tablet 10 Mg PO DAILY Metformin Hcl 500 Mg Tablet 500 Mg PO DAILY Allergies Allergies: Coded Allergies: No Known Drug Allergies (Unverified , 07/21/17) ROS Review of System Negative for fever, chills, weight loss, indigestion, hematochezia, melena, and dysuria. She had been complaining of dyspnea and chest pain. Full 14-point review of systems is negative. Physical Exam Physical Examination General: Well-developed, well-nourished white female in no acute distress, intubated HEENT: Normocephalic andatraumatic. Tympanic membranes clear.Temporal arteriespulsatile and nontender.Fundoscopic exam unremarkable Neck: Supple without bruit, no meningismus Musculoskeletal: Stability:see neurologic. Gait exam:see neurologic. Tone:see neurologic.Strength:see neurologic. Neurological: Brain note Prerequisites (all must be checked) x Coma, irreversible and cause known. x Neuroimaging explains coma, no structural defect, microscopic. x PHERESIS SPECIALIST depressant drug effect absent (if indicated toxicology screen; if barbiturates given, serum level <10 g/mL). x No evidence of residual paralytics (electrical stimulation if paralytics used). x Absence of severe acid-base, electrolyte, endocrine abnormality. x Normothermia or mild hypothermia (core temperature >36C). x Systolic blood pressure 100 mm Hg. x No spontaneous respirations. Examination (all must be checked) X Pupils nonreactive to bright light. X Corneal reflex absent. X Oculocephalic reflex absent (tested only if C-spine integrity ensured). x Oculovestibular reflex absent. x No facial movement to noxious stimuli at supraorbital nerve, temporomandibular joint. x Gag reflex absent. x Cough reflex absent to tracheal suctioning. x Absence of motor response to noxious stimuli in all four limbs (spinally mediated reflexes are permissible). Apnea testing (all must be checked) x Patient is hemodynamically stable. x Ventilator adjusted to provide normocarbia (PaCO2 3545 mm Hg). x Patient preoxygenated with 100% FiO2 for >10 minutes to PaO2 >200 mm Hg. x Patient well-oxygenated with a positive end-expiratory pressure (PEEP) of 5 cm of water. x Provide oxygen via a suction catheter to the level of the brandie at 6 L/min or attach T-piece with continuous positive airway pressure (CPAP) at 10 cm H2O x Disconnect ventilator. x Spontaneous respirations absent. x Arterial blood gas drawn at 810 minutes, patient reconnected to ventilator. x PCO2 60 mm Hg, or 20 mm Hg rise from normal baseline value. No need for ancillary testing Vitals VITALS Vital Signs Date Time Temp Pulse Resp B/P (MAP) Pulse Ox O2 Delivery O2 Flow Rate FiO2 12/04/18 07:59 100 Ventilator 12/04/18 06:00 94.0 51 16 118/75 (89) 94.0 Labs Labs Laboratory Tests Test 12/02/18 12:11 12/02/18 17:36 12/02/18 23:29 12/03/18 04:54 Glucose (Fingerstick) 190 mg/dL (70-99) 160 mg/dL (70-99) 171 mg/dL (70-99) 190 mg/dL (70-99) Test 12/03/18 08:00 12/03/18 10:10 12/03/18 12:38 12/03/18 19:31 O2 Saturation 96 % (92-99) Arterial Blood pH 7.35 (7.35-7.45) Arterial Blood pCO2 at Patient Temp 38 mmHg (35-46) Arterial Blood pO2 at Patient Temp 90 mmHg (75-108) Arterial Blood HCO3 20 mmol/L (21-28) Arterial Blood Base Excess -5 mmol/L (-3-3) FiO2 40 Sodium Level 143 mmol/L (136-145) Potassium Level 3.5 mmol/L (3.5-5.1) Chloride Level 106 mmol/L (98-107) Carbon Dioxide Level 26 mmol/L (21-32) Anion Gap 11 (6-14) Blood Urea Nitrogen 22 mg/dL (7-20) Creatinine 0.9 mg/dL (0.6-1.0) Estimated GFR (Cockcroft-Gault) 66.0 BUN/Creatinine Ratio 24 (6-20) Glucose Level 213 mg/dL (70-99) Calcium Level 8.7 mg/dL (8.5-10.1) Total Bilirubin 0.4 mg/dL (0.2-1.0) Aspartate Amino Transf (AST/SGOT) 121 U/L (15-37) Alanine Aminotransferase (ALT/SGPT) 52 U/L (14-59) Alkaline Phosphatase 93 U/L (46-116) Total Protein 6.2 g/dL (6.4-8.2) Albumin 2.7 g/dL (3.4-5.0) Albumin/Globulin Ratio 0.8 (1.0-1.7) Glucose (Fingerstick) 198 mg/dL (70-99) 179 mg/dL (70-99) Test 12/03/18 20:00 12/03/18 23:20 12/04/18 00:01 12/04/18 03:20 Urine Collection Type Unknown Urine Color Yellow Urine Clarity Clear Urine pH 5.5 Urine Specific [place] 1.010 Urine Protein Negative mg/dL (NEG-TRACE) Urine Glucose (UA) 500 mg/dL (NEG) Urine Ketones (Stick) 40 mg/dL (NEG) Urine Blood Small (NEG) Urine Nitrite Negative (NEG) Urine Bilirubin Negative (NEG) Urine Urobilinogen Dipstick 0.2 mg/dL (0.2 mg/dL) Urine Leukocyte Esterase Negative (NEG) Urine RBC 1-2 /HPF (0-2) Urine WBC 1-4 /HPF (0-4) Urine Squamous Epithelial Cells Few /LPF Urine Bacteria 0 /HPF (0-FEW) Urine Mucus Mod /LPF White Blood Count 5.9 x10^3/uL (4.0-11.0) Red Blood Count 3.27 x10^6/uL (3.50-5.40) Hemoglobin 10.1 g/dL (12.0-15.5) Hematocrit 29.8 % (36.0-47.0) Mean Corpuscular Volume 91 fL (79-100) Mean Corpuscular Hemoglobin 31 pg (25-35) Mean Corpuscular Hemoglobin Concent 34 g/dL (31-37) Red Cell Distribution Width 12.6 % (11.5-14.5) Platelet Count 181 x10^3/uL (140-400) Neutrophils (%) (Auto) 71 % (31-73) Lymphocytes (%) (Auto) 20 % (24-48) Monocytes (%) (Auto) 9 % (0-9) Eosinophils (%) (Auto) 0 % (0-3) Basophils (%) (Auto) 1 % (0-3) Neutrophils # (Auto) 4.2 x10^3uL (1.8-7.7) Lymphocytes # (Auto) 1.2 x10^3/uL (1.0-4.8) Monocytes # (Auto) 0.5 x10^3/uL (0.0-1.1) Eosinophils # (Auto) 0.0 x10^3/uL (0.0-0.7) Basophils # (Auto) 0.0 x10^3/uL (0.0-0.2) Sodium Level 139 mmol/L (136-145) 147 mmol/L (136-145) Potassium Level 2.9 mmol/L (3.5-5.1) 3.9 mmol/L (3.5-5.1) Chloride Level 106 mmol/L (98-107) 112 mmol/L (98-107) Carbon Dioxide Level 25 mmol/L (21-32) 24 mmol/L (21-32) Anion Gap 8 (6-14) 11 (6-14) Blood Urea Nitrogen 22 mg/dL (7-20) 18 mg/dL (7-20) Creatinine 1.0 mg/dL (0.6-1.0) 0.9 mg/dL (0.6-1.0) Estimated GFR (Cockcroft-Gault) 58.5 66.0 BUN/Creatinine Ratio 22 (6-20) 20 (6-20) Glucose Level 245 mg/dL (70-99) 236 mg/dL (70-99) Calcium Level 7.2 mg/dL (8.5-10.1) 8.1 mg/dL (8.5-10.1) Total Bilirubin 0.3 mg/dL (0.2-1.0) 0.6 mg/dL (0.2-1.0) Aspartate Amino Transf (AST/SGOT) 93 U/L (15-37) 93 U/L (15-37) Alanine Aminotransferase (ALT/SGPT) 38 U/L (14-59) 41 U/L (14-59) Alkaline Phosphatase 66 U/L (46-116) 84 U/L (46-116) Total Protein 4.7 g/dL (6.4-8.2) 5.4 g/dL (6.4-8.2) Albumin 1.9 g/dL (3.4-5.0) 2.2 g/dL (3.4-5.0) Albumin/Globulin Ratio 0.7 (1.0-1.7) 0.7 (1.0-1.7) Magnesium Level 1.3 mg/dL (1.8-2.4) Test 12/04/18 05:11 12/04/18 08:10 Glucose (Fingerstick) 214 mg/dL (70-99) O2 Saturation 97 % (92-99) Arterial Blood pH 7.39 (7.35-7.45) Arterial Blood pH (Temp corrected) 7.41 Arterial Blood pCO2 at Patient Temp 38 mmHg (35-46) Arterial Blood pCO2 (Temp correct) 36 mmHg Arterial Blood pO2 at Patient Temp 109 mmHg (75-108) Arterial Blood pO2 (Temp corrected) 99 mmHg Arterial Blood HCO3 23 mmol/L (21-28) Arterial Blood Base Excess -2 mmol/L (-3-3) Laboratory Tests Test 12/03/18 10:10 12/03/18 12:38 12/03/18 19:31 12/03/18 20:00 Sodium Level 143 mmol/L (136-145) Potassium Level 3.5 mmol/L (3.5-5.1) Chloride Level 106 mmol/L (98-107) Carbon Dioxide Level 26 mmol/L (21-32) Anion Gap 11 (6-14) Blood Urea Nitrogen 22 mg/dL (7-20) Creatinine 0.9 mg/dL (0.6-1.0) Estimated GFR (Cockcroft-Gault) 66.0 BUN/Creatinine Ratio 24 (6-20) Glucose Level 213 mg/dL (70-99) Calcium Level 8.7 mg/dL (8.5-10.1) Total Bilirubin 0.4 mg/dL (0.2-1.0) Aspartate Amino Transf (AST/SGOT) 121 U/L (15-37) Alanine Aminotransferase (ALT/SGPT) 52 U/L (14-59) Alkaline Phosphatase 93 U/L (46-116) Total Protein 6.2 g/dL (6.4-8.2) Albumin 2.7 g/dL (3.4-5.0) Albumin/Globulin Ratio 0.8 (1.0-1.7) Glucose (Fingerstick) 198 mg/dL (70-99) 179 mg/dL (70-99) Urine Collection Type Unknown Urine Color Yellow Urine Clarity Clear Urine pH 5.5 Urine Specific [place] 1.010 Urine Protein Negative mg/dL (NEG-TRACE) Urine Glucose (UA) 500 mg/dL (NEG) Urine Ketones (Stick) 40 mg/dL (NEG) Urine Blood Small (NEG) Urine Nitrite Negative (NEG) Urine Bilirubin Negative (NEG) Urine Urobilinogen Dipstick 0.2 mg/dL (0.2 mg/dL) Urine Leukocyte Esterase Negative (NEG) Urine RBC 1-2 /HPF (0-2) Urine WBC 1-4 /HPF (0-4) Urine Squamous Epithelial Cells Few /LPF Urine Bacteria 0 /HPF (0-FEW) Urine Mucus Mod /LPF Test 12/03/18 23:20 12/04/18 00:01 12/04/18 03:20 12/04/18 05:11 White Blood Count 5.9 x10^3/uL (4.0-11.0) Red Blood Count 3.27 x10^6/uL (3.50-5.40) Hemoglobin 10.1 g/dL (12.0-15.5) Hematocrit 29.8 % (36.0-47.0) Mean Corpuscular Volume 91 fL (79-100) Mean Corpuscular Hemoglobin 31 pg (25-35) Mean Corpuscular Hemoglobin Concent 34 g/dL (31-37) Red Cell Distribution Width 12.6 % (11.5-14.5) Platelet Count 181 x10^3/uL (140-400) Neutrophils (%) (Auto) 71 % (31-73) Lymphocytes (%) (Auto) 20 % (24-48) Monocytes (%) (Auto) 9 % (0-9) Eosinophils (%) (Auto) 0 % (0-3) Basophils (%) (Auto) 1 % (0-3) Neutrophils # (Auto) 4.2 x10^3uL (1.8-7.7) Lymphocytes # (Auto) 1.2 x10^3/uL (1.0-4.8) Monocytes # (Auto) 0.5 x10^3/uL (0.0-1.1) Eosinophils # (Auto) 0.0 x10^3/uL (0.0-0.7) Basophils # (Auto) 0.0 x10^3/uL (0.0-0.2) Sodium Level 139 mmol/L (136-145) 147 mmol/L (136-145) Potassium Level 2.9 mmol/L (3.5-5.1) 3.9 mmol/L (3.5-5.1) Chloride Level 106 mmol/L (98-107) 112 mmol/L (98-107) Carbon Dioxide Level 25 mmol/L (21-32) 24 mmol/L (21-32) Anion Gap 8 (6-14) 11 (6-14) Blood Urea Nitrogen 22 mg/dL (7-20) 18 mg/dL (7-20) Creatinine 1.0 mg/dL (0.6-1.0) 0.9 mg/dL (0.6-1.0) Estimated GFR (Cockcroft-Gault) 58.5 66.0 BUN/Creatinine Ratio 22 (6-20) 20 (6-20) Glucose Level 245 mg/dL (70-99) 236 mg/dL (70-99) Calcium Level 7.2 mg/dL (8.5-10.1) 8.1 mg/dL (8.5-10.1) Total Bilirubin 0.3 mg/dL (0.2-1.0) 0.6 mg/dL (0.2-1.0) Aspartate Amino Transf (AST/SGOT) 93 U/L (15-37) 93 U/L (15-37) Alanine Aminotransferase (ALT/SGPT) 38 U/L (14-59) 41 U/L (14-59) Alkaline Phosphatase 66 U/L (46-116) 84 U/L (46-116) Total Protein 4.7 g/dL (6.4-8.2) 5.4 g/dL (6.4-8.2) Albumin 1.9 g/dL (3.4-5.0) 2.2 g/dL (3.4-5.0) Albumin/Globulin Ratio 0.7 (1.0-1.7) 0.7 (1.0-1.7) Magnesium Level 1.3 mg/dL (1.8-2.4) Glucose (Fingerstick) 214 mg/dL (70-99) Test 12/04/18 08:10 O2 Saturation 97 % (92-99) Arterial Blood pH 7.39 (7.35-7.45) Arterial Blood pH (Temp corrected) 7.41 Arterial Blood pCO2 at Patient Temp 38 mmHg (35-46) Arterial Blood pCO2 (Temp correct) 36 mmHg Arterial Blood pO2 at Patient Temp 109 mmHg (75-108) Arterial Blood pO2 (Temp corrected) 99 mmHg Arterial Blood HCO3 23 mmol/L (21-28) Arterial Blood Base Excess -2 mmol/L (-3-3) Images Images CT HEAD WO CONTRAST History: Altered mental status, found unresponsive by family Comparison: None. Technique: Noncontrast CT imaging was performed of the head. Exposure: One or more of the following individualized dose reduction techniques were utilized for this examination: 1. Automated exposure control 2. Adjustment of the mA and/or kV according to patient size 3. Use of iterative reconstruction technique. Findings: No acute extra-axial or parenchymal hemorrhage is identified. There is no significant intra-axial mass effect, midline shift, or extra-axial fluid collection. The mike-white differentiation of the major vascular territories is preserved. The ventricles, sulci, and cisterns are within normal limits in size and configuration. The mastoid air cells and the visualized paranasal sinuses are aerated. No acute calvarial abnormality is identified. There is atherosclerotic calcification of the intradural vertebral arteries and carotid siphons bilaterally. Impression: 1. No acute intracranial abnormality is identified. Assessment/Plan Assessment/Plan Impression: The patient is brain , declared at 10:05 AM. Recommendations: Fully discussed with patient's mother. [facility] is on-site. Thank you for letting me help with the patient's care. STEVEN RODGERS MD December 04, 2018 10:15
[2018-12-04 10:28] LABS: PCO2 ABG 85 mmHg (35-46)
--- NOTE | 2018-12-04 12:01 | PDOC ---
CARDIO Progress Notes Date and Time Date of Service 12/04/18 Time of Evaluation 1110 Subjective Subjective: Other (intubation. Off sedation- to waking up) Vitals Vitals Vital Signs Date Time Temp Pulse Resp B/P (MAP) Pulse Ox O2 Delivery O2 Flow Rate FiO2 12/04/18 11:52 98.5 55 14 127/71 (89) 98 Ventilator 98.5 12/04/18 09:30 6.0 Weight Weight [ ] Input and Output Intake and Output Intake and Output 12/04/18 07:00 Intake Total 3430 ml Output Total 4085 ml Balance -655 ml Intake Oral 0 ml IV Total 3360 ml Tube Feeding 70 ml Output Urine Total 4085 ml Gastric Drainage Total 0 ml # Bowel Movements 3 Laboratory Labs Laboratory Tests Test 12/03/18 12:38 12/03/18 19:31 12/03/18 20:00 12/03/18 23:20 Glucose (Fingerstick) 198 mg/dL (70-99) 179 mg/dL (70-99) Urine Collection Type Unknown Urine Color Yellow Urine Clarity Clear Urine pH 5.5 Urine Specific Cut Off 1.010 Urine Protein Negative mg/dL (NEG-TRACE) Urine Glucose (UA) 500 mg/dL (NEG) Urine Ketones (Stick) 40 mg/dL (NEG) Urine Blood Small (NEG) Urine Nitrite Negative (NEG) Urine Bilirubin Negative (NEG) Urine Urobilinogen Dipstick 0.2 mg/dL (0.2 mg/dL) Urine Leukocyte Esterase Negative (NEG) Urine RBC 1-2 /HPF (0-2) Urine WBC 1-4 /HPF (0-4) Urine Squamous Epithelial Cells Few /LPF Urine Bacteria 0 /HPF (0-FEW) Urine Mucus Mod /LPF White Blood Count 5.9 x10^3/uL (4.0-11.0) Red Blood Count 3.27 x10^6/uL (3.50-5.40) Hemoglobin 10.1 g/dL (12.0-15.5) Hematocrit 29.8 % (36.0-47.0) Mean Corpuscular Volume 91 fL (79-100) Mean Corpuscular Hemoglobin 31 pg (25-35) Mean Corpuscular Hemoglobin Concent 34 g/dL (31-37) Red Cell Distribution Width 12.6 % (11.5-14.5) Platelet Count 181 x10^3/uL (140-400) Neutrophils (%) (Auto) 71 % (31-73) Lymphocytes (%) (Auto) 20 % (24-48) Monocytes (%) (Auto) 9 % (0-9) Eosinophils (%) (Auto) 0 % (0-3) Basophils (%) (Auto) 1 % (0-3) Neutrophils # (Auto) 4.2 x10^3uL (1.8-7.7) Lymphocytes # (Auto) 1.2 x10^3/uL (1.0-4.8) Monocytes # (Auto) 0.5 x10^3/uL (0.0-1.1) Eosinophils # (Auto) 0.0 x10^3/uL (0.0-0.7) Basophils # (Auto) 0.0 x10^3/uL (0.0-0.2) Sodium Level 139 mmol/L (136-145) Potassium Level 2.9 mmol/L (3.5-5.1) Chloride Level 106 mmol/L (98-107) Carbon Dioxide Level 25 mmol/L (21-32) Anion Gap 8 (6-14) Blood Urea Nitrogen 22 mg/dL (7-20) Creatinine 1.0 mg/dL (0.6-1.0) Estimated GFR (Cockcroft-Gault) 58.5 BUN/Creatinine Ratio 22 (6-20) Glucose Level 245 mg/dL (70-99) Calcium Level 7.2 mg/dL (8.5-10.1) Total Bilirubin 0.3 mg/dL (0.2-1.0) Aspartate Amino Transf (AST/SGOT) 93 U/L (15-37) Alanine Aminotransferase (ALT/SGPT) 38 U/L (14-59) Alkaline Phosphatase 66 U/L (46-116) Total Protein 4.7 g/dL (6.4-8.2) Albumin 1.9 g/dL (3.4-5.0) Albumin/Globulin Ratio 0.7 (1.0-1.7) Test 12/04/18 00:01 12/04/18 03:20 12/04/18 05:11 12/04/18 08:10 Magnesium Level 1.3 mg/dL (1.8-2.4) Sodium Level 147 mmol/L (136-145) Potassium Level 3.9 mmol/L (3.5-5.1) Chloride Level 112 mmol/L (98-107) Carbon Dioxide Level 24 mmol/L (21-32) Anion Gap 11 (6-14) Blood Urea Nitrogen 18 mg/dL (7-20) Creatinine 0.9 mg/dL (0.6-1.0) Estimated GFR (Cockcroft-Gault) 66.0 BUN/Creatinine Ratio 20 (6-20) Glucose Level 236 mg/dL (70-99) Calcium Level 8.1 mg/dL (8.5-10.1) Total Bilirubin 0.6 mg/dL (0.2-1.0) Aspartate Amino Transf (AST/SGOT) 93 U/L (15-37) Alanine Aminotransferase (ALT/SGPT) 41 U/L (14-59) Alkaline Phosphatase 84 U/L (46-116) Total Protein 5.4 g/dL (6.4-8.2) Albumin 2.2 g/dL (3.4-5.0) Albumin/Globulin Ratio 0.7 (1.0-1.7) Glucose (Fingerstick) 214 mg/dL (70-99) O2 Saturation 97 % (92-99) Arterial Blood pH 7.39 (7.35-7.45) Arterial Blood pH (Temp corrected) 7.41 Arterial Blood pCO2 at Patient Temp 38 mmHg (35-46) Arterial Blood pCO2 (Temp correct) 36 mmHg Arterial Blood pO2 at Patient Temp 109 mmHg (75-108) Arterial Blood pO2 (Temp corrected) 99 mmHg Arterial Blood HCO3 23 mmol/L (21-28) Arterial Blood Base Excess -2 mmol/L (-3-3) Test 12/04/18 09:40 O2 Saturation 99 % (92-99) Arterial Blood pH 7.15 (7.35-7.45) Arterial Blood pH (Temp corrected) 7.16 Arterial Blood pCO2 at Patient Temp 85 mmHg (35-46) Arterial Blood pCO2 (Temp correct) 83 mmHg Arterial Blood pO2 at Patient Temp 397 mmHg (75-108) Arterial Blood pO2 (Temp corrected) 393 mmHg Arterial Blood HCO3 29 mmol/L (21-28) Arterial Blood Base Excess -2 mmol/L (-3-3) Microbiology Micro Microbiology 11/30/18 Blood Culture - Preliminary, Resulted NO GROWTH AFTER 3 DAYS 11/30/18 Urine Culture - Final, Complete 11/30/18 Urine Culture Result 1 (SWAPNIL) - Final, Complete Physical Exam HEENT: Other (intubated) LUNGS: Other (mechanical ventilation) Heart: S1S2, RRR (SB) Abdomen: Other (soft ) Extremities: 2+ Dorsalis Pedis Neurology: other (off sedation) Assessment Assessment 1. Cardiac arrest; Noted with VT and PEA. Cardioverted twice. Brief episode of AFIB in ED. Episode with junctional 12/03 - BB held. Off Dopamine- now SB. 2. Acute respiratory failure secondary to above. s/p intubation. Sedation off- not waking up. Neuro consulted- brain 3. CAD s/p PCI/stent to LCx and RCA. On DAPT in ASA and Plavix. 4. Diabetes, II. Uncontrolled. A1C 13.1. 5. Chronic systolic HF with ICM; LVEF 45-50%; compensated 6. Hypertension; hypotensive requiring pressor support 7. Polysubstance abuse; UDS + for amphetamines, cocaine and cannabinoids 8. Hematemesis: possibly GI erosion. Hgb stable AZALEA LANGE APRN December 04, 2018 12:01
[2018-12-04] MEDS ORDERED: HEPARIN for SUB-Q USE 5,000 UNIT/ML VIAL. SQ SCH (14:00)
--- NOTE | 2018-12-04 14:51 | PDOC ---
PULMONARY PROGRESS NOTES Subjective NO RESPONSE Vitals Vital Signs Date Time Temp Pulse Resp B/P (MAP) Pulse Ox O2 Delivery O2 Flow Rate FiO2 12/04/18 13:19 100 Ventilator 12/04/18 12:17 98.5 55 14 125/74 (91) 98.5 12/04/18 09:30 6.0 Lungs: Clear Cardiovascular: S1 Abdomen: Soft Extremities: No Edema Skin: Warm Labs Laboratory Tests Test 12/02/18 17:36 12/02/18 23:29 12/03/18 04:54 12/03/18 08:00 Glucose (Fingerstick) 160 mg/dL (70-99) 171 mg/dL (70-99) 190 mg/dL (70-99) O2 Saturation 96 % (92-99) Arterial Blood pH 7.35 (7.35-7.45) Arterial Blood pCO2 at Patient Temp 38 mmHg (35-46) Arterial Blood pO2 at Patient Temp 90 mmHg (75-108) Arterial Blood HCO3 20 mmol/L (21-28) Arterial Blood Base Excess -5 mmol/L (-3-3) FiO2 40 Test 12/03/18 10:10 12/03/18 12:38 12/03/18 19:31 12/03/18 20:00 Sodium Level 143 mmol/L (136-145) Potassium Level 3.5 mmol/L (3.5-5.1) Chloride Level 106 mmol/L (98-107) Carbon Dioxide Level 26 mmol/L (21-32) Anion Gap 11 (6-14) Blood Urea Nitrogen 22 mg/dL (7-20) Creatinine 0.9 mg/dL (0.6-1.0) Estimated GFR (Cockcroft-Gault) 66.0 BUN/Creatinine Ratio 24 (6-20) Glucose Level 213 mg/dL (70-99) Calcium Level 8.7 mg/dL (8.5-10.1) Total Bilirubin 0.4 mg/dL (0.2-1.0) Aspartate Amino Transf (AST/SGOT) 121 U/L (15-37) Alanine Aminotransferase (ALT/SGPT) 52 U/L (14-59) Alkaline Phosphatase 93 U/L (46-116) Total Protein 6.2 g/dL (6.4-8.2) Albumin 2.7 g/dL (3.4-5.0) Albumin/Globulin Ratio 0.8 (1.0-1.7) Glucose (Fingerstick) 198 mg/dL (70-99) 179 mg/dL (70-99) Urine Collection Type Unknown Urine Color Yellow Urine Clarity Clear Urine pH 5.5 Urine Specific Holmes 1.010 Urine Protein Negative mg/dL (NEG-TRACE) Urine Glucose (UA) 500 mg/dL (NEG) Urine Ketones (Stick) 40 mg/dL (NEG) Urine Blood Small (NEG) Urine Nitrite Negative (NEG) Urine Bilirubin Negative (NEG) Urine Urobilinogen Dipstick 0.2 mg/dL (0.2 mg/dL) Urine Leukocyte Esterase Negative (NEG) Urine RBC 1-2 /HPF (0-2) Urine WBC 1-4 /HPF (0-4) Urine Squamous Epithelial Cells Few /LPF Urine Bacteria 0 /HPF (0-FEW) Urine Mucus Mod /LPF Test 12/03/18 23:20 12/04/18 00:01 12/04/18 03:20 12/04/18 05:11 White Blood Count 5.9 x10^3/uL (4.0-11.0) Red Blood Count 3.27 x10^6/uL (3.50-5.40) Hemoglobin 10.1 g/dL (12.0-15.5) Hematocrit 29.8 % (36.0-47.0) Mean Corpuscular Volume 91 fL (79-100) Mean Corpuscular Hemoglobin 31 pg (25-35) Mean Corpuscular Hemoglobin Concent 34 g/dL (31-37) Red Cell Distribution Width 12.6 % (11.5-14.5) Platelet Count 181 x10^3/uL (140-400) Neutrophils (%) (Auto) 71 % (31-73) Lymphocytes (%) (Auto) 20 % (24-48) Monocytes (%) (Auto) 9 % (0-9) Eosinophils (%) (Auto) 0 % (0-3) Basophils (%) (Auto) 1 % (0-3) Neutrophils # (Auto) 4.2 x10^3uL (1.8-7.7) Lymphocytes # (Auto) 1.2 x10^3/uL (1.0-4.8) Monocytes # (Auto) 0.5 x10^3/uL (0.0-1.1) Eosinophils # (Auto) 0.0 x10^3/uL (0.0-0.7) Basophils # (Auto) 0.0 x10^3/uL (0.0-0.2) Sodium Level 139 mmol/L (136-145) 147 mmol/L (136-145) Potassium Level 2.9 mmol/L (3.5-5.1) 3.9 mmol/L (3.5-5.1) Chloride Level 106 mmol/L (98-107) 112 mmol/L (98-107) Carbon Dioxide Level 25 mmol/L (21-32) 24 mmol/L (21-32) Anion Gap 8 (6-14) 11 (6-14) Blood Urea Nitrogen 22 mg/dL (7-20) 18 mg/dL (7-20) Creatinine 1.0 mg/dL (0.6-1.0) 0.9 mg/dL (0.6-1.0) Estimated GFR (Cockcroft-Gault) 58.5 66.0 BUN/Creatinine Ratio 22 (6-20) 20 (6-20) Glucose Level 245 mg/dL (70-99) 236 mg/dL (70-99) Calcium Level 7.2 mg/dL (8.5-10.1) 8.1 mg/dL (8.5-10.1) Total Bilirubin 0.3 mg/dL (0.2-1.0) 0.6 mg/dL (0.2-1.0) Aspartate Amino Transf (AST/SGOT) 93 U/L (15-37) 93 U/L (15-37) Alanine Aminotransferase (ALT/SGPT) 38 U/L (14-59) 41 U/L (14-59) Alkaline Phosphatase 66 U/L (46-116) 84 U/L (46-116) Total Protein 4.7 g/dL (6.4-8.2) 5.4 g/dL (6.4-8.2) Albumin 1.9 g/dL (3.4-5.0) 2.2 g/dL (3.4-5.0) Albumin/Globulin Ratio 0.7 (1.0-1.7) 0.7 (1.0-1.7) Magnesium Level 1.3 mg/dL (1.8-2.4) Glucose (Fingerstick) 214 mg/dL (70-99) Test 12/04/18 08:10 12/04/18 09:40 O2 Saturation 97 % (92-99) 99 % (92-99) Arterial Blood pH 7.39 (7.35-7.45) 7.15 (7.35-7.45) Arterial Blood pH (Temp corrected) 7.41 7.16 Arterial Blood pCO2 at Patient Temp 38 mmHg (35-46) 85 mmHg (35-46) Arterial Blood pCO2 (Temp correct) 36 mmHg 83 mmHg Arterial Blood pO2 at Patient Temp 109 mmHg (75-108) 397 mmHg (75-108) Arterial Blood pO2 (Temp corrected) 99 mmHg 393 mmHg Arterial Blood HCO3 23 mmol/L (21-28) 29 mmol/L (21-28) Arterial Blood Base Excess -2 mmol/L (-3-3) -2 mmol/L (-3-3) Laboratory Tests Test 12/03/18 19:31 12/03/18 20:00 12/03/18 23:20 12/04/18 00:01 Glucose (Fingerstick) 179 mg/dL (70-99) Urine Collection Type Unknown Urine Color Yellow Urine Clarity Clear Urine pH 5.5 Urine Specific Holmes 1.010 Urine Protein Negative mg/dL (NEG-TRACE) Urine Glucose (UA) 500 mg/dL (NEG) Urine Ketones (Stick) 40 mg/dL (NEG) Urine Blood Small (NEG) Urine Nitrite Negative (NEG) Urine Bilirubin Negative (NEG) Urine Urobilinogen Dipstick 0.2 mg/dL (0.2 mg/dL) Urine Leukocyte Esterase Negative (NEG) Urine RBC 1-2 /HPF (0-2) Urine WBC 1-4 /HPF (0-4) Urine Squamous Epithelial Cells Few /LPF Urine Bacteria 0 /HPF (0-FEW) Urine Mucus Mod /LPF White Blood Count 5.9 x10^3/uL (4.0-11.0) Red Blood Count 3.27 x10^6/uL (3.50-5.40) Hemoglobin 10.1 g/dL (12.0-15.5) Hematocrit 29.8 % (36.0-47.0) Mean Corpuscular Volume 91 fL (79-100) Mean Corpuscular Hemoglobin 31 pg (25-35) Mean Corpuscular Hemoglobin Concent 34 g/dL (31-37) Red Cell Distribution Width 12.6 % (11.5-14.5) Platelet Count 181 x10^3/uL (140-400) Neutrophils (%) (Auto) 71 % (31-73) Lymphocytes (%) (Auto) 20 % (24-48) Monocytes (%) (Auto) 9 % (0-9) Eosinophils (%) (Auto) 0 % (0-3) Basophils (%) (Auto) 1 % (0-3) Neutrophils # (Auto) 4.2 x10^3uL (1.8-7.7) Lymphocytes # (Auto) 1.2 x10^3/uL (1.0-4.8) Monocytes # (Auto) 0.5 x10^3/uL (0.0-1.1) Eosinophils # (Auto) 0.0 x10^3/uL (0.0-0.7) Basophils # (Auto) 0.0 x10^3/uL (0.0-0.2) Sodium Level 139 mmol/L (136-145) Potassium Level 2.9 mmol/L (3.5-5.1) Chloride Level 106 mmol/L (98-107) Carbon Dioxide Level 25 mmol/L (21-32) Anion Gap 8 (6-14) Blood Urea Nitrogen 22 mg/dL (7-20) Creatinine 1.0 mg/dL (0.6-1.0) Estimated GFR (Cockcroft-Gault) 58.5 BUN/Creatinine Ratio 22 (6-20) Glucose Level 245 mg/dL (70-99) Calcium Level 7.2 mg/dL (8.5-10.1) Total Bilirubin 0.3 mg/dL (0.2-1.0) Aspartate Amino Transf (AST/SGOT) 93 U/L (15-37) Alanine Aminotransferase (ALT/SGPT) 38 U/L (14-59) Alkaline Phosphatase 66 U/L (46-116) Total Protein 4.7 g/dL (6.4-8.2) Albumin 1.9 g/dL (3.4-5.0) Albumin/Globulin Ratio 0.7 (1.0-1.7) Magnesium Level 1.3 mg/dL (1.8-2.4) Test 12/04/18 03:20 12/04/18 05:11 12/04/18 08:10 12/04/18 09:40 Sodium Level 147 mmol/L (136-145) Potassium Level 3.9 mmol/L (3.5-5.1) Chloride Level 112 mmol/L (98-107) Carbon Dioxide Level 24 mmol/L (21-32) Anion Gap 11 (6-14) Blood Urea Nitrogen 18 mg/dL (7-20) Creatinine 0.9 mg/dL (0.6-1.0) Estimated GFR (Cockcroft-Gault) 66.0 BUN/Creatinine Ratio 20 (6-20) Glucose Level 236 mg/dL (70-99) Calcium Level 8.1 mg/dL (8.5-10.1) Total Bilirubin 0.6 mg/dL (0.2-1.0) Aspartate Amino Transf (AST/SGOT) 93 U/L (15-37) Alanine Aminotransferase (ALT/SGPT) 41 U/L (14-59) Alkaline Phosphatase 84 U/L (46-116) Total Protein 5.4 g/dL (6.4-8.2) Albumin 2.2 g/dL (3.4-5.0) Albumin/Globulin Ratio 0.7 (1.0-1.7) Glucose (Fingerstick) 214 mg/dL (70-99) O2 Saturation 97 % (92-99) 99 % (92-99) Arterial Blood pH 7.39 (7.35-7.45) 7.15 (7.35-7.45) Arterial Blood pH (Temp corrected) 7.41 7.16 Arterial Blood pCO2 at Patient Temp 38 mmHg (35-46) 85 mmHg (35-46) Arterial Blood pCO2 (Temp correct) 36 mmHg 83 mmHg Arterial Blood pO2 at Patient Temp 109 mmHg (75-108) 397 mmHg (75-108) Arterial Blood pO2 (Temp corrected) 99 mmHg 393 mmHg Arterial Blood HCO3 23 mmol/L (21-28) 29 mmol/L (21-28) Arterial Blood Base Excess -2 mmol/L (-3-3) -2 mmol/L (-3-3) Medications Active Scripts Medications Dose Route/Sig Max Daily Dose Days Date Category Simvastatin 40 Mg Tablet 40 Mg PO HS 11/30/18 Reported Lisinopril 10 Mg Tablet 10 Mg PO DAILY 11/30/18 Reported Metformin Hcl 500 Mg Tablet 500 Mg PO DAILY 07/21/17 Reported Impression . IMPRESSION: 1. Out of hospital cardiopulmonary arrest. 2. Respiratory failure secondary to above. 3. Ventricular tachycardia. 4. Polysubstance use. 5. Leukocytosis. 6. Electrolyte abnormalities. 7. Metabolic acidosis. 8. Elevated blood sugars. 9. Elevated liver chemistries. 10. S/P CATH PCI 11 BRAIN BY DEFINITION CATH Conclusion 1. Severe two-vessel coronary artery disease 2. Successful PCI/stents placement to the left circumflex and right coronary arteries Recommendations 1. Aspirin 325 mg daily 2. Plavix 75 mg daily for preferably one year 3. Cardiovascular risk factor modification Plan . POSSIBLE [employer]GAN [employer]OR WILL S/O JEANNETTE TELLEZ MD December 04, 2018 14:51
--- NOTE | 2018-12-04 16:39 | PDOC3 ---
Discharge Summary Visit Information Date of Admission: Nov 30, 2018 Date of Discharge: December 04, 2018 Admitting Diagnosis: Cardiac arrest Final Diagnosis Problems Medical Problems: (1) Aspiration pneumonia Status: Acute (2) Cardiac arrest Status: Acute (3) DKA (diabetic ketoacidoses) Status: Acute (4) Drug overdose Status: Acute (5) Substance abuse Status: Acute Brief Hospital Course Allergies Allergies Coded Allergies Type Severity Reaction Last Updated Verified No Known Drug Allergies 07/21/17 No Vital Signs Vital Signs Date Time Temp Pulse Resp B/P (MAP) Pulse Ox O2 Delivery O2 Flow Rate FiO2 12/04/18 15:23 Ventilator 12/04/18 13:19 100 12/04/18 12:17 98.5 55 14 125/74 (91) 98.5 12/04/18 09:30 6.0 Lab Results Laboratory Tests Test 12/02/18 17:36 12/02/18 23:29 12/03/18 04:54 12/03/18 08:00 Glucose (Fingerstick) 160 mg/dL (70-99) 171 mg/dL (70-99) 190 mg/dL (70-99) O2 Saturation 96 % (92-99) Arterial Blood pH 7.35 (7.35-7.45) Arterial Blood pCO2 at Patient Temp 38 mmHg (35-46) Arterial Blood pO2 at Patient Temp 90 mmHg (75-108) Arterial Blood HCO3 20 mmol/L (21-28) Arterial Blood Base Excess -5 mmol/L (-3-3) FiO2 40 Test 12/03/18 10:10 12/03/18 12:38 12/03/18 19:31 12/03/18 20:00 Sodium Level 143 mmol/L (136-145) Potassium Level 3.5 mmol/L (3.5-5.1) Chloride Level 106 mmol/L (98-107) Carbon Dioxide Level 26 mmol/L (21-32) Anion Gap 11 (6-14) Blood Urea Nitrogen 22 mg/dL (7-20) Creatinine 0.9 mg/dL (0.6-1.0) Estimated GFR (Cockcroft-Gault) 66.0 BUN/Creatinine Ratio 24 (6-20) Glucose Level 213 mg/dL (70-99) Calcium Level 8.7 mg/dL (8.5-10.1) Total Bilirubin 0.4 mg/dL (0.2-1.0) Aspartate Amino Transf (AST/SGOT) 121 U/L (15-37) Alanine Aminotransferase (ALT/SGPT) 52 U/L (14-59) Alkaline Phosphatase 93 U/L (46-116) Total Protein 6.2 g/dL (6.4-8.2) Albumin 2.7 g/dL (3.4-5.0) Albumin/Globulin Ratio 0.8 (1.0-1.7) Glucose (Fingerstick) 198 mg/dL (70-99) 179 mg/dL (70-99) Urine Collection Type Unknown Urine Color Yellow Urine Clarity Clear Urine pH 5.5 Urine Specific [place] 1.010 Urine Protein Negative mg/dL (NEG-TRACE) Urine Glucose (UA) 500 mg/dL (NEG) Urine Ketones (Stick) 40 mg/dL (NEG) Urine Blood Small (NEG) Urine Nitrite Negative (NEG) Urine Bilirubin Negative (NEG) Urine Urobilinogen Dipstick 0.2 mg/dL (0.2 mg/dL) Urine Leukocyte Esterase Negative (NEG) Urine RBC 1-2 /HPF (0-2) Urine WBC 1-4 /HPF (0-4) Urine Squamous Epithelial Cells Few /LPF Urine Bacteria 0 /HPF (0-FEW) Urine Mucus Mod /LPF Test 12/03/18 23:20 12/04/18 00:01 12/04/18 03:20 12/04/18 05:11 White Blood Count 5.9 x10^3/uL (4.0-11.0) Red Blood Count 3.27 x10^6/uL (3.50-5.40) Hemoglobin 10.1 g/dL (12.0-15.5) Hematocrit 29.8 % (36.0-47.0) Mean Corpuscular Volume 91 fL (79-100) Mean Corpuscular Hemoglobin 31 pg (25-35) Mean Corpuscular Hemoglobin Concent 34 g/dL (31-37) Red Cell Distribution Width 12.6 % (11.5-14.5) Platelet Count 181 x10^3/uL (140-400) Neutrophils (%) (Auto) 71 % (31-73) Lymphocytes (%) (Auto) 20 % (24-48) Monocytes (%) (Auto) 9 % (0-9) Eosinophils (%) (Auto) 0 % (0-3) Basophils (%) (Auto) 1 % (0-3) Neutrophils # (Auto) 4.2 x10^3uL (1.8-7.7) Lymphocytes # (Auto) 1.2 x10^3/uL (1.0-4.8) Monocytes # (Auto) 0.5 x10^3/uL (0.0-1.1) Eosinophils # (Auto) 0.0 x10^3/uL (0.0-0.7) Basophils # (Auto) 0.0 x10^3/uL (0.0-0.2) Sodium Level 139 mmol/L (136-145) 147 mmol/L (136-145) Potassium Level 2.9 mmol/L (3.5-5.1) 3.9 mmol/L (3.5-5.1) Chloride Level 106 mmol/L (98-107) 112 mmol/L (98-107) Carbon Dioxide Level 25 mmol/L (21-32) 24 mmol/L (21-32) Anion Gap 8 (6-14) 11 (6-14) Blood Urea Nitrogen 22 mg/dL (7-20) 18 mg/dL (7-20) Creatinine 1.0 mg/dL (0.6-1.0) 0.9 mg/dL (0.6-1.0) Estimated GFR (Cockcroft-Gault) 58.5 66.0 BUN/Creatinine Ratio 22 (6-20) 20 (6-20) Glucose Level 245 mg/dL (70-99) 236 mg/dL (70-99) Calcium Level 7.2 mg/dL (8.5-10.1) 8.1 mg/dL (8.5-10.1) Total Bilirubin 0.3 mg/dL (0.2-1.0) 0.6 mg/dL (0.2-1.0) Aspartate Amino Transf (AST/SGOT) 93 U/L (15-37) 93 U/L (15-37) Alanine Aminotransferase (ALT/SGPT) 38 U/L (14-59) 41 U/L (14-59) Alkaline Phosphatase 66 U/L (46-116) 84 U/L (46-116) Total Protein 4.7 g/dL (6.4-8.2) 5.4 g/dL (6.4-8.2) Albumin 1.9 g/dL (3.4-5.0) 2.2 g/dL (3.4-5.0) Albumin/Globulin Ratio 0.7 (1.0-1.7) 0.7 (1.0-1.7) Magnesium Level 1.3 mg/dL (1.8-2.4) Glucose (Fingerstick) 214 mg/dL (70-99) Test 12/04/18 08:10 12/04/18 09:40 O2 Saturation 97 % (92-99) 99 % (92-99) Arterial Blood pH 7.39 (7.35-7.45) 7.15 (7.35-7.45) Arterial Blood pH (Temp corrected) 7.41 7.16 Arterial Blood pCO2 at Patient Temp 38 mmHg (35-46) 85 mmHg (35-46) Arterial Blood pCO2 (Temp correct) 36 mmHg 83 mmHg Arterial Blood pO2 at Patient Temp 109 mmHg (75-108) 397 mmHg (75-108) Arterial Blood pO2 (Temp corrected) 99 mmHg 393 mmHg Arterial Blood HCO3 23 mmol/L (21-28) 29 mmol/L (21-28) Arterial Blood Base Excess -2 mmol/L (-3-3) -2 mmol/L (-3-3) Laboratory Tests Test 12/03/18 19:31 12/03/18 20:00 12/03/18 23:20 12/04/18 00:01 Glucose (Fingerstick) 179 mg/dL (70-99) Urine Collection Type Unknown Urine Color Yellow Urine Clarity Clear Urine pH 5.5 Urine Specific [place] 1.010 Urine Protein Negative mg/dL (NEG-TRACE) Urine Glucose (UA) 500 mg/dL (NEG) Urine Ketones (Stick) 40 mg/dL (NEG) Urine Blood Small (NEG) Urine Nitrite Negative (NEG) Urine Bilirubin Negative (NEG) Urine Urobilinogen Dipstick 0.2 mg/dL (0.2 mg/dL) Urine Leukocyte Esterase Negative (NEG) Urine RBC 1-2 /HPF (0-2) Urine WBC 1-4 /HPF (0-4) Urine Squamous Epithelial Cells Few /LPF Urine Bacteria 0 /HPF (0-FEW) Urine Mucus Mod /LPF White Blood Count 5.9 x10^3/uL (4.0-11.0) Red Blood Count 3.27 x10^6/uL (3.50-5.40) Hemoglobin 10.1 g/dL (12.0-15.5) Hematocrit 29.8 % (36.0-47.0) Mean Corpuscular Volume 91 fL (79-100) Mean Corpuscular Hemoglobin 31 pg (25-35) Mean Corpuscular Hemoglobin Concent 34 g/dL (31-37) Red Cell Distribution Width 12.6 % (11.5-14.5) Platelet Count 181 x10^3/uL (140-400) Neutrophils (%) (Auto) 71 % (31-73) Lymphocytes (%) (Auto) 20 % (24-48) Monocytes (%) (Auto) 9 % (0-9) Eosinophils (%) (Auto) 0 % (0-3) Basophils (%) (Auto) 1 % (0-3) Neutrophils # (Auto) 4.2 x10^3uL (1.8-7.7) Lymphocytes # (Auto) 1.2 x10^3/uL (1.0-4.8) Monocytes # (Auto) 0.5 x10^3/uL (0.0-1.1) Eosinophils # (Auto) 0.0 x10^3/uL (0.0-0.7) Basophils # (Auto) 0.0 x10^3/uL (0.0-0.2) Sodium Level 139 mmol/L (136-145) Potassium Level 2.9 mmol/L (3.5-5.1) Chloride Level 106 mmol/L (98-107) Carbon Dioxide Level 25 mmol/L (21-32) Anion Gap 8 (6-14) Blood Urea Nitrogen 22 mg/dL (7-20) Creatinine 1.0 mg/dL (0.6-1.0) Estimated GFR (Cockcroft-Gault) 58.5 BUN/Creatinine Ratio 22 (6-20) Glucose Level 245 mg/dL (70-99) Calcium Level 7.2 mg/dL (8.5-10.1) Total Bilirubin 0.3 mg/dL (0.2-1.0) Aspartate Amino Transf (AST/SGOT) 93 U/L (15-37) Alanine Aminotransferase (ALT/SGPT) 38 U/L (14-59) Alkaline Phosphatase 66 U/L (46-116) Total Protein 4.7 g/dL (6.4-8.2) Albumin 1.9 g/dL (3.4-5.0) Albumin/Globulin Ratio 0.7 (1.0-1.7) Magnesium Level 1.3 mg/dL (1.8-2.4) Test 12/04/18 03:20 12/04/18 05:11 12/04/18 08:10 12/04/18 09:40 Sodium Level 147 mmol/L (136-145) Potassium Level 3.9 mmol/L (3.5-5.1) Chloride Level 112 mmol/L (98-107) Carbon Dioxide Level 24 mmol/L (21-32) Anion Gap 11 (6-14) Blood Urea Nitrogen 18 mg/dL (7-20) Creatinine 0.9 mg/dL (0.6-1.0) Estimated GFR (Cockcroft-Gault) 66.0 BUN/Creatinine Ratio 20 (6-20) Glucose Level 236 mg/dL (70-99) Calcium Level 8.1 mg/dL (8.5-10.1) Total Bilirubin 0.6 mg/dL (0.2-1.0) Aspartate Amino Transf (AST/SGOT) 93 U/L (15-37) Alanine Aminotransferase (ALT/SGPT) 41 U/L (14-59) Alkaline Phosphatase 84 U/L (46-116) Total Protein 5.4 g/dL (6.4-8.2) Albumin 2.2 g/dL (3.4-5.0) Albumin/Globulin Ratio 0.7 (1.0-1.7) Glucose (Fingerstick) 214 mg/dL (70-99) O2 Saturation 97 % (92-99) 99 % (92-99) Arterial Blood pH 7.39 (7.35-7.45) 7.15 (7.35-7.45) Arterial Blood pH (Temp corrected) 7.41 7.16 Arterial Blood pCO2 at Patient Temp 38 mmHg (35-46) 85 mmHg (35-46) Arterial Blood pCO2 (Temp correct) 36 mmHg 83 mmHg Arterial Blood pO2 at Patient Temp 109 mmHg (75-108) 397 mmHg (75-108) Arterial Blood pO2 (Temp corrected) 99 mmHg 393 mmHg Arterial Blood HCO3 23 mmol/L (21-28) 29 mmol/L (21-28) Arterial Blood Base Excess -2 mmol/L (-3-3) -2 mmol/L (-3-3) Brief Hospital Course 52-year-old female with history of methamphetamine use apparently passed out in front for mother who called 911. The fire department initially showed up and found her to be in ventricular tachycardia and was given shock therapy via AED. EMS found her to be in PEA and was given 2 doses of epinephrine and 2 doses of Narcan and intubated. She subsequently went into ventricular tachycardia again and was cardioverted. She had an episode of atrial fibrillation in ED that resolved spontaneously. She is presently intubated but showing intermittent purposeful movements per nursing personnel. She does not have any previous history of coronary artery disease. She tested positive for methamphetamine, was admitted for that and a mild element of DKA then to cathode maker s/p [facility] with 2x JORGE. Troponin peaked 121. Did not awaken during sedation holidays and had no purposeful movement during the days seen in ICU, though was apparently making above purposeful movements in the ED. Had fever up to 103 and hypothermia down to 93 12/03/18 and bradycardia and hypertension. Seen by cardiology, neurology, pulmonology. She had a caloric test and apnea test with results positive for brain at 10:05am on 12/04/18 and ventilator was disconnected at 1630 after discussion with family they wish for her not to be an organ donor. Acute respiratory failure secondary to cardiac arrest-on IPPV-11/30/18 Short run A. fib resolved N STEMI-troponin peaks at 121 Rhabdomyolysis possibly in the background of CPR-CK 3000 SIRS reactive secondary to CPR-leukocytosis 15 Anion gap acidosis with a bicarbonate 18 and elevated anion gap 19 - s.p 50 meqs bicarb AK I VMN postcode-creatinine 1.6 Oliguria responding to IV fluids Status post HONK versus DKA-blood sugars better now Hypertension on lisinopril at home Dyslipidemia on simvastatin at home Diabetes on metformin at home S/p cardiac arrest, rhythms include nonsustained V. tach shocked, PEA status post 2 rounds of epinephrine - no hypothermia Greater than 30 minutes spent on day of discharge Discharge Information Condition at Discharge: / Disposition/Orders: Scheduled Lisinopril (Lisinopril) 10 Mg Tablet, 10 MG PO DAILY for HTN, #30 Ref 0 (Reported) Entered as Reported by: NOELLE DIALLO on 11/30/181243 Last Taken: Unknown Dose on Unknown Date & Time Last Action: HELD on 12/01/18840 by JOSE M GARZON Metformin Hcl (Metformin Hcl) 500 Mg Tablet, 500 MG PO DAILY for ANTI-DIABETIC, Ref 0 (Reported) Entered as Reported by: RONY LOPES on 07/21/17 0221 Last Action: HELD on 12/01/18840 by JOSE M GARZON Simvastatin (Simvastatin) 40 Mg Tablet, 40 MG PO HS for HLD, #30 Ref 0 (Reported) Entered as Reported by: NOELLE DIALLO on 11/30/181243 Last Taken: Unknown Dose on Unknown Date & Time Last Action: Converted on 12/01/18840 by JUSTICE LIVE MD December 04, 2018 16:39
--- NOTE | 2018-12-04 18:21 | NUR ---
[id number] Dr Beckwith in ,bedside caloric test w/o response by patient. pupils fixed and dilated,corneal,gag,cough reflex absent. Apnea test ordered pe Dr Beckwith. AM ABGs completed,ventilated 100% x10 min w vent disconnected(passive o2 -L/min down ETTa10 min.no overt or palpated movement of chest detected.... no instability noted for that 10 min time frame. Repeat ABGs 10 min later w resulted PCO2 84.7. Results called to Dr Beckwith. Communication w patients mother ie tests result /findings. Informed loved one was brain and how it was determined. Difficult time 'coping w information. Family members at bedside to assist patients mother.MTN notified,family refused donations. Dr Jacobo in mid afternoon. Family informed of need to extubate. 1630 patient pronounced (cardiac ) . Family uncertain on home. # to call unit w info provided. To taylor 1830
--- NOTE | 2018-12-04 19:08 | CONS ---
DATE OF CONSULTATION: 12/04/2018 REQUESTING PHYSICIAN: Dr. Jacobo. REASON FOR CONSULTATION: Fever, now hypothermia and hypotension. HISTORY OF PRESENT ILLNESS: This is a 52-year-old female with a history of psychiatric illness as well as a drug use, who was found down by mother at home. The patient stopped breathing. The patient was started on CPR and ambulance was called. The patient was found by ambulance to be in V-tach. The patient was shocked. Then, she went into PEA and I think she was shocked twice, CPR was done, intubated and the patient was brought in. Since then, the patient is intubated on a ventilator. Sedation is off and she is not responding. Initially, it appears to be that she was responding a little bit, but now, she is not responding. Also yesterday, initially, she had 102 fever and then something changed yesterday as she started becoming hypotensive, hypothermic. The patient was receiving Zosyn for about three days and vancomycin was added yesterday. The patient also had a cardiac catheterization done and angioplasty done. The patient was found to have cocaine, methamphetamine and cannabinoids in her system. The patient is currently on vancomycin and Zosyn. The patient is orally intubated on ventilator on a vasopressor support in ICU, off sedation and not responding at all. Mother is at the bedside. All the information was obtained through chart review, discussing with the patient's nurse and the patient's mother. No nausea, vomiting, diarrhea noted. PAST MEDICAL HISTORY: Positive for drug use, diabetes, hypertension, hyperlipidemia, depression, history of pancreatitis, has had appendicectomy and oophorectomy. According to mother, she has stopped breathing 3-4 times in the past at home, but she was able to bring her back. SOCIAL HISTORY: Positive for polysubstance abuse. ALLERGIES: No known drug allergies. CURRENT MEDICATIONS: Reviewed. REVIEW OF SYSTEMS: Through the patient's mother and nurse as I mentioned in HPI. PHYSICAL EXAMINATION: GENERAL: Unresponsive female, orally intubated on a ventilator, not in distress on vasopressor support. HEENT: Both pupils are fixed, dilated. NECK: Supple, no JVP, no lymphadenopathy. LUNGS: Bilateral no rhonchi, good air entry. HEART: S1, S2 regular. No gallop or murmur. ABDOMEN: Soft, nontender, no organomegaly. EXTREMITIES: No edema or cyanosis. SKIN: Unremarkable for any cyanosis or skin breakdown or infection. NEUROLOGIC: The patient is not sedated on a ventilator, unresponsive. LABORATORY DATA: White count is down to 5.9 from 26,000, hemoglobin 10.1, platelets are 181,000. BUN and creatinine has improved 18 and 0.9 from when she came in. Liver functions have improved. Troponin was high, has improved. Lactic acid had been up to 3.6. Hemoglobin A1c is 13.1. Toxicology screen is positive for methamphetamine, cocaine and cannabinoids. Urinalysis unremarkable. Chest x-ray is unremarkable. CT of the head was unremarkable. IMPRESSION: 1. Outside hospital cardiac arrest. 2. Polysubstance abuse. 3. Coronary artery disease, status post stenting done as well as troponin leak secondary to the coronary artery disease and/or secondary to cocaine with vasospasms. 4. Respiratory failure. 5. Circulatory failure. 6. Initially fever and now hypothermia. 7. Acute kidney injury, which has improved. 8. Diabetes. 9. Hyperlipidemia. 10. Depression. RECOMMENDATION: Continue vancomycin and Zosyn as was started recently. Supportive care. We will follow the cultures. Discussed with mother at length at bedside. Overall, prognosis is poor. Neurology input is pending. Thank you very much, Dr. Jacobo, for giving me the opportunity to participate in this patient's care. HECTOR EARLY MD DR: SHIVANI/tyler JOB#: [id number] / [id number]
--- NOTE | 2018-12-06 10:21 | EKG ---
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
== END 2018-12-04 18:30 | disposition expired | DRG 981 ==
LOC: ER 09:31 → 1 WEST ICU 10:18
PROVIDERS: ADMIT Internal Medicine; ATTEND Internal Medicine
PROC: 5A1955Z Respiratory Ventilation, Greater than 96 Consecutive Hours (ICD-10-PCS; 2018-11-30)
PROC: 0BH17EZ Insertion of Endotracheal Airway into Trachea, Via Natural or Artificial Opening (ICD-10-PCS; 2018-11-30)
PROC: 4A023N7 Measurement of Cardiac Sampling and Pressure, Left Heart, Percutaneous Approach (ICD-10-PCS; principal; 2018-12-01)
PROC: 02713EZ Dilation of Coronary Artery, Two Arteries with Two Intraluminal Devices, Percutaneous Approach (ICD-10-PCS; 2018-12-01)
PROC: B2111ZZ Fluoroscopy of Multiple Coronary Arteries using Low Osmolar Contrast (ICD-10-PCS; 2018-12-01)
DX: T43.621A Poisoning by amphetamines, accidental (unintentional), initial encounter (principal); I21.4 Non-ST elevation (NSTEMI) myocardial infarction; E11.10 Type 2 diabetes mellitus with ketoacidosis without coma; J69.0 Pneumonitis due to inhalation of food and vomit; J96.00 Acute respiratory failure, unspecified whether with hypoxia or hypercapnia; N17.0 Acute kidney failure with tubular necrosis; I50.22 Chronic systolic (congestive) heart failure; I47.2 Ventricular tachycardia; N17.9 Acute kidney failure, unspecified; K92.0 Hematemesis; M62.82 Rhabdomyolysis; R65.10 Systemic inflammatory response syndrome (SIRS) of non-infectious origin without acute organ dysfunction; I46.2 Cardiac arrest due to underlying cardiac condition; E03.9 Hypothyroidism, unspecified; I25.10 Atherosclerotic heart disease of native coronary artery without angina pectoris; I11.0 Hypertensive heart disease with heart failure; E78.5 Hyperlipidemia, unspecified; I48.91 Unspecified atrial fibrillation; I25.5 Ischemic cardiomyopathy; E78.00 Pure hypercholesterolemia, unspecified; F41.9 Anxiety disorder, unspecified; F32.9 Major depressive disorder, single episode, unspecified; F14.10 Cocaine abuse, uncomplicated; F15.10 Other stimulant abuse, uncomplicated; F12.10 Cannabis abuse, uncomplicated; Z82.49 Family history of ischemic heart disease and other diseases of the circulatory system; Z79.84 Long term (current) use of oral hypoglycemic drugs; Z79.899 Other long term (current) drug therapy; Z90.49 Acquired absence of other specified parts of digestive tract; Y92.89 Other specified places as the place of occurrence of the external cause; T40.5X1A Poisoning by cocaine, accidental (unintentional), initial encounter
CPT/HCPCS: 31500; 36415; 36600; 51702; 70450; 71045; 80047; 80048; 80053; 80061; 80076; 80307; 80329; 81001; 82010; 82140; 82550; 82553; 82805; 82962; 83036; 83605; 83690; 83735; 84100; 84484; 85007; 85025; 85027; 85520; 85610; 85730; 87040; 87086; 92928; 93005; 93306; 93454; 94002; 94003; 96365; 96368; 96375; C1725; C1769; C1876; C1887; C1892; G0480; J0282; J0360; J0583; J1265; J1644; J1815; J2310; J2543; J2704; J3010; J3370; J3475; J3480; J3490; J7030; J7040; J7042; J7050; Q9967; 99291-25; J3246